=== PATIENT | male | born 1955 | race Caucasian/White ===

== ENCOUNTER 2022-11-12 08:38 | Outpatient (OUT) | payer MEDICARE, SELFPAY ==
[2022-11-12 09:18] LABS: Erythrocyte Sedimentation Rate 31 mm/hr (<=20)
[2022-11-12 11:58] LABS: Alanine Aminotransferase 21 U/L (16-63); Albumin Level 3.5 g/dL (3.4-5.0); Aspartate Amino Transferase 25 U/L (15-37); Bilirubin Total 0.6 mg/dL (0.2-1.0); Total Protein 7.7 g/dL (6.4-8.2)
[2022-11-12 12:23] LABS: Alkaline Phosphatase 81 U/L (46-116)
== END 2022-11-12 08:39 | disposition home or self-care (01) ==
LOC: LAB 08:43
PROVIDERS: PCP Family Medicine
DX: M05.79 Rheumatoid arthritis with rheumatoid factor of multiple sites without organ or systems involvement (principal); Z79.899 Other long term (current) drug therapy
CPT/HCPCS: 36415; 80076; 82042; 82247; 84075; 84155; 84450; 84460; 85652

== ENCOUNTER 2023-02-12 08:01 | Outpatient (OUT) | payer MEDICARE, SELFPAY ==
[2023-02-12 08:41] LABS: Basophils Absolute Auto 0.1 10^3/uL (0.0-0.1); Basophils Percent Auto 0.6 % (0.2-2.0); Eosinophils Absolute Auto 0.1 10^3/uL (0.0-0.7); Eosinophils Percent Auto 1.1 % (0.9-7.0); Hematocrit 43.1 % (42.0-54.0); Hemoglobin 14.3 g/dL (14.0-18.0); Immature Granulocytes Abs Auto 0.06 10^3/uL (0.00-0.03); Immature Granulocytes Pct Auto 0.7 % (0.0-0.5); Lymphocytes Absolute Auto 1.8 10^3/uL (1.2-3.8); Lymphocytes Percent Auto 22.5 % (20.5-60.0); Mean Corpuscular HGB Conc 33.2 g/dL (29.9-35.2); Mean Corpuscular Hemoglobin 33.1 pg (25.9-34.0); Mean Corpuscular Volume 99.8 fL (80.0-94.0); Mean Platelet Volume 9.6 fL (9.5-13.5); Monocytes Absolute Auto 0.6 10^3/uL (0.3-0.8); Neutrophils Absolute Auto 5.5 10^3/uL (1.4-6.5); Neutrophils Percent Auto 68.1 % (43.0-75.0); Platelet Count 266 10^3/uL (150-450); Red Blood Count 4.32 10^6/uL (4.70-6.10); Red Cell Distribution Width 15.8 % (11.0-15.0)
[2023-02-12 08:46] LABS: Erythrocyte Sedimentation Rate 61 mm/hr (<=20)
[2023-02-12 08:53] LABS: Alanine Aminotransferase 20 U/L (16-63); Albumin Globulin Ratio 0.9; Albumin Level 3.4 g/dL (3.4-5.0); Alkaline Phosphatase 81 U/L (46-116); Anion Gap 12.1; Aspartate Amino Transferase 24 U/L (15-37); BUN Creatinine Ratio 20.5; Bilirubin Total 0.4 mg/dL (0.2-1.0); Calcium 9.4 mg/dL (8.5-10.1); Carbon Dioxide 29.9 mmol/L (21.0-32.0); Chloride 101 mmol/L (98-107); Estimated GFR (African America >60 (>=60); Estimated GFR (Non-African Ame >60 (>=60); Glucose 97 mg/dL (74-106); Sodium 138 mmol/L (136-145); Total Protein 7.4 g/dL (6.4-8.2)
== END 2023-02-12 08:02 | disposition home or self-care (01) ==
LOC: LAB 08:03
PROVIDERS: PCP Family Medicine
DX: M05.79 Rheumatoid arthritis with rheumatoid factor of multiple sites without organ or systems involvement (principal); Z79.899 Other long term (current) drug therapy
CPT/HCPCS: 36415; 80053; 85025; 85652

== ENCOUNTER 2023-06-19 15:39 | Outpatient (OUT) | payer MEDICARE, SELFPAY ==
[2023-06-19 16:05] LABS: Basophils Percent Auto 0.4 % (0.2-2.0); Eosinophils Absolute Auto 0.1 10^3/uL (0.0-0.7); Hematocrit 41.7 % (42.0-54.0); Immature Granulocytes Abs Auto 0.04 10^3/uL (0.00-0.03); Immature Granulocytes Pct Auto 0.5 % (0.0-0.5); Lymphocytes Absolute Auto 2.8 10^3/uL (1.2-3.8); Lymphocytes Percent Auto 34.1 % (20.5-60.0); Mean Corpuscular HGB Conc 33.6 g/dL (29.9-35.2); Mean Corpuscular Hemoglobin 33.1 pg (25.9-34.0); Mean Corpuscular Volume 98.6 fL (80.0-94.0); Mean Platelet Volume 9.4 fL (9.5-13.5); Monocytes Absolute Auto 0.4 10^3/uL (0.3-0.8); Monocytes Percent Auto 5.2 % (1.7-12.0); Neutrophils Absolute Auto 4.8 10^3/uL (1.4-6.5); Neutrophils Percent Auto 58.8 % (43.0-75.0); Platelet Count 265 10^3/uL (150-450); Red Blood Count 4.23 10^6/uL (4.70-6.10); Red Cell Distribution Width 15.1 % (11.0-15.0); White Blood Count 8.1 10^3/uL (4.0-11.0)
[2023-06-19 17:30] LABS: Erythrocyte Sedimentation Rate 100 mm/hr (<=20)
[2023-06-19 19:13] LABS: Alanine Aminotransferase 18 U/L (16-63); Albumin Globulin Ratio 0.8; Albumin Level 3.5 g/dL (3.4-5.0); Alkaline Phosphatase 91 U/L (46-116); Anion Gap 12.9; Aspartate Amino Transferase 25 U/L (15-37); BUN Creatinine Ratio 18.3; Bilirubin Total 0.4 mg/dL (0.2-1.0); Calcium 9.1 mg/dL (8.5-10.1); Carbon Dioxide 27.3 mmol/L (21.0-32.0); Chloride 103 mmol/L (98-107); Estimated GFR (African America >60 (>=60); Estimated GFR (Non-African Ame >60 (>=60); Globulin 4.4 g/dL; Glucose 78 mg/dL (74-106); Potassium 4.2 mmol/L (3.5-5.1); Sodium 139 mmol/L (136-145); Total Protein 7.9 g/dL (6.4-8.2)
== END 2023-06-19 15:40 | disposition home or self-care (01) ==
LOC: LAB 15:41
PROVIDERS: PCP Family Medicine; Visit Provider Registered Nurse
DX: M05.79 Rheumatoid arthritis with rheumatoid factor of multiple sites without organ or systems involvement (principal); M15.0 Primary generalized (osteo)arthritis; Z79.899 Other long term (current) drug therapy
CPT/HCPCS: 36415; 80053; 85025; 85652

== ENCOUNTER 2023-09-16 09:13 | Outpatient (OUT) | payer MEDICARE, SELFPAY ==
--- OUTSIDE RECORDS SUMMARY | 2023-09-16 09:31 | XMS_ITS | CCD ---
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 Name Role Phone MISC, DR DOCTOR Admitting Unavailable MISC, DR DOCTOR Attending Unavailable SHITALY, DR RAYGOZA Primary Care Unavailable HOY, DR RAYGOZA Consulting Unavailable MISC, DOCTOR Consulting Unavailable MISC, DOCTOR Admitting Unavailable MISC, DOCTOR Attending Unavailable MARILYN, DR RAYGOZA Primary Care Unavailable MISC, DOCTOR Consulting Unavailable MISC, DOCTOR Admitting Unavailable MISC, DOCTOR Attending Unavailable MARILYN, DR RAYGOZA Primary Care Unavailable MISC, DOCTOR Consulting Unavailable MISC, DOCTOR Admitting Unavailable MISC, DOCTOR Attending Unavailable MARILYN, DR RAYGOZA Primary Care Unavailable MISC, DOCTOR Consulting Unavailable Problems Problem Classification Problem Date Documented Da te Episodic/Chronic Other aftercare (1 source) Other snf (current) drug therapy; 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 Jennifer Peralta Basophils/100 WBC (Bld) 0.4 % Normal 0.2-2.0 [facility] Comment on above: Performed By: #### C BC #### [facility] [address] [address] [address] Jennifer Peralta EO # 0.1 103/ul Normal 0.0-0.7 [facility] Comment on above: Performed By: #### C BC #### [facility] [address] [place] [address] Dr. Jennifer Peralta Eosinophils/100 WBC (Bld) 1.0 % Normal 0.9-7.0 [facility] Comment on above: Performed By: #### C BC #### [facility] [address] [place] [address] Dr. Jennifer Peralta Erythrocyte distribution width (RBC) [Ratio] 15.7 % Critically high 11.0-15.0 [facility] Comment on above: Performed By: #### C BC #### [facility] [address] [place] [address] Dr. Jennifer Peralta Hematocrit (Bld) [Volume fraction] 38.2 % Critically low 42.0-54.0 [facility] Comment on above: Performed By: #### C BC #### [facility] [address] [place] [address] Dr. Jennifer Peralta Hemoglobin (Bld) [Mass/Vol] 12.6 g/dL Critically low 14.0-18.0 [facility] Comment on above: Performed By: #### C BC #### [facility] [address] [place] [address] Dr. Jennifer Peralta IG # 0.03 10e3/ul Normal 0.00-0.03 [facility] Comment on above: Performed By: #### C BC #### [facility] [address] [place] [address] Dr. Jennifer Peralta IG % 0.4 % Normal 0.0-0.5 [facility] Comment on above: Performed By: #### C BC #### [facility] [address] [place] [address] Dr. Jennifer Peralta LYMPH # 2.4 103/ul Normal 1.2-3.8 [facility] Comment on above: Performed By: #### C BC #### [facility] [address] [place] [address] Dr. Jennifer Peralta Lymphocytes/100 WBC (Bld) 33.3 % Normal 20.5-60.0 [facility] Comment on above: Performed By: #### C BC #### [facility] [address] [place] [address] Dr. Jennifer Peralta MANUAL DIFF REQ NO Normal [facility] Comment on above: Performed By: #### C BC #### [facility] [address] [place] [address] Dr. Jennifer Peralta MCH (RBC) [Entitic mass] 32.1 pg Normal 25.9-34.0 [facility] Comment on above: Performed By: #### C BC #### [facility] [address] [place] [address] Dr. Jennifer Peralta MCHC (RBC) [Mass/Vol] 33.0 g/dL Normal 29.9-35.2 [facility] Comment on above: Performed By: #### C BC #### [facility] [address] [place] [address] Dr. Jennifer Peralta MCV (RBC) [Entitic vol] 97.2 fL Critically high 80.0-94.0 [facility] Comment on above: Performed By: #### C BC #### [facility] [address] [place] [address] Dr. Jennifer Peralta MONO # 0.6 103/ul Normal 0.3-0.8 [facility] Comment on above: Performed By: #### C BC #### [facility] [address] [place] [address] Dr. Jennifer Peralta Monocytes/100 WBC (Bld) 7.7 % Normal 1.7-12.0 [facility] Comment on above: Performed By: #### C BC #### [facility] [address] [place] [address] Dr. Jennifer Peralta NEUT # 4.1 103/ul Normal 1.4-6.5 [facility] Comment on above: Performed By: #### C BC #### [facility] [address] [place] [address] Dr. Jennifer Peralta Neutrophils/100 WBC (Bld) 57.2 % Normal 43.0-75.0 [facility] Comment on above: Performed By: #### C BC #### [facility] [address] [address] [address] Jennifer Peralta Platelet mean volume (Bld) [Entitic vol] 9.1 fL Critically low 9.5-13.5 [facility] Comment on above: Performed By: #### C BC #### [facility] [address] [address] [address] Jennifer Peralta PLT 246 103/ul Normal 150-450 [facility] Comment on above: Performed By: #### C BC #### [facility] [address] [address] [address] Jennifer Peralta RBC 3.93 106/ul Critically low 4.70-6.10 [facility] Comment on above: Performed By: #### C BC #### [facility] [address] [place] [address] Dr. Jennifer Peralta WBC 7.2 103/ul Normal 4.0-11.0 [facility] Comment on above: Performed By: #### C BC #### [facility] [address] [address] [address] Jennifer Peralta PROF 14(COMP METB)on 022 Albumin [Mass/Vol] 3.5 g/dL Normal 3.4-5.0 [facility] Comment on above: Performed By: #### S EDR #### [facility] [address] [place] [address] Dr. Jennifer Peralta Albumin/Globulin [Mass ratio] 0.9 {ratio} Normal [facility] Comment on above: Performed By: #### S EDR #### [facility] [address] [place] [address] Dr. Jennifer Peralta ALP [Catalytic activity/Vol] 80 U/L Normal 46-116 [facility] Comment on above: Performed By: #### S EDR #### [facility] [address] [place] [address] Dr. Jennifer Peralta ALT [Catalytic activity/Vol] 15 U/L Critically low 16-63 [facility] Comment on above: Performed By: #### S EDR #### [facility] [address] [place] [address] Dr. Jennifer Peralta Anion gap [Moles/Vol] 9.2 mmol/L Normal [facility] Comment on above: Performed By: #### S EDR #### [facility] [address] [address] [address] Jennifer Peralta AST [Catalytic activity/Vol] 25 U/L Normal 15-37 [facility] Comment on above: Performed By: #### S EDR #### [facility] [address] [address] [address] Jennifer Peralta Bilirubin [Mass/Vol] 0.4 mg/dL Normal 0.2-1.0 [facility] Comment on above: Performed By: #### S EDR #### [facility] [address] [place] [address] Dr. Jennifer Peralta Calcium [Mass/Vol] 9.0 mg/dL Normal 8.5-10.1 [facility] Comment on above: Performed By: #### S EDR #### [facility] [address] [place] [address] Dr. Jennifer Peralta Chloride [Moles/Vol] 101 mmol/L Normal 98-107 [facility] Comment on above: Performed By: #### S EDR #### [facility] [address] [place] [address] Dr. Jennifer Peralta CO2 [Moles/Vol] 28.0 mmol/L Normal 21.0-32.0 [facility] Comment on above: Performed By: #### S EDR #### [facility] [address] [place] [address] Dr. Jennifer Peralta Creatinine [Mass/Vol] 0.87 mg/dL Normal 0.70-1.30 [facility] Comment on above: Performed By: #### S EDR #### [facility] [address] [place] [address] Dr. Jennifer Peralta EGFR-AF JAPANESE >60 Normal >=60 [facility] Comment on above: Performed By: #### S EDR #### [facility] [address] [place] [address] Dr. Jennifer Peralta EGFR-NON AF JAPANESE >60 Normal >=60 [facility] Comment on above: Performed By: #### S EDR #### [facility] [address] [place] [address] Dr. Jennifer Peralta Globulin (S) [Mass/Vol] 3.9 g/dL Normal [facility] Comment on above: Performed By: #### S EDR #### [facility] [address] [address] [address] Jennifer Peralta Glucose [Mass/Vol] 84 mg/dL Normal 74-106 [facility] Comment on above: Performed By: #### S EDR #### [facility] [address] [place] [address] Dr. Jennifer Peralta Potassium [Moles/Vol] 4.2 mmol/L Normal 3.5-5.1 [facility] Comment on above: Performed By: #### S EDR #### [facility] [address] [place] [address] Dr. Jennifer Peralta Protein [Mass/Vol] 7.4 g/dL Normal 6.4-8.2 [facility] Comment on above: Performed By: #### S EDR #### [facility] [address] [place] [address] Dr. Jennifer Peralta Sodium [Moles/Vol] 134 mmol/L Critically low 136-145 [facility] Comment on above: Performed By: #### S EDR #### [facility] [address] [place] [address] Dr. Jennifer Peralta Urea nitrogen [Mass/Vol] 18.0 mg/dL Normal 7.0-18.0 [facility] Comment on above: Performed By: #### S EDR #### [facility] [address] [place] [address] Dr. Jennifer Peralta Urea nitrogen/Creatinine [Mass ratio] 20.7 mg/mg Normal [facility] Comment on above: Performed By: #### S EDR #### [facility] [address] [place] [address] Dr. Jennifer Peralta SED RATE [facility] 2021 SED RATE 49 mm/hr Critically high <=20 [facility] Comment on above: Performed By: #### S EDR #### [facility] [address] [place] [address] Dr. Jennifer Peralta CBC AUTO DIFFon 10-02-2021 BASO # 0.0 103/ul Normal 0.0-0.1 [facility] Comment on above: Performed By: #### C BC #### [facility] [address] [place] [address] Dr. Jennifer Peralta Basophils/100 WBC (Bld) 0.4 % Normal 0.2-2.0 [facility] Comment on above: Performed By: #### C BC #### [facility] [address] [place] [address] Dr. Jennifer Peralta EO # 0.1 103/ul Normal 0.0-0.7 [facility] Comment on above: Performed By: #### C BC #### [facility] [address] [place] [address] Dr. Jennifer Peralta Eosinophils/100 WBC (Bld) 1.0 % Normal 0.9-7.0 [facility] Comment on above: Performed By: #### C BC #### [facility] [address] [place] [address] Dr. Jennifer Peralta Erythrocyte distribution width (RBC) [Ratio] 16.5 % Critically high 11.0-15.0 [facility] Comment on above: Performed By: #### C BC #### [facility] [address] [place] [address] Dr. Jennifer Peralta Hematocrit (Bld) [Volume fraction] 38.7 % Critically low 42.0-54.0 [facility] Comment on above: Performed By: #### C BC #### [facility] [address] [place] [address] Dr. Jennifer Peralta Hemoglobin (Bld) [Mass/Vol] 12.8 g/dL Critically low 14.0-18.0 [facility] Comment on above: Performed By: #### C BC #### [facility] [address] [place] [address] Dr. Jennifer Peralta IG # 0.02 10e3/ul Normal 0.00-0.03 [facility] Comment on above: Performed By: #### C BC #### [facility] [address] [place] [address] Dr. Jennifer Peralta IG % 0.3 % Normal 0.0-0.5 [facility] Comment on above: Performed By: #### C BC #### [facility] [address] [place] [address] Dr. Jennifer Peralta LYMPH # 2.8 103/ul Normal 1.2-3.8 [facility] Comment on above: Performed By: #### C BC #### [facility] [address] [place] [address] Dr. Jennifer Peralta Lymphocytes/100 WBC (Bld) 39.8 % Normal 20.5-60.0 [facility] Comment on above: Performed By: #### C BC #### [facility] [address] [place] [address] Dr. Jennifer Peralta MANUAL DIFF REQ NO Normal [facility] Comment on above: Performed By: #### C BC #### [facility] [address] [place] [address] Dr. Jennifer Peralta MCH (RBC) [Entitic mass] 32.3 pg Normal 25.9-34.0 [facility] Comment on above: Performed By: #### C BC #### [facility] [address] [place] [address] Dr. Jennifer Peralta MCHC (RBC) [Mass/Vol] 33.1 g/dL Normal 29.9-35.2 [facility] Comment on above: Performed By: #### C BC #### [facility] [address] [place] [address] Dr. Jennifer Peralta MCV (RBC) [Entitic vol] 97.7 fL Critically high 80.0-94.0 [facility] Comment on above: Performed By: #### C BC #### [facility] [address] [place] [address] Dr. Jennifer Peralta MONO # 0.7 103/ul Normal 0.3-0.8 [facility] Comment on above: Performed By: #### C BC #### [facility] [address] [place] [address] Dr. Jennifer Peralta Monocytes/100 WBC (Bld) 9.2 % Normal 1.7-12.0 [facility] Comment on above: Performed By: #### C BC #### [facility] [address] [place] [address] Dr. Jennifer Peralta NEUT # 3.5 103/ul Normal 1.4-6.5 [facility] Comment on above: Performed By: #### C BC #### [facility] [address] [place] [address] Dr. Jennifer Peralta Neutrophils/100 WBC (Bld) 49.3 % Normal 43.0-75.0 [facility] Comment on above: Performed By: #### C BC #### [facility] [address] [place] [address] Dr. Jennifer Peralta Platelet mean volume (Bld) [Entitic vol] 9.3 fL Critically low 9.5-13.5 [facility] Comment on above: Performed By: #### C BC #### [facility] [address] [place] [address] Dr. Jennifer Peralta PLT 230 103/ul Normal 150-450 [facility] Comment on above: Performed By: #### C BC #### [facility] [address] [place] [address] Dr. Jennifer Peralta RBC 3.96 106/ul Critically low 4.70-6.10 [facility] Comment on above: Performed By: #### C BC #### [facility] [address] [place] [address] Dr. Jennifer Peralta WBC 7.1 103/ul Normal 4.0-11.0 [facility] Comment on above: Performed By: #### C BC #### [facility] [address] [place] [address] Dr. Jennifer Peralta PROF 14(COMP METB)on 022 Albumin [Mass/Vol] 3.5 g/dL Normal 3.4-5.0 [facility] Comment on above: Performed By: #### C MP #### [facility] [address] [place] [address] Dr. Jennifer Peralta Albumin/Globulin [Mass ratio] 0.9 {ratio} Normal [facility] Comment on above: Performed By: #### C MP #### [facility] [address] [address] [address] Jennifer Peralta ALP [Catalytic activity/Vol] 78 U/L Normal 46-116 [facility] Comment on above: Performed By: #### C MP #### [facility] [address] [address] [address] Jennifer Peralta ALT [Catalytic activity/Vol] 23 U/L Normal 16-63 [facility] Comment on above: Performed By: #### C MP #### [facility] [address] [place] [address] Dr. Jennifer Peralta Anion gap [Moles/Vol] 9.8 mmol/L Normal [facility] Comment on above: Performed By: #### C MP #### [facility] [address] [place] [address] Dr. Jennifer Peralta AST [Catalytic activity/Vol] 27 U/L Normal 15-37 [facility] Comment on above: Performed By: #### C MP #### [facility] [address] [place] [address] Dr. Jennifer Peralta Bilirubin [Mass/Vol] 0.4 mg/dL Normal 0.2-1.0 [facility] Comment on above: Performed By: #### C MP #### [facility] [address] [place] [address] Dr. Jennifer Peralta Calcium [Mass/Vol] 9.0 mg/dL Normal 8.5-10.1 [facility] Comment on above: Performed By: #### C MP #### [facility] [address] [place] [address] Dr. Jennifer Peralta Chloride [Moles/Vol] 105 mmol/L Normal 98-107 [facility] Comment on above: Performed By: #### C MP #### [facility] [address] [address] [address] Jennifer Peralta CO2 [Moles/Vol] 29.7 mmol/L Normal 21.0-32.0 [facility] Comment on above: Performed By: #### C MP #### [facility] [address] [address] [address] Jennifer Peralta Creatinine [Mass/Vol] 0.98 mg/dL Normal 0.70-1.30 [facility] Comment on above: Performed By: #### C MP #### [facility] [address] [address] [address] Jennifer Peralta EGFR-AF JAPANESE >60 Normal >=60 [facility] Comment on above: Performed By: #### C MP #### [facility] [address] [place] [address] Dr. Jennifer Peralta EGFR-NON AF JAPANESE >60 Normal >=60 [facility] Comment on above: Performed By: #### C MP #### [facility] [address] [place] [address] Dr. Jennifer Peralta Globulin (S) [Mass/Vol] 3.8 g/dL Normal [facility] Comment on above: Performed By: #### C MP #### [facility] [address] [place] [address] Dr. Jennifer Peralta Glucose [Mass/Vol] 83 mg/dL Normal 74-106 [facility] Comment on above: Performed By: #### C MP #### [facility] [address] [address] [address] Jennifer Peralta Potassium [Moles/Vol] 4.5 mmol/L Normal 3.5-5.1 [facility] Comment on above: Performed By: #### C MP #### [facility] [address] [place] [address] Dr. Jennifer Peralta Protein [Mass/Vol] 7.3 g/dL Normal 6.4-8.2 [facility] Comment on above: Performed By: #### C MP #### [facility] [address] [place] [address] Dr. Jennifer Peralta Sodium [Moles/Vol] 140 mmol/L Normal 136-145 [facility] Comment on above: Performed By: #### C MP #### [facility] [address] [place] [address] Dr. Jennifer Peralta Urea nitrogen [Mass/Vol] 23.0 mg/dL Critically high 7.0-18.0 [facility] Comment on above: Performed By: #### C MP #### [facility] [address] [place] [address] Dr. Jennifer Peralta Urea nitrogen/Creatinine [Mass ratio] 23.5 mg/mg Normal [facility] Comment on above: Performed By: #### C MP #### [facility] [address] [place] [address] Dr. Jennifer Peralta SED RATE [facility] 2021 SED RATE 22 mm/hr Critically high <=20 [facility] Comment on above: Performed By: #### S EDR #### [facility] [address] [place] [address] Dr. Jennifer Peralta CBC AUTO DIFFon 07-04-2021 BASO # 0.0 103/ul Normal 0.0-0.1 [facility] Comment on above: Performed By: #### S EDR #### [facility] [address] [place] [address] Dr. Jennifer Peralta Basophils/100 WBC (Bld) 0.3 % Normal 0.2-2.0 [facility] Comment on above: Performed By: #### S EDR #### [facility] [address] [place] [address] Dr. Jennifer Peralta EO # 0.1 103/ul Normal 0.0-0.7 [facility] Comment on above: Performed By: #### S EDR #### [facility] [address] [place] [address] Dr. Jennifer Peralta Eosinophils/100 WBC (Bld) 1.1 % Normal 0.9-7.0 [facility] Comment on above: Performed By: #### S EDR #### [facility] [address] [place] [address] Dr. Jennifer Peralta Erythrocyte distribution width (RBC) [Ratio] 17.3 % Critically high 11.0-15.0 [facility] Comment on above: Performed By: #### S EDR #### [facility] [address] [place] [address] Dr. Jennifer Peralta Hematocrit (Bld) [Volume fraction] 39.6 % Critically low 42.0-54.0 [facility] Comment on above: Performed By: #### S EDR #### [facility] [address] [place] [address] Dr. Jennifer Peralta Hemoglobin (Bld) [Mass/Vol] 13.0 g/dL Critically low 14.0-18.0 [facility] Comment on above: Performed By: #### S EDR #### [facility] [address] [place] [address] Dr. Jennifer Peralta IG # 0.02 10e3/ul Normal 0.00-0.03 [facility] Comment on above: Performed By: #### S EDR #### [facility] [address] [place] [address] Dr. Jennifer Peralta IG % 0.3 % Normal 0.0-0.5 [facility] Comment on above: Performed By: #### S EDR #### [facility] [address] [place] [address] Dr. Jennifer Peralta LYMPH # 2.4 103/ul Normal 1.2-3.8 [facility] Comment on above: Performed By: #### S EDR #### [facility] [address] [place] [address] Dr. Jennifer Peralta Lymphocytes/100 WBC (Bld) 38.1 % Normal 20.5-60.0 [facility] Comment on above: Performed By: #### S EDR #### [facility] [address] [place] [address] Dr. Jennifer Peralta MANUAL DIFF REQ NO Normal [facility] Comment on above: Performed By: #### S EDR #### [facility] [address] [place] [address] Dr. Jennifer Peralta MCH (RBC) [Entitic mass] 31.5 pg Normal 25.9-34.0 [facility] Comment on above: Performed By: #### S EDR #### [facility] [address] [address] [address] Jennifer Peralta MCHC (RBC) [Mass/Vol] 32.8 g/dL Normal 29.9-35.2 [facility] Comment on above: Performed By: #### S EDR #### [facility] [address] [address] [address] Jennifer Peralta MCV (RBC) [Entitic vol] 95.9 fL Critically high 80.0-94.0 [facility] Comment on above: Performed By: #### S EDR #### [facility] [address] [address] [address] Jennifer Peralta MONO # 0.6 103/ul Normal 0.3-0.8 [facility] Comment on above: Performed By: #### S EDR #### [facility] [address] [place] [address] Dr. Jennifer Peralta Monocytes/100 WBC (Bld) 9.1 % Normal 1.7-12.0 [facility] Comment on above: Performed By: #### S EDR #### [facility] [address] [place] [address] Dr. Jennifer Peralta NEUT # 3.2 103/ul Normal 1.4-6.5 [facility] Comment on above: Performed By: #### S EDR #### [facility] [address] [place] [address] Dr. Jennifer Peralta Neutrophils/100 WBC (Bld) 51.1 % Normal 43.0-75.0 [facility] Comment on above: Performed By: #### S EDR #### [facility] [address] [place] [address] Dr. Jennifer Peralta Platelet mean volume (Bld) [Entitic vol] 9.0 fL Critically low 9.5-13.5 [facility] Comment on above: Performed By: #### S EDR #### [facility] [address] [address] [address] Jennifer Peralta PLT 218 103/ul Normal 150-450 [facility] Comment on above: Performed By: #### S EDR #### [facility] [address] [address] [address] Jennifer Peralta RBC 4.13 106/ul Critically low 4.70-6.10 [facility] Comment on above: Performed By: #### S EDR #### [facility] [address] [address] [address] Jennifer Peralta WBC 6.3 103/ul Normal 4.0-11.0 [facility] Comment on above: Performed By: #### S EDR #### [facility] [address] [place] [address] Dr. Jennifer Peralta PROF 14(COMP METB)on 022 Albumin [Mass/Vol] 3.6 g/dL Normal 3.5-5.0 [facility] Comment on above: Performed By: #### C MP #### [facility] [address] [place] [address] Dr. Jennifer Peralta Albumin/Globulin [Mass ratio] 0.9 {ratio} Normal [facility] Comment on above: Performed By: #### C MP #### [facility] [address] [place] [address] Dr. Jennifer Peralta ALP [Catalytic activity/Vol] 80 U/L Normal 38-126 [facility] Comment on above: Performed By: #### C MP #### [facility] [address] [place] [address] Dr. Jennifer Peralta ALT [Catalytic activity/Vol] 18 U/L Critically low 21-72 [facility] Comment on above: Performed By: #### C MP #### [facility] [address] [place] [address] Dr. Jennifer Peralta Anion gap [Moles/Vol] 10.5 mmol/L Normal [facility] Comment on above: Performed By: #### C MP #### [facility] [address] [place] [address] Dr. Jennifer Peralta AST [Catalytic activity/Vol] 24 U/L Normal 17-59 [facility] Comment on above: Performed By: #### C MP #### [facility] [address] [address] [address] Jennifer Peralta Bilirubin [Mass/Vol] 0.4 mg/dL Normal 0.2-1.3 [facility] Comment on above: Performed By: #### C MP #### [facility] [address] [address] [address] Jennifer Peralta Calcium [Mass/Vol] 8.7 mg/dL Normal 8.4-10.2 [facility] Comment on above: Performed By: #### C MP #### [facility] [address] [address] [address] Jennifer Peralta Chloride [Moles/Vol] 100 mmol/L Normal 98-107 [facility] Comment on above: Performed By: #### C MP #### [facility] [address] [address] [address] Jennifer Peralta CO2 [Moles/Vol] 26.9 mmol/L Normal 22.0-30.0 [facility] Comment on above: Performed By: #### C MP #### [facility] [address] [address] [address] Jennifer Peralta Creatinine [Mass/Vol] 0.93 mg/dL Normal 0.66-1.25 [facility] Comment on above: Performed By: #### C MP #### [facility] [address] [address] [address] Jennifer Peralta EGFR-AF JAPANESE >60 Normal >=60 [facility] Comment on above: Performed By: #### C MP #### [facility] [address] [address] [address] Jennifer Peralta EGFR-NON AF JAPANESE >60 Normal >=60 [facility] Comment on above: Performed By: #### C MP #### [facility] [address] [address] [address] Jennifer Peralta Globulin (S) [Mass/Vol] 3.9 g/dL Normal [facility] Comment on above: Performed By: #### C MP #### [facility] [address] [address] [address] Jennifer Peralta Glucose [Mass/Vol] 102 mg/dL Normal 74-106 [facility] Comment on above: Performed By: #### C MP #### [facility] [address] [address] [address] Jennifer Peralta Potassium [Moles/Vol] 4.4 mmol/L Normal 3.4-5.0 [facility] Comment on above: Performed By: #### C MP #### [facility] [address] [address] [address] Jennifer Peralta Protein [Mass/Vol] 7.5 g/dL Normal 6.1-8.2 [facility] Comment on above: Performed By: #### C MP #### [facility] [address] [address] [address] Jennifer Peralta Sodium [Moles/Vol] 133 mmol/L Critically low 137-145 [facility] Comment on above: Performed By: #### C MP #### [facility] [address] [address] [address] Jennifer Peralta Urea nitrogen [Mass/Vol] 20.0 mg/dL Normal 9.0-20.0 [facility] Comment on above: Performed By: #### C MP #### [facility] [address] [address] [address] Jennifer Peralta Urea nitrogen/Creatinine [Mass ratio] 21.5 mg/mg Normal [facility] Comment on above: Performed By: #### C MP #### [facility] [address] [address] [address] Jennifer Peralta SED RATE WESTERGRENon 2021 SED RATE 35 mm/hr Critically high <=20 [facility] Comment on above: Performed By: #### S EDR #### [facility] [address] [address] [address] Jennifer Peralta CBC AUTO DIFFon 04-04-2021 BASO # 0.0 103/ul Normal 0.0-0.1 [facility] Comment on above: Performed By: #### C BC #### [facility] [address] [place] [address] Dr. Jennifer Peralta Basophils/100 WBC (Bld) 0.4 % Normal 0.2-2.0 [facility] Comment on above: Performed By: #### C BC #### [facility] [address] [place] [address] Dr. Jennifer Peralta EO # 0.1 103/ul Normal 0.0-0.7 [facility] Comment on above: Performed By: #### C BC #### [facility] [address] [place] [address] Dr. Jennifer Peralta Eosinophils/100 WBC (Bld) 1.6 % Normal 0.9-7.0 [facility] Comment on above: Performed By: #### C BC #### [facility] [address] [place] [address] Dr. Jennifer Peralta Erythrocyte distribution width (RBC) [Ratio] 15.9 % Critically high 11.0-15.0 [facility] Comment on above: Performed By: #### C BC #### [facility] [address] [place] [address] Dr. Jennifer Peralta Hematocrit (Bld) [Volume fraction] 39.2 % Critically low 42.0-54.0 [facility] Comment on above: Performed By: #### C BC #### [facility] [address] [place] [address] Dr. Jennifer Peralta Hemoglobin (Bld) [Mass/Vol] 12.8 g/dL Critically low 14.0-18.0 [facility] Comment on above: Performed By: #### C BC #### [facility] [address] [place] [address] Dr. Jennifer Peralta IG # 0.02 10e3/ul Normal 0.00-0.03 [facility] Comment on above: Performed By: #### C BC #### [facility] [address] [place] [address] Dr. Jennifer Peralta IG % 0.4 % Normal 0.0-0.5 [facility] Comment on above: Performed By: #### C BC #### [facility] [address] [place] [address] Dr. Jennifer Peralta LYMPH # 2.5 103/ul Normal 1.2-3.8 [facility] Comment on above: Performed By: #### C BC #### [facility] [address] [place] [address] Dr. Jennifer Peralta Lymphocytes/100 WBC (Bld) 45.8 % Normal 20.5-60.0 [facility] Comment on above: Performed By: #### C BC #### [facility] [address] [place] [address] Dr. Jennifer Peralta MANUAL DIFF REQ NO Normal [facility] Comment on above: Performed By: #### C BC #### [facility] [address] [place] [address] Dr. Jennifer Peralta MCH (RBC) [Entitic mass] 30.8 pg Normal 25.9-34.0 [facility] Comment on above: Performed By: #### C BC #### [facility] [address] [place] [address] Dr. Jennifer Peralta MCHC (RBC) [Mass/Vol] 32.7 g/dL Normal 29.9-35.2 [facility] Comment on above: Performed By: #### C BC #### [facility] [address] [place] [address] Dr. Jennifer Peralta MCV (RBC) [Entitic vol] 94.5 fL Critically high 80.0-94.0 [facility] Comment on above: Performed By: #### C BC #### [facility] [address] [place] [address] Dr. Jennifer Peralta MONO # 0.6 103/ul Normal 0.3-0.8 [facility] Comment on above: Performed By: #### C BC #### [facility] [address] [place] [address] Dr. Jennifer Peralta Monocytes/100 WBC (Bld) 10.7 % Normal 1.7-12.0 [facility] Comment on above: Performed By: #### C BC #### [facility] [address] [address] [address] Jennifer Peralta NEUT # 2.3 103/ul Normal 1.4-6.5 [facility] Comment on above: Performed By: #### C BC #### [facility] [address] [address] [address] Jennifer Peralta Neutrophils/100 WBC (Bld) 41.1 % Critically low 43.0-75.0 [facility] Comment on above: Performed By: #### C BC #### [facility] [address] [address] [address] Jennifer Peralta Platelet mean volume (Bld) [Entitic vol] 9.9 fL Normal 9.5-13.5 [facility] Comment on above: Performed By: #### C BC #### [facility] [address] [address] [address] Jennifer Peralta PLT 214 103/ul Normal 150-450 [facility] Comment on above: Performed By: #### C BC #### [facility] [address] [address] [address] Jennifer Peralta RBC 4.15 106/ul Critically low 4.70-6.10 [facility] Comment on above: Performed By: #### C BC #### [facility] [address] [address] [address] Jennifer Peralta WBC 5.5 103/ul Normal 4.0-11.0 [facility] Comment on above: Performed By: #### C BC #### [facility] [address] [address] [address] Jennifer Peralta PROF 14(COMP METB)on 021 Albumin [Mass/Vol] 3.3 g/dL Critically low 3.5-5.0 [facility] Comment on above: Performed By: #### C MP #### [facility] [address] [address] [address] Jennifer Peralta Albumin/Globulin [Mass ratio] 0.8 {ratio} Normal [facility] Comment on above: Performed By: #### C MP #### [facility] [address] [address] [address] Jennifer Peralta ALP [Catalytic activity/Vol] 73 U/L Normal 38-126 [facility] Comment on above: Performed By: #### C MP #### [facility] [address] [place] [address] Dr. Jennifer Peralta ALT [Catalytic activity/Vol] 15 U/L Critically low 21-72 [facility] Comment on above: Performed By: #### C MP #### [facility] [address] [place] [address] Dr. Jennifer Peralta Anion gap [Moles/Vol] 9.2 mmol/L Normal [facility] Comment on above: Performed By: #### C MP #### [facility] [address] [place] [address] Dr. Jennifer Peralta AST [Catalytic activity/Vol] 23 U/L Normal 17-59 [facility] Comment on above: Performed By: #### C MP #### [facility] [address] [place] [address] Dr. Jennifer Peralta Bilirubin [Mass/Vol] 0.4 mg/dL Normal 0.2-1.3 [facility] Comment on above: Performed By: #### C MP #### [facility] [address] [place] [address] Dr. Jennifer Peralta Calcium [Mass/Vol] 8.8 mg/dL Normal 8.4-10.2 [facility] Comment on above: Performed By: #### C MP #### [facility] [address] [place] [address] Dr. Jennifer Peralta Chloride [Moles/Vol] 100 mmol/L Normal 98-107 [facility] Comment on above: Performed By: #### C MP #### [facility] [address] [place] [address] Dr. Jennifer Peralta CO2 [Moles/Vol] 30.1 mmol/L Critically high 22.0-30.0 [facility] Comment on above: Performed By: #### C MP #### [facility] [address] [address] [address] Jennifer Peralta Creatinine [Mass/Vol] 0.93 mg/dL Normal 0.66-1.25 [facility] Comment on above: Performed By: #### C MP #### [facility] [address] [address] [address] Jennifer Peralta EGFR-AF JAPANESE >60 Normal >=60 [facility] Comment on above: Performed By: #### C MP #### [facility] [address] [address] [address] Jennifer Peralta EGFR-NON AF JAPANESE >60 Normal >=60 [facility] Comment on above: Performed By: #### C MP #### [facility] [address] [place] [address] Dr. Jennifer Peralta Globulin (S) [Mass/Vol] 3.9 g/dL Normal [facility] Comment on above: Performed By: #### C MP #### [facility] [address] [address] [address] Jennifer Peralta Glucose [Mass/Vol] 95 mg/dL Normal 74-106 [facility] Comment on above: Performed By: #### C MP #### [facility] [address] [place] [address] Dr. Jennifer Peralta Potassium [Moles/Vol] 4.3 mmol/L Normal 3.4-5.0 [facility] Comment on above: Performed By: #### C MP #### [facility] [address] [address] [address] Jennifer Peralta Protein [Mass/Vol] 7.2 g/dL Normal 6.1-8.2 [facility] Comment on above: Performed By: #### C MP #### [facility] [address] [place] [address] Dr. Jennifer Peralta Sodium [Moles/Vol] 135 mmol/L Critically low 137-145 [facility] Comment on above: Performed By: #### C MP #### [facility] [address] [place] [address] Dr. Jennifer Peralta Urea nitrogen [Mass/Vol] 17.0 mg/dL Normal 9.0-20.0 [facility] Comment on above: Performed By: #### C MP #### [facility] [address] [address] [address] Jennifer Peralta Urea nitrogen/Creatinine [Mass ratio] 18.3 mg/mg Normal [facility] Comment on above: Performed By: #### C MP #### [facility] [address] [place], [place] [address] Dr. Jennifer Peralta SED RATE [facility] 2020 SED RATE 76 mm/hr Critically high <=20 [facility] Comment on above: Performed By: #### S EDR #### [facility] [address] [place] [address] Dr. Jennifer Peralta Coding Summary.on 11-27-2018 Coding Summary. CODING DATE: 11/27/2018 FINAL [facility] STATUS: Home (Routine DC) PAYOR: Bobbi APC DESCRIPTION 8980 Level 5 Musculoskeletal Procedures ADMIT DX: REASON FOR VISIT DX: M17.11 Unilateral primary osteoarthritis, right knee FINAL DX: PRINCIPAL: M17.11 Unilateral primary osteoarthritis, right knee SECONDARY: M05.761 Rheumatoid arthritis with rheumatoid factor of right knee without organ or systems involvement M25.361 Other instability, right knee M85.80 Other specified disorders of bone density and structure, unspecified site E87.1 Hypo-osmolality and hyponatremia E87.8 Other disorders of electrolyte and fluid balance, not elsewhere classified F17.210 Nicotine dependence, cigarettes, uncomplicated PYMT PROC APC STAT DESCRIPTION DOCTOR NAME DATE 92862 7813 J1 Arthroplasty, knee, Zain Coughlin DO 11/25/2018 condyle and plateau; medial AND lateral compartments with or without patella resurfacing (total knee arthroplasty) RT Right side (used to identify procedures performed on the right side of the body) 35645 Injection, anesthetic Florencio Ignacio MD 11/25/2018 agent; femoral nerve, single RT Right side (used to identify procedures performed on the right side of the body) XP Separate practitioner, a service that is distinct because it was performed by a different practitioner [id number] Anesthesia for open or Florencio Ignacio MD 11/25/2018 surgical arthroscopic procedures on knee joint; total knee arthroplasty NOTE: The code number assigned matches the documented diagnosis and / or procedure in the patient's chart. However, the narrative phrase printed from the coding software may appear abbreviated, or result in slightly different terminology. Revised Coded By: Rosina Machado Revised Date Saved: 11/27/2018 11:46 am [facility] Operative Reporton 9 Operative Report Date of Surgery: 11/25/2018 SURGEON: Florencio Ignacio M.D. OPERATION: Right ultrasound guided single shot adductor canal block for postoperative pain control ANESTHESIA: 2 mg. of Versed PROCEDURE: The patient was interviewed and examined. Anesthetic options for postoperative pain control were discussed in great detail. After a lengthy discussion encompassing the risks, benefits and alternatives of the procedure, the patient elected to undergo the procedure. In the Block Room the patient was placed on routine monitors, the vital signs were reviewed, landmarks were reviewed, and the site was prepped in a sterile fashion. Visualization of the adductor canal was good. Then a 21 gauge 110 mm. Pajunk needle was advance with excellent ultrasound visualization. There were no paresthesias, and under direct ultrasound visualization 15 cc. of a 0.25% Naropin solution was insulin-dependent diabetes with frequent aspiration. There were no signs of intraneural or intravascular injection, and the patient tolerated the procedure very well. Within several minutes the patient began to show signs and symptoms of a successful blockade. The patient was then transported back to the Operating Room and spinal/monitored anesthesia for the planned procedure. Florencio Ignacio M.D. aek Dictated: 11/25/2018 #[id number] Typed: 11/25/2018 #[id number] cc: Florencio Ignacio M.D. [facility] Comment on above: Result Comment: Elec tronically Signed By: Florencio Ignacio MD\.br\Date and Time Signed: 11/27/18 15:00 EDT Progress Note-Physicianon Progress Note-Physician Patient: ANGUS LUCIO Age: 63 years Sex: Male : 1955 Associated Diagnoses: None Author: Florencio Ignacio MD Preoperative Information Anesthesia history: Patient History: No personal or Family history of problems with anesthesia. Re-eval prior to induction: Inital eval reviewed: No significant interval change. Review of Systems Constitutional: Negative. Cardiovascular: Cardiovascular risk stratafacation reviewed, 1 FOS without difficulty, No chest pain. Respiratory: No SOB. Hematology/Lymphatics: Negative. Gastrointestinal: Negative. Musculoskeletal: OTHER. Neurologic: Negative. Psychiatric: Negative. Health Status Allergies: Allergic Reactions (Selected) No Known Allergies Current medications: (Selected) Inpatient Medications Ordered Arixtra 2.5 mg/0.5 mL Injection: 2.5 mg = 0.5 mL, Injection, SubCutaneous, qAM for 10 day(s), Stop date 12/06/18 6:29:00 EDT, Routine, Start date 11/26/18 6:30:00 EDT, Start AM postop day 1 Cefazolin 2 gram IVPB: 2 gram = 50 mL, Soln-IV, IV Piggyback, PREOP, Routine, Start date 11/25/18 10:30:00 EDT, 50 mL/hr, Infuse over 1 hour(s) Cefazolin 2 gram IVPB: 2 gram = 50 mL, Soln-IV, IV Piggyback, q8hr for 2 dose(s), Stop date 11/26/18 0:59:00 EDT, Routine, Start date 11/25/18 9:00:00 EDT, 50 mL/hr, Infuse over 1 hour(s) CeleBREX 200 mg Cap: 200 mg = 1 cap(s), Cap, Oral, Once, Stop date 11/25/18 11:00:00 EDT, Routine, Start date 11/25/18 11:00:00 EDT Colace 100 mg Cap: 100 mg = 1 cap(s), Cap, Oral, BID, Routine, Start date 11/25/18 21:00:00 EDT Dulcolax 5 mg Tab-EC: 10 mg = 2 tab(s), Tab-EC, Oral, Daily PRN Constipation, Routine, Start date 11/27/18 9:00:00 EDT Lactated Ringers IV Petra 1000 mL 1,000 mL: 1,000 mL, IV, 150 mL/hr, Routine, Start date 11/25/18 10:30:00 EDT, 6.7 hour(s), Total volume (mL): 1,000 Lactated Ringers IV Petra 1000 mL 1,000 mL: 1,000 mL, IV, 80 mL/hr, Routine, Start date 11/25/18 9:00:00 EDT, 12.5 hour(s), Total volume (mL): 1,000 Lyrica 75 mg Cap: 75 mg = 1 cap(s), Cap, Oral, Once, Stop date 11/25/18 11:00:00 EDT, Routine, Start date 11/25/18 11:00:00 EDT Milk of Magnesia 8% Susp-Oral: 30 mL, Susp-Oral, Oral, BID PRN Constipation, Routine, Start date 11/25/18 9:00:00 EDT Pantoprazole [address] Tab: 40 mg = 1 tab(s), Tab-DR, Oral, Daily, Routine, Start date 11/26/18 9:00:00 EDT Percocet 325 mg-5 mg Tab: 1 tab(s), Tab, Oral, q4hr PRN Pain - Moderate for 5 day(s), Stop date 11/30/18 8:59:00 EDT, Routine, Start date 11/25/18 9:00:00 EDT Percocet 325 mg-5 mg Tab: 2 tab(s), Tab, Oral, q4hr PRN Pain - Moderate for 5 day(s), Stop date 11/30/18 8:59:00 EDT, Routine, Start date 11/25/18 9:00:00 EDT Tylenol 325 mg Tab: 650 mg = 2 tab(s), Tab, Oral, q4hr PRN Pain/Fever, Routine, Start date 11/25/18 9:00:00 EDT Vitamin C 500 mg Tab: 500 mg = 1 tab(s), Tab, Oral, BIDWM, Routine, Start date 11/25/18 17:00:00 EDT Zofran 4 mg/2 mL Injection: 4 mg = 2 mL, Injection, IV Push, q6hr PRN Nausea/Vomiting, Routine, Start date 11/25/18 9:00:00 EDT ferrous sulfate 325 mg Tab: 325 mg = 1 tab(s), Tab, Oral, BIDWM, Routine, Start date 11/25/18 17:00:00 EDT folic acid 1 mg Tab: 1 mg = 1 tab(s), Tab, Oral, Daily, Routine, Start date 11/26/18 9:00:00 EDT morphine 2 mg/mL Inj: 2 mg = 1 mL, Injection, IV, q4hr PRN Pain - Severe for 5 day(s), Stop date 11/30/18 8:59:00 EDT, Routine, Start date 11/25/18 9:00:00 EDT morphine 2 mg/mL Inj: 4 mg = 2 mL, Injection, IV Push, q4hr PRN Pain - Severe for 5 day(s), Stop date 11/30/18 8:59:00 EDT, Routine, Start date 11/25/18 9:00:00 EDT Prescriptions Prescribed Colace 100 mg Cap: 100 mg = 1 cap(s), Oral, BID, PRN for constipation, # 40 cap(s), Refills(s) 0, Pharmacy: [facility]/pharmacy #[id number] Ecotrin 325 mg Tab-EC: 325 mg = 1 tab(s), Oral, BIDPC, # 60 tab(s), Refills(s) 0, Pharmacy: [facility]/pharmacy #[id number] Percocet 325 mg-5 mg Tab: See Instructions, as needed for pain, 40 tab(s), Refill(s) 0, 1-2 orally every 4-6hrs as needed for pain Dx: M17.11, Z96.651 Duration: 7 days, [facility]/pharmacy #[id number] Documented Medications Documented CeleBREX 200 mg Cap: 200 mg = 1 cap(s), Oral, Daily, Refills(s) 0, Arthritis Xeljanz XR 11 mg oral tablet, extended release: 11 mg = 1 tab(s), Oral, Daily, Refills(s) 0, Arthritis aspirin 81 mg Oral EC Tab: 81 mg = 1 tab(s), Oral, Daily, Refills(s) 0, Prophylaxis folic acid 1 mg Tab: 1 mg = 1 tab(s), Oral, Daily, Refills(s) 0, Prophylaxis methotrexate 2.5 mg Tab: 25 mg = 10 tab(s), Oral, q7day, # 4 tab(s), Refills(s) 0, Arthritis omeprazole 20 mg Cap-DR: 20 mg = 1 cap(s), Oral, Daily, # 30 cap(s), Refills(s) 0, Control of stomach acid predniSONE 5 mg Tab: 5 mg = 1 tab(s), Oral, Daily, PRN Arthritis, states takes 1 daily for 2 or 3 days only when has a flare up of his arthritis, Refills(s) 0, Arthritis Problem list: All Problems Rheumatoid arthritis / SNOMED CT 398067737 / Confirmed Smoker / SNOMED CT 416608001 / Confirmed Added secondary to documentation in Social History. Decreased vision / SNOMED CT 3230775467 / Confirmed left eye Osteoarthritis of knee / SNOMED CT 545686168 / Confirmed right Histories Past Medical History: No active or resolved past medical history items have been selected or recorded. Procedure history: inguinal hernia repair, right. Comments: 11/03/2018 15:39 - Katlyn Savage RN age 17 inguinal hernia repair with mesh. Comments: 11/03/2018 15:40 - Katlyn Savage RN right in 2014 Social History Social & Psychosocial Habits Alcohol 11/03/2018 Risk Assessment: Denies Alcohol Use Substance Abuse 11/03/2018 Use: Current Type: Marijuana Frequency: 1-2 times per week Previous treatment: None IV drug use: No Has drug use interfered with your work or home life? No Ready to change: No Concerns about substance abuse in household: No Comment: smokes marijuana on weekends- instructed to stop 7 days before surgery - 11/03/2018 15:51 - Katlyn Savage RN Tobacco 11/03/2018 Type: Cigarettes Tobacco use per day: 20 Number of years: 40 Previous treatment: None Ready to change: No Concerns about tobacco use in household: No Comment: wants to try Nicotine patches- instructed to call Dr. Garcia to get some to try before surgery and if he doesn't have any problems to put one on at midnight the night before surgery and wear in the day of surgery. - 11/03/2018 15:50 - Katlyn Savage RN. Physical Examination Pain assessment: Self-reports no pain. Airway: Mallampati classification: II (soft palate, fauces, uvula visible). Distance: Adequate. Mouth: Adequate opening. Neck: Full range of motion. Respiratory: Respirations are non-labored. Cardiovascular: Regular rhythm. Neurologic: Alert, Oriented. Review / Management Results review: No qualifying data available. Plan [place] [employer] Anesthesiologists (ASA) physical status classification: Class II. Anesthetic Preoperative Plan Anesthesia: General. , Regional block for post op pain control., discussed the benefits of obstaining from tobacco products. Anesthetic plan, risks, benefits, and alternatives discussed with the patient and/or family. Patient verbalized understanding. Pt agrees with anesthetic plan and accepts all risks including but not limited to; Bleeding, infection, nerve injury, dental injury, eye injury, headache, low blood pressure, serious problems with the heart and lungs, allergic reactions, failed block and .. Normal [facility] Comment on above: Result Comment: Elec tronically Signed By: Mateus FLEMING, Florencio\.br\Date and Time Signed: 11/27/18 14:59 EDT Auto Diffon 11-26-2018 Basophils/100 WBC (Bld) 0.1 % Normal 0.0-2.0 [facility] Comment on above: Order Comment: Order Added by Amrik Expert. Performed By: #### 2 087488, 4519160, 7380580, 91129251, 7903753, 7797685 #### [facility] [address] [place] [address] Basophils/Leukocytes Auto (Bld) [Pure # fraction] 0.0 E9/L Normal 0.0-0.2 [facility] Comment on above: Order Comment: Order Added by Amrik Expert. Performed By: #### 2 104896, 5729852, 0993894, 51103707, 8522401, 9093126 #### [facility] [address] [place] [address] Eosinophils/100 WBC (Bld) 1.1 % Normal 0.0-8.0 [facility] Comment on above: Order Comment: Order Added by Amrik Expert. Performed By: #### 2 985406, 5645829, 4420397, 60600375, 6341648, 6217883 #### [facility] [address] [place] [address] Eosinophils/Leukocytes Auto (Bld) [Pure # fraction] 0.1 E9/L Normal 0.0-0.5 [facility] Comment on above: Order Comment: Order Added by Discern Expert. Performed By: #### 2 095465, 1889492, 2447607, 15181803, 9523095, 9344984 #### [facility] [address] [place] [address] Lymphocytes/100 WBC (Bld) 25.4 % Normal 14.0-50.0 [facility] Comment on above: Order Comment: Order Added by Discern Expert. Performed By: #### 2 075729, 3309792, 3083786, 24612537, 8947424, 9346322 #### [facility] [address] [place] [address] Lymphocytes/Leukocytes Auto (Bld) [Pure # fraction] 2.1 E9/L Normal 1.0-4.0 [facility] Comment on above: Order Comment: Order Added by Discern Expert. Performed By: #### 2 894159, 2812637, 5234171, 77746131, 6872549, 6654804 #### [facility] [address] [place] [address] Monocytes/100 WBC (Bld) 9.5 % Normal 4.0-14.0 [facility] Comment on above: Order Comment: Order Added by Discern Expert. Performed By: #### 2 530329, 7805082, 9502477, 99374269, 1763259, 8590675 #### [facility] [address] [place] [address] Monocytes/Leukocytes Auto (Bld) [Pure # fraction] 0.8 E9/L Normal 0.2-1.0 [facility] Comment on above: Order Comment: Order Added by Discern Expert. Performed By: #### 2 033043, 8722611, 8469147, 22017023, 3909444, 2295416 #### [facility] [address] [place] [address] Neutrophils/100 WBC (Bld) 63.9 % Normal 36.0-75.0 [facility] Comment on above: Order Comment: Order Added by Discern Expert. Performed By: #### 2 992417, 8045566, 1158912, 04839523, 0216932, 3714379 #### [facility] [address] [place] [address] Neutrophils/Leukocytes Auto (Bld) [Pure # fraction] 5.2 E9/L Normal 2.0-7.5 [facility] Comment on above: Order Comment: Order Added by Discern Expert. Performed By: #### 2 696115, 6771698, 4741482, 30740474, 3929810, 6480354 #### [facility] [address] [place] [address] BUNon 11-26-2018 Urea nitrogen [Mass/Vol] 19 mg/dL Normal 5-21 [facility] Comment on above: Performed By: #### 2 710584, 6575605, 9416442, 41822899, 2561351, 8588290 #### [facility] [address] [place] [address] CBC w/ Auto Diffon 9 Erythrocyte distribution width (RBC) [Ratio] 16.1 % High 10.9-14.2 [facility] Comment on above: Performed By: #### 2 472275, 0330450, 6416851, 19420150, 8865087, 1725004 #### [facility] [address] [place] [address] Hematocrit (Bld) [Volume fraction] 34.8 % Low 37.7-49.0 [facility] Comment on above: Performed By: #### 2 658175, 8601734, 3828026, 60267422, 0042140, 8124814 #### [facility] [address] [place] [address] Hemoglobin (Bld) [Mass/Vol] 11.6 g/dL Low 13.5-17.5 [facility] Comment on above: Performed By: #### 2 128336, 4260668, 9255618, 72776188, 7926291, 2289047 #### [facility] [address] [place] [address] MCH (RBC) [Entitic mass] 33.0 pg Normal 27.0-34.0 [facility] Comment on above: Performed By: #### 2 068165, 2259489, 7137819, 34713011, 9377922, 5641748 #### [facility] [address] [place] [address] MCHC (RBC) [Mass/Vol] 33.5 g/dL Normal 33.3-35.7 [facility] Comment on above: Performed By: #### 2 905684, 4790671, 1241300, 07423566, 4716621, 6829633 #### [facility] [address] [place], [place] [address] MCV (RBC) [Entitic vol] 98.6 fL Normal 80.0-100.0 [facility] Comment on above: Performed By: #### 2 970919, 1613311, 9222997, 05542071, 7210152, 2102859 #### [facility] [address] [place] [address] Platelet mean volume (Bld) [Entitic vol] 7.4 fL Normal 6.4-10.8 [facility] Comment on above: Performed By: #### 2 631120, 8719815, 9293505, 24798461, 3976593, 3367839 #### [facility] [address] [place], [place] [address] Platelets (Bld) [#/Vol] 193.0 E9/L Normal 150.0-500.0 [facility] Comment on above: Performed By: #### 2 436632, 2004526, 6433362, 82852904, 8708996, 3098899 #### [facility] [address] [place], [place] [address] RBC (Bld) [#/Vol] 3.5 E12/L Low 4.3-5.9 [facility] Comment on above: Performed By: #### 2 706350, 2524032, 2949079, 35379654, 6261385, 2477142 #### [facility] [address] [place] [address] WBC corrected for nucl RBC Auto (Bld) [#/Vol] 8.1 E9/L Normal 4.0-11.0 [facility] Comment on above: Performed By: #### 2 852420, 1086819, 8614388, 39500429, 3652548, 6949879 #### [facility] [address] [place] [address] Creatinineon 11-26-2018 Creatinine [Mass/Vol] 0.8 mg/dL Normal 0.5-1.3 [facility] Comment on above: Performed By: #### 2 434436, 3723013, 9087607, 27343743, 0455231, 3089063 #### [facility] [address] [place] [address] Discharge Note-Nursingon Discharge Note-Nursing Patient provided with discharge instructions, education and extra mepilex dressing. Patient states no questions or concerns. Patient taken by wheelchair to patient pick-up by Cynthia POCT. Normal [facility] Inpatient Clinical Summaryon 11-26-2018 Inpatient Clinical Summary [address] [address] Clinical Summary Person Information: Name: ANGUS LUCIO Age: 63 Years : 1955 12:00 AM Sex: Male PCP: Junito Garcia MD Marital Status: Phone: [phone] Race: White Ethnicity: Non- or Language: Mauritanian Visit Id: Visit Reason: RIGHT KNEE OA Speciality: Acuity: Enc Type: Ambulatory/Same Day Surgery Med Service: Surgery Arrival: 11/25/2018 10:09 AM Discharge: Dispo Type: Address: [address] [place] [id number] Provider Notes: Diagnosis: Problems Active Smoker Smoking Status: Functional Status: Sensory Deficits: History of Falls: Mobility Assistance Prior to Admission: ADLs: Minimal assistance Current Level of Assistance for Self-Care/Mobility: Cognitive Status: Allergies No Known Allergies Measurements: Height: Weight: 64.5 kg Blood Pressure: 145 mmHg / 75 mmHg BMI: Procedures Total knee arthroplasty (11/25/2018) Arthroplasty of knee joint using cement (11/25/2018) Immunizations No Immunizations Documented This Visit Final Med List: acetaminophen (Tylenol 325 mg Tab) 2 Tabs By Mouth every 4 hours as needed Pain/Fever. acetaminophen-oxycodon e (Percocet 325 mg-5 mg Tab) 1-2 orally every 4-6hrs as needed for pain Dx: M17.11, Z96.651 Duration: 7 days; as needed as needed for pain. Refills: 0. ascorbic acid (Vitamin C 500 mg Tab) 1 Tabs By Mouth twice a day (with meals). aspirin (Ecotrin 325 mg Tab-EC) 1 Tabs By Mouth twice a day (after meals). Refills: 0. docusate (Colace 100 mg Cap) 1 Capsules By Mouth 2 times a day as needed for constipation. Refills: 0. folic acid (folic acid 1 mg Tab) 1 Tabs By Mouth every day. magnesium hydroxide (Milk of Magnesia 8% Susp-Oral) 30 Milliliter By Mouth 2 times a day as needed Constipation. methotrexate (methotrexate 2.5 mg Tab) 10 Tabs By Mouth every 7 days. nicotine (nicotine 21 mg/24 hr Transderm ER Film) 1 Patches Transdermal every day. omeprazole (omeprazole 20 mg Cap-DR) 1 Capsules By Mouth every day. predniSONE (predniSONE 5 mg Tab) 1 Tabs By Mouth every day as needed Arthritis. states takes 1 daily for 2 or 3 days only when has a flare up of his arthritis. tofacitinib (Xeljanz XR 11 mg oral tablet, extended release) 1 Tabs By Mouth every day. Care Team Members: Attending Physician: Zain Coughlin DO Consulting Physician: Referring Physician: Zain Coughlin DO Follow up: With: Address: When: Zain Coughlin [address] [place] [address] Business (1) 12/24/2018 10:30 AM With: Address: When: Junito Garcia [address] [place] [address] [place] [address] Business (1) Comments: Call if needed. Patient Education Information: [facility] - Total Knee Arthroplasty. Revised 07/11/11. (Custom) [facility] Inpatient Patient Summaryon 11-26-2018 Inpatient Patient Summary [facility] [address] [place], [place] [address] Patient Discharge Instructions PERSON INFORMATION Name: ANGUS LUCIO Date of : 1955 12:00 AM Current Date: 11/26/18 11:29:10 PHYSICIANS Admitting Physician: Zain oCughlin DO Primary Care Physician: Junito Garcia MD PCP Comment: Discharge Diagnosis: Condition at Discharge: Stable ANGUS LUCIO has been given the following list of follow-up instructions, prescriptions, and patient education materials: PATIENT FOLLOW-UP INFORMATION Diet: Discharge Activity: Discharge Restrictions: Wound Care Instructions: Remove Your Dressing In Days Call Your Doctor For: Return to Work: IF UNABLE TO CONTACT YOUR PHYSICIAN AND YOU FEEL IT IS AN EMERGENCY, GO TO THE NEAREST EMERGENCY ROOM OR CALL 911 Home Treatment: Devices/Equipment: Special Services: Additional Instructions: Primary Care Physician to provide the following pending test results: None Follow up: With: Address: When: Zain Couhglin [address] [place] [address] Business (1) 12/24/2018 10:30 AM With: Address: When: Junito Gracia [address] [place] [address], [facility] [place] [address] Business (1) Comments: Call if needed. In the event that this physician does not participate in your insurance network, please consult with your insurance company to find a nearby participating provider. Comment: I, NAVEEDANGUS, have received the attached patient education materials/instructions and have verbalized understanding: Patient Signature Date Clinican/Nurse Signature ___ Date HERE ARE THE MEDICATION CHANGES THAT OCCURRED DURING YOUR HOSPITAL STAY New Medications Other Medications acetaminophen (Tylenol 325 mg Tab) 2 Tabs By Mouth every 4 hours as needed Pain/Fever. Last Dose: ___Next Dose: ___ ascorbic acid (Vitamin C 500 mg Tab) 1 Tabs By Mouth twice a day (with meals). Last Dose: ___Next Dose: ___ magnesium hydroxide (Milk of Magnesia 8% Susp-Oral) 30 Milliliter By Mouth 2 times a day as needed Constipation. Last Dose: ___Next Dose: ___ Medications to Continue Taking That Have Changed [id number], [address], [place] [id number], [phone] START: aspirin (Ecotrin 325 mg Tab-EC) 1 Tabs By Mouth twice a day (after meals). Refills: 0. Last Dose: ___Next Dose: ___ STOP: aspirin (aspirin 81 mg Oral EC Tab) 1 Tabs By Mouth every day. Other Medications START: nicotine (nicotine 21 mg/24 hr Transderm ER Film) 1 Patches Transdermal every day. Last Dose: ___Next Dose: ___ Medications to Continue with No Changes [id number], [address], [place] [id number], [phone] acetaminophen-oxycodon e (Percocet 325 mg-5 mg Tab) 1-2 orally every 4-6hrs as needed for pain Dx: M17.11, Z96.651 Duration: 7 days; as needed as needed for pain. Refills: 0., 1-2 orally every 4-6hrs as needed for pain Last Dose: ___Next Dose: ___ docusate (Colace 100 mg Cap) 1 Capsules By Mouth 2 times a day as needed for constipation. Refills: 0. Last Dose: ___Next Dose: ___ Other Medications folic acid (folic acid 1 mg Tab) 1 Tabs By Mouth every day. Last Dose: ___Next Dose: ___ methotrexate (methotrexate 2.5 mg Tab) 10 Tabs By Mouth every 7 days. Last Dose: ___Next Dose: ___ omeprazole (omeprazole 20 mg Cap-DR) 1 Capsules By Mouth every day. Last Dose: ___Next Dose: ___ predniSONE (predniSONE 5 mg Tab) 1 Tabs By Mouth every day as needed Arthritis. states takes 1 daily for 2 or 3 days only when has a flare up of his arthritis. Last Dose: ___Next Dose: ___ tofacitinib (Xeljanz XR 11 mg oral tablet, extended release) 1 Tabs By Mouth every day. Last Dose: ___Next Dose: ___ No Longer Take the Following Medications celecoxib (CeleBREX 200 mg Cap) 1 Capsules By Mouth every day. Comment: MEDICATION LIST PROVIDED FOR YOU IS A LIST OF YOUR CURRENT MEDICATIONS. PLEASE CARRY THIS WITH YOU AT ALL TIMES. acetaminophen (Tylenol 325 mg Tab) 2 Tabs By Mouth every 4 hours as needed Pain/Fever. acetaminophen-oxycodon e (Percocet 325 mg-5 mg Tab) 1-2 orally every 4-6hrs as needed for pain Dx: M17.11, Z96.651 Duration: 7 days; as needed as needed for pain. Refills: 0. ascorbic acid (Vitamin C 500 mg Tab) 1 Tabs By Mouth twice a day (with meals). aspirin (Ecotrin 325 mg Tab-EC) 1 Tabs By Mouth twice a day (after meals). Refills: 0. docusate (Colace 100 mg Cap) 1 Capsules By Mouth 2 times a day as needed for constipation. Refills: 0. folic acid (folic acid 1 mg Tab) 1 Tabs By Mouth every day. magnesium hydroxide (Milk of Magnesia 8% Susp-Oral) 30 Milliliter By Mouth 2 times a day as needed Constipation. methotrexate (methotrexate 2.5 mg Tab) 10 Tabs By Mouth every 7 days. nicotine (nicotine 21 mg/24 hr Transderm ER Film) 1 Patches Transdermal every day. omeprazole (omeprazole 20 mg Cap-DR) 1 Capsules By Mouth every day. predniSONE (predniSONE 5 mg Tab) 1 Tabs By Mouth every day as needed Arthritis. states takes 1 daily for 2 or 3 days only when has a flare up of his arthritis. tofacitinib (Xeljanz XR 11 mg oral tablet, extended release) 1 Tabs By Mouth every day. [facility] Comment: PATIENT EDUCATION INFORMATION Instructions: [place], [place] [facility] DISCHARGE INSTRUCTIONS TOTAL KNEE ARTHROPLASTY INCISION CARE: Continue the daily dressing care to the knee as instructed in the hospital for 7 days postoperatively. The dressing will then be changed and worn an additional 7 days. You may then discontinue the dressing changes. Please notify the office if any increase in redness, tenderness, drainage, fever, or wound separation is noted. Compression stockings may be helpful if any significant or uncomfortable swelling in the legs is noted postoperatively. Use and removal instructions should be given by physical therapy. If the swelling is below the knee, knee high compression stockings may suffice. If this does cause swelling into the thigh region, waist high compression stockings may be beneficial as well. These can be obtained from most pharmacies, or can be obtained from the hospital or through Home Health. The mild grade compression stockings are best used initially. You may need assistance when applying or removing the compression stockings. MEDICATIONS: You may resume your home medications at the time of discharge. Take 1 Ecotrin Aspirin (325 mg) twice daily with food for an additional month. Pain medication has been prescribed as well. You may continue to use the pain medication every four hours as needed. Any narcotic pain medication can cause side effects including stomach upset, constipation, or light-headedness. You should not drive or operate machinery, or use alcohol while using the narcotic pain medication. You should not use other pain medications with this prescription pain medication unless further directed by your physician. PHYSICAL THERAPY: Continue the range of motion and strengthening exercises initiated in Physical Therapy in the hospital. [facility] Discharge Instructions for TKA Page 2 Physical Therapy Cont. Continue weight bearing, as ordered, to the operated knee for four to six weeks as directed in Physical Therapy, or until your strength is improved and Physical Therapy will then allow you to progress to full weight. This will be with the use of a walker or crutches initially. After four or six weeks you may then progress to the use of one crutch, or a cane. A quad-cane is preferred as this is more stable. Physical therapy as begun in the hospital will continue at home, possible with the patient support assistant of Home Health Physical Therapy or in the hospital as an outpatient. When you have become independent with the physical therapy program, this will then be discontinued as a supervised program and you will be instructed to continue the physical therapy exercises at home. Your exercises are fields to successful rehabilitation. You should gain full extension first, hopefully before hospital discharge, then continue to do the exercises to maintain this, and gain 90 degrees flexion by one month post-op. Do the exercises daily, twice if preferred. DRIVING: Do NOT Drive FOLLOW-UP OFFICE VISIT: 4 weeks postop. Zain Coughlin DO [facility] [address] [place] [address] Reviewed: 4-08 Revised 05/31 Medication Leaflets: Thank you for choosing [facility] Normal [facility] Interdisciplinary Note - Shola e Manageron 11-26-2018 Interdisciplinary Note - Electronic Console Display Operator Pt is awake and alert in chair. PCP verified and insurance information reviewed. DME discussed. Contact inforrmation provided and white board updated. Pt is with [facility] program for therapy at [place]. Aware of anticiapted [place] home today and has transportation at [place]. Observation status discussed. Denies any further concerns or DC needs. Normal [facility] Interdisciplinary Note - Ortiz n 11-26-2018 Interdisciplinary Note - OT OT eval completed this date. Pt ind with dressing without need for equipment, has DME for tub/shower. May need toilet safety frame to avoid pulling on pedestal sink. Recommend [facility] program assess further. Educated pt on walker safety and provided walker bag. Daughter can assist with groceries, some cleaning and laundry prn. No further OT needs at this time. Normal [facility] Lyteson 11-26-2018 Anion gap [Moles/Vol] 12 mmol/L Normal 6-[address] [facility] Comment on above: Performed By: #### 2 544887, 1802391, 4165331, 04621059, 3408993, 8273905 #### [facility] [address] [place] [address] Chloride [Moles/Vol] 99 mmol/L Low 101-[address] [facility] Comment on above: Performed By: #### 2 483341, 8847956, 8112702, 05978509, 8092467, 2236624 #### [facility] [address] [place] [address] CO2 [Moles/Vol] 24 mmol/L Normal 21-31 [facility] Comment on above: Performed By: #### 2 258580, 1026058, 4308887, 85709978, 1460789, 8918989 #### [facility] [address] [place] [address] Potassium [Moles/Vol] 4.3 mmol/L Normal 3.5-5.3 [facility] Comment on above: Performed By: #### 2 122493, 4972489, 6906413, 51918718, 0796671, 0516146 #### [facility] [address] [place] [address] Sodium [Moles/Vol] 131 mmol/L Low 135-145 [facility] Comment on above: Performed By: #### 2 364581, 9350100, 1145137, 95413751, 5759531, 4153424 #### [facility] [address] [place] [address] Main OR Intraoperative Recor don 11-26-2018 Main OR Intraoperative Record IntraOp Document Type FT Summary Primary Physician: Zain Coughlin DO Finalized Date/Time: 11/26/18 10:56:45 Pt. Name: ANGUS LUCIO/Sex: 1955 Male Med Rec #: [id number] Physician: Zain Coughlin DO Financial #: [id number] Pt. Type: A Room/Bed: N318/01 Admit/Disch: 11/25/18 10:09:49 - Institution: Case Times FT Entry 1 Patient Times In Room 11/25/18 11:37:00 Out Room 11/25/18 13:49:00 Procedure Times Start 11/25/18 12:10:00 Stop 11/25/18 13:45:00 Anesthesia Times Start 11/25/18 11:37:00 Stop 11/25/18 13:49:00 Block Timeout w/ 11/25/18 11:10:00 Anesthesia Last Modified By: Franci Ignacio CST 11/25/18 13:51:36 General Comments: Block performed under ultrasound guidance by . Gilbert, RN to assist with the block. Patient tolerated block well. 11/26/18 Chart opened to review and send gonsalo Ignacio FLIGHT SERVICE SPECIALIST Case Attendance FT Entry 1 Entry 2 Entry 3 Case Attendee Flex CAA, Eleanor Coughlin DO, Zain Longoria DO, Koko T Role Performed Anesthesiologist Surgeon - Primary Surgeon - Assist 1 Wildlife Biology Technician Time In 11/25/18 11:37:00 11/25/18 11:59:00 11/25/18 12:18:00 Time Out 11/25/18 13:49:00 11/25/18 13:41:00 11/25/18 13:49:00 Procedure KNEE TOTAL KNEE TOTAL KNEE TOTAL ARTHROPLASTY(Right) ARTHROPLASTY(Right) ARTHROPLASTY(Right) Comments , ANESTHESIA INFORMATION TECHNOLOGY SPECIALIST. Last Modified By: Ileana RN, Todd Tejeda RN, Todd Tejeda RN, Todd Durand 11/25/18 13:51:47 11/25/18 13:51:47 11/25/18 13:51:47 Entry 4 Entry 5 Entry 6 Case Attendee Ileana JACQUES, Todd Mccloud RN, Mike Garcia CST, May Donald Role Performed Planetarium Sky Show Technician - Primary Planetarium Sky Show Technician - Primary Scrub - Primary Time In 11/25/18 11:37:00 11/25/18 11:57:00 11/25/18 11:37:00 Time Out 11/25/18 13:49:00 11/25/18 13:49:00 11/25/18 13:49:00 Procedure KNEE TOTAL KNEE TOTAL KNEE TOTAL ARTHROPLASTY(Right) ARTHROPLASTY(Right) ARTHROPLASTY(Right) Comments Last Modified By: Ileana RN, Todd Tejeda RN, Todd Tejeda RN, Todd Durand 11/25/18 13:51:47 11/25/18 13:51:47 11/25/18 13:51:47 Entry 7 Entry 8 Entry 9 Case Attendee Amanda PRETTY, Nancy Mon RN, Noemy Cervantes RN, Michael Role Performed Scrub - Other Staff - Other Staff - Other Time In 11/25/18 11:37:00 11/25/18 11:37:00 11/25/18 11:37:00 Time Out 11/25/18 13:49:00 11/25/18 11:51:00 11/25/18 12:07:00 Procedure KNEE TOTAL KNEE TOTAL KNEE TOTAL ARTHROPLASTY(Right) ARTHROPLASTY(Right) ARTHROPLASTY(Right) Comments IN ORIENTATION Last Modified By: Todd Tejeda RN, RN, Todd Altamirano RN 11/25/18 13:51:47 11/25/18 13:51:47 11/25/18 13:51:47 General Comments: King Shipley, [employer] [facility] rep, present in the OR for surgical procedure. Perioperative Protocols FT Pre-Care Text: Implements protective measures prior to operative or invasive procedure, confirms identity before the operative or invasive procedure, verifies operative procedure, surgical site, and laterality Entry 1 Procedure(s) KNEE TOTAL Patient Identity Birthday, ID Band ARTHROPLASTY(Right) Verified (select at Check, Patient least 2): Participation Consents / H and P Anesthesia Consent, Operative Site Present Verified HandP, Surgery/Procedure Marking Verified Consent, Transfusion Consent Surgical Site Yes Laterality Verified Yes Verified Procedure Verified Yes Correct Patient Yes Position Verified Availability Equipment, Implant, Prep Dry Yes Verified (If Medication, X-ray Applicable) PreOp Antibiotic Yes Time Out Flex MERLOS, Eleanor Law, Given Participants Zain Coughlin DO, Krupp RN, Rogers England RN, Jose Vizcaino FLIGHT SERVICE SPECIALIST, Amanda Dolan CST, Billy Andrews RN, Miguel Time Out Complete 11/25/18 12:02:00 Outcomes Met? Yes Last Modified By: Todd Tejeda RN 11/25/18 12:06:05 Post-Care Text: The patient is free from signs and symptoms of injury caused by extraneous objects Allergy Information FT Pre-Care Text: Verifies allergies Entry 1 Allergies Reviewed? Yes Allergies Reviewed Self/Patient With Outcomes Met? Yes Last Modified By: Todd Tejeda RN 11/25/18 11:34:10 Post-Care Text: The patient received appropriate medication(s) safely administered during the perioperative period Surgical Procedures FT Entry 1 Procedure Description Procedure KNEE TOTAL ARTHROPLASTY Modifiers Right Surgeon Description RIGHT KNEE TOTAL ARTHROPLASTY Primary Procedure Yes Primary Surgeon Pocos Zain GORDON Start 11/25/18 12:10:00 Stop 11/25/18 13:45:00 Anesthesia Type MAC Surgical Service Orthopedics Wound Class 1 - Clean Last Modified By: Franci Ignacio CST 11/26/18 10:54:18 General Case Data FT Pre-Care Text: Classifies surgical wound, implements aseptic technique, initiates traffic control Entry 1 Case Information OR OR 7 FT Case Level Level 6 Wound Class 1 - Clean Specialty Orthopedics ASA Class 2 Preop Diagnosis RIGHT KNEE OA Postop Same As Preop Yes Postop Diagnosis RIGHT KNEE OA Outcomes Met? Yes Last Modified By: Todd Tejeda RN 11/25/18 12:03:47 Post-Care Text: The patient is free from signs and symptoms of infection Skin Assessment (Pre Procedure) FT Pre-Care Text: Implements protective measures to prevent skin/ tissue injury due to thermal or mechanical sources Evaluates for signs and symptoms of physical injury to skin and tissue Entry 1 Skin Integrity Intact, [place], Warm, and Skin Abnormality No Dry Outcomes Met? Yes Last Modified By: Todd Tejeda RN 11/25/18 12:03:34 Post-Care Text: The patient is free from signs and symptoms of injury caused by extraneous objects Patient Positioning FT Pre-Care Text: Identifies physical alterations that require additional precautions for procedure-specific positioning, verifies presence of prosthetics or corrective devices, positions the patient, evaluates the patient for signs and symptoms of injury as a result of positioning Entry 1 Procedure KNEE TOTAL Body Position Supine ARTHROPLASTY(Right) Feet Uncrossed? Yes Left Arm Position Extended on Padded Arm Board Right Arm Position Extended on Padded Arm Left Leg Position Extended Board Right Leg Position Held on Field Positioning Device Blankets Folded, Padded Armboard, Pillow Under Head Large, Safety Strap, Sandbag at Foot of Bed Taped Press Points Checked Yes By Eleanor Villela Krupp RN, Andrea L, Rivera RN, Miguel Outcomes Met? Yes Last Modified By: Todd Tejeda RN 11/25/18 12:19:35 Post-Care Text: The patient is free from signs and symptoms of injury related to positioning Patient Care Devices FT Pre-Care Text: Implements protective measures to prevent skin/ tissue injury due to thermal or mechanical sources Entry 1 Entry 2 Entry 3 Equipment Type CAUTERY UNIT[F] KINNEY SYSTEM[F] INTERPULSE[F] Equipment Number C2 Equipment Setting Outcomes Met? Yes Yes Yes Last Modified By: Ileana JACQUES, Todd Tejeda RN, Todd Altamirano RN 11/25/18 10:33:40 11/25/18 10:33:40 11/25/18 10:33:40 Entry 4 Entry 5 Entry 6 Equipment Type MISTRAL FORCED AIR MONITOR CHARGE SURGERY MARÍA SUCTION UNIT [F] WARMING SYSTEM UNIT[F] [F] Equipment Number M1 Equipment Setting Outcomes Met? Yes Yes Yes Last Modified By: Ileana JACQUES, Todd Tejeda RN, Todd Altamirano RN 11/25/18 10:33:40 11/25/18 10:33:40 11/25/18 10:33:40 Entry 7 Entry 8 Equipment Type SONOSITE ULTRASOUND TOURNIQUET BELINDA [F] UNIT[F] Equipment Number D Equipment Setting Outcomes Met? Yes Yes Last Modified By: Todd Tejeda RN, RN, Andrea L 11/25/18 10:33:40 11/25/18 10:33:40 Post-Care Text: The patient is free from signs and symptoms of injury caused by extraneous objects Transport To OR FT Pre-Care Text: Transports according to individual needs. Evaluates for signs and symptoms of skin and tissue injury as a result of transfer or transport Entry 1 Via Cart By Noemy Mon RN Safety Precautions Side Rails Up Outcomes Met? Yes Last Modified By: Todd Tejeda RN 11/25/18 11:40:18 Post-Care Text: The patient is free from signs and symptoms of injury related to transfer/transport Cautery FT Pre-Care Text: Implements protective measures to prevent injury due to electrical sources, and evaluates for signs and symptoms of electrical injury Entry 1 ESU Identification ESU Type CAUTERY UNIT[F] Equipment Number C2 ESU Settings Cut 50 Coag 50 ESU Grounding Pad Site Left Thigh Hair Removal Pad No Site Pre Pad Site Clear and Intact Post Pad Site Clear and Intact Condition Condition Grounding Pad Noemy Mon RN Placed By Outcomes Met? Yes Last Modified By: Todd Tejeda RN 11/25/18 13:43:09 Post-Care Text: The patient if free from signs and symptoms of electrical injury Counts Verification FT Pre-Care Text: Performs required counts Entry 1 Entry 2 Entry 3 Procedure(s) KNEE TOTAL KNEE TOTAL KNEE TOTAL ARTHROPLASTY(Right) ARTHROPLASTY(Right) ARTHROPLASTY(Right) Type Initial Closing Final Items Sponges, Sharps, Sponges, Sharps, Sponges, Sharps, Other/See Comments Other/See Comments Other/See Comments Status Correct Correct Correct Time 11/25/18 11:44:00 11/25/18 13:35:00 11/25/18 13:40:00 By May Garcia CST, Churchill CST, Jose Dolan CST, Amanda Dolan CST, Nnacy Mccloud RN, Mike Mccloud RN, Ileana Zurita RN, Andrea L Outcomes Met? Yes Yes Yes Last Modified By: Todd Tejeda RN, RN, Todd Altamirano RN 11/25/18 12:04:51 11/25/18 13:35:48 11/25/18 13:39:12 Post-Care Text: The patient is free from signs and symptoms of injury caused by extraneous objects Skin Prep FT Pre-Care Text: Performs skin preparations Entry 1 Procedure KNEE TOTAL Prep Area entire right leg from ARTHROPLASTY(Right) upper thigh to ankle Prep Agents Chloraprep/Dry Prior to Draping Hair Removal Methods Not Indicated By Mike Mccloud RN Outcomes Met? Yes Last Modified By: Todd Tejeda RN 11/25/18 12:03:19 Post-Care Text: The patient is free from signs and symptoms of infection General Comments: chloraprep x 2 used for surgical prep. Departure From OR FT Pre-Care Text: Transports according to individual needs. Evaluates for signs and symptoms of skin and tissue injury as a result of transfer or transport. Entry 1 Via Patient Bed Safety Precautions Side Rails Up PostOp Destination PACU Transported By Todd Tejeda RN, Woodworth RN, Tonda L Patient Status Stable Report Given Olga Lidia Ornelas RN To/Hand Off Communication Skin. Condition Intact, Dry Airway Maintenance Oxygen in Use? Yes Airway Device Simple Mask Flow Rate 8 L Outcomes Met? Yes Last Modified By: Todd Tejeda RN 11/25/18 13:52:10 Post-Care Text: The patient is free from signs and symptoms of injury related to transfer/transport General Comments: Verbal and written report given to PACU nurse. Dressing/Packing FT Pre-Care Text: Administers care to wound sites Entry 1 Type Dressing Items BANDAGE ELASTIC DOUBLE 6 X 11YD [[id number]][F] Site and Details right knee- 10 inch Outcomes Met? Yes mepilex dressing, ABD's, 6 inch cast padding, 6 inch young wrap. Last Modified By: Todd Tejeda RN 11/25/18 13:44:25 Post-Care Text: The patient is free from signs and symptoms of infection Medication Administration FT Pre-Care Text: Verifies allergies, administers prescribed medications and solutions, administers prescribed antibiotic therapy and immunizing agents as ordered, evaluates response to medications Administers prescribed medications and solutions Entry 1 Route of Admin Field Expiration Date Yes Verified Ordered By Todd Tejeda RN Transcribed/To Zain Coughlin DO Field By Administered By Todd Tejeda RN Outcomes Met? Yes Last Modified By: Todd Tejeda RN 11/25/18 11:34:30 Post-Care Text: The patient received appropriate medication(s) safely administered during the perioperative period For [place] please see scanned medication reconcilliation form for medications used at the field during the procedure. Tourniquet FT Pre-Care Text: Implements protective measures to prevent skin/tissue injury due to mechanical sources Entry 1 Tourniquet Type TOURNIQUET CUFF ROYAL Setting 250 mmHg BLUE 30 X 4 [[id number]][F] Equipment Number D Placement Right Upper Thigh Cuff Size 30 Padding Under Cuff Yes Applied Applied By Todd Tejeda RN Skin Assessment Unremarkable Before Inflation Skin Assessment Unremarkable After Inflation Tourniquet Times Inflated 11/25/18 12:10:00 Deflated 11/25/18 13:42:00 Total Time 92 minute(s) Outcomes Met? Yes Last Modified By: Todd Tejeda RN 11/25/18 13:42:54 Post-Care Text: The patient is free from signs and symptoms of injury caused by extraneous objects Implant Log FT Pre-Care Text: Records devices implanted during the operative or invasive procedure Entry 1 Entry 2 Entry 3 Procedure KNEE TOTAL KNEE TOTAL KNEE TOTAL ARTHROPLASTY(Right) ARTHROPLASTY(Right) ARTHROPLASTY(Right) Implant/Explant Implant Implant Implant Implant Identification FT Description simplex HV cement Triathlon total knee Triathlon Fluted Stem universal tibial baseplate Serial Number Lot Number [id number] Load Number Brush Worker [employer] [employer] Catalog ?# [id number] Size 7 diameter-16mm, length-100mm Expiration Date 04/18/20 07/24/22 01/03/22 Manufactured Date Materials Unique Device Identifier (SANTI) Human Readable Barcode Machine Readable Barcode Usage Data FT Implant Site Knee R Knee R Knee R Implant Site Comment Quantity 2 1 1 Implant/Explant Date Implanted By Pocos DO, Jameel Pocos DO, Jameel Pocos DO, Jameel Explant Reason Biological Implants Biological Source Donor Number MR Classification Temperature Reconstitution Method Outcomes Met? Yes Yes Yes Brush Worker Model Number Last Modified By: Ileana JACQUES, Todd Tejeda RN, Todd Tejeda RN, Todd Durand 11/25/18 12:22:15 11/25/18 13:06:25 11/25/18 13:08:45 Entry 4 Entry 5 Entry 6 Procedure KNEE TOTAL KNEE TOTAL KNEE TOTAL ARTHROPLASTY(Right) ARTHROPLASTY(Right) ARTHROPLASTY(Right) Implant/Explant Implant Implant Implant Implant Identification FT Description Triathlon posterior Triathlon X3 Asymmetric Triathlon Offset Adaptor stabilized femoral Patella Serial Number Lot Number [id number] Load Number Brush Worker [employer] [facility] [employer] Catalog ?# [id number] Size # 7 A 35 6 mm Expiration Date 02/23/23 06/17/23 08/19/21 Manufactured Date Materials Unique Device Identifier (SANTI) Human Readable Barcode Machine Readable Barcode Usage Data FT Implant Site Knee R Knee R Knee R Implant Site Comment Quantity 1 1 1 Implant/Explant Date Implanted By Pocos DO, Jameel Pocos DO, Jameel Pocos DO, Jameel Explant Reason Biological Implants Biological Source Donor Number MR Classification Temperature Reconstitution Method Outcomes Met? Yes Yes Yes Brush Worker Model Number Last Modified By: Ileana JACQUES, Todd Tejeda RN, Todd Altamirano RN 11/25/18 13:10:38 11/25/18 13:17:54 11/25/18 13:19:37 Entry 7 Procedure KNEE TOTAL ARTHROPLASTY(Right) Implant/Explant Implant Implant Identification FT Description Wilner Serna3 Tibial Bearing Insert- PS Serial Number Lot Number [id number] Load Number Brush Worker [employer] Catalog ?# [id number] Size 7 Expiration Date 10/08/20 Manufactured Date Materials Unique Device Identifier (SANTI) Human Readable Barcode Machine Readable Barcode Usage Data FT Implant Site Knee R Implant Site Comment Quantity 1 Implant/Explant Date Implanted By Zain Coughlin DO Explant Reason Biological Implants Biological Source Donor Number MR Classification Temperature Reconstitution Method Outcomes Met? Yes Brush Worker Model Number Last Modified By: Tdod Tejeda RN 11/25/18 13:38:06 Post-Care Text: The patient is free from signs and symptoms of injury caused by extraneous objects Urinary Catheter Pre-Care Text: Patient is prepped using sterile technique. Entry 1 Urinary Catheter TRAY URINE TEQUILA CATH Present Upon Arrival No Inserted LF 16FR [[id number]][F] Insertion Date/Time 11/25/18 11:52:00 Urine Residual 40 Insertion Site Uretheral Urine CLEAR, YELLOW URINE Characteristics OUTPUT Inserted By Michael Cervantes RN Discontinued? No Outcomes Met? Yes Last Modified By: Todd Tejeda RN 11/25/18 12:02:42 Post-Care Text: The patient is free from signs of trauma. Cultures and Specimens FT Pre-Care Text: Manages specimen handling and disposition Manages culture specimen collection Entry 1 Cultures Ordered Yes Culture Disposition Lab Culture Source URINE FROM TORRES Specimens Ordered Yes CATHETER Specimen Disposition Designated OR Area Frozen Section Times Outcomes Met? Yes Last Modified By: Todd Tejeda RN 11/25/18 10:34:30 Post-Care Text: The patient is free from signs and symptoms of injury caused by extraneous objects The patient is free from signs and symptoms of infection General Comments: SPECIMEN; RIGHT KNEE BONE AND SOFT TISSUE Temperature Control Entry 1 Temperature Control BLANKET MISTRAL AIR Quantity 1 Aid TORSO [[id number]][F] Fluid/[place] Unit Mistral warming system Setting 43 C/ HIGH Body Site Upper anterior torso Last Modified By: Todd Tejeda RN 11/25/18 11:35:56 Case Comments Finalized By: Franci Ignacio CST Document Signatures Signed By: Ileana JACQUES, Todd Durand 11/25/18 13:52 Franci Ignacio CST 11/26/18 10:56 Normal [facility] Patient Education - Texton 0 11-26-2018 Patient Education - Text [place], [place] [facility] DISCHARGE INSTRUCTIONS TOTAL KNEE ARTHROPLASTY INCISION CARE: Continue the daily dressing care to the knee as instructed in the hospital for 7 days postoperatively. The dressing will then be changed and worn an additional 7 days. You may then discontinue the dressing changes. Please notify the office if any increase in redness, tenderness, drainage, fever, or wound separation is noted. Compression stockings may be helpful if any significant or uncomfortable swelling in the legs is noted postoperatively. Use and removal instructions should be given by physical therapy. If the swelling is below the knee, knee high compression stockings may suffice. If this does cause swelling into the thigh region, waist high compression stockings may be beneficial as well. These can be obtained from most pharmacies, or can be obtained from the hospital or through Home Health. The mild grade compression stockings are best used initially. You may need assistance when applying or removing the compression stockings. MEDICATIONS: You may resume your home medications at the time of discharge. Take 1 Ecotrin Aspirin (325 mg) twice daily with food for an additional month. Pain medication has been prescribed as well. You may continue to use the pain medication every four hours as needed. Any narcotic pain medication can cause side effects including stomach upset, constipation, or light-headedness. You should not drive or operate machinery, or use alcohol while using the narcotic pain medication. You should not use other pain medications with this prescription pain medication unless further directed by your physician. PHYSICAL THERAPY: Continue the range of motion and strengthening exercises initiated in Physical Therapy in the hospital. [facility] Discharge Instructions for TKA Page 2 Physical Therapy Cont. Continue weight bearing, as ordered, to the operated knee for four to six weeks as directed in Physical Therapy, or until your strength is improved and Physical Therapy will then allow you to progress to full weight. This will be with the use of a walker or crutches initially. After four or six weeks you may then progress to the use of one crutch, or a cane. A quad-cane is preferred as this is more stable. Physical therapy as begun in the hospital will continue at home, possible with the patient support assistant of Home Health Physical Therapy or in the hospital as an outpatient. When you have become independent with the physical therapy program, this will then be discontinued as a supervised program and you will be instructed to continue the physical therapy exercises at home. Your exercises are fields to successful rehabilitation. You should gain full extension first, hopefully before hospital discharge, then continue to do the exercises to maintain this, and gain 90 degrees flexion by one month post-op. Do the exercises daily, twice if preferred. DRIVING: Do NOT Drive FOLLOW-UP OFFICE VISIT: 4 weeks postop. Zain Coughlin, DO [facility] [address] [place] [address] Reviewed: 08-25 Revised 05/31 [facility] Progress Note-Physicianon Progress Note-Physician DAILY PROGRESS NOTE: 11/26/2018 HISTORY: Angus is seen here today postoperative day #1 on his right total knee arthroplasty. He is doing well. He did have a lot of pain, felt that the Young wrap was part of this. Since having the Young wrap off, he has felt a lot better. He denies any numbness, tingling. No fever or chills. PHYSICAL EXAMINATION: His orthopedic examination reveals temperature max 36.7, vital signs otherwise unremarkable. Examination of the right knee reveals dressing to be clean, dry and intact. His calf and thigh are otherwise supple, very little swelling. Neurocirculatory status is intact bilaterally. LABORATORY DATA: Hemoglobin and hematocrit of 11.6, 34.8, platelet count of 193, sodium is 131, chloride 99. Urinalysis / intraop essentially unremarkable. IMPRESSION: 1. Status post right total knee arthroplasty, postoperative day #1, stable. 2. Anemia secondary to acute perioperative blood loss, clinically expected and clinically stable. 3. Hyponatremia. 4. Hypochloremia. TREATMENT PLAN: 1. The findings were discussed. We will monitor for clinical signs of anemia this coupled with iron therapy twice daily. 2. Physical therapy ongoing. 3. Continue analgesia. 4. Aspirin 325 mg b.i.d. in addition to mechanical deep venous thrombosis prophylaxis. 5. All questions are answered this day. 6. Discharge planning is underway for home discharge with [facility] program. Zain Coughlin D.O. gls Dictated: 11/26/2018 #[id number] Typed: 11/26/2018 #[id number] cc: Zain Coughlin D.O. [facility] Comment on above: Result Comment: Elec tronically Signed By: Zain Coughlin DO\.br\Date and Time Signed: 11/26/18 12:26 EDT eGFRon 11-26-2018 GFR/1.73 sq M predicted among blacks MDRD (S/P/Bld) [Vol rate/Area] mL/min/{1.73_m2} Normal >=59 [facility] Comment on above: Order Comment: Order added by Discern Expert. Result Comment: eGFR is race adjusted. AA=. Performed By: #### 2 [id number], [id number], [id number] #### [facility] [address] [place] [address] GFR/1.73 sq M predicted among non-blacks MDRD (S/P/Bld) [Vol rate/Area] mL/min/{1.73_m2} Normal >=59 [facility] Comment on above: Order Comment: Order added by Discern Expert. Result Comment: Pig Farm Manager erasmo kidney disease could be indicated at eGFR's of less than 60 mL/min/1.73m2. Kidney failure is indicated at less than 15 mL/min/1.73m2. Performed By: #### 2 [id number], [id number] #### [facility] [address] [place] [address] ABO/Rhon 11-25-2018 ABO/Rh Positive [facility] Comment on above: Performed By: #### 2 [id number], [id number] #### [facility] [address] [place] [address] ABO/Rh History Checkon 11-25 ABO/Rh History Check Verified Hx Blood Type Normal [facility] Comment on above: Performed By: #### 2 [id number], [id number], [id number], [id number] #### [facility] [address] [place] [address] ABSCon 11-25-2018 ABSC Gel Interp Negative Normal [facility] Comment on above: Performed By: #### 2 [id number], [id number], [id number], [id number] #### [facility] [address] [place] [address] Blood Bank ID#on 11-25-2018 BBID# [id number] [facility] Comment on above: Performed By: #### 2 [id number], [id number], [id number], [id number] #### [facility] [address] [place] [address] Interdisciplinary Note - Shola e Manageron 11-25-2018 Interdisciplinary Note - Electronic Console Display Operator dc planning done at this time. I called patient on phone. insurance, DME, PCP verified. pt from home with family and will transport at co. pending therapy eval. obs admit. pt has FWW in room. pt is ortho 360, call [phone] ext [phone] at co. anticipated dc 11/26. CRM following. Normal [facility] Interdisciplinary Note - PTo n 11-25-2018 Interdisciplinary Note - PT PT Evaluation completed with an AM PAC score of 18/24. Pt performed bed mobility with CGA and transfers with CGA/min A. pt was able to ambulate 70 feet with FWW with CGA. Will follow daily with recommendations Normal [facility] Main OR PACU I [facility] Main OR PACU I Record PACU Phase I Docum ent Type FT Summary Primary Physician: Zain Coughlin DO Finalized Date/Time: 11/25/18 14:46:08 Pt. Name: ANGUS LUCIO/Sex: 1955 Male Med Rec #: [id number] Physician: Zain Coughlin DO Financial #: [id number] Pt. Type: O Room/Bed: N318/ Admit/Disch: 11/25/18 10:09:49 - Institution: Case Times PACU I FT Pre-Care Text: Identifies barriers to communication and implements measures to provide psychological support Develops individualized plan of care, and ensures continuity of care Maintains patient's dignity and privacy, and maintains patient confidentiality Identifies and reports philosophical, cultural, and spiritual beliefs and values Identifies individual values and wishes concerning care Implements aseptic technique, and administers prescribed antibiotic therapy and immunizing agents as ordered Evaluates postoperative tissue perfusion Implements thermoregulation measures, and monitors body temperature Evaluates postoperative respiratory status Evaluates postoperative cardiac status Evaluates postoperative neurological status Assesses pain control, collaborated in initiating patient-controlled analgesia and implements alternative methods of pain control Verifies allergies, administers prescribed medications and solutions, evaluates response to medications Entry 1 In PACU I 11/25/18 13:49:00 Discharge from PACU 11/25/18 14:19:00 I Outcomes Met? Yes Last Modified By: Olga Lidia Ornelas RN 11/25/18 14:45:55 Post-Care Text: The patient demonstrates knowledge of the expected response to the operative or invasive procedure The patient's care is consistent with the individualized perioperative plan of care The patient's right to privacy is maintained The patient's value system, lifestyle, ethnicity, and culture are considered, respected, and incorporated into the perioperative plan of care The patient participates in decisions affecting his or her perioperative plan of care The patient is free from signs and symptoms of infection The patient has wound/tissue perfusion consistent with or improved from baseline levels established preoperatively The patient is at or returning to normothermia at the conclusion of the immediate postoperative period The patient's respiratory function is consistent with or improved from baseline levels established preoperatively The patient's cardiovascular status is consistent with or improved from baseline levels established preoperatively The patient's cardiovascular status is consistent with or improved from baseline levels established preoperatively The patient demonstrates and/or reports adequate pain control throughout the perioperative period The patient received appropriate medication(s), safely administered during the perioperative period Acuity Level PACU I FT Entry 1 Start Time 11/25/18 13:49:00 Stop Time 11/25/18 14:19:00 Acuity Level Acuity Level I Last Modified By: Olga Lidia Ornelas RN 11/25/18 14:46:06 Finalized By: Olga Lidia Ornelas RN Document Signatures Signed By: Olga Lidia Ornelas RN 11/25/18 14:46 Normal [facility] Main OR Preoperative Recordo n 11-25-2018 Main OR Preoperative Record PreOp Document Type FT Summary Primary Physician: Zain Coughlin DO Finalized Date/Time: 11/25/18 12:12:50 Pt. Name: ANGUS LUCIO Johnnie Harkins/Sex: 1955 Male Med Rec #: [id number] Physician: Zain Coughlin DO Financial #: [id number] Pt. Type: A Room/Bed: [place] [address] Admit/Disch: 11/25/18 10:09:49 - Institution: Case Times PreOp FT Pre-Care Text: Verifies consent for planned procedure, identifies individual values and wishes concerning care, includes family members in perioperative teaching Entry 1 Patient Times. In Pre Surgery 11/25/18 10:15:00 Out Pre Surgery 11/25/18 11:08:00 Outcomes Met? Yes Last Modified By: Todd Tejeda RN 11/25/18 12:12:49 Post-Care Text: The patient participates in decisions affecting his or her perioperative plan of care Finalized By: Todd Tejeda RN Document Signatures Signed By: Todd Tejeda RN 11/25/18 12:12 Normal [facility] Operative Reporton [id number] Operative Report Date of Surgery: 11/25/2018 SURGEON: Zain Coughlin D.O. FRENCH BINDER: Koko Longoria D.O. PREOPERATIVE DIAGNOSIS: Right knee osteoarthritis with instability POSTOPERATIVE DIAGNOSIS: Right knee osteoarthritis with instability OPERATION: Complicated right total knee arthroplasty secondary to instability as well as severe deformity ANESTHESIA: Adductor canal block/spinal ANESTHESIOLOGIST: GAURANG Lr ESTIMATED BLOOD LOSS: None TOURNIQUET TIME: To the right thigh at 250 mm. of Hg. Please see the operative record for definitive tourniquet time. COMPLICATIONS: None COMPLICATIONS: None IMPLANT: Boyd total knee system with a size 7 right posterior stabilized femur, a size 7 Kiron TS base plate with a 6 mm. offset and a 100 x 16 mm. press-fit flouted stem. The polyethylene exchange is a 16 posterior stabilized X3 size 7, the patella is a 35 asymmetric. HISTORY/OPERATIVE INDICATIONS: Angus is a 63 year old white male with a complicated knee arthrosis coupled with instability. 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 With this we did recommend surgical intervention. The procedure is undertaken this day. INTRAOPERATIVE PATHOLOGY: Upon dissection of the right knee through a standard medial parapatellar approach there is noted to be severe arthrosis, the greatest effect being in the lateral compartment, with severe erosion. The knee is grossly unstable upon examination under anesthetic. Total knee arthroplasty is done with posterior stabilized component with a stem tibial component. This is a complicated primary knee arthroscopy secondary to the degree of deformity and instability. The case is aided in time, efficiency and exposure secondary to Dr. Longoria' assistance. He did perform fields roles in the operative protocol. PROCEDURE: After informed consent is obtained, the risks, complications, and reasonable expectations of the above procedure are discussed at length. The patient is taken to the Operative Suite, placed on the Operating Room table in the supine position. At this point he is given a spinal anesthetic; this was preceded by an adductor canal block. He is then given a well padded tourniquet to the right thigh, Torres catheter, sandbag positioner to the table. The knee is sterilely prepped and draped in the usual surgical fashion at which time the site verification process is undertaken with a time-out procedure. The limb is exsanguinated with an Esmarch, tourniquet inflated to 250 mm. of Hg. Median parapatellar approach is utilized. Anterior fat pad and medial and lateral menisci were removed. The patella is cut free. The knee is flexed. Femoral initiation drill is applied. The distal cutting jig is appropriately set and the distal cut is made. Four-in-one cutting block is then utilized to verify size. This is done so accordingly, and the external rotation appropriately identified. The four-in-one cutting block is then utilized for the anterior posterior cuts, anterior and posterior chamfer cuts. At this point the box cutting jig for the posterior stabilized component is employed. The focus is then to the tibia. Intramedullary guiding is utilized, tibial bone block appropriately set. The cut is made. At this point the remainder of the posterior horn's medial and lateral menisci and posterior osteophytes are removed. The reaming is done sequentially up to a size 16. The reamer is left in place and the appropriate position of the tibial implant is identified. The keel is punched, offset is identified. The boss reaming is performed to allow for the proximal hub and component. At this point trialing is done and found to be most adequate with the 16 mm. trial polyethylene exchange. The patella is sized to a size 35 asymmetric, peg holes are drilled, this did trace quite nicely throughout the arc of motion. At this point the area is prepared for cementation with pulsed lavage irrigation. The components are assembled. The tibia is cemented followed by the femur and then the patella. Excess cement is removed. The cement is allowed to harden. The knee is then trialed and found to be most adequate with the 16 posterior stabilized polyethylene. This is then impacted in position. Of note the Betadine soak is performed; this is done with Betadine. Final implant is impacted. Bacitracin lavage is again performed. The Exparel solution is utilized to the capsular layer, periosteal layer, fascial layer, subcutaneous layer and skin prior to the final implantation and cementation. After verification of tracking stability, the procedure is deemed adequate and complete. The joint is injected with two grams of Tranexamic acid, fascial layer closed with #2 Quill, lavage is again performed, subcutaneous tissues closed with 2-0 Quill, and the skin is closed with sterile skin cecily. The patient is placed in a Mepilex Ag dressing, further dressed with ABD, web roll and an Young wrap. [facility] and taken to the Post-Anesthesia Care Unit in stable condition. He will remain hospitalized this day. Jaskaran Noriega Dictated: 11/25/2018 #[id number] Typed: 11/25/2018 #[id number] cc: Urbano Alvarenga D.O. [facility] Comment on above: Result Comment: Elec tronically Signed By: Zain Couglhin DO\.br\Date and Time Signed: 11/25/18 16:30 EDT Progress Note-Physicianon Progress Note-Physician Patient: ANGUS LUCIO Age: 63 years Sex: Male : 1955 Associated Diagnoses: None Author: Zain Coughlin DO Postoperative Information Procedure: R TKA, complicated. Preoperative Diagnosis: R knee OA, instability. Postoperative Diagnosis: same. Performed by: alta. Wildlife Biology Technician: osiris. Specimens Removed: bone, soft tissue. Estimated Blood Loss: 0 ml. Complications: None. Normal [facility] Comment on above: Result Comment: Elec tronically Signed By: Zain Coughlin DO\.br\Date and Time Signed: 11/25/18 13:57 EDT UA With Cult Reflexon 2018 Bilirubin Ql (U) Negative Normal Negative [facility] Comment on above: Performed By: #### 2 575030, 1575290, 8973294, 11881334, 4485794, 9893736 #### [facility] [address] [place] [address] Clarity (U) CLEAR Normal Clear [facility] Comment on above: Performed By: #### 2 209718, 1244492, 1249554, 64074891, 0113664, 4155635 #### [facility] [address] [place] [address] Color (U) YELLOW Normal Yellow [facility] Comment on above: Performed By: #### 2 719753, 0557967, 8655856, 91083501, 1007565, 3872414 #### [facility] [address] [place] [address] Epithelial cells.squamous LM.HPF (Urine sed) [#/Area] 0-2 Normal 0-2 [facility] Comment on above: Performed By: #### 2 019150, 6171082, 7262264, 93065892, 5513855, 6662648 #### [facility] [address] [place] [address] Glucose Test strip (U) [Mass/Vol] Negative Normal Negative [facility] Comment on above: Performed By: #### 2 429697, 5806728, 5819862, 10945221, 3901226, 7137041 #### [facility] [address] [place] [address] Hemoglobin Ql (U) TRACE Abnormal Negative [facility] Comment on above: Performed By: #### 2 063985, 6472501, 5098655, 20713113, 4352890, 6931043 #### [facility] [address] [place] [address] Ketones (U) [Mass/Vol] Negative Normal Negative [facility] Comment on above: Performed By: #### 2 061360, 2910613, 5225288, 04854440, 9575382, 3969205 #### [facility] [address] [place] [address] [place].plasma/[place] .RBC (Bld) [Mass ratio] 0-3 Normal 0-3 [facility] Comment on above: Performed By: #### 2 027628, 4523880, 9315977, 43091031, 7052860, 9156581 #### [facility] [address] [place] [address] Mucus Ql (Urine sed) TRACE Normal Fish [facility] Comment on above: Performed By: #### 2 322781, 6851274, 4985308, 14854816, 5438324, 5368590 #### [facility] [address] [place] [address] Nitrite Ql (U) Negative Normal Negative [facility] Comment on above: Performed By: #### 2 415163, 7225051, 7680527, 24064459, 0119065, 2413614 #### [facility] [address] [place] [address] pH (U) 6.5 [pH] 5.0-9.0 [facility] Comment on above: Performed By: #### 2 065972, 9200923, 4820553, 54792601, 0938601, 1776996 #### [facility] [address] [place] [address] Protein (U) [Mass/Vol] Negative Normal Negative Fi [facility] Comment on above: Performed By: #### 2 650545, 7566020, 5738265, 76074586, 4434984, 9044502 #### [facility] [address] [place] [address] Specific gravity (U) [Rel density] 1.015 1.005-1.030 [facility] Comment on above: Performed By: #### 2 258016, 4932719, 8831362, 80163491, 2578846, 4998092 #### [facility] [address] [place] [address] UA Spec Desc Torres Normal [facility] Comment on above: Performed By: #### 2 276437, 3426713, 8604685, 79235927, 9381403, 8086124 #### [facility] [address] [place] [address] Urobilinogen Qn (U) 0.2 {Katlin'U}/dL Normal 0.0-1.0 [facility] Comment on above: Performed By: #### 2 561423, 3916921, 2489401, 35870610, 5091653, 4633499 #### [facility] [address] [place] [address] WBC Auto Ql (U) Negative Normal Negative [facility] Comment on above: Performed By: #### 2 092290, 7008802, 5232589, 99693009, 0570454, 5565914 #### [facility] [address] [place] [address] WBC LM.HPF (Urine sed) [#/Area] 0-5 Normal 0-5 [facility] Comment on above: Performed By: #### 2 937495, 9052432, 6604061, 58818191, 8682961, 0049172 #### [facility] [address] [place] [address] XR Knee 1 or 2 Views Righton 11-25-2018 XR Knee 1 or 2 Views Right Exam Date/Time: 11/25/2018 14:18 EDT Reason for Exam: Post-op evaluation;Other (please specify) Report IMPRESSION: RIGHT TOTAL KNEE REPLACEMENT. CLINICAL INFORMATION: Postop COMMENT: 2 views. There is a right total knee prosthesis, in good position and alignment. There is gas in the soft tissues from the surgery. There are metallic surgical eccily along the anterior incision line. FINAL REPORT Dictated: 11/25/2018 2:30 pm Samuel Carr M.D. Signed (Electronic Signature): 11/25/2018 2:30 pm Signed by: Samuel Carr M.D. Transcribed by: LIZANDRO Technologist: JOVITA [facility] Coding Summary.on 11-10-2018 Coding Summary. CODING DATE: 11/10/2018 FINAL [facility] STATUS: Home (Routine DC) PAYOR: Bobbi APC DESCRIPTION 5522 Level 2 Imaging without Contrast 5521 Level 1 Imaging without Contrast ADMIT DX: REASON FOR VISIT DX: Z01.818 Encounter for other preprocedural examination FINAL DX: PRINCIPAL: Z01.818 Encounter for other preprocedural examination SECONDARY: M17.11 Unilateral primary osteoarthritis, right knee M06.9 Rheumatoid arthritis, unspecified M81.0 Age-related osteoporosis without current pathological fracture PYMT PROC APC STAT DESCRIPTION DOCTOR NAME DATE NOTE: The code number assigned matches the documented diagnosis and / or procedure in the patient's chart. However, the narrative phrase printed from the coding software may appear abbreviated, or result in slightly different terminology. Coded By: Natalee Hinton CphT Date Saved: 11/10/2018 12:42 pm [facility] BD Bone Density DEXAon 11-04 BD Bone Density DEXA Exam Date/Time: 11/03/2018 15:14 EDT Reason for Exam: Rheumatoid arthritis with rheumatoid factor of right knee without organ M05.761 Report IMPRESSION: PER THE INTERNATIONAL SOCIETY FOR CLINICAL DENSITOMETRY(ISCD), BONE MINERAL DENSITY IN THIS PATIENT IS WITHIN THE OSTEOPOROSIS RANGE. CLINICAL HISTORY: Rheumatoid arthritis with rheumatoid factor of right knee without organ M05.761. COMMENT: The lumbar spine and both hips and distal left forearm were scanned. The mean bone mineral density from L1 to L4 is 1.290 g/cm2, and the T score is 0.6 standard of deviation above the young adult standard reference and the Z score is 1.6 standard of deviation above the standard reference. Bone mineral density of the left femoral neck is 0.796 g/cm2, and the T score is -2.1 standard of deviation below the young adult standard reference and the Z score is -0.7 standard of deviation below the standard reference. Bone mineral density of the right femoral neck is 0.687 g/cm2 and the T score is -2.9 standard of deviation below the young adult standard reference and the Z score is -1.5 standard of deviation below the standard reference. Bone mineral density left radius 33% is 0.861 g/cm2 and this value is -1.4 standard of deviation below the standard reference and the Z score is -0.9 standard of deviation below the standard reference. Per the International Society for Clinical Densitometry(ISCD), bone mineral density in this patient is within the osteoporosis range. FINAL REPORT Dictated: 11/04/2018 2:43 pm Samuel Carr M.D. Signed (Electronic Signature): 11/04/2018 2:43 pm Signed by: Samuel Carr M.D. Transcribed by: LIZANDRO Technologist: YUSEF Normal [facility] ABO/Rh Retypeon 11-03-2018 ABO/Rh Retype Interp Positive Fish [facility] Comment on above: Performed By: #### 1 0666950 #### [facility] [address] [place] [address] BUNon 11-03-2018 Urea nitrogen [Mass/Vol] 15 mg/dL Normal 5-21 [facility] Comment on above: Performed By: #### 2 424971, 5279550, 3540119, 47477888, 7280344, 3586164 #### [facility] [address] [place] [address] CBC w/Indiceson 11-03-2018 Erythrocyte distribution width (RBC) [Ratio] 16.3 % High 10.9-14.2 [facility] Comment on above: Performed By: #### 2 779832, 8176999, 9203230, 20958814, 9125143, 1606242 #### [facility] [address] [place] [address] Hematocrit (Bld) [Volume fraction] 37.1 % Low 37.7-49.0 [facility] Comment on above: Performed By: #### 2 320458, 8345740, 7468372, 42329194, 9864907, 0142078 #### [facility] [address] [place] [address] Hemoglobin (Bld) [Mass/Vol] 12.7 g/dL Low 13.5-17.5 [facility] Comment on above: Performed By: #### 2 969365, 4749052, 6038363, 43095659, 8284097, 1486770 #### [facility] [address] [place] [address] MCH (RBC) [Entitic mass] 33.4 pg Normal 27.0-34.0 [facility] Comment on above: Performed By: #### 2 682984, 1314186, 0613039, 76169621, 8817477, 5222564 #### [facility] [address] [place] [address] MCHC (RBC) [Mass/Vol] 34.3 g/dL Normal 33.3-35.7 [facility] Comment on above: Performed By: #### 2 397671, 2495707, 0347447, 80060450, 1916940, 1157342 #### [facility] [address] [place] [address] MCV (RBC) [Entitic vol] 97.5 fL Normal 80.0-100.0 [facility] Comment on above: Performed By: #### 2 013825, 8567620, 8359722, 28044075, 8720909, 4201912 #### [facility] [address] [place] [address] Platelet mean volume (Bld) [Entitic vol] 7.5 fL Normal 6.4-10.8 [facility] Comment on above: Performed By: #### 2 580703, 2183391, 6995872, 51815312, 4185169, 9669393 #### [facility] [address] [place] [address] Platelets (Bld) [#/Vol] 249.0 E9/L Normal 150.0-500.0 [facility] Comment on above: Performed By: #### 2 858181, 7827637, 5045965, 22618584, 1274251, 9352879 #### [facility] [address] [place] [address] RBC (Bld) [#/Vol] 3.8 E12/L Low 4.3-5.9 [facility] Comment on above: Performed By: #### 2 328429, 7809507, 3230347, 67731620, 3973063, 0164638 #### [facility] [address] [place] [address] WBC corrected for nucl RBC Auto (Bld) [#/Vol] 5.1 E9/L Normal 4.0-11.0 [facility] Comment on above: Performed By: #### 2 016752, 7104340, 8043188, 86607935, 2631529, 8036178 #### [facility] [address] [place] [address] Creatinineon 11-03-2018 Creatinine [Mass/Vol] 0.8 mg/dL Normal 0.5-1.3 [facility] Comment on above: Performed By: #### 2 861380, 8151771, 3143504, 66998810, 4489839, 7718662 #### [facility] [address] [place] [address] Glucoseon 11-03-2018 Glucose [Mass/Vol] 82 mg/dL Normal 55-199 [facility] Comment on above: Performed By: #### 2 431810, 5479461, 7013565, 08461737, 0222676, 7088603 #### [facility] [address] [place] [address] Lyteson 11-03-2018 Anion gap [Moles/Vol] 12 mmol/L Normal 6-16 [facility] Comment on above: Performed By: #### 2 306483, 9023305, 8042143, 18453207, 5196502, 1778413 #### [facility] [address] [place] [address] Chloride [Moles/Vol] 103 mmol/L Normal 101-111 [facility] Comment on above: Performed By: #### 2 150948, 1102786, 7252729, 15605216, 4477986, 4222111 #### [facility] [address] [place] [address] CO2 [Moles/Vol] 24 mmol/L Normal 21-31 [facility] Comment on above: Performed By: #### 2 930258, 0885207, 5940101, 80477177, 8497018, 0168789 #### [facility] [address] [place] [address] Potassium [Moles/Vol] 3.9 mmol/L Normal 3.5-5.3 [facility] Comment on above: Performed By: #### 2 003776, 8067728, 9289554, 25863937, 9472835, 7958118 #### [facility] [address] [place] [address] Sodium [Moles/Vol] 135 mmol/L Normal 135-145 [facility] Comment on above: Performed By: #### 2 056443, 8093178, 1472919, 10456382, 4596435, 0819623 #### [facility] [address] [place] [address] Urinalysison 11-03-2018 Bilirubin Ql (U) Negative Normal Negative [facility] Comment on above: Performed By: #### 1 2467938 #### [facility] [address] [place] [address] Clarity (U) CLEAR Normal Clear [facility] Comment on above: Performed By: #### 1 1772111 #### [facility] [address] [place] [address] Color (U) YELLOW Normal Yellow [facility] Comment on above: Performed By: #### 1 6701651 #### [facility] [address] [place] [address] Epithelial cells.squamous LM.HPF (Urine sed) [#/Area] 0-2 Normal 0-2 [facility] Comment on above: Performed By: #### 1 0113349 #### [facility] [address] [place] [address] Glucose Test strip (U) [Mass/Vol] Negative Normal Negative [facility] Comment on above: Performed By: #### 1 1068011 #### [facility] [address] [place] [address] Hemoglobin Ql (U) Negative Normal Negative [facility] Comment on above: Performed By: #### 1 0540680 #### [facility] [address] [place] [address] Ketones (U) [Mass/Vol] Negative Normal Negative [facility] Comment on above: Performed By: #### 1 3722183 #### [facility] [address] [place] [address] [place].plasma/[place] .RBC (Bld) [Mass ratio] 0-3 Normal 0-3 [facility] Comment on above: Performed By: #### 1 7406321 #### [facility] [address] [place] [address] Nitrite Ql (U) Negative Normal Negative [facility] Comment on above: Performed By: #### 1 9806066 #### [facility] [address] [place] [address] pH (U) 6.5 [pH] 5.0-9.0 [facility] Comment on above: Performed By: #### 1 6621859 #### [facility] [address] [place] [address] Protein (U) [Mass/Vol] Negative Normal Negative [facility] Comment on above: Performed By: #### 1 0318185 #### [facility] [address] [place] [address] Specific gravity (U) [Rel density] <=1.005 1.005-1.030 [facility] Comment on above: Performed By: #### 1 9930973 #### [facility] [address] [place] [address] UA Spec Desc Clean Catch Normal [facility] Comment on above: Performed By: #### 1 7665264 #### [facility] [address] [place] [address] Urobilinogen Qn (U) 0.2 {[place]'U}/dL Normal 0.0-1.0 [facility] Comment on above: Performed By: #### 1 7709047 #### [facility] [address] [place] [address] WBC Auto Ql (U) Negative Normal Negative [facility] Comment on above: Performed By: #### 1 1518404 #### [facility] [address] [place] [address] WBC LM.HPF (Urine sed) [#/Area] 0-5 Normal 0-5 [facility] Comment on above: Performed By: #### 1 6598663 #### [facility] [address] [place] [address] Vitamin D 25 Hydroxyon 11-03 Calcidiol [Mass/Vol] 37.4 ng/mL Normal 30.0-100.0 [facility] Comment on above: Result Comment: Vit howard D deficiency has been defined as a level of serum 25-OH vitamin D less than 20 ng/mL (1,2) by the [place] of Medicine and an Endocrine Society practice guideline. The Endocrine Society further defined vitamin D insufficiency as a level between 21 and 29 ng/mL (2). 1. IOM ([place] of Medicine). 2010. Dietary reference intakes for calcium and D. [place]: The National Academies Press. 2. Talia MF, Katharina NC, Denny PEREZ, et al. Evaluation, treatment, and prevention of vitamin D deficiency: an Endocrine Society clinical practice guideline. JCEM. 2010; 96 (7):1911-30. Performed By: #### 5 [id number] #### [facility] [address] [place] [address] XR Chest 2 Viewson 9 XR Chest 2 Views Exam Date/Time: 11/03/2018 15:19 EDT Reason for Exam: PRE OP Report IMPRESSION: 1. HYPERINFLATION OF THE LUNGS COMPATIBLE WITH COPD. 2. NO RADIOGRAPHIC EVIDENCE OF ACTIVE DISEASE IN THE CHEST.. CLINICAL HISTORY: SMOKING HISTORY, PRE OP CHEST X-RAY COMPARISONS: None available. FINDINGS: PA and lateral views the chest demonstrate normal appearance of the heart and mediastinum. There are calcified hilar lymph nodes and a calcified granuloma in the RLL compatible with remote granulomatous disease. There is hyperinflation of lungs compatible with COPD. No acute pulmonary infiltrates or pleural effusions. No pneumothorax. There is a mild scoliosis and degenerative bone spurring in the spine. Overall, no radiographic evidence of active disease in the chest. FINAL REPORT Dictated: 11/03/2018 5:19 pm Elie Cartagena MD Signed (Electronic Signature): 11/03/2018 5:19 pm Signed by: Elie Cartagena MD Transcribed by: LIZANDRO Technologist: KATHERINE Normal [facility] eGFRon 11-03-2018 GFR/1.73 sq M predicted among blacks MDRD (S/P/Bld) [Vol rate/Area] mL/min/{1.73_m2} Normal >=59 [facility] Comment on above: Order Comment: Order added by Discern Expert. Result Comment: eGFR is race adjusted. AA=. Performed By: #### 2 812176, 6908694, 4824047, 85693773, 1721559, 7522628 #### [facility] [address] [place] [address] GFR/1.73 sq M predicted among non-blacks MDRD (S/P/Bld) [Vol rate/Area] mL/min/{1.73_m2} Normal >=59 [facility] Comment on above: Order Comment: Order added by Discern Expert. Result Comment: Pig Farm Manager erasmo kidney disease could be indicated at eGFR's of less than 60 mL/min/1.73m2. Kidney failure is indicated at less than 15 mL/min/1.73m2. Performed By: #### 2 025215, 9920095, 9828911, 41055663, 8256309, 1166028 #### [facility] [address] [place] [address] Encounters Encounter Date Encounter Type Care Provider Facility Start: 03-27-2022 End: 03-28-[address] LANDRY MISAni Facility:[facility] Start: 10-02-2021 End: 10-03-[address] LANDRY MISAni Facility:[facility] Start: 07-04-2021 End: 07-05-[address] LANDRY MISAni Facility:[facility] Start: 04-04-2021 End: 04-05-[address] LANDRY MISAni Facility:[facility] Payers Date Payer Category Payer Private Health Insurance [id number] Unknown [id number] 1955 Unknown [id number] 2.16.84 [id number] 1955 Unknown [id number] 2.16.84 [id number] 1955 Unknown [id number] 2.16.84 [id number] 1955 Unknown [id number] 2.16.84 [id number] Summary Purpose Family History No Family History Records FoundNo Family History Records Found Advance Directives No Advanced Directives Records FoundNo Advanced Directives Records Found Procedure Findings Note Patient: ANGUS LUCIO Age: 63 years Sex: Male : 1955 Associated Diagnoses: None Author: Florencio Ignacio MD Postoperative Information Post Operative Note: Post Anesthesia Care Unit. Anesthetic utilized: Combined technique, Monitored anesthesia care. Regional: Spinal. Health Status Allergies: Allergic Reactions (All) No Known Allergies Problem list: All Problems Rheumatoid arthritis / SNOMED CT 633588380 / Confirmed Smoker / SNOMED CT 344183357 / Confirmed Added secondary to documentation in Social History. Decreased vision / SNOMED CT 1305767927 / Confirmed left eye Osteoarthritis of knee / SNOMED CT 943475204 / Confirmed right Physical Examination Intake and Output adequate hydration Pain assessment: Self-reports no pain. General: Alert and oriented, No acute distress. HENT: Oral mucosa is moist, dentition unchanged. Respiratory: Respirations: Are within normal limits. Pattern: Regular. Cardiovascular: Normal rate. Neurologic: Alert, Oriented. Revi (more content not included)... Note ADMISSION DATE: 11/25/2018 D ISCHARGE DATE: 11/26/2018 ADMITTING DIAGNOSES: 1. Advanced osteoarthritis with instability, also rheumatoid arthritis about the right knee. 2. Status post right total knee arthroplasty. DISCHARGE DIAGNOSES: 1. Advanced osteoarthritis with instability, also rheumatoid arthritis about the right knee. 2. Status post right total knee arthroplasty. 3. Anemia secondary to acute perioperative blood loss. 4. Hypochloremia. 5. Hyponatremia. PROCEDURE: Right total knee arthroplasty 11/25/18. CONSULTATIONS: 1. Physical therapy/occupational therapy for total knee rehabilitation. 2. Discharge planning for after hospital needs. HOSPITAL COURSE: Angus is a 63-year-old white male admitting after undergoing successful right total knee arthroplasty on 11/25/18. He did well over his operative day. He did have some pain he felt related to the tightness of the Young wrap. This was changed. He has felt a whole lot better. The plan will be for further physical therapy, home discharg (more content not included)... Hospital Course Note ADMISSION DATE: 11/25/2018 D ISCHARGE DATE: 11/26/2018 ADMITTING DIAGNOSES: 1. Advanced osteoarthritis with instability, also rheumatoid arthritis about the right knee. 2. Status post right total knee arthroplasty. DISCHARGE DIAGNOSES: 1. Advanced osteoarthritis with instability, also rheumatoid arthritis about the right knee. 2. Status post right total knee arthroplasty. 3. Anemia secondary to acute perioperative blood loss. 4. Hypochloremia. 5. Hyponatremia. PROCEDURE: Right total knee arthroplasty 11/25/18. CONSULTATIONS: 1. Physical therapy/occupational therapy for total knee rehabilitation. 2. Discharge planning for after hospital needs. HOSPITAL COURSE: Angus is a 63-year-old white male admitting after undergoing successful right total knee arthroplasty on 11/25/18. He did well over his operative day. He did have some pain he felt related to the tightness of the Young wrap. This was changed. He has felt a whole lot better. The plan will be for further physical therapy, home discharg (more content not included)... Additional Source Comments (unrecognized sect ion and content) No Status Records FoundNo Status Records Found INFORMATION SOURCE (unrecogn ized section and content) DATE CREATED AUTHOR 11/29/2018 [facility] DATE CREATED AUTHOR [facility] PERTAINING TO PATIENTS WHO ARE OR HAVE BEEN ENROLLED IN A CHEMICAL DEPENDENCY/SUBSTANCEABUSE PROGRAM, SOME INFORMATION MAY BE OMITTED. This clinical summary was aggregated from multiple sources. Caution should be exercised in using it in the provision of clinical care. This summary normalizes information from multiple sources, and as a consequence, information in this document may materially change the coding, format and clinical context of patient data. In addition, data may be omitted in some cases. CLINICAL DECISIONS SHOULD BE BASED ON THE PRIMARY CLINICAL RECORDS. [employer] provides no warranty or guarantee of the accuracy or completeness of information in this document.
[2023-09-16 09:54] LABS: Basophils Percent Auto 0.4 % (0.2-2.0); Eosinophils Absolute Auto 0.1 10^3/uL (0.0-0.7); Eosinophils Percent Auto 0.9 % (0.9-7.0); Hematocrit 41.6 % (42.0-54.0); Hemoglobin 13.8 g/dL (14.0-18.0); Immature Granulocytes Abs Auto 0.06 10^3/uL (0.00-0.03); Immature Granulocytes Pct Auto 0.7 % (0.0-0.5); Lymphocytes Absolute Auto 2.1 10^3/uL (1.2-3.8); Lymphocytes Percent Auto 22.9 % (20.5-60.0); Mean Corpuscular HGB Conc 33.2 g/dL (29.9-35.2); Mean Corpuscular Hemoglobin 32.8 pg (25.9-34.0); Mean Corpuscular Volume 98.8 fL (80.0-94.0); Mean Platelet Volume 9.3 fL (9.5-13.5); Monocytes Absolute Auto 0.5 10^3/uL (0.3-0.8); Monocytes Percent Auto 5.8 % (1.7-12.0); Neutrophils Absolute Auto 6.2 10^3/uL (1.4-6.5); Neutrophils Percent Auto 69.3 % (43.0-75.0); Platelet Count 231 10^3/uL (150-450); Red Blood Count 4.21 10^6/uL (4.70-6.10); Red Cell Distribution Width 15.9 % (11.0-15.0)
[2023-09-16 10:11] LABS: Erythrocyte Sedimentation Rate 53 mm/hr (<=20)
[2023-09-16 10:40] LABS: Alanine Aminotransferase 19 U/L (16-63); Albumin Globulin Ratio 0.8; Albumin Level 3.4 g/dL (3.4-5.0); Alkaline Phosphatase 91 U/L (46-116); Anion Gap 11.7; Aspartate Amino Transferase 23 U/L (15-37); Bilirubin Total 0.5 mg/dL (0.2-1.0); Calcium 9.2 mg/dL (8.5-10.1); Chloride 99 mmol/L (98-107); Estimated GFR (African America >60 (>=60); Estimated GFR (Non-African Ame >60 (>=60); Globulin 4.2 g/dL; Glucose 108 mg/dL (74-106); Potassium 4.7 mmol/L (3.5-5.1); Sodium 133 mmol/L (136-145); Total Protein 7.6 g/dL (6.4-8.2)
== END 2023-09-16 09:14 | disposition home or self-care (01) ==
LOC: LAB 09:14
PROVIDERS: PCP Family Medicine; Visit Provider Registered Nurse
DX: M15.0 Primary generalized (osteo)arthritis (principal); Z79.899 Other long term (current) drug therapy
CPT/HCPCS: 36415; 80053; 85025; 85652

== ENCOUNTER 2023-12-23 09:47 | Outpatient (OUT) | payer MEDICARE, SELFPAY ==
--- OUTSIDE RECORDS SUMMARY | 2023-12-23 09:55 | XMS_ITS | CCD ---
Author Organization 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 Jennifer Peralta Basophils/100 WBC (Bld) 0.4 % Normal 0.2-2.0 [facility] Comment on above: Performed By: #### C BC #### [facility] [address] [address] [address] Jennifer Peralta EO # 0.1 103/ul Normal 0.0-0.7 [facility] Comment on above: Performed By: #### C BC #### [facility] [address] [place] [address] Dr. Jennifer Peralta Eosinophils/100 WBC (Bld) 1.0 % Normal 0.9-7.0 [facility] Comment on above: Performed By: #### C BC #### [facility] [address] [place] [address] Dr. Jennifer Peralta Erythrocyte distribution width (RBC) [Ratio] 15.7 % Critically high 11.0-15.0 [facility] Comment on above: Performed By: #### C BC #### [facility] [address] [place] [address] Dr. Jennifer Peralta Hematocrit (Bld) [Volume fraction] 38.2 % Critically low 42.0-54.0 [facility] Comment on above: Performed By: #### C BC #### [facility] [address] [place] [address] Dr. Jennifer Peralta Hemoglobin (Bld) [Mass/Vol] 12.6 g/dL Critically low 14.0-18.0 [facility] Comment on above: Performed By: #### C BC #### [facility] [address] [place] [address] Dr. Jennifer Peralta IG # 0.03 10e3/ul Normal 0.00-0.03 [facility] Comment on above: Performed By: #### C BC #### [facility] [address] [place] [address] Dr. Jennifer Peralta IG % 0.4 % Normal 0.0-0.5 [facility] Comment on above: Performed By: #### C BC #### [facility] [address] [place] [address] Dr. Jennifer Peralta LYMPH # 2.4 103/ul Normal 1.2-3.8 [facility] Comment on above: Performed By: #### C BC #### [facility] [address] [place] [address] Dr. Jennifer Peralta Lymphocytes/100 WBC (Bld) 33.3 % Normal 20.5-60.0 [facility] Comment on above: Performed By: #### C BC #### [facility] [address] [place] [address] Dr. Jennifer Peralta MANUAL DIFF REQ NO Normal [facility] Comment on above: Performed By: #### C BC #### [facility] [address] [place] [address] Dr. Jennifer Peralta MCH (RBC) [Entitic mass] 32.1 pg Normal 25.9-34.0 [facility] Comment on above: Performed By: #### C BC #### [facility] [address] [place] [address] Dr. Jennifer Peralta MCHC (RBC) [Mass/Vol] 33.0 g/dL Normal 29.9-35.2 [facility] Comment on above: Performed By: #### C BC #### [facility] [address] [place] [address] Dr. Jennifer Peralta MCV (RBC) [Entitic vol] 97.2 fL Critically high 80.0-94.0 [facility] Comment on above: Performed By: #### C BC #### [facility] [address] [place] [address] Dr. Jennifer Peralta MONO # 0.6 103/ul Normal 0.3-0.8 [facility] Comment on above: Performed By: #### C BC #### [facility] [address] [place] [address] Dr. Jennifer Peralta Monocytes/100 WBC (Bld) 7.7 % Normal 1.7-12.0 [facility] Comment on above: Performed By: #### C BC #### [facility] [address] [place] [address] Dr. Jennifer Peralta NEUT # 4.1 103/ul Normal 1.4-6.5 [facility] Comment on above: Performed By: #### C BC #### [facility] [address] [place] [address] Dr. Jennifer Peralta Neutrophils/100 WBC (Bld) 57.2 % Normal 43.0-75.0 [facility] Comment on above: Performed By: #### C BC #### [facility] [address] [address] [address] Jennifer Peralta Platelet mean volume (Bld) [Entitic vol] 9.1 fL Critically low 9.5-13.5 [facility] Comment on above: Performed By: #### C BC #### [facility] [address] [address] [address] Jennifer Peralta PLT 246 103/ul Normal 150-450 [facility] Comment on above: Performed By: #### C BC #### [facility] [address] [address] [address] Jennifer Peralta RBC 3.93 106/ul Critically low 4.70-6.[address] [facility] Comment on above: Performed By: #### C BC #### [facility] [address] [place] [address] Dr. Jennifer Peralta WBC 7.2 103/ul Normal 4.0-11.0 [facility] Comment on above: Performed By: #### C BC #### [facility] [address] [place] [address] Dr. Jennifer Peralta PROF 14(COMP METB)on 022 Albumin [Mass/Vol] 3.5 g/dL Normal 3.4-5.0 [facility] Comment on above: Performed By: #### S EDR #### [facility] [address] [place] [address] Dr. Jennifer Peralta Albumin/Globulin [Mass ratio] 0.9 {ratio} Normal [facility] Comment on above: Performed By: #### S EDR #### [facility] [address] [place] [address] Dr. Jennifer Peralta ALP [Catalytic activity/Vol] 80 U/L Normal 46-116 [facility] Comment on above: Performed By: #### S EDR #### [facility] [address] [place] [address] Dr. Jennifer Peralta ALT [Catalytic activity/Vol] 15 U/L Critically low 16-63 [facility] Comment on above: Performed By: #### S EDR #### [facility] [address] [address] [address] Jennifer Peralta Anion gap [Moles/Vol] 9.2 mmol/L Normal [facility] Comment on above: Performed By: #### S EDR #### [facility] [address] [address] [address] Jennifer Peralta AST [Catalytic activity/Vol] 25 U/L Normal 15-37 [facility] Comment on above: Performed By: #### S EDR #### [facility] [address] [address] [address] Jennifer Peralta Bilirubin [Mass/Vol] 0.4 mg/dL Normal 0.2-1.0 [facility] Comment on above: Performed By: #### S EDR #### [facility] [address] [place] [address] Dr. Jennifer Peralta Calcium [Mass/Vol] 9.0 mg/dL Normal 8.5-10.1 [facility] Comment on above: Performed By: #### S EDR #### [facility] [address] [place] [address] Dr. Jennifer Peralta Chloride [Moles/Vol] 101 mmol/L Normal 98-107 [facility] Comment on above: Performed By: #### S EDR #### [facility] [address] [place] [address] Dr. Jennifer Peralta CO2 [Moles/Vol] 28.0 mmol/L Normal 21.0-32.0 [facility] Comment on above: Performed By: #### S EDR #### [facility] [address] [place] [address] Dr. Jennifer Peralta Creatinine [Mass/Vol] 0.87 mg/dL Normal 0.70-1.30 [facility] Comment on above: Performed By: #### S EDR #### [facility] [address] [place] [address] Dr. Jennifer Peralta EGFR-AF PANAMANIAN >60 Normal >=60 [facility] Comment on above: Performed By: #### S EDR #### [facility] [address] [address] [address] Jennifer Peralta EGFR-NON AF PANAMANIAN >60 Normal >=60 [facility] Comment on above: Performed By: #### S EDR #### [facility] [address] [place] [address] Dr. Jennifer Peralta Globulin (S) [Mass/Vol] 3.9 g/dL Normal [facility] Comment on above: Performed By: #### S EDR #### [facility] [address] [address] [address] Jennifer Peralta Glucose [Mass/Vol] 84 mg/dL Normal 74-106 [facility] Comment on above: Performed By: #### S EDR #### [facility] [address] [place] [address] Dr. Jennifer Peralta Potassium [Moles/Vol] 4.2 mmol/L Normal 3.5-5.1 [facility] Comment on above: Performed By: #### S EDR #### [facility] [address] [place] [address] Dr. Jennifer Peralta Protein [Mass/Vol] 7.4 g/dL Normal 6.4-8.2 [facility] Comment on above: Performed By: #### S EDR #### [facility] [address] [place] [address] Dr. Jennifer Peralta Sodium [Moles/Vol] 134 mmol/L Critically low 136-145 [facility] Comment on above: Performed By: #### S EDR #### [facility] [address] [place] [address] Dr. Jennifer Peralta Urea nitrogen [Mass/Vol] 18.0 mg/dL Normal 7.0-18.0 [facility] Comment on above: Performed By: #### S EDR #### [facility] [address] [place] [address] Dr. Jennifer Peralta Urea nitrogen/Creatinine [Mass ratio] 20.7 mg/mg Normal [facility] Comment on above: Performed By: #### S EDR #### [facility] [address] [place] [address] Dr. Jennifer Peralta SED RATE [facility] 2021 SED RATE 49 mm/hr Critically high <=[address] [facility] Comment on above: Performed By: #### S EDR #### [facility] [address] [place] [address] Dr. Jennifer Peralta CBC AUTO DIFFon 10-02-2021 BASO # 0.0 103/ul Normal 0.0-0.1 [facility] Comment on above: Performed By: #### C BC #### [facility] [address] [place] [address] Dr. Jennifer Peralta Basophils/100 WBC (Bld) 0.4 % Normal 0.2-2.0 [facility] Comment on above: Performed By: #### C BC #### [facility] [address] [place] [address] Dr. Jennifer Peralta EO # 0.1 103/ul Normal 0.0-0.7 [facility] Comment on above: Performed By: #### C BC #### [facility] [address] [place] [address] Dr. Jennifer Peralta Eosinophils/100 WBC (Bld) 1.0 % Normal 0.9-7.0 [facility] Comment on above: Performed By: #### C BC #### [facility] [address] [place] [address] Dr. Jennifer Peralta Erythrocyte distribution width (RBC) [Ratio] 16.5 % Critically high 11.0-15.0 [facility] Comment on above: Performed By: #### C BC #### [facility] [address] [place] [address] Dr. Jennifer Peralta Hematocrit (Bld) [Volume fraction] 38.7 % Critically low 42.0-54.0 [facility] Comment on above: Performed By: #### C BC #### [facility] [address] [place] [address] Dr. Jennifer Peralta Hemoglobin (Bld) [Mass/Vol] 12.8 g/dL Critically low 14.0-18.0 [facility] Comment on above: Performed By: #### C BC #### [facility] [address] [place] [address] Dr. Jennifer Peralta IG # 0.02 10e3/ul Normal 0.00-0.03 [facility] Comment on above: Performed By: #### C BC #### [facility] [address] [place] [address] Dr. Jennifer Peralta IG % 0.3 % Normal 0.0-0.5 [facility] Comment on above: Performed By: #### C BC #### [facility] [address] [place] [address] Dr. Jennifer Peralta LYMPH # 2.8 103/ul Normal 1.2-3.8 [facility] Comment on above: Performed By: #### C BC #### [facility] [address] [place] [address] Dr. Jennifer Peralta Lymphocytes/100 WBC (Bld) 39.8 % Normal 20.5-60.0 [facility] Comment on above: Performed By: #### C BC #### [facility] [address] [place] [address] Dr. Jennifer Peralta MANUAL DIFF REQ NO Normal [facility] Comment on above: Performed By: #### C BC #### [facility] [address] [place] [address] Dr. Jennifer Peralta MCH (RBC) [Entitic mass] 32.3 pg Normal 25.9-34.0 [facility] Comment on above: Performed By: #### C BC #### [facility] [address] [place] [address] Dr. Jennifer Peralta MCHC (RBC) [Mass/Vol] 33.1 g/dL Normal 29.9-35.2 [facility] Comment on above: Performed By: #### C BC #### [facility] [address] [place] [address] Dr. Jennifer Peralta MCV (RBC) [Entitic vol] 97.7 fL Critically high 80.0-94.0 [facility] Comment on above: Performed By: #### C BC #### [facility] [address] [place] [address] Dr. Jennifer Peralta MONO # 0.7 103/ul Normal 0.3-0.8 [facility] Comment on above: Performed By: #### C BC #### [facility] [address] [place] [address] Dr. Jennifer Peralta Monocytes/100 WBC (Bld) 9.2 % Normal 1.7-12.0 [facility] Comment on above: Performed By: #### C BC #### [facility] [address] [place] [address] Dr. Jennifer Peralta NEUT # 3.5 103/ul Normal 1.4-6.5 [facility] Comment on above: Performed By: #### C BC #### [facility] [address] [place] [address] Dr. Jennifer Peralta Neutrophils/100 WBC (Bld) 49.3 % Normal 43.0-75.0 [facility] Comment on above: Performed By: #### C BC #### [facility] [address] [place] [address] Dr. Jennifer Peralta Platelet mean volume (Bld) [Entitic vol] 9.3 fL Critically low 9.5-13.5 [facility] Comment on above: Performed By: #### C BC #### [facility] [address] [place] [address] Dr. Jennifer Peralta PLT 230 103/ul Normal 150-450 [facility] Comment on above: Performed By: #### C BC #### [facility] [address] [place] [address] Dr. Jennifer Peralta RBC 3.96 106/ul Critically low 4.70-6.10 [facility] Comment on above: Performed By: #### C BC #### [facility] [address] [place] [address] Dr. Jennifer Peralta WBC 7.1 103/ul Normal 4.0-11.0 [facility] Comment on above: Performed By: #### C BC #### [facility] [address] [place] [address] Dr. Jennifer Peralta PROF 14(COMP METB)on 022 Albumin [Mass/Vol] 3.5 g/dL Normal 3.4-5.0 [facility] Comment on above: Performed By: #### C MP #### [facility] [address] [place] [address] Dr. Jennifer Peralta Albumin/Globulin [Mass ratio] 0.9 {ratio} Normal [facility] Comment on above: Performed By: #### C MP #### [facility] [address] [place] [address] Dr. Jennifer Peralta ALP [Catalytic activity/Vol] 78 U/L Normal 46-116 [facility] Comment on above: Performed By: #### C MP #### [facility] [address] [place] [address] Dr. Jennifer Peralta ALT [Catalytic activity/Vol] 23 U/L Normal 16-63 [facility] Comment on above: Performed By: #### C MP #### [facility] [address] [place] [address] Dr. Jennifer Peralta Anion gap [Moles/Vol] 9.8 mmol/L Normal [facility] Comment on above: Performed By: #### C MP #### [facility] [address] [place] [address] Dr. Jennifer Peralta AST [Catalytic activity/Vol] 27 U/L Normal 15-37 [facility] Comment on above: Performed By: #### C MP #### [facility] [address] [place] [address] Dr. Jennifer Peralta Bilirubin [Mass/Vol] 0.4 mg/dL Normal 0.2-1.0 [facility] Comment on above: Performed By: #### C MP #### [facility] [address] [place] [address] Dr. Jennifer Peralta Calcium [Mass/Vol] 9.0 mg/dL Normal 8.5-10.1 [facility] Comment on above: Performed By: #### C MP #### [facility] [address] [place] [address] Dr. Jennifer Peralta Chloride [Moles/Vol] 105 mmol/L Normal 98-107 [facility] Comment on above: Performed By: #### C MP #### [facility] [address] [address] [address] Jennifer Peralta CO2 [Moles/Vol] 29.7 mmol/L Normal 21.0-32.0 [facility] Comment on above: Performed By: #### C MP #### [facility] [address] [address] [address] Jennifer Peralta Creatinine [Mass/Vol] 0.98 mg/dL Normal 0.70-1.30 [facility] Comment on above: Performed By: #### C MP #### [facility] [address] [address] [address] Jennifer Peralta EGFR-AF PANAMANIAN >60 Normal >=60 [facility] Comment on above: Performed By: #### C MP #### [facility] [address] [place] [address] Dr. Jennifer Peralta EGFR-NON AF PANAMANIAN >60 Normal >=60 [facility] Comment on above: Performed By: #### C MP #### [facility] [address] [address] [address] Jennifer Peralta Globulin (S) [Mass/Vol] 3.8 g/dL Normal [facility] Comment on above: Performed By: #### C MP #### [facility] [address] [place] [address] Dr. Jennifer Peralta Glucose [Mass/Vol] 83 mg/dL Normal 74-106 [facility] Comment on above: Performed By: #### C MP #### [facility] [address] [place] [address] Dr. Jennifer Peralta Potassium [Moles/Vol] 4.5 mmol/L Normal 3.5-5.1 [facility] Comment on above: Performed By: #### C MP #### [facility] [address] [address] [address] Jennifer Peralta Protein [Mass/Vol] 7.3 g/dL Normal 6.4-8.2 [facility] Comment on above: Performed By: #### C MP #### [facility] [address] [address] [address] Jennifer Peralta Sodium [Moles/Vol] 140 mmol/L Normal 136-145 [facility] Comment on above: Performed By: #### C MP #### [facility] [address] [place] [address] Dr. Jennifer Peralta Urea nitrogen [Mass/Vol] 23.0 mg/dL Critically high 7.0-18.0 [facility] Comment on above: Performed By: #### C MP #### [facility] [address] [place] [address] Dr. Jennifer Peralta Urea nitrogen/Creatinine [Mass ratio] 23.5 mg/mg Normal [facility] Comment on above: Performed By: #### C MP #### [facility] [facility] [address] [place] [address] Dr. Jennifer Peralta SED [facility]ATE [facility] 2021 SED RATE 22 mm/hr Critically high <=20 [facility] Comment on above: Performed By: #### S EDR #### [facility] [address] [place] [address] Dr. Jennifer Peralta CBC AUTO DIFFon 07-04-2021 BASO # 0.0 103/ul Normal 0.0-0.1 [facility] [place] [facility] Comment on above: Performed By: #### S EDR #### [facility] [address] [place] [address] Dr. Jennifer Peralta Basophils/100 WBC (Bld) 0.3 % Normal 0.2-2.0 [facility] [place] [facility] Comment on above: Performed By: #### S EDR #### [facility] [address] [place] [address] Dr. Jennifer Peralta EO # 0.1 103/ul Normal 0.0-0.7 [facility] [place] [facility] Comment on above: Performed By: #### S EDR #### [facility] [address] [place] [address] Dr. Jennifer Peralta Eosinophils/100 WBC (Bld) 1.1 % Normal 0.9-7.0 [facility] [place] [facility] Comment on above: Performed By: #### S EDR #### [facility] [address] [place] [address] Dr. Jennifer Peralta Erythrocyte distribution width (RBC) [Ratio] 17.3 % Critically high 11.0-15.0 [facility] [place] [facility] Comment on above: Performed By: #### S EDR #### [facility] [address] [place] [address] Dr. Jennifer Peralta Hematocrit (Bld) [Volume fraction] 39.6 % Critically low 42.0-54.0 [facility] [place] [facility] Comment on above: Performed By: #### S EDR #### [facility] [address] [place] [address] Dr. Jennifer Peralta Hemoglobin (Bld) [Mass/Vol] 13.0 g/dL Critically low 14.0-18.0 [facility] [place] [facility] Comment on above: Performed By: #### S EDR #### [facility] [address] [place] [address] Dr. Jennifer Peralta IG # 0.02 10e3/ul Normal 0.00-0.03 [facility] [place] [facility] Comment on above: Performed By: #### S EDR #### [facility] [address] [place] [address] Dr. Jennifer Peralta IG % 0.3 % Normal 0.0-0.5 [facility] [place] [facility] Comment on above: Performed By: #### S EDR #### [facility] [address] [place] [address] Dr. Jennifer Peralta LYMPH # 2.4 103/ul Normal 1.2-3.8 [facility] [place] [facility] Comment on above: Performed By: #### S EDR #### [facility] [address] [place] [address] Dr. Jennifer Peralta Lymphocytes/100 WBC (Bld) 38.1 % Normal 20.5-60.0 [facility] [place] [facility] Comment on above: Performed By: #### S EDR #### [facility] [address] [place] [address] Dr. Jennifer Peralta MANUAL DIFF REQ NO Normal [facility] Comment on above: Performed By: #### S EDR #### [facility] [address] [address] [address] Jennifer Peralta MCH (RBC) [Entitic mass] 31.5 pg Normal 25.9-34.0 [facility] [place] [facility] Comment on above: Performed By: #### S EDR #### [facility] [address] [place] [address] Dr. Jennifer Peralta MCHC (RBC) [Mass/Vol] 32.8 g/dL Normal 29.9-35.2 [facility] Comment on above: Performed By: #### S EDR #### [facility] [address] [place] [address] Dr. Jennifer Peralta MCV (RBC) [Entitic vol] 95.9 fL Critically high 80.0-94.0 [facility] [place] [facility] Comment on above: Performed By: #### S EDR #### [facility] [address] [place] [address] Dr. Jennifer Peralta MONO # 0.6 103/ul Normal 0.3-0.8 [facility] [place] [facility] Comment on above: Performed By: #### S EDR #### [facility] [address] [place] [address] Dr. Jennifer Peralta Monocytes/100 WBC (Bld) 9.1 % Normal 1.7-12.0 [facility] [place] [facility] Comment on above: Performed By: #### S EDR #### [facility] [address] [place] [address] Dr. Jennifer Peralta NEUT # 3.2 103/ul Normal 1.4-6.5 [facility] Comment on above: Performed By: #### S EDR #### [facility] [address] [place] [address] Dr. Jennifer Peralta Neutrophils/100 WBC (Bld) 51.1 % Normal 43.0-75.0 [facility] Comment on above: Performed By: #### S EDR #### [facility] [address] [place] [address] Dr. Jennifer Peralta Platelet mean volume (Bld) [Entitic vol] 9.0 fL Critically low 9.5-13.5 [facility] Comment on above: Performed By: #### S EDR #### [facility] [address] [address] [address] Jennifer Peralta PLT 218 103/ul Normal 150-450 [facility] [place] [facility] Comment on above: Performed By: #### S EDR #### [facility] [address] [address] [address] Jennifer ePralta RBC 4.13 106/ul Critically low 4.70-6.10 [facility] Comment on above: Performed By: #### S EDR #### [facility] [address] [address] [address] Jennifer Peralta WBC 6.3 103/ul Normal 4.0-11.0 [facility] [place] [facility] Comment on above: Performed By: #### S EDR #### [facility] [address] [place] [address] Dr. Jennifer Peralta PROF 14(COMP METB)on 022 Albumin [Mass/Vol] 3.6 g/dL Normal 3.5-5.0 [facility] Comment on above: Performed By: #### C MP #### [facility] [address] [place] [address] Dr. Jennifer Peralta Albumin/Globulin [Mass ratio] 0.9 {ratio} Normal [facility] [place] [facility] Comment on above: Performed By: #### C MP #### [facility] [address] [place] [address] Dr. Jennifer Peralta ALP [Catalytic activity/Vol] 80 U/L Normal 38-126 [facility] [place] [facility] Comment on above: Performed By: #### C MP #### [facility] [address] [place] [address] Dr. Jennifer Peralta ALT [Catalytic activity/Vol] 18 U/L Critically low 21-72 [facility] [place] [facility] Comment on above: Performed By: #### C MP #### [facility] [address] [place] [address] Dr. Jennifer Peralta Anion gap [Moles/Vol] 10.5 mmol/L Normal [facility] Comment on above: Performed By: #### C MP #### [facility] [address] [address] [address] Jennifer Peralta AST [Catalytic activity/Vol] 24 U/L Normal 17-59 [facility] Comment on above: Performed By: #### C MP #### [facility] [address] [address] [address] Jennifer Peralta Bilirubin [Mass/Vol] 0.4 mg/dL Normal 0.2-1.3 [facility] Comment on above: Performed By: #### C MP #### [facility] [address] [address] [address] Jennifer Peralta Calcium [Mass/Vol] 8.7 mg/dL Normal 8.4-10.2 [facility] Comment on above: Performed By: #### C MP #### [facility] [address] [place] [address] Dr. Jennifer Peralta Chloride [Moles/Vol] 100 mmol/L Normal 98-107 [facility] Comment on above: Performed By: #### C MP #### [facility] [address] [place] [address] Dr. Jennifer Peralta CO2 [Moles/Vol] 26.9 mmol/L Normal 22.0-30.0 [facility] Comment on above: Performed By: #### C MP #### [facility] [address] [place] [address] Dr. Jennifer Peralta Creatinine [Mass/Vol] 0.93 mg/dL Normal 0.66-1.25 [facility] Comment on above: Performed By: #### C MP #### [facility] [address] [place] [address] Dr. Jennifer Peralta EGFR-AF PANAMANIAN >60 Normal >=60 [facility] Comment on above: Performed By: #### C MP #### [facility] [address] [place] [address] Dr. Jennifer Peralta EGFR-NON AF PANAMANIAN >60 Normal >=60 [facility] Comment on above: Performed By: #### C MP #### [facility] [address] [place] [address] Dr. Jennifer Peralta Globulin (S) [Mass/Vol] 3.9 g/dL Normal [facility] [place] [facility] Comment on above: Performed By: #### C MP #### [facility] [address] [address] [address] Jennifer Peralta Glucose [Mass/Vol] 102 mg/dL Normal 74-106 [facility] Comment on above: Performed By: #### C MP #### [facility] [address] [address] [address] Jennifer Peralta Potassium [Moles/Vol] 4.4 mmol/L Normal 3.4-5.0 [facility] [place] [facility] Comment on above: Performed By: #### C MP #### [facility] [address] [address] [address] Jennifer Peralta Protein [Mass/Vol] 7.5 g/dL Normal 6.1-8.2 [facility] Comment on above: Performed By: #### C MP #### [facility] [address] [address] [address] Jennifer Peralta Sodium [Moles/Vol] 133 mmol/L Critically low 137-145 [facility] Comment on above: Performed By: #### C MP #### [facility] [address] [place] [address] Dr. Jennifer Peralta Urea nitrogen [Mass/Vol] 20.0 mg/dL Normal 9.0-20.0 [facility] [place] [facility] Comment on above: Performed By: #### C MP #### [facility] [address] [address] [address] Jennifer Peralta Urea nitrogen/Creatinine [Mass ratio] 21.5 mg/mg Normal [facility] [place] [facility] Comment on above: Performed By: #### C MP #### [facility] [address] [address] [address] Jennifer Peralta SED RATE WESTERGRENon 2021 SED RATE 35 mm/hr Critically high <=20 [facility] Comment on above: Performed By: #### S EDR #### [facility] [address] [address] [address] Jennifer Peralta CBC AUTO DIFFon 04-04-2021 BASO # 0.0 103/ul Normal 0.0-0.1 [facility] [place] [facility] Comment on above: Performed By: #### C BC #### [facility] [address] [place] [address] Dr. Jennifer Peralta Basophils/100 WBC (Bld) 0.4 % Normal 0.2-2.0 [facility] [place] [facility] Comment on above: Performed By: #### C BC #### [facility] [address] [place] [address] Dr. Jennifer Peralta EO # 0.1 103/ul Normal 0.0-0.7 [facility] Comment on above: Performed By: #### C BC #### [facility] [address] [place] [address] Dr. Jennifer Peralta Eosinophils/100 WBC (Bld) 1.6 % Normal 0.9-7.0 [facility] [place] [facility] Comment on above: Performed By: #### C BC #### [facility] [address] [place] [address] Dr. Jennifer Peralta Erythrocyte distribution width (RBC) [Ratio] 15.9 % Critically high 11.0-15.0 [facility] [place] [facility] Comment on above: Performed By: #### C BC #### [facility] [address] [place] [address] Dr. Jennifer Peralta Hematocrit (Bld) [Volume fraction] 39.2 % Critically low 42.0-54.0 [facility] [place] [facility] Comment on above: Performed By: #### C BC #### [facility] [address] [place] [address] Dr. Jennifer Peralta Hemoglobin (Bld) [Mass/Vol] 12.8 g/dL Critically low 14.0-18.0 [facility] [place] [facility] Comment on above: Performed By: #### C BC #### [facility] [address] [place] [address] Dr. Jennifer Peralta IG # 0.02 10e3/ul Normal 0.00-0.03 [facility] [place] [facility] Comment on above: Performed By: #### C BC #### [facility] [address] [place] [address] Dr. Jennifer Peralta IG % 0.4 % Normal 0.0-0.5 [facility] [place] [facility] Comment on above: Performed By: #### C BC #### [facility] [address] [place] [address] Dr. Jennifer Peralta LYMPH # 2.5 103/ul Normal 1.2-3.8 [facility] [place] [facility] Comment on above: Performed By: #### C BC #### [facility] [address] [place] [address] Dr. Jennifer Peralta Lymphocytes/100 WBC (Bld) 45.8 % Normal 20.5-60.0 [facility] [place] [facility] Comment on above: Performed By: #### C BC #### [facility] [address] [place] [address] Dr. Jennifer Peralta MANUAL DIFF REQ NO Normal [facility] Comment on above: Performed By: #### C BC #### [facility] [address] [place] [address] Dr. Jennifer Peralta MCH (RBC) [Entitic mass] 30.8 pg Normal 25.9-34.0 [facility] [place] [facility] Comment on above: Performed By: #### C BC #### [facility] [address] [place] [address] Dr. Jennifer Peralta MCHC (RBC) [Mass/Vol] 32.7 g/dL Normal 29.9-35.2 [facility] [place] [facility] Comment on above: Performed By: #### C BC #### [facility] [address] [place] [address] Dr. Jennifer Peralta MCV (RBC) [Entitic vol] 94.5 fL Critically high 80.0-94.0 [facility] [place] [facility] Comment on above: Performed By: #### C BC #### [facility] [address] [place] [address] Dr. Jennifer Peralta MONO # 0.6 103/ul Normal 0.3-0.8 [facility] [place] [facility] Comment on above: Performed By: #### C BC #### [facility] [address] [place] [address] Dr. Jennifer Peralta Monocytes/100 WBC (Bld) 10.7 % Normal 1.7-12.0 [facility] [place] [facility] Comment on above: Performed By: #### C BC #### [facility] [address] [address] [address] Jennifer Peralta NEUT # 2.3 103/ul Normal 1.4-6.5 [facility] [place] [facility] Comment on above: Performed By: #### C BC #### [facility] [address] [address] [address] Jennifer Peralta Neutrophils/100 WBC (Bld) 41.1 % Critically low 43.0-75.0 [facility] [place] [facility] Comment on above: Performed By: #### C BC #### [facility] [address] [address] [address] Jennifer Peralta Platelet mean volume (Bld) [Entitic vol] 9.9 fL Normal 9.5-13.5 [facility] [place] [facility] Comment on above: Performed By: #### C BC #### [facility] [address] [place] [address] Dr. Jennifer Peralta PLT 214 103/ul Normal 150-450 [facility] [place] [facility] Comment on above: Performed By: #### C BC #### [facility] [address] [address] [address] Jennifer Peralta RBC 4.15 106/ul Critically low 4.70-6.10 [facility] Comment on above: Performed By: #### C BC #### [facility] [address] [place] [address] Dr. Jennifer Peralta WBC 5.5 103/ul Normal 4.0-11.0 [facility] [place] [facility] Comment on above: Performed By: #### C BC #### [facility] [address] [place] [address] Dr. Jennifer Peralta PROF 14(COMP METB)on 021 Albumin [Mass/Vol] 3.3 g/dL Critically low 3.5-5.0 [facility] Comment on above: Performed By: #### C MP #### [facility] [address] [place] [address] Dr. Jennifer Peralta Albumin/Globulin [Mass ratio] 0.8 {ratio} Normal [facility] Comment on above: Performed By: #### C MP #### [facility] [address] [address] [address] Jennifer Peralta ALP [Catalytic activity/Vol] 73 U/L Normal 38-126 [facility] [place] [facility] Comment on above: Performed By: #### C MP #### [facility] [address] [address] [address] Jennifer Peralta ALT [Catalytic activity/Vol] 15 U/L Critically low 21-72 [facility] [place] [facility] Comment on above: Performed By: #### C MP #### [facility] [address] [place] [address] Dr. Jennifer Peralta Anion gap [Moles/Vol] 9.2 mmol/L Normal [facility] [place] [facility] Comment on above: Performed By: #### C MP #### [facility] [address] [place] [address] Dr. Jennifer Peralta AST [Catalytic activity/Vol] 23 U/L Normal 17-59 [facility] [place] [facility] Comment on above: Performed By: #### C MP #### [facility] [address] [place] [address] Dr. Jennifer Peralta Bilirubin [Mass/Vol] 0.4 mg/dL Normal 0.2-1.3 [facility] Comment on above: Performed By: #### C MP #### [facility] [address] [place] [address] Dr. Jennifer Peralta Calcium [Mass/Vol] 8.8 mg/dL Normal 8.4-10.2 [facility] Comment on above: Performed By: #### C MP #### [facility] [address] [place] [address] Dr. Jennifer Peralta Chloride [Moles/Vol] 100 mmol/L Normal 98-107 [facility] [place] [facility] Comment on above: Performed By: #### C MP #### [facility] [address] [place] [address] Dr. Jennifer Peralta CO2 [Moles/Vol] 30.1 mmol/L Critically high 22.0-30.0 [facility] [place] [facility] Comment on above: Performed By: #### C MP #### [facility] [address] [address] [address] Jennifer Peralta Creatinine [Mass/Vol] 0.93 mg/dL Normal 0.66-1.25 [facility] [place] [facility] Comment on above: Performed By: #### C MP #### [facility] [address] [address] [address] Jennifer Peralta EGFR-AF PANAMANIAN >60 Normal >=60 [facility] Comment on above: Performed By: #### C MP #### [facility] [address] [address] [address] Jennifer Peralta EGFR-NON AF PANAMANIAN >60 Normal >=60 [facility] [place] [facility] Comment on above: Performed By: #### C MP #### [facility] [address] [place] [address] Dr. Jennifer Peralta Globulin (S) [Mass/Vol] 3.9 g/dL Normal [facility] [place] [facility] Comment on above: Performed By: #### C MP #### [facility] [address] [place] [address] Dr. Jennifer Peralta Glucose [Mass/Vol] 95 mg/dL Normal 74-106 [facility] Comment on above: Performed By: #### C MP #### [facility] [address] [address] [address] Jennifer Peralta Potassium [Moles/Vol] 4.3 mmol/L Normal 3.4-5.0 [facility] [place] [facility] Comment on above: Performed By: #### C MP #### [facility] [address] [address] [address] Jennifer Peralta Protein [Mass/Vol] 7.2 g/dL Normal 6.1-8.2 [facility] Comment on above: Performed By: #### C MP #### [facility] [address] [place] [address] Dr. Jennifer Peralta Sodium [Moles/Vol] 135 mmol/L Critically low 137-145 [facility] Comment on above: Performed By: #### C MP #### [facility] [address] [place] [address] Dr. Jennifer Peralta Urea nitrogen [Mass/Vol] 17.0 mg/dL Normal 9.0-20.0 [facility] [place] [facility] Comment on above: Performed By: #### C MP #### [facility] [address] [place], [place] [address] Dr. Jennifer Peralta Urea nitrogen/Creatinine [Mass ratio] 18.3 mg/mg Normal [facility] [place] [facility] Comment on above: Performed By: #### C MP #### [facility] [address] [place], [place] [address] Dr. Jennifer Peralta SED RATE [facility] 2020 SED RATE 76 mm/hr Critically high <=20 [facility] Comment on above: Performed By: #### S EDR #### [facility] [address] [place], [place] [address] Dr. Jennifer Peralta Coding Summary.on 11-27-2018 Coding Summary. CODING DATE: 11/27/2018 FINAL [facility] STATUS: Home (Routine DC) PAYOR: Bobbi APC DESCRIPTION 9039 Level 5 Musculoskeletal Procedures ADMIT DX: REASON [...] PROC APC STAT DESCRIPTION DOCTOR NAME DATE [id number] J1 Arthroplasty, knee, Zani Coughlin DO 11/25/2018 condyle and plateau; medial AND lateral compartments with or without patella resurfacing (total knee arthroplasty) RT Right side (used to identify procedures performed on the right side of the body) 24700 Injection, anesthetic Florencio Ignacio MD 11/25/2018 agent; femoral nerve, single RT Right side (used to identify procedures performed on the right side of the body) XP Separate practitioner, a service that is distinct because it was performed by a different practitioner 09363 Anesthesia for open or Florencio Ignacio MD 11/25/2018 surgical arthroscopic procedures on knee joint; total knee arthroplasty NOTE: The code number assigned matches the documented diagnosis and / or procedure in the patient's chart. However, the narrative phrase printed from the coding software may appear abbreviated, or result in slightly different terminology. Revised Coded By: Rosina Machado Revised Date Saved: 11/27/2018 11:46 am [facility] Operative Reporton 9 Operative Report Date of [...] procedure. Florencio Ignacio M.D. aek Dictated: 11/25/2018 #[id number] Typed: 11/25/2018 #[id number] cc: Florencio Ignacio M.D. [facility] Comment on above: Result Comment: Elec tronically [...] constipation, # 40 cap(s), Refills(s) 0, Pharmacy: [facility]6177 Ecotrin 325 mg Tab-EC: 325 mg = 1 tab(s), Oral, BIDPC, # 60 tab(s), Refills(s) 0, Pharmacy: [facility]/pharmacy #6177 Percocet 325 mg-5 mg Tab: See Instructions, as needed for pain, 40 tab(s), Refill(s) 0, 1-2 orally every 4-6hrs as needed for pain Dx: M17.11, Z96.651 Duration: 7 days, [facility]/pharmacy #6177 Documented Medications Documented CeleBREX 200 mg [...] All Problems Rheumatoid arthritis / SNOMED CT 813235469 / Confirmed Smoker / SNOMED CT 639042940 / Confirmed Added secondary to documentation in Social History. Decreased vision / SNOMED CT 4126470441 / Confirmed left eye Osteoarthritis of knee / SNOMED CT 614748219 / Confirmed right Histories Past Medical History: [...] Results review: No qualifying data available. Plan [place] Citizen Society of Anesthesiologists (ASA) physical status classification: [...] allergic reactions, failed block and .. Normal [facility] Comment on above: Result Comment: Elec tronically Signed By: Mateus FLEMING, Florencio\.br\Date and Time Signed: 11/27/18 14:59 EDT Auto Diffon 11-26-2018 Basophils/100 WBC (Bld) 0.1 % Normal 0.0-2.0 [facility] Comment on above: Order Comment: Order Added by Discern Expert. Performed By: #### 2 769429, 0805575, 4375173, 56579181, 8267534, 9725516 #### [facility] [address] [place] [address] Basophils/Leukocytes Auto (Bld) [Pure # fraction] 0.0 E9/L Normal 0.0-0.2 [facility] Comment on above: Order Comment: Order Added by Amrik Expert. Performed By: #### 2 279336, 9888685, 6490715, 55846485, 8870918, 1234330 #### [facility] [address] [place] [address] Eosinophils/100 WBC (Bld) 1.1 % Normal 0.0-8.0 [facility] Comment on above: Order Comment: Order Added by Amrik Expert. Performed By: #### 2 948746, 8420958, 9751441, 04170601, 0132348, 1403520 #### [facility] [address] [place] [address] Eosinophils/Leukocytes Auto (Bld) [Pure # fraction] 0.1 E9/L Normal 0.0-0.5 [facility] Comment on above: Order Comment: Order Added by Discern Expert. Performed By: #### 2 196599, 7410830, 6137155, 08595440, 5872735, 3755581 #### [facility] [address] [place] [address] Lymphocytes/100 WBC (Bld) 25.4 % Normal 14.0-50.0 [facility] Comment on above: Order Comment: Order Added by Discern Expert. Performed By: #### 2 877966, 6292807, 4032803, 49212809, 8716755, 0496351 #### [facility] [address] [place] [address] Lymphocytes/Leukocytes Auto (Bld) [Pure # fraction] 2.1 E9/L Normal 1.0-4.0 [facility] Comment on above: Order Comment: Order Added by Amrik Expert. Performed By: #### 2 225091, 6739139, 9955912, 83729095, 1282729, 3452288 #### [facility] [address] [place] [address] Monocytes/100 WBC (Bld) 9.5 % Normal 4.0-14.0 [facility] Comment on above: Order Comment: Order Added by Amrik Expert. Performed By: #### 2 049377, 4628921, 2645630, 75374146, 0830905, 1046143 #### [facility] [address] [place] [address]409 Monocytes/Leukocytes Auto (Bld) [Pure # fraction] 0.8 E9/L Normal 0.2-1.0 [facility] Comment on above: Order Comment: Order Added by Discern Expert. Performed By: #### 2 484793, 7209309, 7187409, 46457274, 2178438, 4005691 #### [facility] [address] [place] [address] Neutrophils/100 WBC (Bld) 63.9 % Normal 36.0-75.0 [facility] Comment on above: Order Comment: Order Added by Discern Expert. Performed By: #### 2 099698, 1434976, 6322062, 84311110, 3381257, 8425611 #### [facility] [address] [place] [address] Neutrophils/Leukocytes Auto (Bld) [Pure # fraction] 5.2 E9/L Normal 2.0-7.5 [facility] Comment on above: Order Comment: Order Added by Discern Expert. Performed By: #### 2 599712, 6716977, 0221078, 35421344, 4126480, 2125291 #### [facility] [address] [place] [address] BUNon 11-26-2018 Urea nitrogen [Mass/Vol] 19 mg/dL Normal 5-21 [facility] Comment on above: Performed By: #### 2 996504, 5042274, 0139331, 41905931, 7024117, 2939951 #### [facility] [address] [place] [address] 97393 CBC w/ Auto Diffon 9 Erythrocyte distribution width (RBC) [Ratio] 16.1 % High 10.9-14.2 [facility] Comment on above: Performed By: #### 2 737400, 5107950, 8779749, 68576087, 8743675, 2679182 #### [facility] [address] [place] [address] Hematocrit (Bld) [Volume fraction] 34.8 % Low 37.7-49.0 [facility] Comment on above: Performed By: #### 2 914093, 8424797, 9185328, 58644047, 8981359, 6108019 #### [facility] [address] [place] [address] Hemoglobin (Bld) [Mass/Vol] 11.6 g/dL Low 13.5-17.5 [facility] Comment on above: Performed By: #### 2 536083, 3500535, 7534163, 33061195, 7609408, 4935222 #### [facility] [address] [place] [address] MCH (RBC) [Entitic mass] 33.0 pg Normal 27.0-34.0 [facility] Comment on above: Performed By: #### 2 162531, 0542744, 4791403, 84910487, 2963455, 1386663 #### [facility] [address] [place] [address] MCHC (RBC) [Mass/Vol] 33.5 g/dL Normal 33.3-35.[address] [facility] Comment on above: Performed By: #### 2 674949, 4903356, 9953747, 19052463, 7844644, 8847671 #### [facility] [address] [place] [address] MCV (RBC) [Entitic vol] 98.6 fL Normal 80.0-100.0 [facility] Comment on above: Performed By: #### 2 535557, 5264291, 9032099, 32640822, 4744897, 4306352 #### [facility] [address] [place] [address] Platelet mean volume (Bld) [Entitic vol] 7.4 fL Normal 6.4-10.8 [facility] Comment on above: Performed By: #### 2 282917, 8872913, 2258790, 55752074, 6856043, 7038128 #### [facility] [address] [place] [address]504 Platelets (Bld) [#/Vol] 193.0 E9/L Normal 150.0-500.0 [facility] Comment on above: Performed By: #### 2 111392, 3230701, 3970305, 47031876, 3200959, 6509285 #### [facility] [address] [place] [address] 59319 RBC (Bld) [#/Vol] 3.5 E12/L Low 4.3-5.9 [facility] Comment on above: Performed By: #### 2 967602, 6413930, 9763595, 60062087, 5097957, 9949725 #### [facility] [address] [place] [address] WBC corrected for nucl RBC Auto (Bld) [#/Vol] 8.1 E9/L Normal 4.0-11.0 [facility] Comment on above: Performed By: #### 2 252435, 5164192, 4594478, 77925329, 9525440, 2784429 #### [facility] [address] [place] [address] Creatinineon 11-26-2018 Creatinine [Mass/Vol] 0.8 mg/dL Normal 0.5-1.[address] [facility] Comment on above: Performed By: #### 2 965858, 2275487, 4723898, 19815619, 7994350, 8024682 #### [facility] [address] [place] [address] Discharge Note-Nursingon Discharge Note-Nursing Patient provided with discharge instructions, education and extra mepilex dressing. Patient states no questions or concerns. Patient taken by wheelchair to patient pick-up by Cynthia POCT. Normal [facility] Inpatient Clinical Summaryon 11-26-2018 Inpatient Clinical Summary [address] [address] Clinical Summary Person Information: Name: ANGUS LUCIO Age: 63 Years : 1955 12:00 AM Sex: Male PCP: Junito Garcia MD Marital Status: Phone: [phone] Race: White Ethnicity: Non- or Language: [place] Visit Id: Visit Reason: RIGHT KNEE OA Speciality: Acuity: Enc Type: Ambulatory/Same Day Surgery Med Service: Surgery Arrival: 11/25/2018 10:09 AM Discharge: Dispo Type: Address: [address] [place] [id number] Provider Notes: Diagnosis: Problems Active Smoker Smoking [...] Follow up: With: Address: When: Zain Coughlin [address] [place], [place] [id number] Business (1) 12/24/2018 10:30 AM With: Address: When: Junito Garcia [address] [place] [address], [facility] [place] [address] Business (1) Comments: Call if needed. Patient Education Information: [place] - Total Knee Arthroplasty. Revised 02/22/12. (Custom) Normal [facility] Inpatient Patient Summaryon 11-26-2018 Inpatient Patient Summary [facility] [address] [place], [place] [address] Patient Discharge Instructions PERSON INFORMATION Name: ANGUS LUCIO Date of : 1955 12:00 AM Current Date: 11/26/18 11:29:10 PHYSICIANS Admitting Physician: Zain Coughlin DO Primary Care Physician: Junito Garcia MD [...] None Follow up: With: Address: When: Zain Coughlin [address] [place] [id number] Business (1) 12/24/2018 10:30 AM With: Address: When: Junito Garcia [address] [place] [address], [facility] [place] [address] Business (1) Comments: Call if needed. In the event that this physician does not participate in your insurance network, please consult with your insurance company to find a nearby participating provider. Comment: I, ANGUS LUCIO Johnnie, have received the attached patient education materials/instructions [...] That Have Changed [facility], [address], [place] [id number], [phone] START: aspirin (Ecotrin 325 mg Tab-EC) 1 Tabs By Mouth twice a day (after meals). Refills: 0. Last Dose: ___Next Dose: ___ STOP: aspirin (aspirin 81 mg Oral EC Tab) 1 Tabs By Mouth every day. Other Medications START: nicotine (nicotine 21 mg/24 hr Transderm ER Film) 1 Patches Transdermal every day. Last Dose: ___Next Dose: ___ Medications to Continue with No Changes [facility], [address], [place] [id number], [phone] acetaminophen-oxycodon e (Percocet 325 mg-5 mg Tab) [...] Tabs By Mouth every day. [facility] Other[facility] Comment: PATIENT EDUCATION INFORMATION Instructions: [place], [place] [facility] DISCHARGE INSTRUCTIONS TOTAL KNEE [...] will continue at home, possible with the promotions assistant sales marketing of Home Health Physical Therapy or in [...] OFFICE VISIT: 4 weeks postop. Zain Coughlin, [facility] [address] [place] [address] [phone] Reviewed: 08-25 Revised 05/31 Medication Leaflets: Thank you for choosing [facility] Normal [facility] Interdisciplinary Note - Shola e Manageron 11-26-2018 Interdisciplinary Note - Technician Terminal And Repeater Pt is awake and alert in chair. PCP verified and insurance information reviewed. DME discussed. Contact inforrmation provided and white board updated. Pt is with [facility] program for therapy at [place]. Aware of anticiapted [place] home today and has transportation at [place]. Observation status discussed. Denies any further concerns or DC needs. Normal [facility] Interdisciplinary Note - Ortiz n 11-26-2018 Interdisciplinary [...] further OT needs at this time. Normal [facility] Lyteson 11-26-2018 Anion gap [Moles/Vol] 12 mmol/L Normal 6-16 [facility] Comment on above: Performed By: #### 2 523959, 7980465, 9338752, 48531609, 1637062, 6756323 #### [facility] [address] [place] [address] Chloride [Moles/Vol] 99 mmol/L Low 101-[address] [facility] Comment on above: Performed By: #### 2 886617, 5902318, 5178856, 33790234, 2526014, 0497094 #### [facility] [address] [place] [address] CO2 [Moles/Vol] 24 mmol/L Normal 21-31 [facility] Comment on above: Performed By: #### 2 930082, 8916034, 5617507, 84338533, 9763438, 9415686 #### [facility] [address] [place] [address] Potassium [Moles/Vol] 4.3 mmol/L Normal 3.5-5.[address] [facility] Comment on above: Performed By: #### 2 405852, 0327636, 9185241, 71226030, 9046045, 9167276 #### [facility] [address] [place] [address] Sodium [Moles/Vol] 131 mmol/L Low 135-145 [facility] Comment on above: Performed By: #### 2 458826, 4419943, 5362432, 18317370, 2119079, 6862108 #### [facility] [address] [place] [address] Main OR Intraoperative Recor don 11-26-2018 Main OR Intraoperative Record IntraOp Document Type FT Summary Primary Physician: Zain Coughlin DO Finalized Date/Time: 11/26/18 10:56:45 Pt. Name: ANGUS LUCIO/Sex: 1955 Male Med Rec #: [id number] Physician: Zain Coughlin DO Financial #: [id number] Pt. Type: A Room/Bed: N318/01 Admit/Disch: 11/25/18 10:09:49 - Institution: Case Times FT Entry 1 Patient Times In Room 11/25/18 11:37:00 Out Room 11/25/18 13:49:00 Procedure Times Start 11/25/18 12:10:00 Stop 11/25/18 13:45:00 Anesthesia Times Start 11/25/18 11:37:00 Stop 11/25/18 13:49:00 Block Timeout w11/25/18 11:10:00 Anesthesia Last Modified By: Franci Ignacio CST 11/25/18 13:51:36 General Comments: Block performed under ultrasound guidance by . Gilbert, RN to assist with the block. Patient tolerated block well. 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 Last Modified By: Ileana RN, Todd Tejeda RN, Todd Tejeda RN, Todd Durand 11/25/18 13:51:47 11/25/18 13:51:47 11/25/18 13:51:47 Entry 4 Entry 5 Entry 6 Case Attendee Ileana JACQUES, Todd Mclcoud RN, Mike Garcia CST, May Donald Role Performed Ccu Nurse - Primary Ccu Nurse - Primary Scrub - Primary Time In 11/25/18 11:37:00 11/25/18 11:57:00 11/25/18 11:37:00 Time Out 11/25/18 13:49:00 11/25/18 13:49:00 11/25/18 13:49:00 Procedure KNEE TOTAL KNEE TOTAL KNEE TOTAL ARTHROPLASTY(Right) ARTHROPLASTY(Right) ARTHROPLASTY(Right) Comments Last Modified By: Ileana RN, Todd Tejeda RN, Todd Altamirano RN 11/25/18 13:51:47 11/25/18 13:51:47 11/25/18 13:51:47 Entry [...] ARTHROPLASTY(Right) Comments IN ORIENTATION Last Modified By: Ileana JACQUES, Todd Tejeda RN, Todd Altamirano RN 11/25/18 13:51:47 11/25/18 13:51:47 11/25/18 13:51:47 General Comments: King Shipley, [employer] [facility] rep, present in the OR [...] X-ray Applicable) PreOp Antibiotic Yes Time Out [place], Given Participants Zain Coughlin DO, Krupp RN, Rogers England RN, Jose Vizcaino CST, Amanda Dolan CST, Billy Andrews RN, Miguel [...] Procedure Yes Primary Surgeon Pocos Zain GORDON 11/25/18 12:10:00 Stop 11/25/18 13:45:00 Anesthesia Type [...] and tissue Entry 1 Skin Integrity Intact, [place], Warm, and Skin Abnormality No Dry Outcomes [...] CST, Jose Dolan CST, Amanda Dolan CST, Nancy Mccloud RN, Mike Mccloud RN, Ileana Zurita RN, Todd Durand Outcomes Met? Yes Yes Yes Last Modified [...] Tonda L Patient Status Stable Report Given Johnson JACQUES, Olga Lidia Downey To/Hand Off Communication Skin. Condition Intact, Dry [...] Items BANDAGE ELASTIC DOUBLE 6 X 11YD [S373-64T][F] Site and Details right knee- 10 inch [...] safely administered during the perioperative period For Helm-Mxa please see scanned medication reconcilliation form for medications used at the field during the procedure. Tourniquet FT Pre-Care Text: Implements protective measures to prevent skin/tissue injury due to mechanical sources Entry 1 Tourniquet Type TOURNIQUET CUFF ROYAL Setting 250 mmHg BLUE 30 X 4 [2545-152-027][F] Equipment Number D Placement Right Upper Thigh [...] universal tibial baseplate Serial Number Lot Number [id number] Load Number Survey Worker [facility] Catalog ?# [id number] [...] Reconstitution Method Outcomes Met? Yes Yes Yes Survey Worker Model Number Last Modified By: Ileana JACQUES, Todd Tejeda RN, Todd Tejeda RN, Todd Durand 11/25/18 12:22:15 11/25/18 13:06:25 11/25/18 13:08:45 Entry 4 Entry 5 Entry 6 Procedure KNEE TOTAL KNEE TOTAL KNEE TOTAL ARTHROPLASTY(Right) ARTHROPLASTY(Right) ARTHROPLASTY(Right) Implant/Explant Implant Implant Implant Implant Identification FT Description Triathlon posterior Triathlon X3 Asymmetric Triathlon Offset Adaptor stabilized femoral Patella Serial Number Lot Number [id number] Load Number Survey Worker [facility] [facility] Catalog ?# [id number] Size [...] Reconstitution Method Outcomes Met? Yes Yes Yes Survey Worker Model Number Last Modified By: Ileana JACQUES, Todd Tejeda RN, Todd L Todd Tejeda RN 11/25/18 13:10:38 11/25/18 13:17:54 11/25/18 13:19:37 Entry 7 Procedure KNEE TOTAL ARTHROPLASTY(Right) Implant/Explant Implant Implant Identification FT Description Wilner X3 Tibial Bearing Insert- PS Serial Number Lot Number [id number] Load Number Survey Worker [employer] [facility] Catalog ?# 5532-[id number] Size 7 Expiration Date 10/08/20 Manufactured Date Materials Unique Device Identifier (SANTI) Human Readable Barcode Machine Readable Barcode Usage Data FT Implant Site Knee R Implant Site Comment Quantity 1 Implant/Explant Date Implanted By Zain Coughlin DO Explant Reason Biological Implants Biological Source Donor Number MR Classification Temperature Reconstitution Method Outcomes Met? Yes Survey Worker Model Number Last Modified By: Todd Tejeda RN 11/25/18 13:38:06 Post-Care Text: The patient is free from signs and symptoms of injury caused by extraneous objects Urinary Catheter Pre-Care Text: Patient is prepped using sterile technique. Entry 1 Urinary Catheter TRAY URINE TEQUILA CATH Present Upon Arrival No Inserted LF 16FR [[id number]][F] Insertion Date/Time 11/25/18 11:52:00 Urine Residual 40 Insertion Site Uretheral Urine CLEAR, YELLOW URINE Characteristics OUTPUT Inserted By Billy JACQUES, Michael Discontinued? No Outcomes Met? Yes Last Modified [...] BLANKET MISTRAL AIR Quantity 1 Aid TORSO [CH2732-SG][F] Fluid/Compton Unit Mistral warming system Setting 43 C/ HIGH Body Site Upper anterior torso Last Modified By: Todd Tejeda RN 11/25/18 11:35:56 Case Comments Finalized By: Franci Ignacio CST Document Signatures Signed By: Ilenaa JACQUES, Todd Durand 11/25/18 13:52 Franci Ignacio CST 11/26/18 10:56 Normal [facility] Patient Education - Texton 0 11-26-2018 Patient Education - Text [place], [place] [facility] DISCHARGE INSTRUCTIONS TOTAL KNEE [...] will continue at home, possible with the promotions assistant sales marketing of Home Health Physical Therapy or in [...] weeks postop. Zain Coughlin, DO [facility] [address] [place] [address] Reviewed: 08-25 Revised 05/31 [facility] Progress Note-Physicianon Progress Note-Physician DAILY PROGRESS NOTE: [...] 193, sodium is 131, chloride 99. Urinalysis 11/25 intraop essentially unremarkable. IMPRESSION: 1. Status post [...] planning is underway for home discharge with [place] [address] program. Zain Coughlin D.O. gls Dictated: 11/26/2018 #[id number] Typed: 11/26/2018 #[id number] cc: Zain Coughlin D.O. Normal [facility] Comment on above: Result Comment: Elec tronically Signed By: Zain Coughlin DO\.br\Date and Time Signed: 11/26/18 12:26 EDT eGFRon 11-26-2018 GFR/1.73 sq M predicted among blacks MDRD (S/P/Bld) [Vol rate/Area] mL/min/{1.73_m2} Normal >=59 [facility] Comment on above: Order Comment: Order added by Discern Expert. Result Comment: eGFR is race adjusted. AA=. Performed By: #### 2 787616, 9259874, 2009859, 37858235, 3764290, 9708028 #### [facility] [address] [place] [address] GFR/1.73 sq M predicted among non-blacks MDRD (S/P/Bld) [Vol rate/Area] mL/min/{1.73_m2} Normal >=59 [facility] Comment on above: Order Comment: Order added by Discern Expert. Result Comment: Hris Developer erasmo kidney disease could be indicated at eGFR's of less than 60 mL/min/1.73m2. Kidney failure is indicated at less than 15 mL/min/1.73m2. Performed By: #### 2 698362, 4932668, 7791634, 36551922, 8582414, 8314002 #### [facility] [address] [place] [address] ABO/Rhon 11-25-2018 ABO/Rh Positive [facility] Comment on above: Performed By: #### 2 540255, 1764375, 4021964, 61783555, 6258689, 3281303 #### [facility] [address] [place] [address] ABO/Rh History Checkon 11-25 ABO/Rh History Check Verified Hx Blood Type Normal [facility] Comment on above: Performed By: #### 2 481375, 5912012, 6815163, 02412895, 2517521, 3543716 #### [facility] [address] [place] [address] ABSCon 11-25-2018 ABSC Gel Interp Negative Normal [facility] Comment on above: Performed By: #### 2 922898, 1015083, 3901227, 44107428, 2785968, 0089693 #### [facility] [address] [place] [address] Blood Bank ID#on 11-25-2018 BBID# [id number] [facility] Comment on above: Performed By: #### 2 819117, 1415853, 3829900, 78758850, 2524134, 0558232 #### [facility] [address] [place] [address] Interdisciplinary Note - Shola e Manageron 11-25-2018 Interdisciplinary Note - Technician Terminal And Repeater dc planning done at this time. I called patient on phone. insurance, DME, PCP verified. pt from [place] with family and [place] transport [place] pending therapy eval. obs admit. pt has FWW in room. pt is [facility], call [phone] ext [phone] [place] anticipated dc 11/26. CRM following. Normal [facility] Interdisciplinary Note - PTo n 11-25-2018 Interdisciplinary Note - PT PT Evaluation completed with an AM PAC score of 18/24. Pt performed bed mobility with CGA and transfers with CGA/min A. pt was able to ambulate 70 feet with FWW with CGA. Will follow daily with recommendations Normal [facility] Main OR PACU I Recordon Main OR PACU I Record PACU Phase I Docum ent Type FT Summary Primary Physician: Zain Coughlin DO Finalized Date/Time: 11/25/18 14:46:08 Pt. Name: ANGUS LUCIO/Sex: 1955 Male Med Rec #: [id number] Physician: Zain Coughlin DO Financial #: [id number] Pt. Type: O Room/Bed: N318/01 Admit/Disch: 11/25/18 10:09:49 - Institution: [...] Olga Lidia Ornelas RN 11/25/18 14:46 Normal [facility] Main OR Preoperative Recordo n 11-25-2018 Main OR Preoperative Record PreOp Document Type FT Summary Primary Physician: Zain Coughlin DO Finalized Date/Time: 11/25/18 12:12:50 Pt. Name: SANTOS LUCIODorothy Harkins/Sex: 1955 Male Med Rec #: [id number] Physician: Zain Coughlin DO Financial #: [id number] Pt. Type: A Room/Bed: [place] [address] Admit/Disch: 11/25/18 10:09:49 - Institution: Case Times [...] By: Todd Tejeda RN 11/25/18 12:12 Normal [facility] Operative Reporton 11-25-201 9 Operative Report Date of Surgery: 11/25/2018 SURGEON: Zain Coughlin D.O. TELE TECH: Koko Longoria D.O. PREOPERATIVE DIAGNOSIS: Right knee [...] tourniquet time. COMPLICATIONS: None COMPLICATIONS: None IMPLANT: Belinda total knee system with a size 7 right posterior stabilized femur, a size 7 [place] TS base plate with a 6 mm. [...] wrap. The patient is transferred to the [facility] and taken to the Post-Anesthesia Care Unit in stable condition. He will remain hospitalized this day. Jaskaran Noriega Dictated: 11/25/2018 #[id number] Typed: 11/25/2018 #[id number] cc: Urbano Alvarenga D.O. [facility] Comment on above: Result Comment: Elec tronically Signed By: Zain Coughlin DO\.br\Date and Time Signed: 11/25/18 16:30 EDT Progress Note-Physicianon Progress Note-Physician Patient: ANGUS LUCIO Age: 63 years Sex: Male : 1955 Associated Diagnoses: None Author: Zain Coughlin DO Postoperative Information Procedure: R TKA, complicated. Preoperative Diagnosis: R knee OA, instability. Postoperative Diagnosis: same. Performed by: alta. Counter Top Maker: osiris. Specimens Removed: bone, soft tissue. Estimated Blood Loss: 0 ml. Complications: None. Normal [facility] Comment on above: Result Comment: Elec tronically Signed By: Zain Coughlin DO\.br\Date and Time Signed: 11/25/18 13:57 EDT UA With Cult Reflexon 2018 Bilirubin Ql (U) Negative Normal Negative [facility] Comment on above: Performed By: #### 2 852580, 8091304, 2671165, 90526681, 2512809, 0258557 #### [facility] [address] [place] [address] Clarity (U) CLEAR Normal Clear [facility] Comment on above: Performed By: #### 2 257237, 0763856, 5329292, 69511450, 4208287, 2801939 #### [facility] [address] [place] [address] Color (U) YELLOW Normal Yellow [facility] Comment on above: Performed By: #### 2 161189, 4173546, 2732383, 28464493, 8679653, 5456791 #### [facility] [address] [place] [address] Epithelial cells.squamous LM.HPF (Urine sed) [#/Area] 0-2 Normal 0-2 [facility] Comment on above: Performed By: #### 2 473255, 6844728, 8786417, 06792438, 0284584, 4688266 #### [facility] [address] [place] [address] Glucose Test strip (U) [Mass/Vol] Negative Normal Negative [facility] Comment on above: Performed By: #### 2 530833, 3790358, 3395354, 97871172, 8549496, 9218036 #### [facility] [address] [place] [address] Hemoglobin Ql (U) TRACE Abnormal Negative [facility] Comment on above: Performed By: #### 2 525242, 0377606, 5360161, 28387549, 8656981, 5146512 #### [facility] [address] [place] [address] Ketones (U) [Mass/Vol] Negative Normal Negative [facility] Comment on above: Performed By: #### 2 483798, 5592493, 0692290, 34845960, 3970348, 1945247 #### [facility] [address] [place] [address] [place].plasma/[place] .RBC (Bld) [Mass ratio] 0-3 Normal 0-3 [facility] Comment on above: Performed By: #### 2 528842, 7361139, 6073599, 34832793, 2606073, 7566627 #### [facility] [address] [place] [address] Mucus Ql (Urine sed) TRACE Normal [facility] Comment on above: Performed By: #### 2 504191, 1505205, 3188211, 12055566, 0848134, 0129663 #### [facility] [address] [place] [address] Nitrite Ql (U) Negative Normal Negative [facility] Comment on above: Performed By: #### 2 304051, 7840315, 6782658, 82841578, 8696239, 9152737 #### [facility] [address] [place] [address] pH (U) 6.5 [pH] 5.0-9.0 [facility] Comment on above: Performed By: #### 2 829408, 8437222, 6261562, 53491182, 7130118, 4771473 #### [facility] [address] [place] [address] Protein (U) [Mass/Vol] Negative Normal Negative [facility] Comment on above: Performed By: #### 2 730339, 8873893, 3896866, 13106535, 9142790, 2608885 #### [facility] [address] [place] [address] Specific gravity (U) [Rel density] 1.015 1.005-1.030 [facility] Comment on above: Performed By: #### 2 999582, 0129560, 4294311, 74794902, 4106767, 2630405 #### [facility] [address] [place] [address] UA Spec Desc Torres Normal [facility] Comment on above: Performed By: #### 2 306294, 7677600, 1476903, 10061460, 5174119, 0408571 #### [facility] [address] [place] [address] Urobilinogen Qn (U) 0.2 {Katlin'U}/dL Normal 0.0-1.0 [facility] Comment on above: Performed By: #### 2 015058, 9443002, 6348917, 90046942, 3945292, 9630475 #### [facility] [address] [place] [address] WBC Auto Ql (U) Negative Normal Negative [facility] Comment on above: Performed By: #### 2 687330, 7020321, 7980112, 55943083, 5027748, 0400787 #### [facility] [address] [place] [address] WBC LM.HPF (Urine sed) [#/Area] 0-5 Normal 0-5 [facility] Comment on above: Performed By: #### 2 595685, 6825780, 9079384, 65040185, 5875951, 7141303 #### [facility] [address] [place] [address] XR Knee 1 or 2 Views Righton [...] from the surgery. There are metallic surgical cecily along the anterior incision line. FINAL REPORT Dictated: 11/25/2018 2:30 pm Samuel Carr M.D. Signed (Electronic Signature): 11/25/2018 2:30 pm Signed by: Samuel Carr M.D. Transcribed by: LIZANDRO Technologist: JOVITA [facility] Coding Summary.on 11-10-2018 Coding Summary. CODING DATE: 11/10/2018 FINAL [facility] STATUS: Home (Routine DC) PAYOR: Bobbi [...] Hinton CphT Date Saved: 11/10/2018 12:42 pm [facility] BD Bone Density DEXAon 11-04 BD Bone [...] M.D. Transcribed by: LIZANDRO Technologist: YUSEF Normal [facility] ABO/Rh Retypeon 11-03-2018 ABO/Rh Retype Interp Positive [facility] Comment on above: Performed By: #### 1 [id number] #### [facility] [address] [place] [address] BUNon 11-03-2018 Urea nitrogen [Mass/Vol] 15 mg/dL Normal 5-21 [facility] Comment on above: Performed By: #### 2 240240, 7611049, 2276893, 63511466, 0398987, 7807668 #### [facility] [address] [place] [address] CBC w/Indiceson 11-03-2018 Erythrocyte distribution width (RBC) [Ratio] 16.3 % High 10.9-14.2 [facility] Comment on above: Performed By: #### 2 739333, 8727801, 3742517, 85423398, 2230753, 1320948 #### [facility] [address] [place] [address] Hematocrit (Bld) [Volume fraction] 37.1 % Low 37.7-49.0 [facility] Comment on above: Performed By: #### 2 417172, 3193617, 5738303, 83359134, 2110445, 2751811 #### [facility] [address] [place] [address] Hemoglobin (Bld) [Mass/Vol] 12.7 g/dL Low 13.5-17.5 [facility] Comment on above: Performed By: #### 2 517676, 2687970, 3094482, 60841757, 8344364, 0061373 #### [facility] [address] [place] [address] MCH (RBC) [Entitic mass] 33.4 pg Normal 27.0-34.0 [facility] Comment on above: Performed By: #### 2 922800, 0465441, 4486345, 58638775, 2984889, 7685678 #### [facility] [address] [place] [address] MCHC (RBC) [Mass/Vol] 34.3 g/dL Normal 33.3-35.[address] [facility] Comment on above: Performed By: #### 2 417587, 1762482, 6008989, 32186612, 6483724, 5343525 #### [facility] [address] [place] [address] MCV (RBC) [Entitic vol] 97.5 fL Normal 80.0-100.0 [facility] Comment on above: Performed By: #### 2 439528, 1014834, 8807441, 38040598, 8922759, 4051461 #### [facility] [address] [place] [address] Platelet mean volume (Bld) [Entitic vol] 7.5 fL Normal 6.4-10.8 [facility] Comment on above: Performed By: #### 2 633095, 8650101, 9107741, 20451464, 1557436, 0689466 #### [facility] [address] [place] [address] Platelets (Bld) [#/Vol] 249.0 E9/L Normal 150.0-500.0 [facility] Comment on above: Performed By: #### 2 748665, 7663652, 7134934, 81908001, 7186603, 9961769 #### [facility] [address] [place] [address] RBC (Bld) [#/Vol] 3.8 E12/L Low 4.3-5.9 [facility] Comment on above: Performed By: #### 2 480870, 8258824, 8392095, 00688641, 0333423, 3970752 #### [facility] [address] [place] [address] WBC corrected for nucl RBC Auto (Bld) [#/Vol] 5.1 E9/L Normal 4.0-11.0 [facility] Comment on above: Performed By: #### 2 049768, 3764317, 8455790, 20442162, 1159818, 8503490 #### [facility] [address] [place] [address] Creatinineon 11-03-2018 Creatinine [Mass/Vol] 0.8 mg/dL Normal 0.5-1.[address] [facility] Comment on above: Performed By: #### 2 041277, 8254470, 0064689, 39908444, 7602595, 7470454 #### [facility] [address] [place] [address] Glucoseon 11-03-2018 Glucose [Mass/Vol] 82 mg/dL Normal 55-199 [facility] Comment on above: Performed By: #### 2 566805, 5173838, 7111430, 84643853, 2559065, 2739680 #### [facility] [address] [place] [address] Lyteson 11-03-2018 Anion gap [Moles/Vol] 12 mmol/L Normal 6-[address] [facility] Comment on above: Performed By: #### 2 361937, 5020517, 2748740, 62457386, 2859633, 7139704 #### [facility] [address] [place] [address] Chloride [Moles/Vol] 103 mmol/L Normal 101-111 [facility] Comment on above: Performed By: #### 2 795696, 4933359, 0206170, 98849604, 4819584, 0696492 #### [facility] [address] [place] [address] CO2 [Moles/Vol] 24 mmol/L Normal 21-31 [facility] Comment on above: Performed By: #### 2 433668, 9355304, 6216614, 20844487, 8938315, 4164572 #### [facility] [address] [place] [address] Potassium [Moles/Vol] 3.9 mmol/L Normal 3.5-5.[address] [facility] Comment on above: Performed By: #### 2 188031, 8187506, 2513571, 16130060, 2721740, 9045166 #### [facility] [address] [place] [address] Sodium [Moles/Vol] 135 mmol/L Normal 135-145 [facility] Comment on above: Performed By: #### 2 344433, 8166279, 3173286, 24158195, 9758891, 1567904 #### [facility] [address] [place] [address] Urinalysison 11-03-2018 Bilirubin Ql (U) Negative Normal Negative [facility] Comment on above: Performed By: #### 1 2416412 #### [facility] [address] [place] [address] Clarity (U) CLEAR Normal Clear [facility] Comment on above: Performed By: #### 1 1267267 #### [facility] [address] [place] [address] Color (U) YELLOW Normal Yellow [facility] Comment on above: Performed By: #### 1 5392969 #### [facility] [address] [place] [address] Epithelial cells.squamous LM.HPF (Urine sed) [#/Area] 0-2 Normal 0-2 [facility] Comment on above: Performed By: #### 1 2417267 #### [facility] [address] [place] [address] Glucose Test strip (U) [Mass/Vol] Negative Normal Negative [facility] Comment on above: Performed By: #### 1 2757420 #### [facility] [address] [place] [address] Hemoglobin Ql (U) Negative Normal Negative [facility] Comment on above: Performed By: #### 1 3349764 #### [facility] [address] [place] [address] Ketones (U) [Mass/Vol] Negative Normal Negative [facility] Comment on above: Performed By: #### 1 5721071 #### [facility] [address] [place] [address] [place].plasma/[place] .RBC (Bld) [Mass ratio] 0-3 Normal 0-3 [facility] Comment on above: Performed By: #### 1 3765751 #### [facility] [address] [place] [address] Nitrite Ql (U) Negative Normal Negative [facility] Comment on above: Performed By: #### 1 8831515 #### [facility] [address] [place] [address] pH (U) 6.5 [pH] 5.0-9.0 [facility] Comment on above: Performed By: #### 1 7660233 #### [facility] [address] [place] [address] Protein (U) [Mass/Vol] Negative Normal Negative [facility] Comment on above: Performed By: #### 1 4343942 #### [facility] [address] [place] [address] Specific gravity (U) [Rel density] <=1.005 1.005-1.030 [facility] Comment on above: Performed By: #### 1 9726245 #### [facility] [address] [place] [address] UA Spec Desc Clean Catch Normal [facility] Comment on above: Performed By: #### 1 8571457 #### [facility] [address] [place] [address] Urobilinogen Qn (U) 0.2 {Katlin'U}/dL Normal 0.0-1.0 [facility] Comment on above: Performed By: #### 1 3312155 #### [facility] [address] [place] [address] WBC Auto Ql (U) Negative Normal Negative [facility] Comment on above: Performed By: #### 1 1556446 #### [facility] [address] [place] [address] WBC LM.HPF (Urine sed) [#/Area] 0-5 Normal 0-5 [facility] Comment on above: Performed By: #### 1 9134716 #### [facility] [address] [place] [address] Vitamin D 25 Hydroxyon 11-03 Calcidiol [Mass/Vol] 37.4 ng/mL Normal 30.0-100.0 [facility] Comment on above: Result Comment: Vit howard D deficiency has been defined as a level of serum 25-OH vitamin D less than 20 ng/mL (1,2) by the [place] of [employer] and an Endocrine Society practice guideline. The Endocrine Society further defined vitamin D insufficiency as a level between 21 and 29 ng/mL (2). 1. IOM ([place] of [employer]). 2010. Dietary reference intakes for calcium and D. [place]: The National Academies Press. 2. Talia MF, Katharina [place], Denny PEREZ, et al. Evaluation, treatment, and prevention of vitamin D deficiency: an Endocrine Society clinical practice guideline. JCEM. 2011 [place]; 96 (7):1911-30. Performed By: #### 5 [id number] #### [facility] [address] [place] [address] XR Chest 2 Viewson 9 XR Chest [...] Cartagena MD Transcribed by: LIZANDRO Technologist: KATHERINE Eng [facility] eGFRon 11-03-2018 GFR/1.73 sq M predicted among blacks MDRD (S/P/Bld) [Vol rate/Area] mL/min/{1.73_m2} Normal >=59 [facility] Comment on above: Order Comment: Order added by Discern Expert. Result Comment: eGFR is race adjusted. AA=. Performed By: #### 2 482303, 8543043, 9784418, 87558959, 6544793, 2308722 #### [facility] [address] [place] [address] GFR/1.73 sq M predicted among non-blacks MDRD (S/P/Bld) [Vol rate/Area] mL/min/{1.73_m2} Normal >=59 [facility] Comment on above: Order Comment: Order added by Discern Expert. Result Comment: Hris Developer erasmo kidney disease could be indicated at eGFR's of less than 60 mL/min/1.73m2. Kidney failure is indicated at less than 15 mL/min/1.73m2. Performed By: #### 2 710763, 1482125, 0399141, 24427513, 1866625, 1717457 #### [facility] [address] [place] [address] Encounters Encounter Date Encounter Type Care Provider Facility Start: 03-27-2022 End: 03-28-[address] DOCTOR PETERSON Facility:[facility] Start: 10-02-2021 End: 10-03-[address] DOCTOR PETERSON Facility:[facility] Start: 07-04-2021 End: 07-05-[address] DOCTOR PETERSON Facility:[facility] Start: 04-04-2021 End: 04-05-[address] DOCTOR PETERSON Facility:[facility] Payers Date Payer Category Payer Private Health Insurance [id number] 1958 Unknown [id number] 1955 Unknown [id number] 2.16.84 [id number] 1955 Unknown [id number] 2.16.84 [id number] 1955 Unknown [id number] 2.16.84 [id number] 1955 Unknown [id number] 2.16.84 [id number] Summary Purpose Family History No Family History [...] All Problems Rheumatoid arthritis / SNOMED CT 119423335 / Confirmed Smoker / SNOMED CT 021669577 / Confirmed Added secondary to documentation in Social History. Decreased vision / SNOMED CT 4266314811 / Confirmed left eye Osteoarthritis of knee / SNOMED CT 121670387 / Confirmed right Physical Examination Intake and [...] section and content) DATE CREATED AUTHOR 11/29/2018 [facility] DATE CREATED AUTHOR AUTHOR'S ORGANIZ ATCOUNT INCLUDES THE [facility] 04/01/2022 [facility]ORDS PERTAINING TO PATIENTS WHO ARE [...] BE BASED ON THE PRIMARY CLINICAL RECORDS. [employer] provides no warranty or guarantee of the accuracy or completeness of information in this document.
[2023-12-23 10:08] LABS: Basophils Percent Auto 0.4 % (0.2-2.0); Eosinophils Absolute Auto 0.1 10^3/uL (0.0-0.7); Eosinophils Percent Auto 0.7 % (0.9-7.0); Hematocrit 42.7 % (42.0-54.0); Hemoglobin 14.2 g/dL (14.0-18.0); Immature Granulocytes Abs Auto 0.05 10^3/uL (0.00-0.03); Immature Granulocytes Pct Auto 0.5 % (0.0-0.5); Lymphocytes Absolute Auto 1.5 10^3/uL (1.2-3.8); Lymphocytes Percent Auto 15.8 % (20.5-60.0); Mean Corpuscular HGB Conc 33.3 g/dL (29.9-35.2); Mean Corpuscular Volume 99.3 fL (80.0-94.0); Mean Platelet Volume 9.2 fL (9.5-13.5); Monocytes Absolute Auto 0.5 10^3/uL (0.3-0.8); Monocytes Percent Auto 5.2 % (1.7-12.0); Neutrophils Absolute Auto 7.1 10^3/uL (1.4-6.5); Neutrophils Percent Auto 77.4 % (43.0-75.0); Platelet Count 250 10^3/uL (150-450); Red Cell Distribution Width 16.2 % (11.0-15.0); White Blood Count 9.2 10^3/uL (4.0-11.0)
[2023-12-23 10:17] LABS: Erythrocyte Sedimentation Rate 96 mm/hr (<=20)
[2023-12-23 10:51] LABS: Alanine Aminotransferase 19 U/L (16-63); Albumin Globulin Ratio 0.9; Albumin Level 3.6 g/dL (3.4-5.0); Alkaline Phosphatase 88 U/L (46-116); Anion Gap 11.9; Aspartate Amino Transferase 21 U/L (15-37); BUN Creatinine Ratio 14.9; Bilirubin Total 0.6 mg/dL (0.2-1.0); Calcium 9.1 mg/dL (8.5-10.1); Carbon Dioxide 28.1 mmol/L (21.0-32.0); Chloride 102 mmol/L (98-107); Estimated GFR (African America >60 (>=60); Estimated GFR (Non-African Ame >60 (>=60); Globulin 3.8 g/dL; Glucose 108 mg/dL (74-106); Sodium 137 mmol/L (136-145); Total Protein 7.4 g/dL (6.4-8.2)
== END 2023-12-23 09:48 | disposition home or self-care (01) ==
LOC: LAB 09:48
PROVIDERS: PCP Family Medicine; Visit Provider Registered Nurse
DX: M05.79 Rheumatoid arthritis with rheumatoid factor of multiple sites without organ or systems involvement (principal); M15.0 Primary generalized (osteo)arthritis; Z79.899 Other long term (current) drug therapy
CPT/HCPCS: 36415; 80053; 85025; 85652

== ENCOUNTER 2024-03-25 11:33 | Outpatient (OUT) | payer MEDICARE, SELFPAY ==
--- OUTSIDE RECORDS SUMMARY | 2024-03-25 11:44 | XMS_ITS | CCD ---
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 Jennifer Peralta Basophils/100 WBC (Bld) 0.4 % Normal 0.2-2.0 [facility] Comment on above: Performed By: #### C BC #### [facility] [address] [address] [address] Jennifer Peralta EO # 0.1 103/ul Normal 0.0-0.7 [facility] Comment on above: Performed By: #### C BC #### [facility] [address] [place] [address] Dr. Jennifer Peralta Eosinophils/100 WBC (Bld) 1.0 % Normal 0.9-7.0 [facility] Comment on above: Performed By: #### C BC #### [facility] [address] [place] [address] Dr. Jennifer Peralat Erythrocyte distribution width (RBC) [Ratio] 15.7 % Critically high 11.0-15.0 [facility] Comment on above: Performed By: #### C BC #### [facility] [address] [place] [address] Dr. Jennifer Peralta Hematocrit (Bld) [Volume fraction] 38.2 % Critically low 42.0-54.0 [facility] Comment on above: Performed By: #### C BC #### [facility] [address] [place] [address] Dr. Jennifer Peralta Hemoglobin (Bld) [Mass/Vol] 12.6 g/dL Critically low 14.0-18.0 [facility] Comment on above: Performed By: #### C BC #### [facility] [address] [place] [address] Dr. Jennifer Peralta IG # 0.03 10e3/ul Normal 0.00-0.03 [facility] Comment on above: Performed By: #### C BC #### [facility] [address] [place] [address] Dr. Jennifer Peralta IG % 0.4 % Normal 0.0-0.5 [facility] Comment on above: Performed By: #### C BC #### [facility] [address] [place] [address] Dr. Jennifer Peralta LYMPH # 2.4 103/ul Normal 1.2-3.8 [facility] Comment on above: Performed By: #### C BC #### [facility] [address] [place] [address] Dr. Jennifer Peralta Lymphocytes/100 WBC (Bld) 33.3 % Normal 20.5-60.0 [facility] Comment on above: Performed By: #### C BC #### [facility] [address] [place] [address] Dr. Jennifer Peralta MANUAL DIFF REQ NO Normal [facility] Comment on above: Performed By: #### C BC #### [facility] [address] [place] [address] Dr. Jennifer Peralta MCH (RBC) [Entitic mass] 32.1 pg Normal 25.9-34.0 [facility] Comment on above: Performed By: #### C BC #### [facility] [address] [place] [address] Dr. Jennifer Peralta MCHC (RBC) [Mass/Vol] 33.0 g/dL Normal 29.9-35.2 [facility] Comment on above: Performed By: #### C BC #### [facility] [address] [place] [address] Dr. Jennifer Peralta MCV (RBC) [Entitic vol] 97.2 fL Critically high 80.0-94.0 [facility] Comment on above: Performed By: #### C BC #### [facility] [address] [place] [address] Dr. Jennifer Peralta MONO # 0.6 103/ul Normal 0.3-0.8 [facility] Comment on above: Performed By: #### C BC #### [facility] [address] [place] [address] Dr. Jennifer Peralta Monocytes/100 WBC (Bld) 7.7 % Normal 1.7-12.0 [facility] Comment on above: Performed By: #### C BC #### [facility] [address] [place] [address] Dr. Jennifer Peralta NEUT # 4.1 103/ul Normal 1.4-6.5 [facility] Comment on above: Performed By: #### C BC #### [facility] [address] [place] [address] Dr. Jennifer Peralta Neutrophils/100 WBC (Bld) 57.2 % Normal 43.0-75.0 [facility] Comment on above: Performed By: #### C BC #### [facility] [address] [address] [address] Jennifer Peralta Platelet mean volume (Bld) [Entitic vol] 9.1 fL Critically low 9.5-13.5 [facility] Comment on above: Performed By: #### C BC #### [facility] [address] [address] [address] Jennifer Peralta PLT 246 103/ul Normal 150-450 [facility] Comment on above: Performed By: #### C BC #### [facility] [address] [address] [address] Jennifer Peralta RBC 3.93 106/ul Critically low 4.70-6.10 [facility] Comment on above: Performed By: #### C BC #### [facility] [address] [place] [address] Dr. Jennifer Peralta WBC 7.2 103/ul Normal 4.0-11.0 [facility] Comment on above: Performed By: #### C BC #### [facility] [address] [place] [address] Dr. Jennifer Peralta PROF 14(COMP METB)on 022 Albumin [Mass/Vol] 3.5 g/dL Normal 3.4-5.0 [facility] Comment on above: Performed By: #### S EDR #### [facility] [address] [place] [address] Dr. Jennifer Peralta Albumin/Globulin [Mass ratio] 0.9 {ratio} Normal [facility] Comment on above: Performed By: #### S EDR #### [facility] [address] [place] [address] Dr. Jennifer Peralta ALP [Catalytic activity/Vol] 80 U/L Normal 46-116 [facility] Comment on above: Performed By: #### S EDR #### [facility] [address] [place] [address] Dr. eJnnifer Peralta ALT [Catalytic activity/Vol] 15 U/L Critically low 16-63 [facility] Comment on above: Performed By: #### S EDR #### [facility] [address] [address] [address] Jennifer Peralta Anion gap [Moles/Vol] 9.2 mmol/L Normal [facility] Comment on above: Performed By: #### S EDR #### [facility] [address] [address] [address] Jennifer Peralta AST [Catalytic activity/Vol] 25 U/L Normal 15-37 [facility] Comment on above: Performed By: #### S EDR #### [facility] [address] [address] [address] Jennifer Peralta Bilirubin [Mass/Vol] 0.4 mg/dL Normal 0.2-1.0 [facility] Comment on above: Performed By: #### S EDR #### [facility] [address] [place] [address] Dr. Jennifer Peralta Calcium [Mass/Vol] 9.0 mg/dL Normal 8.5-10.1 [facility] Comment on above: Performed By: #### S EDR #### [facility] [address] [place] [address] Dr. Jennifer Peralta Chloride [Moles/Vol] 101 mmol/L Normal 98-107 [facility] Comment on above: Performed By: #### S EDR #### [facility] [address] [place] [address] Dr. Jennifer Peralta CO2 [Moles/Vol] 28.0 mmol/L Normal 21.0-32.0 [facility] Comment on above: Performed By: #### S EDR #### [facility] [address] [place] [address] Dr. Jennifer Peralta Creatinine [Mass/Vol] 0.87 mg/dL Normal 0.70-1.30 [facility] Comment on above: Performed By: #### S EDR #### [facility] [address] [place] [address] Dr. Jennifer Peralta EGFR-AF SWAZI >60 Normal >=60 [facility] Comment on above: Performed By: #### S EDR #### [facility] [address] [address] [address] Jennifer Peralta EGFR-NON AF SWAZI >60 Normal >=60 [facility] Comment on above: Performed By: #### S EDR #### [facility] [address] [place] [address] Dr. Jennifer Peralta Globulin (S) [Mass/Vol] 3.9 g/dL Normal [facility] Comment on above: Performed By: #### S EDR #### [facility] [address] [address] [address] Jennifer Peralta Glucose [Mass/Vol] 84 mg/dL Normal 74-106 [facility] Comment on above: Performed By: #### S EDR #### [facility] [address] [place] [address] Dr. Jennifer Peralta Potassium [Moles/Vol] 4.2 mmol/L Normal 3.5-5.1 [facility] Comment on above: Performed By: #### S EDR #### [facility] [address] [place] [address] Dr. Jennifer Peralta Protein [Mass/Vol] 7.4 g/dL Normal 6.4-8.2 [facility] Comment on above: Performed By: #### S EDR #### [facility] [address] [place] [address] Dr. Jennifer Peralta Sodium [Moles/Vol] 134 mmol/L Critically low 136-145 [facility] Comment on above: Performed By: #### S EDR #### [facility] [address] [place] [address] Dr. Jennifer Peralta Urea nitrogen [Mass/Vol] 18.0 mg/dL Normal 7.0-18.0 [facility] Comment on above: Performed By: #### S EDR #### [facility] [address] [place] [address] Dr. Jennifer Peralta Urea nitrogen/Creatinine [Mass ratio] 20.7 mg/mg Normal [facility] Comment on above: Performed By: #### S EDR #### [facility] [address] [place] [address] Dr. Jennifer Peralta SED RATE [facility] 2021 SED RATE 49 mm/hr Critically high <=20 [facility] Comment on above: Performed By: #### S EDR #### [facility] [address] [place] [address] Dr. Jennifer Peralta CBC AUTO DIFFon 10-02-2021 BASO # 0.0 103/ul Normal 0.0-0.1 [facility] Comment on above: Performed By: #### C BC #### [facility] [address] [place] [address] Dr. Jennifer Peralta Basophils/100 WBC (Bld) 0.4 % Normal 0.2-2.0 [facility] Comment on above: Performed By: #### C BC #### [facility] [address] [place] [address] Dr. Jennifer Peralta EO # 0.1 103/ul Normal 0.0-0.7 [facility] Comment on above: Performed By: #### C BC #### [facility] [address] [place] [address] Dr. Jennifer Peralta Eosinophils/100 WBC (Bld) 1.0 % Normal 0.9-7.0 [facility] Comment on above: Performed By: #### C BC #### [facility] [address] [place] [address] Dr. Jennifer Peralta Erythrocyte distribution width (RBC) [Ratio] 16.5 % Critically high 11.0-15.0 [facility] Comment on above: Performed By: #### C BC #### [facility] [address] [place] [address] Dr. Jennifer Peralta Hematocrit (Bld) [Volume fraction] 38.7 % Critically low 42.0-54.0 [facility] Comment on above: Performed By: #### C BC #### [facility] [address] [place] [address] Dr. Jennifer Peralta Hemoglobin (Bld) [Mass/Vol] 12.8 g/dL Critically low 14.0-18.0 [facility] Comment on above: Performed By: #### C BC #### [facility] [address] [place] [address] Dr. Jennifer Peralta IG # 0.02 10e3/ul Normal 0.00-0.03 [facility] Comment on above: Performed By: #### C BC #### [facility] [address] [place] [address] Dr. Jennifer Peralta IG % 0.3 % Normal 0.0-0.5 [facility] Comment on above: Performed By: #### C BC #### [facility] [address] [place] [address] Dr. Jennifer Peralta LYMPH # 2.8 103/ul Normal 1.2-3.8 [facility] Comment on above: Performed By: #### C BC #### [facility] [address] [place] [address] Dr. Jennifer Peralta Lymphocytes/100 WBC (Bld) 39.8 % Normal 20.5-60.0 [facility] Comment on above: Performed By: #### C BC #### [facility] [address] [place] [address] Dr. Jennifer Peralta MANUAL DIFF REQ NO Normal [facility] Comment on above: Performed By: #### C BC #### [facility] [address] [place] [address] Dr. Jennifer Peralta MCH (RBC) [Entitic mass] 32.3 pg Normal 25.9-34.0 [facility] Comment on above: Performed By: #### C BC #### [facility] [address] [place] [address] Dr. Jennifer Peralta MCHC (RBC) [Mass/Vol] 33.1 g/dL Normal 29.9-35.2 [facility] Comment on above: Performed By: #### C BC #### [facility] [address] [place] [address] Dr. Jennifer Peralta MCV (RBC) [Entitic vol] 97.7 fL Critically high 80.0-94.0 [facility] Comment on above: Performed By: #### C BC #### [facility] [address] [place] [address] Dr. Jennifer Peralta MONO # 0.7 103/ul Normal 0.3-0.8 [facility] Comment on above: Performed By: #### C BC #### [facility] [address] [place] [address] Dr. Jennifer Peralta Monocytes/100 WBC (Bld) 9.2 % Normal 1.7-12.0 [facility] Comment on above: Performed By: #### C BC #### [facility] [address] [place] [address] Dr. Jennifer Peralta NEUT # 3.5 103/ul Normal 1.4-6.5 [facility] Comment on above: Performed By: #### C BC #### [facility] [address] [place] [address] Dr. Jennifer Peralta Neutrophils/100 WBC (Bld) 49.3 % Normal 43.0-75.0 [facility] Comment on above: Performed By: #### C BC #### [facility] [address] [place] [address] Dr. Jennifer Peralta Platelet mean volume (Bld) [Entitic vol] 9.3 fL Critically low 9.5-13.5 [facility] Comment on above: Performed By: #### C BC #### [facility] [address] [place] [address] Dr. Jennifer Peralta PLT 230 103/ul Normal 150-450 [facility] Comment on above: Performed By: #### C BC #### [facility] [address] [place] [address] Dr. Jennifer Peralta RBC 3.96 106/ul Critically low 4.70-6.10 [facility] Comment on above: Performed By: #### C BC #### [facility] [address] [place] [address] Dr. Jennifer Peralta WBC 7.1 103/ul Normal 4.0-11.0 [facility] Comment on above: Performed By: #### C BC #### [facility] [address] [place] [address] Dr. Jennifer Peralta PROF 14(COMP METB)on 022 Albumin [Mass/Vol] 3.5 g/dL Normal 3.4-5.0 [facility] Comment on above: Performed By: #### C MP #### [facility] [address] [place] [address] Dr. Jennifer Peralta Albumin/Globulin [Mass ratio] 0.9 {ratio} Normal [facility] Comment on above: Performed By: #### C MP #### [facility] [address] [place] [address] Dr. Jennifer Peralta ALP [Catalytic activity/Vol] 78 U/L Normal 46-116 [facility] Comment on above: Performed By: #### C MP #### [facility] [address] [place] [address] Dr. Jennifer Peralta ALT [Catalytic activity/Vol] 23 U/L Normal 16-63 [facility] Comment on above: Performed By: #### C MP #### [facility] [address] [place] [address] Dr. Jennifer Peralta Anion gap [Moles/Vol] 9.8 mmol/L Normal [facility] Comment on above: Performed By: #### C MP #### [facility] [address] [place] [address] Dr. Jennifer Peralta AST [Catalytic activity/Vol] 27 U/L Normal 15-37 [facility] Comment on above: Performed By: #### C MP #### [facility] [address] [place] [address] Dr. Jennifer Peralta Bilirubin [Mass/Vol] 0.4 mg/dL Normal 0.2-1.0 [facility] Comment on above: Performed By: #### C MP #### [facility] [address] [place] [address] Dr. Jennifer Peralta Calcium [Mass/Vol] 9.0 mg/dL Normal 8.5-10.1 [facility] Comment on above: Performed By: #### C MP #### [facility] [address] [place] [address] Dr. eJnnifer Peralta Chloride [Moles/Vol] 105 mmol/L Normal 98-107 [facility] Comment on above: Performed By: #### C MP #### [facility] [address] [address] [address] Jennifer Peralta CO2 [Moles/Vol] 29.7 mmol/L Normal 21.0-32.0 [facility] Comment on above: Performed By: #### C MP #### [facility] [address] [address] [address] Jennifer Peralta Creatinine [Mass/Vol] 0.98 mg/dL Normal 0.70-1.30 [facility] Comment on above: Performed By: #### C MP #### [facility] [address] [address] [address] Jennifer Peralta EGFR-AF SWAZI >60 Normal >=60 [facility] Comment on above: Performed By: #### C MP #### [facility] [address] [place] [address] Dr. Jennifer Peralta EGFR-NON AF SWAZI >60 Normal >=60 [facility] Comment on above: Performed By: #### C MP #### [facility] [address] [address] [address] Jennifer Peralta Globulin (S) [Mass/Vol] 3.8 g/dL Normal [facility] Comment on above: Performed By: #### C MP #### [facility] [address] [place] [address] Dr. Jennifer Peralta Glucose [Mass/Vol] 83 mg/dL Normal 74-106 [facility] Comment on above: Performed By: #### C MP #### [facility] [address] [place] [address] Dr. Jennifer Peralta Potassium [Moles/Vol] 4.5 mmol/L Normal 3.5-5.1 [facility] Comment on above: Performed By: #### C MP #### [facility] [address] [address] [address] Jennifer Peralta Protein [Mass/Vol] 7.3 g/dL Normal 6.4-8.2 [facility] Comment on above: Performed By: #### C MP #### [facility] [address] [address] [address] Jennifer Peralta Sodium [Moles/Vol] 140 mmol/L Normal 136-145 [facility] Comment on above: Performed By: #### C MP #### [facility] [address] [place] [address] Dr. Jennifer Peralta Urea nitrogen [Mass/Vol] 23.0 mg/dL Critically high 7.0-18.0 [facility] Comment on above: Performed By: #### C MP #### [facility] [address] [place] [address] Dr. Jennifer Peralta Urea nitrogen/Creatinine [Mass ratio] 23.5 mg/mg Normal [facility] Comment on above: Performed By: #### C MP #### [facility] [address] [place] [address] Dr. Jennifer Peral[facility] 22 mm/hr Critically high <=20 [facility] Comment on above: Performed By: #### S EDR #### [facility] [address] [place] [address] Dr. Jennifer Peralta CBC AUTO DIFFon 07-04-2021 BASO # 0.0 103/ul Normal 0.0-0.1 [facility] Comment on above: Performed By: #### S EDR #### [facility] [address] [place] [address] Dr. Jennifer Peralta Basophils/100 WBC (Bld) 0.3 % Normal 0.2-2.0 [facility] Comment on above: Performed By: #### S EDR #### [facility] [address] [place] [address] Dr. Jennifer Peralta EO # 0.1 103/ul Normal 0.0-0.7 [facility] Comment on above: Performed By: #### S EDR #### [facility] [address] [place] [address] Dr. Jennifer Peralta Eosinophils/100 WBC (Bld) 1.1 % Normal 0.9-7.0 [facility] Comment on above: Performed By: #### S EDR #### [facility] [address] [place] [address] Dr. Jennifer Peralta Erythrocyte distribution width (RBC) [Ratio] 17.3 % Critically high 11.0-15.0 [facility] Comment on above: Performed By: #### S EDR #### [facility] [address] [place] [address] Dr. Jennifer Peralta Hematocrit (Bld) [Volume fraction] 39.6 % Critically low 42.0-54.0 [facility] Comment on above: Performed By: #### S EDR #### [facility] [address] [place] [address] Dr. Jennifer Peralta Hemoglobin (Bld) [Mass/Vol] 13.0 g/dL Critically low 14.0-18.0 [facility] Comment on above: Performed By: #### S EDR #### [facility] [address] [place] [address] Dr. Jennifer Peralta IG # 0.02 10e3/ul Normal 0.00-0.03 [facility] Comment on above: Performed By: #### S EDR #### [facility] [address] [place] [address] Dr. Jennifer Peralta IG % 0.3 % Normal 0.0-0.5 [facility] Comment on above: Performed By: #### S EDR #### [facility] [address] [place] [address] Dr. Jennifer Peralta LYMPH # 2.4 103/ul Normal 1.2-3.8 [facility] Comment on above: Performed By: #### S EDR #### [facility] [address] [place] [address] Dr. Jennifer Peralta Lymphocytes/100 WBC (Bld) 38.1 % Normal 20.5-60.0 [facility] Comment on above: Performed By: #### S EDR #### [facility] [address] [place] [address] Dr. Jennifer Peralta MANUAL DIFF REQ NO Normal [facility] Comment on above: Performed By: #### S EDR #### [facility] [address] [address] [address] Jennifer Peralta MCH (RBC) [Entitic mass] 31.5 pg Normal 25.9-34.0 [facility] Comment on above: Performed By: #### S EDR #### [facility] [address] [place] [address] Dr. Jennifer Peralta MCHC (RBC) [Mass/Vol] 32.8 g/dL Normal 29.9-35.2 [facility] Comment on above: Performed By: #### S EDR #### [facility] [address] [place] [address] Dr. Jennifer Peralta MCV (RBC) [Entitic vol] 95.9 fL Critically high 80.0-94.0 [facility] Comment on above: Performed By: #### S EDR #### [facility] [address] [place] [address] Dr. Jennifer Peralta MONO # 0.6 103/ul Normal 0.3-0.8 [facility] Comment on above: Performed By: #### S EDR #### [facility] [address] [place] [address] Dr. Jennifer Peralta Monocytes/100 WBC (Bld) 9.1 % Normal 1.7-12.0 [facility] Comment on above: Performed By: #### S EDR #### [facility] [facility] [address] [place] [address] Dr. Jennifer Peralta NEUT # 3.2 103/ul Normal 1.4-6.5 [facility] Comment on above: Performed By: #### S EDR #### [facility] [address] [place] [address] Dr. Jennifer Peralta Neutrophils/100 WBC (Bld) 51.1 % Normal 43.0-75.0 [facility] Comment on above: Performed By: #### S EDR #### [facility] [address] [place] [address] Dr. Jennifer Peralta Platelet mean volume (Bld) [Entitic vol] 9.0 fL Critically low 9.5-13.5 [facility] Comment on above: Performed By: #### S EDR #### [facility] [address] [address] [address] Jennifer Peralta PLT 218 103/ul Normal 150-450 [facility] Comment on above: Performed By: #### S EDR #### [facility] [address] [address] [address] Jennifer Peralta RBC 4.13 106/ul Critically low 4.70-6.10 [facility] Comment on above: Performed By: #### S EDR #### [facility] [address] [address] [address] Jennifer Peralta WBC 6.3 103/ul Normal 4.0-11.0 [facility] Comment on above: Performed By: #### S EDR #### [facility] [address] [place] [address] Dr. Jennifer Peralta PROF 14(COMP METB)on 022 Albumin [Mass/Vol] 3.6 g/dL Normal 3.5-5.0 [facility] Comment on above: Performed By: #### C MP #### [facility] [address] [place] [address] Dr. Jennifer Peralta Albumin/Globulin [Mass ratio] 0.9 {ratio} Normal [facility] Comment on above: Performed By: #### C MP #### [facility] [address] [place] [address] Dr. Jennifer Peralta ALP [Catalytic activity/Vol] 80 U/L Normal 38-126 [facility] Comment on above: Performed By: #### C MP #### [facility] [address] [place] [address] Dr. Jennifer Peralta ALT [Catalytic activity/Vol] 18 U/L Critically low 21-72 [facility] Comment on above: Performed By: #### C MP #### [facility] [address] [place] [address] Dr. Jennifer Peralta Anion gap [Moles/Vol] 10.5 mmol/L Normal [facility] Comment on above: Performed By: #### C MP #### [facility] [address] [address] [address] Jennifer Peralta AST [Catalytic activity/Vol] 24 U/L Normal 17-59 [facility] Comment on above: Performed By: #### C MP #### [facility] [address] [address] [address] Jennifer Peralta Bilirubin [Mass/Vol] 0.4 mg/dL Normal 0.2-1.3 [facility] Comment on above: Performed By: #### C MP #### [facility] [address] [address] [address] Jennifer Peralta Calcium [Mass/Vol] 8.7 mg/dL Normal 8.4-10.2 [facility] Comment on above: Performed By: #### C MP #### [facility] [address] [place] [address] Dr. Jennifer Peralta Chloride [Moles/Vol] 100 mmol/L Normal 98-107 [facility] Comment on above: Performed By: #### C MP #### [facility] [address] [place] [address] Dr. Jennifer Peralta CO2 [Moles/Vol] 26.9 mmol/L Normal 22.0-30.0 [facility] Comment on above: Performed By: #### C MP #### [facility] [address] [place] [address] Dr. Jennifer Peralta Creatinine [Mass/Vol] 0.93 mg/dL Normal 0.66-1.25 [facility] Comment on above: Performed By: #### C MP #### [facility] [address] [place] [address] Dr. Jennifer Peralta EGFR-AF SWAZI >60 Normal >=60 [facility] Comment on above: Performed By: #### C MP #### [facility] [address] [place] [address] Dr. Jennifer Peralta EGFR-NON AF SWAZI >60 Normal >=60 [facility] Comment on above: Performed By: #### C MP #### [facility] [address] [place] [address] Dr. Jennifer Peralta Globulin (S) [Mass/Vol] 3.9 g/dL Normal [facility] Comment on above: Performed By: #### C MP #### [facility] [address] [address] [address] Jennifer Peralta Glucose [Mass/Vol] 102 mg/dL Normal 74-106 [facility] Comment on above: Performed By: #### C MP #### [facility] [address] [address] [address] Jennifer Peralta Potassium [Moles/Vol] 4.4 mmol/L Normal 3.4-5.0 [facility] Comment on above: Performed By: #### C MP #### [facility] [address] [address] [address] Jennifer Peralta Protein [Mass/Vol] 7.5 g/dL Normal 6.1-8.2 [facility] Comment on above: Performed By: #### C MP #### [facility] [address] [address] [address] Jennifer Peralta Sodium [Moles/Vol] 133 mmol/L Critically low 137-145 [facility] Comment on above: Performed By: #### C MP #### [facility] [address] [place] [address] Dr. Jennifer Peralta Urea nitrogen [Mass/Vol] 20.0 mg/dL Normal 9.0-20.0 [facility] Comment on above: Performed By: #### C MP #### [facility] [address] [address] [address] Jennifer Peralta Urea nitrogen/Creatinine [Mass ratio] 21.5 mg/mg Normal [facility] Comment on above: Performed By: #### C MP #### [facility] [address] [address] [address] Jennifer Peralta SED RATE WESTERGRENon 2021 SED RATE 35 mm/hr Critically high <=20 [facility] Comment on above: Performed By: #### S EDR #### [facility] [address] [address] [address] Jennifer Peralta CBC AUTO DIFFon 04-04-2021 BASO # 0.0 103/ul Normal 0.0-0.1 [facility] Comment on above: Performed By: #### C BC #### [facility] [address] [place] [address] Dr. Jennifer Peralta Basophils/100 WBC (Bld) 0.4 % Normal 0.2-2.0 [facility] Comment on above: Performed By: #### C BC #### [facility] [address] [place] [address] Dr. Jennifer Peralta EO # 0.1 103/ul Normal 0.0-0.7 [facility] Comment on above: Performed By: #### C BC #### [facility] [address] [place] [address] Dr. Jennifer Peralta Eosinophils/100 WBC (Bld) 1.6 % Normal 0.9-7.0 [facility] Comment on above: Performed By: #### C BC #### [facility] [address] [place] [address] Dr. Jennifer Peralta Erythrocyte distribution width (RBC) [Ratio] 15.9 % Critically high 11.0-15.0 [facility] Comment on above: Performed By: #### C BC #### [facility] [address] [place] [address] Dr. Jennifer Peralta Hematocrit (Bld) [Volume fraction] 39.2 % Critically low 42.0-54.0 [facility] Comment on above: Performed By: #### C BC #### [facility] [address] [place] [address] Dr. Jennifer Peralta Hemoglobin (Bld) [Mass/Vol] 12.8 g/dL Critically low 14.0-18.0 [facility] Comment on above: Performed By: #### C BC #### [facility] [address] [place] [address] Dr. Jennifer Peralta IG # 0.02 10e3/ul Normal 0.00-0.03 [facility] Comment on above: Performed By: #### C BC #### [facility] [address] [place] [address] Dr. Jennifer Peralta IG % 0.4 % Normal 0.0-0.5 [facility] Comment on above: Performed By: #### C BC #### [facility] [address] [place] [address] Dr. Jennifer Peralta LYMPH # 2.5 103/ul Normal 1.2-3.8 [facility] Comment on above: Performed By: #### C BC #### [facility] [address] [place] [address] Dr. Jennifer Peralta Lymphocytes/100 WBC (Bld) 45.8 % Normal 20.5-60.0 [facility] Comment on above: Performed By: #### C BC #### [facility] [address] [place] [address] Dr. Jennifer Peralta MANUAL DIFF REQ NO Normal [facility] Comment on above: Performed By: #### C BC #### [facility] [address] [place] [address] Dr. Jennifer Peralta MCH (RBC) [Entitic mass] 30.8 pg Normal 25.9-34.0 [facility] Comment on above: Performed By: #### C BC #### [facility] [address] [place] [address] Dr. Jennifer Peralta MCHC (RBC) [Mass/Vol] 32.7 g/dL Normal 29.9-35.2 [facility] Comment on above: Performed By: #### C BC #### [facility] [address] [place] [address] Dr. Jennifer Peralta MCV (RBC) [Entitic vol] 94.5 fL Critically high 80.0-94.0 [facility] Comment on above: Performed By: #### C BC #### [facility] [address] [place] [address] Dr. Jennifer Peralta MONO # 0.6 103/ul Normal 0.3-0.8 [facility] Comment on above: Performed By: #### C BC #### [facility] [address] [place] [address] Dr. Jennifer Peralta Monocytes/100 WBC (Bld) 10.7 % Normal 1.7-12.0 [facility] Comment on above: Performed By: #### C BC #### [facility] [address] [address] [address] Jennifer Peralta NEUT # 2.3 103/ul Normal 1.4-6.5 [facility] Comment on above: Performed By: #### C BC #### [facility] [address] [address] [address] Jennifer Peralta Neutrophils/100 WBC (Bld) 41.1 % Critically low 43.0-75.0 [facility] Comment on above: Performed By: #### C BC #### [facility] [address] [address] [address] Jennifer Peralta Platelet mean volume (Bld) [Entitic vol] 9.9 fL Normal 9.5-13.5 [facility] Comment on above: Performed By: #### C BC #### [facility] [address] [place] [address] Dr. Jennifer Peralta PLT 214 103/ul Normal 150-450 [facility] Comment on above: Performed By: #### C BC #### [facility] [address] [address] [address] Jennifer Peralta RBC 4.15 106/ul Critically low 4.70-6.10 [facility] Comment on above: Performed By: #### C BC #### [facility] [address] [place] [address] Dr. Jennifer Peralta WBC 5.5 103/ul Normal 4.0-11.0 [facility] Comment on above: Performed By: #### C BC #### [facility] [address] [place] [address] Dr. Jennifer Peralta PROF 14(COMP METB)on 021 Albumin [Mass/Vol] 3.3 g/dL Critically low 3.5-5.0 [facility] Comment on above: Performed By: #### C MP #### [facility] [address] [place] [address] Dr. Jennifer Peralta Albumin/Globulin [Mass ratio] 0.8 {ratio} Normal [facility] Comment on above: Performed By: #### C MP #### [facility] [address] [address] [address] Jennifer Peralta ALP [Catalytic activity/Vol] 73 U/L Normal 38-126 [facility] Comment on above: Performed By: #### C MP #### [facility] [address] [address] [address] Jennifer Peralta ALT [Catalytic activity/Vol] 15 U/L Critically low 21-72 [facility] Comment on above: Performed By: #### C MP #### [facility] [address] [place] [address] Dr. Jennifer Peralta Anion gap [Moles/Vol] 9.2 mmol/L Normal [facility] Comment on above: Performed By: #### C MP #### [facility] [address] [place] [address] Dr. Jennifer Peralta AST [Catalytic activity/Vol] 23 U/L Normal 17-59 [facility] Comment on above: Performed By: #### C MP #### [facility] [address] [place] [address] Dr. Jennifer Peralta Bilirubin [Mass/Vol] 0.4 mg/dL Normal 0.2-1.3 [facility] Comment on above: Performed By: #### C MP #### [facility] [address] [place] [address] Dr. Jennifer Peralta Calcium [Mass/Vol] 8.8 mg/dL Normal 8.4-10.2 [facility] Comment on above: Performed By: #### C MP #### [facility] [address] [place] [address] Dr. Jennifer Peralta Chloride [Moles/Vol] 100 mmol/L Normal 98-107 [facility] Comment on above: Performed By: #### C MP #### [facility] [address] [place] [address] Dr. Jennifer Peralta CO2 [Moles/Vol] 30.1 mmol/L Critically high 22.0-30.0 [facility] Comment on above: Performed By: #### C MP #### [facility] [address] [address] [address] Jennifer Peralta Creatinine [Mass/Vol] 0.93 mg/dL Normal 0.66-1.25 [facility] Comment on above: Performed By: #### C MP #### [facility] [address] [address] [address] Jennifer Peralta EGFR-AF SWAZI >60 Normal >=60 [facility] Comment on above: Performed By: #### C MP #### [facility] [address] [address] [address] Jennifer Peralta EGFR-NON AF SWAZI >60 Normal >=60 [facility] Comment on above: Performed By: #### C MP #### [facility] [address] [place] [address] Dr. Jennifer Peralta Globulin (S) [Mass/Vol] 3.9 g/dL Normal [facility] Comment on above: Performed By: #### C MP #### [facility] [address] [place] [address] Dr. Jennifer Peralta Glucose [Mass/Vol] 95 mg/dL Normal 74-106 [facility] Comment on above: Performed By: #### C MP #### [facility] [address] [address] [address] Jennifer Peralta Potassium [Moles/Vol] 4.3 mmol/L Normal 3.4-5.0 [facility] Comment on above: Performed By: #### C MP #### [facility] [address] [address] [address] Jennifer Peralta Protein [Mass/Vol] 7.2 g/dL Normal 6.1-8.2 [facility] Comment on above: Performed By: #### C MP #### [facility] [address] [place] [address] Dr. Jennifer Peralta Sodium [Moles/Vol] 135 mmol/L Critically low 137-145 [facility] Comment on above: Performed By: #### C MP #### [facility] [address] [place] [address] Dr. Jennifer Peralta Urea nitrogen [Mass/Vol] 17.0 mg/dL Normal 9.0-20.0 [facility] Comment on above: Performed By: #### C MP #### [facility] [address] [place], [place] [address] Dr. Jennifer Peralta Urea nitrogen/Creatinine [Mass ratio] 18.3 mg/mg Normal [facility] Comment on above: Performed By: #### C MP #### [facility] [address] [place], [place] [address] Dr. Jennifer Peralta SED RATE [facility] 2020 SED RATE 76 mm/hr Critically high <=20 [facility] Comment on above: Performed By: #### S EDR #### [facility] [address] [place], [place] [address] Dr. Jennifer Peralta Coding Summary.on 11-27-2018 Coding Summary. CODING DATE: 11/27/2018 FINAL [facility] STATUS: Home (Routine DC) PAYOR: Bobbi APC DESCRIPTION 0738 Level 5 Musculoskeletal Procedures ADMIT DX: REASON [...] PROC APC STAT DESCRIPTION DOCTOR NAME DATE 67111 5514 J1 Arthroplasty, knee, Zain Coughlin DO 11/25/2018 condyle and plateau; medial AND lateral compartments with or without patella resurfacing (total knee arthroplasty) RT Right side (used to identify procedures performed on the right side of the body) 32281 Injection, anesthetic Florencio Ignacio MD 11/25/2018 agent; femoral nerve, single RT Right side (used to identify procedures performed on the right side of the body) XP Separate practitioner, a service that is distinct because it was performed by a different practitioner 79221 Anesthesia for open or Florencio Ignacio MD 11/25/2018 surgical arthroscopic procedures on knee joint; total knee arthroplasty NOTE: The code number assigned matches the documented diagnosis and / or procedure in the patient's chart. However, the narrative phrase printed from the coding software may appear abbreviated, or result in slightly different terminology. Revised Coded By: Rosina Machado Revised Date Saved: 11/27/2018 11:46 am [facility] Operative Reporton 9 Operative Report [...] procedure. Florencio Ignacio M.D. aek Dictated: 11/25/2018 #[id number] Typed: 11/25/2018 #[id number] cc: Florencio Ignacio M.D. [facility] Comment on above: Result Comment: [...] constipation, # 40 cap(s), Refills(s) 0, Pharmacy: [facility]/pharmacy #[id number] Ecotrin 325 mg Tab-EC: 325 mg = 1 tab(s), Oral, BIDPC, # 60 tab(s), Refills(s) 0, Pharmacy: [facility]/pharmacy #[id number] Percocet 325 mg-5 mg Tab: See Instructions, as needed for pain, 40 tab(s), Refill(s) 0, 1-2 orally every 4-6hrs as needed for pain Dx: M17.11, Z96.651 Duration: 7 days, [facility]/pharmacy #[id number] Documented Medications Documented CeleBREX 200 [...] All Problems Rheumatoid arthritis / SNOMED CT 072458357 / Confirmed Smoker / SNOMED CT 334053627 / Confirmed Added secondary to documentation in Social History. Decreased vision / SNOMED CT 7418133226 / Confirmed left eye Osteoarthritis of knee / SNOMED CT 811110599 / Confirmed right Histories Past Medical History: [...] Results review: No qualifying data available. Plan [place] [employer] (ASA) physical status classification: [...] allergic reactions, failed block and .. Normal [facility] Comment on above: Result Comment: Elec tronically Signed By: Mateus FELMING, Florencio\.br\Date and Time Signed: 11/27/18 14:59 EDT Auto Diffon 11-26-2018 Basophils/100 WBC (Bld) 0.1 % Normal 0.0-2.0 [facility] Comment on above: Order Comment: Order Added by Discern Expert. Performed By: #### 2 101598, 3408164, 5061480, 48411909, 2729121, 1574841 #### [facility] [address] [place] [address] Basophils/Leukocytes Auto (Bld) [Pure # fraction] 0.0 E9/L Normal 0.0-0.2 [facility] Comment on above: Order Comment: Order Added by Amrik Expert. Performed By: #### 2 613791, 2908941, 7525833, 01136868, 9395053, 0533004 #### [facility] [address] [place] [address] Eosinophils/100 WBC (Bld) 1.1 % Normal 0.0-8.0 [facility] Comment on above: Order Comment: Order Added by Amrik Expert. Performed By: #### 2 976690, 3677460, 1907584, 61363963, 5264670, 2428615 #### [facility] [address] [place] [address] Eosinophils/Leukocytes Auto (Bld) [Pure # fraction] 0.1 E9/L Normal 0.0-0.5 [facility] Comment on above: Order Comment: Order Added by Discern Expert. Performed By: #### 2 685267, 0633576, 5860131, 29694567, 1173770, 1705763 #### [facility] [address] [place] [address] Lymphocytes/100 WBC (Bld) 25.4 % Normal 14.0-50.0 [facility] Comment on above: Order Comment: Order Added by Discern Expert. Performed By: #### 2 769220, 4758731, 7729749, 28674398, 3429038, 4113300 #### [facility] [address] [place] [address] Lymphocytes/Leukocytes Auto (Bld) [Pure # fraction] 2.1 E9/L Normal 1.0-4.0 [facility] Comment on above: Order Comment: Order Added by Amrik Expert. Performed By: #### 2 776863, 1485179, 3112751, 09036885, 5789286, 6020235 #### [facility] [address] [place] [address] Monocytes/100 WBC (Bld) 9.5 % Normal 4.0-14.0 [facility] Comment on above: Order Comment: Order Added by Amrik Expert. Performed By: #### 2 700323, 5283911, 9955959, 22236495, 0860850, 4225861 #### [facility] [address] [place] [address] Monocytes/Leukocytes Auto (Bld) [Pure # fraction] 0.8 E9/L Normal 0.2-1.0 [facility] Comment on above: Order Comment: Order Added by Discern Expert. Performed By: #### 2 136843, 0428557, 7349004, 47127825, 5299460, 7693112 #### [facility] [address] [place] [address] Neutrophils/100 WBC (Bld) 63.9 % Normal 36.0-75.0 [facility] Comment on above: Order Comment: Order Added by Discern Expert. Performed By: #### 2 251800, 5780091, 4319804, 98379822, 1876736, 0863052 #### [facility] [address] [place] [address] Neutrophils/Leukocytes Auto (Bld) [Pure # fraction] 5.2 E9/L Normal 2.0-7.5 [facility] Comment on above: Order Comment: Order Added by Discern Expert. Performed By: #### 2 044540, 5244864, 3562907, 89433906, 1092379, 7187669 #### [facility] [address] [place] [address] BUNon 11-26-2018 Urea nitrogen [Mass/Vol] 19 mg/dL Normal 5-21 [facility] Comment on above: Performed By: #### 2 774479, 4955465, 4151594, 94806481, 1579032, 6170854 #### [facility] [address] [place] [address] CBC w/ Auto Diffon 9 Erythrocyte distribution width (RBC) [Ratio] 16.1 % High 10.9-14.2 [facility] Comment on above: Performed By: #### 2 825934, 7095566, 3483288, 86757963, 8369794, 5515603 #### [facility] [address] [place] [address] Hematocrit (Bld) [Volume fraction] 34.8 % Low 37.7-49.0 [facility] Comment on above: Performed By: #### 2 319183, 3512192, 9267767, 71909195, 8646645, 4453174 #### [facility] [address] [place] [address] Hemoglobin (Bld) [Mass/Vol] 11.6 g/dL Low 13.5-17.5 [facility] Comment on above: Performed By: #### 2 842699, 7948181, 2498247, 18846527, 2341239, 0221824 #### [facility] [address] [place] [address] MCH (RBC) [Entitic mass] 33.0 pg Normal 27.0-34.0 [facility] Comment on above: Performed By: #### 2 594617, 4790919, 5114846, 76115929, 1493208, 6774097 #### [facility] [address] [place] [address] MCHC (RBC) [Mass/Vol] 33.5 g/dL Normal 33.3-35.7 [facility] Comment on above: Performed By: #### 2 566543, 5982145, 2495980, 58105311, 5027564, 3641746 #### [facility] [address] [place] [address] MCV (RBC) [Entitic vol] 98.6 fL Normal 80.0-100.0 [facility] Comment on above: Performed By: #### 2 967894, 5613635, 1446453, 54817056, 3266272, 6572025 #### [facility] [address] [place] [address] Platelet mean volume (Bld) [Entitic vol] 7.4 fL Normal 6.4-10.8 [facility] Comment on above: Performed By: #### 2 724359, 8573790, 6157632, 37259217, 3747524, 8118077 #### [facility] [address] [place] [address] Platelets (Bld) [#/Vol] 193.0 E9/L Normal 150.0-500.0 [facility] Comment on above: Performed By: #### 2 086367, 3150934, 1545075, 88624126, 6877347, 6334453 #### [facility] [address] [place] [address] RBC (Bld) [#/Vol] 3.5 E12/L Low 4.3-5.9 [facility] Comment on above: Performed By: #### 2 855480, 6205383, 2473524, 67625675, 7593077, 4775532 #### [facility] Laboratory [address] [place] [address] WBC corrected for nucl RBC Auto (Bld) [#/Vol] 8.1 E9/L Normal 4.0-11.0 [facility] Comment on above: Performed By: #### 2 456000, 2131182, 4326907, 09305998, 9073638, 0087435 #### [facility] Laboratory [address] [place] [address] Creatinineon 11-26-2018 Creatinine [Mass/Vol] 0.8 mg/dL Normal 0.5-1.3 [facility] Comment on above: Performed By: #### 2 471691, 7946052, 7106182, 34483492, 2064011, 7115910 #### [facility] Laboratory [address] [place] [address] Discharge Note-Nursingon Discharge Note-Nursing Patient provided with discharge instructions, education and extra mepilex dressing. Patient states no questions or concerns. Patient taken by wheelchair to patient pick-up by Cynthia POCT. Normal [facility] Inpatient Clinical Summaryon 11-26-2018 Inpatient Clinical Summary [address] [address] Clinical Summary Person Information: Name: ANGUS LUCIO Age: 63 Years : 1955 12:00 AM Sex: Male PCP: Junito Garcia MD Marital Status: Phone: [phone] Race: White Ethnicity: Non- or Language: Burmese Visit Id: Visit Reason: RIGHT KNEE OA Speciality: Acuity: Enc Type: Ambulatory/Same Day Surgery Med Service: Surgery Arrival: 11/25/2018 10:09 AM Discharge: Dispo Type: Address: [address] [place] [id number] Provider Notes: Diagnosis: Problems Active Smoker Smoking [...] Follow up: With: Address: When: Zain Coughlin [address] [place], [place] [id number] Business (1) 12/24/2018 10:30 AM With: Address: When: Junito Garcia [address] [place] [address], [place] [address] Business (1) Comments: Call if needed. Patient Education Information: Alta - Total Knee Arthroplasty. Revised 02/22/12. (Custom) Normal [facility] Inpatient Patient Summaryon 11-26-2018 Inpatient Patient Summary [facility] [address] [place], [place] [address] Patient Discharge Instructions PERSON INFORMATION [...] up: With: Address: When: Zain Coughlin [address] [id number] Business (1) 12/24/2018 10:30 AM With: Address: When: Junito Garcia [address] [place] [address], [place] [address] Business (1) Comments: Call if [...] That Have Changed [id number], [address], [place] [id number], [phone] START: aspirin (Ecotrin 325 mg Tab-EC) 1 [...] with No Changes [id number], [address], [place] [id number], [phone] acetaminophen-oxycodon e (Percocet 325 mg-5 mg Tab) [...] Tabs By Mouth every day. [facility] Comment: PATIENT EDUCATION INFORMATION Instructions: [place], [place] [facility] DISCHARGE INSTRUCTIONS TOTAL KNEE [...] will continue at home, possible with the customer care assistant of Home Health Physical Therapy or [...] 4 weeks postop. 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 PCP verified and insurance information reviewed. DME discussed. Contact inforrmation provided and white board updated. Pt is with [facility] program for therapy at [place]. Aware of anticiapted [place] home today and has transportation at [place]. Observation status discussed. Denies any further concerns or DC needs. Normal [facility] Interdisciplinary Note - Ortiz n 11-26-2018 [...] further OT needs at this time. Normal [facility] Lyteson 11-26-2018 Anion gap [Moles/Vol] 12 mmol/L Normal 6-16 [facility] Comment on above: Performed By: #### 2 719427, 9092672, 1786280, 16950691, 8502767, 5784532 #### [facility] Laboratory [address] [place] [address] Chloride [Moles/Vol] 99 mmol/L Low 101-111 Fish [facility] Comment on above: Performed By: #### 2 707438, 3490097, 4842979, 31464298, 1697361, 3339653 #### [facility] [address] [place] [address] CO2 [Moles/Vol] 24 mmol/L Normal 21-31 [facility] Comment on above: Performed By: #### 2 968497, 5802919, 7926835, 56151792, 5643269, 1893021 #### [facility] [address] [place] [address] Potassium [Moles/Vol] 4.3 mmol/L Normal 3.5-5.3 [facility] Comment on above: Performed By: #### 2 517257, 6945446, 8865967, 39212772, 0220659, 9959816 #### [facility] [address] [place] [address] Sodium [Moles/Vol] 131 mmol/L Low 135-145 [facility] Comment on above: Performed By: #### 2 654040, 9884376, 3189667, 30738183, 0323657, 7208728 #### [facility] [address] [place] [address] Main OR Intraoperative Recor don 11-26-2018 Main OR Intraoperative Record IntraOp Document Type FT Summary Primary Physician: Zain Coughlin DO Finalized Date/Time: 11/26/18 10:56:45 Pt. Name: ANGUS LUCIO/Sex: 1955 Male Med Rec #: [id number] Physician: Zain Coughlin DO Financial #: [id number] Pt. 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 Last Modified By: Ileana RN, Todd Tejeda RN, Todd Tejeda RN, Todd Durand 11/25/18 13:51:47 11/25/18 13:51:47 11/25/18 13:51:47 Entry 4 Entry 5 Entry 6 Case Attendee Ileana JACQUES, Todd Mccloud RN, Mike Garcia CST, May Donald Role Performed Director Medicaid - Primary Director Medicaid - Primary Scrub - Primary Time In 11/25/18 11:37:00 11/25/18 11:57:00 11/25/18 11:37:00 Time Out 11/25/18 13:49:00 11/25/18 13:49:00 11/25/18 13:49:00 Procedure KNEE TOTAL KNEE TOTAL KNEE TOTAL ARTHROPLASTY(Right) ARTHROPLASTY(Right) ARTHROPLASTY(Right) Comments Last Modified By: Ileana RN, Todd Tejeda RN, Todd Altamirano RN 11/25/18 13:51:47 11/25/18 13:51:47 11/25/18 13:51:47 Entry 7 Entry 8 Entry 9 Case Attendee Amanda PRETTY, Nancy Mon RN, Noemy Cervantse RN, Michael Role Performed Scrub - Other Staff - Other Staff - Other Time In 11/25/18 11:37:00 11/25/18 11:37:00 11/25/18 11:37:00 Time Out 11/25/18 13:49:00 11/25/18 11:51:00 11/25/18 12:07:00 Procedure KNEE TOTAL KNEE TOTAL KNEE TOTAL ARTHROPLASTY(Right) ARTHROPLASTY(Right) ARTHROPLASTY(Right) Comments IN ORIENTATION Last Modified By: Ileana JACQUES, Todd Tejeda RN, Todd Altamirano RN 11/25/18 13:51:47 11/25/18 13:51:47 11/25/18 13:51:47 General Comments: King Shipley, [employer] [facility] rep, present in the OR for [...] ARTHROPLASTY Primary Procedure Yes Primary Surgeon Pocos Zani GORDON 11/25/18 12:10:00 Stop 11/25/18 13:45:00 Anesthesia [...] and tissue Entry 1 Skin Integrity Intact, Pierz, Warm, and Skin Abnormality No Dry Outcomes [...] Items BANDAGE ELASTIC DOUBLE 6 X 11YD [[id number]][F] Site and Details right knee- 10 inch [...] safely administered during the perioperative period For Helm-Max please see scanned medication reconcilliation form for medications used at the field during the procedure. Tourniquet FT Pre-Care Text: Implements protective measures to prevent skin/tissue injury due to mechanical sources Entry 1 Tourniquet Type TOURNIQUET CUFF ROYAL Setting 250 mmHg BLUE 30 X 4 [9698-470-451][F] Equipment Number D Placement Right Upper Thigh [...] universal tibial baseplate Serial Number Lot Number [id number] Load Number Dry House Attendant [facility] Catalog ?# [id number] Size [...] Reconstitution Method Outcomes Met? Yes Yes Yes Dry House Attendant Model Number Last Modified By: Ileana JACQUES, Todd Tejeda RN, Todd Tejeda RN, Todd Durand 11/25/18 12:22:15 11/25/18 13:06:25 11/25/18 13:08:45 Entry 4 Entry 5 Entry 6 Procedure KNEE TOTAL KNEE TOTAL KNEE TOTAL ARTHROPLASTY(Right) ARTHROPLASTY(Right) ARTHROPLASTY(Right) Implant/Explant Implant Implant Implant Implant Identification FT Description Triathlon posterior Triathlon X3 Asymmetric Triathlon Offset Adaptor stabilized femoral Patella Serial Number Lot Number [id number] Load Number Dry House Attendant [facility] Catalog ?# [id number] Size [...] Reconstitution Method Outcomes Met? Yes Yes Yes Dry House Attendant Model Number Last Modified By: Ileana JACQUES, Todd Tejeda RN, Todd L Todd Tejeda RN 11/25/18 13:10:38 11/25/18 13:17:54 11/25/18 13:19:37 Entry 7 Procedure KNEE TOTAL ARTHROPLASTY(Right) Implant/Explant Implant Implant Identification FT Description Wilner X3 Tibial Bearing Insert- PS Serial Number Lot Number [id number] Load Number Dry House Attendant [employer] Catalog ?# 5532-G-716 Size 7 Expiration Date 10/08/20 Manufactured Date Materials Unique Device Identifier (SANTI) Human Readable Barcode Machine Readable Barcode Usage Data FT Implant Site Knee R Implant Site Comment Quantity 1 Implant/Explant Date Implanted By Zain Coughlin DO Explant Reason Biological Implants Biological Source Donor Number MR Classification Temperature Reconstitution Method Outcomes Met? Yes Dry House Attendant Model Number Last Modified By: Todd Tejeda RN 11/25/18 13:38:06 Post-Care Text: The patient is free from signs and symptoms of injury caused by extraneous objects Urinary Catheter Pre-Care Text: Patient is prepped using sterile technique. Entry 1 Urinary Catheter TRAY URINE TEQUILA CATH Present Upon Arrival No Inserted LF 16FR [[id number]][F] Insertion Date/Time 11/25/18 11:52:00 Urine Residual 40 [...] BLANKET MISTRAL AIR Quantity 1 Aid TORSO [[id number]][F] Fluid/Marianna Unit Mistral warming system Setting 43 C/ HIGH Body Site Upper anterior torso Last Modified By: Todd Tejeda RN 11/25/18 11:35:56 Case Comments Finalized By: Franci Ignacio CST Document Signatures Signed By: Ileana JACQUES, Todd Durand 11/25/18 13:52 Franci Ignacio CST 11/26/18 10:56 Normal [facility] Patient Education - Texton 0 11-26-2018 Patient Education - Text [place], [place] [facility] DISCHARGE INSTRUCTIONS TOTAL KNEE [...] will continue at home, possible with the customer care assistant of Home Health Physical Therapy or [...] weeks postop. Zain Coughlin, DO [facility] [address] [place] [address] Reviewed: 08-25 Revised 05/31 [facility] Progress Note-Physicianon Progress Note-Physician DAILY [...] planning is underway for home discharge with [place] [address] program. Zain Coughlin D.O. gls Dictated: 11/26/2018 #[id number] Typed: 11/26/2018 #[id number] cc: Zain Coughlin D.O. Normal [facility] Comment on above: Result Comment: Elec tronically Signed By: Zain Coughlin DO\.br\Date and Time Signed: 11/26/18 12:26 EDT eGFRon 11-26-2018 GFR/1.73 sq M predicted among blacks MDRD (S/P/Bld) [Vol rate/Area] mL/min/{1.73_m2} Normal >=59 [facility] Comment on above: Order Comment: Order added by Discern Expert. Result Comment: eGFR is race adjusted. AA=. Performed By: #### 2 878938, 6236192, 9135038, 60059475, 4460051, 0492937 #### [facility] Laboratory [address] [place] [address] GFR/1.73 sq M predicted among non-blacks MDRD (S/P/Bld) [Vol rate/Area] mL/min/{1.73_m2} Normal >=59 [facility] Comment on above: Order Comment: Order added by Discern Expert. Result Comment: Head Golf Coach erasmo kidney disease could be indicated at eGFR's of less than 60 mL/min/1.73m2. Kidney failure is indicated at less than 15 mL/min/1.73m2. Performed By: #### 2 636581, 8512556, 3097447, 06135322, 8187402, 9105438 #### [facility] [address] [place] [address] ABO/Rhon 11-25-2018 ABO/Rh Positive [facility] Comment on above: Performed By: #### 2 204786, 2486926, 4491602, 55407391, 6530004, 6588514 #### [facility] [address] [place] [address] ABO/Rh History Checkon 11-25 ABO/Rh History Check Verified Hx Blood Type Normal [facility] Comment on above: Performed By: #### 2 325220, 3501359, 7502981, 32622587, 6457226, 7519250 #### [facility] [address] [place] [address] ABSCon 11-25-2018 ABSC Gel Interp Negative Normal [facility] Comment on above: Performed By: #### 2 084127, 6466612, 7939299, 18953125, 3569491, 9155693 #### [facility] [address] [place] [address] Blood Bank ID#on 11-25-2018 BBID# [id number] [facility] Comment on above: Performed By: #### 2 390785, 1303655, 0224859, 95806988, 5369475, 2323063 #### [facility] [address] [place] [address] Interdisciplinary Note - Shola e Manageron 11-25-2018 Interdisciplinary Note - 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 I called patient on phone. insurance, DME, PCP verified. pt from home with family and will transport at [place]. pending therapy eval. obs admit. pt has FWW in room. pt is [facility], call [phone] ext [phone] at [place]. anticipated dc 11/26. CRM following. Normal [facility] Interdisciplinary Note - PTo n 11-25-2018 Interdisciplinary Note - PT PT Evaluation completed with an AM PAC score of 18/24. Pt performed bed mobility with CGA and transfers with CGA/min A. pt was able to ambulate 70 feet with FWW with CGA. Will follow daily with recommendations Normal [facility] Main OR PACU I Recordon Main OR PACU I Record PACU Phase I Docum ent Type FT Summary Primary Physician: Zain Coughlin DO Finalized Date/Time: 11/25/18 14:46:08 Pt. Name: ANGUS LUCIO/Sex: 1955 Male Med Rec #: [id number] Physician: Zain Coughlin DO Financial #: [id number] Pt. Type: O Room/Bed: N318/01 Admit/Disch: 11/25/18 [...] Olga Lidia Ornelas RN 11/25/18 14:46 Normal [facility] Main OR Preoperative Recordo n 11-25-2018 Main OR Preoperative Record PreOp Document Type FT Summary Primary Physician: Zain Coughlin DO Finalized Date/Time: 11/25/18 12:12:50 Pt. Name: SANTOS LUCIODorothy Harkins/Sex: 1955 Male Med Rec #: [id number] Physician: Zain Coughlin DO Financial #: [id number] Pt. Type: A Room/Bed: [place] [address] Admit/Disch: 11/25/18 10:09:49 - Institution: Case Times [...] By: Todd Tejeda RN 11/25/18 12:12 Normal [facility] Operative Reporton 11-25-201 9 Operative Report Date of Surgery: 11/25/2018 SURGEON: Zain Coughlin D.O. POLICE INSPECTOR: Koko Longoria D.O. PREOPERATIVE DIAGNOSIS: Right knee [...] right posterior stabilized femur, a size 7 [place] TS base plate with a 6 mm. [...] wrap. The patient is transferred to the [facility] and taken to the Post-Anesthesia Care Unit in stable condition. He will remain hospitalized this day. Jaskaran Noriega Dictated: 11/25/2018 #[id number] Typed: 11/25/2018 #[id number] cc: Urbano Alvarenga D.O. [facility] Comment on above: Result Comment: Elec tronically Signed By: Zain Coughlin DO\.br\Date and Time Signed: 11/25/18 16:30 EDT Progress Note-Physicianon Progress Note-Physician Patient: ANGUS LUCIO Age: 63 years Sex: Male : 1955 Associated Diagnoses: None Author: Zain Coughlin DO Postoperative Information Procedure: R TKA, complicated. Preoperative Diagnosis: R knee OA, instability. Postoperative Diagnosis: same. Performed by: alta. Media Relations Associate: osiris. Specimens Removed: bone, soft tissue. Estimated Blood Loss: 0 ml. Complications: None. Normal [facility] Comment on above: Result Comment: Elec tronically Signed By: Zain Coughlin DO\.br\Date and Time Signed: 11/25/18 13:57 EDT UA With Cult Reflexon 2018 Bilirubin Ql (U) Negative Normal Negative [place] Comment on above: Performed By: #### 2 767871, 5311280, 7048810, 92190285, 7215613, 1890774 #### [facility] [address] [place] [address] Clarity (U) CLEAR Normal Clear [facility] Comment on above: Performed By: #### 2 376438, 0652035, 5251099, 54286168, 5415366, 9571120 #### [facility] [address] [place] [address] Color (U) YELLOW Normal Yellow [facility] Comment on above: Performed By: #### 2 891170, 8412778, 2407421, 81979638, 3704703, 0847083 #### [facility] [address] [place] [address] Epithelial cells.squamous LM.HPF (Urine sed) [#/Area] 0-2 Normal 0-2 [facility] Comment on above: Performed By: #### 2 276433, 2912764, 9153617, 39642862, 7825568, 1055469 #### [facility] [address] [place] [address] Glucose Test strip (U) [Mass/Vol] Negative Normal Negative [facility] Comment on above: Performed By: #### 2 276631, 3931895, 7063854, 14088442, 1449760, 4010654 #### [facility] [address] [place] [address] Hemoglobin Ql (U) TRACE Abnormal Negative [facility] Comment on above: Performed By: #### 2 358266, 0555429, 7372197, 33349085, 2039567, 3634943 #### [facility] [address] [place] [address] Ketones (U) [Mass/Vol] Negative Normal Negative [facility] Comment on above: Performed By: #### 2 105172, 2216775, 2115863, 63562047, 8893296, 6960807 #### [facility] [address] [place] [address] [place].plasma/[place] .RBC (Bld) [Mass ratio] 0-3 Normal 0-3 [facility] Comment on above: Performed By: #### 2 254744, 9182345, 1086756, 68863895, 8274581, 3695594 #### [facility] [address] [place] [address] Mucus Ql (Urine sed) TRACE Normal [facility] Comment on above: Performed By: #### 2 800274, 7194026, 5823362, 43014619, 6421086, 8567411 #### [facility] [address] [place] [address] Nitrite Ql (U) Negative Normal Negative [facility] Comment on above: Performed By: #### 2 562958, 1892344, 7355186, 95274043, 0244589, 7442143 #### [facility] [address] [place] [address] pH (U) 6.5 [pH] 5.0-9.0 [facility] Comment on above: Performed By: #### 2 421046, 9312253, 7049251, 03433240, 0664688, 2761703 #### [facility] [address] [place] [address] Protein (U) [Mass/Vol] Negative Normal Negative [facility] Comment on above: Performed By: #### 2 816841, 1467377, 1533183, 65386666, 8391611, 5250807 #### [facility] [address] [place] [address] Specific gravity (U) [Rel density] 1.015 1.005-1.030 [facility] Comment on above: Performed By: #### 2 242510, 2552189, 6483777, 35441381, 5854346, 1638704 #### [facility] [address] [place] [address] UA Spec Desc Torres Normal [facility] Comment on above: Performed By: #### 2 894111, 7440546, 2364202, 37647097, 0122467, 1804255 #### [facility] [address] [place] [address] Urobilinogen Qn (U) 0.2 {Katlin'U}/dL Normal 0.0-1.0 [facility] Comment on above: Performed By: #### 2 533881, 3660600, 6787554, 80059977, 7130496, 2640441 #### [facility] [address] [place] [address] WBC Auto Ql (U) Negative Normal Negative [facility] Comment on above: Performed By: #### 2 343596, 3876043, 4800211, 66783123, 0783327, 0844312 #### [facility] [address] [place] [address] WBC LM.HPF (Urine sed) [#/Area] 0-5 Normal 0-5 [facility] Comment on above: Performed By: #### 2 069515, 5697154, 1961260, 62702837, 4209058, 7271642 #### [facility] [address] [place] [address] XR Knee 1 or 2 Views Righton [...] Carr M.D. Transcribed by: LIZANDRO Technologist: JOVITA [facility] Coding Summary.on 11-10-2018 Coding Summary. CODING DATE: 11/10/2018 FINAL [facility] STATUS: Home (Routine DC) PAYOR: Bobbi APC [...] Hinton CphT Date Saved: 11/10/2018 12:42 pm [facility] BD Bone Density DEXAon 11-04 [...] M.D. Transcribed by: LIZANDRO Technologist: YUSEF Normal [facility] ABO/Rh Retypeon 11-03-2018 ABO/Rh Retype Interp Positive Fish [facility] Comment on above: Performed By: #### 1 0448878 #### [facility] [address] [place] [address] BUNon 11-03-2018 Urea nitrogen [Mass/Vol] 15 mg/dL Normal 5-21 [facility] Comment on above: Performed By: #### 2 981823, 0781666, 0772146, 27788731, 5953139, 6924928 #### [facility] [address] [place] [address] CBC w/Indiceson 11-03-2018 Erythrocyte distribution width (RBC) [Ratio] 16.3 % High 10.9-14.2 [facility] Comment on above: Performed By: #### 2 989605, 5232296, 9812732, 28049752, 8957887, 6919346 #### [facility] [address] [place] [address] Hematocrit (Bld) [Volume fraction] 37.1 % Low 37.7-49.0 [facility] Comment on above: Performed By: #### 2 594071, 3654195, 5566483, 63653906, 8551746, 0776137 #### [facility] [address] [place] [address] Hemoglobin (Bld) [Mass/Vol] 12.7 g/dL Low 13.5-17.5 [facility] Comment on above: Performed By: #### 2 494046, 8003361, 2867930, 98896333, 7787165, 8805455 #### [facility] [address] [place] [address] MCH (RBC) [Entitic mass] 33.4 pg Normal 27.0-34.0 [facility] Comment on above: Performed By: #### 2 109157, 6764700, 3816257, 03149966, 0548489, 7706766 #### [facility] [address] [place] [address] MCHC (RBC) [Mass/Vol] 34.3 g/dL Normal 33.3-35.7 [facility] Comment on above: Performed By: #### 2 673517, 7960170, 4238879, 35579950, 3975763, 4040504 #### [facility] [address] [place] [address] MCV (RBC) [Entitic vol] 97.5 fL Normal 80.0-100.0 [facility] Comment on above: Performed By: #### 2 177371, 4342511, 9739901, 50790792, 1494684, 6700631 #### [facility] [address] [place] [address] Platelet mean volume (Bld) [Entitic vol] 7.5 fL Normal 6.4-10.8 [facility] Comment on above: Performed By: #### 2 436609, 1320689, 7335255, 79968518, 0109908, 1283749 #### [facility] [address] [place] [address] Platelets (Bld) [#/Vol] 249.0 E9/L Normal 150.0-500.0 [facility] Comment on above: Performed By: #### 2 754512, 2066667, 6399855, 50561829, 4008818, 4533917 #### [facility] [address] [place] [address] RBC (Bld) [#/Vol] 3.8 E12/L Low 4.3-5.9 [facility] Comment on above: Performed By: #### 2 448957, 9971266, 0844345, 00659021, 7100350, 6000775 #### [facility] [address] [place] [address] WBC corrected for nucl RBC Auto (Bld) [#/Vol] 5.1 E9/L Normal 4.0-11.0 [facility] Comment on above: Performed By: #### 2 480089, 1355907, 4465291, 30808260, 9813653, 5835659 #### [facility] [address] [place] [address] Creatinineon 11-03-2018 Creatinine [Mass/Vol] 0.8 mg/dL Normal 0.5-1.3 [facility] Comment on above: Performed By: #### 2 148307, 3075686, 6345284, 02932813, 9187639, 0648418 #### [facility] [address] [place] [address] Glucoseon 11-03-2018 Glucose [Mass/Vol] 82 mg/dL Normal 55-199 [facility] Comment on above: Performed By: #### 2 [id number], [id number], [id number], [id number], 7154442, [id number] #### [facility] [address] [place] [address] [place] 11-03-2018 Anion gap [Moles/Vol] 12 mmol/L Normal 6-16 [facility] Comment on above: Performed By: #### 2 [id number], [id number], 1083278, [id number], 5231901, [id number] #### [facility] [address] [place] [address] Chloride [Moles/Vol] 103 mmol/L Normal 101-111 [facility] Comment on above: Performed By: #### 2 718834, 7560371, 3159302, 12863947, 5496978, 9957410 #### [facility] [address] [place] [address] CO2 [Moles/Vol] 24 mmol/L Normal 21-31 [facility] Comment on above: Performed By: #### 2 041878, 0140591, 0500218, [id number], 8451357, 7954724 #### [facility] [address] [place] [address] Potassium [Moles/Vol] 3.9 mmol/L Normal 3.5-5.3 [facility] Comment on above: Performed By: #### 2 481951, 9515810, 7601754, 77787302, 6704668, 4515017 #### [facility] [address] [place] [address] Sodium [Moles/Vol] 135 mmol/L Normal 135-145 [facility] Comment on above: Performed By: #### 2 850218, 0514596, 2822002, 13351127, 6633181, 6178713 #### [facility] [address] [place] [address] Urinalysison 11-03-2018 Bilirubin Ql (U) Negative Normal Negative [place] Comment on above: Performed By: #### 1 [id number] #### [facility] [address] [place] [address] Clarity (U) CLEAR Normal Clear [facility] Comment on above: Performed By: #### 1 [id number] #### [facility] [address] [place] [address] Color (U) YELLOW Normal Yellow [facility] Comment on above: Performed By: #### 1 [id number] #### [facility] [address] [place] [address] Epithelial cells.squamous LM.HPF (Urine sed) [#/Area] 0-2 Normal 0-2 [facility] Comment on above: Performed By: #### 1 [id number] #### [facility] [address] [place] [address] Glucose Test strip (U) [Mass/Vol] Negative Normal Negative [facility] Comment on above: Performed By: #### 1 [id number] #### [facility] [address] [place] [address] Hemoglobin Ql (U) Negative Normal Negative [facility] Comment on above: Performed By: #### 1 [id number] #### [facility] [address] [place] [address] Ketones (U) [Mass/Vol] Negative Normal Negative [facility] Comment on above: Performed By: #### 1 [id number] #### [facility] [address] [place] [address] [place].plasma/[place] .RBC (Bld) [Mass ratio] 0-3 Normal 0-3 [facility] Comment on above: Performed By: #### 1 [id number] #### [facility] [address] [place] [address] Nitrite Ql (U) Negative Normal Negative [facility] Comment on above: Performed By: #### 1 [id number] #### [facility] [address] [place] [address] pH (U) 6.5 [pH] 5.0-9.0 [facility] Comment on above: Performed By: #### 1 [id number] #### [facility] [address] [place] [address] Protein (U) [Mass/Vol] Negative Normal Negative [facility] Comment on above: Performed By: #### 1 [id number] #### [facility] [address] [place] [address] Specific gravity (U) [Rel density] <=1.005 1.005-1.030 [facility] Comment on above: Performed By: #### 1 [id number] #### [facility] [address] [place] [address] UA Spec Desc Clean Catch Normal [facility] Comment on above: Performed By: #### 1 [id number] #### [facility] [address] [place] [address] Urobilinogen Qn (U) 0.2 {[place]'U}/dL Normal 0.0-1.0 [facility] Comment on above: Performed By: #### 1 [id number] #### [facility] [address] [place] [address] WBC Auto Ql (U) Negative Normal Negative [facility] Comment on above: Performed By: #### 1 5326910 #### [facility] [address] [place] [address] WBC LM.HPF (Urine sed) [#/Area] 0-5 Normal 0-5 [facility] Comment on above: Performed By: #### 1 [id number] #### [facility] [address] [place] [address] Vitamin D 25 Hydroxyon 11-03 Calcidiol [Mass/Vol] 37.4 ng/mL Normal 30.0-100.0 [facility] Comment on above: Result Comment: Vit howard D deficiency has been defined as a level of serum 25-OH vitamin D less than 20 ng/mL (1,2) by the [place] of [employer] and an Endocrine Society practice guideline. The Endocrine Society further defined vitamin D insufficiency as a level between 21 and 29 ng/mL (2). 1. IOM ([place] of Medicine). 2010. Dietary reference intakes for calcium and D. [place]: The National Academies Press. 2. Talia MF, Katharina [place], Denny PEREZ, et al. Evaluation, treatment, and prevention of vitamin D deficiency: an Endocrine Society clinical practice guideline. JCEM. 2011 [place]; 96 (7):1911-30. Performed By: #### 5 [id number] #### [facility] [address] [place] [address] XR Chest 2 Viewson 9 XR Chest [...] MD Transcribed by: LIZANDRO Technologist: KATHERINE Eng [facility] eGFRon 11-03-2018 GFR/1.73 sq M predicted among blacks MDRD (S/P/Bld) [Vol rate/Area] mL/min/{1.73_m2} Normal >=59 [facility] Comment on above: Order Comment: Order added by Discern Expert. Result Comment: eGFR is race adjusted. AA=. Performed By: #### 2 318957, 8970904, 8967954, 08933513, 2843000, 3652671 #### [facility] [address] [place] [address] GFR/1.73 sq M predicted among non-blacks MDRD (S/P/Bld) [Vol rate/Area] mL/min/{1.73_m2} Normal >=59 [facility] Comment on above: Order Comment: Order added by Discern Expert. Result Comment: Head Golf Coach erasmo kidney disease could be indicated at eGFR's of less than 60 mL/min/1.73m2. Kidney failure is indicated at less than 15 mL/min/1.73m2. Performed By: #### 2 117659, 3182295, 5380848, 60357873, 4712146, 9271649 #### [facility] [address] [place] [address] Encounters Encounter Date Encounter Type Care Provider Facility Start: 03-27-2022 End: 03-28-[address] DOCTOR PETERSON Facility:[facility] Start: 10-02-2021 End: 10-03-[address] DOCTOR PETERSON Facility:[facility] Start: 07-04-2021 End: 07-05-[address] DOCTOR PETERSON Facility:[facility] Start: 04-04-2021 End: 04-05-[address] DOCTOR PETERSON Facility:[facility] Payers Date Payer Category Payer Private Health Insurance [id number] 1958 Unknown [id number] 1955 Unknown [id number] 2.16.84 [id number] 1955 Unknown [id number] 2.16.84 [id number] 1955 Unknown [id number] 2.16.84 [id number] 1955 Unknown [id number] 2.16.84 [id number] Summary Purpose Family History No Family History [...] All Problems Rheumatoid arthritis / SNOMED CT 329823600 / Confirmed Smoker / SNOMED CT 510705119 / Confirmed Added secondary to documentation in Social History. Decreased vision / SNOMED CT 7641524070 / Confirmed left eye Osteoarthritis of knee / SNOMED CT 195260405 / Confirmed right Physical Examination Intake and [...] section and content) DATE CREATED AUTHOR 11/29/2018 [facility] DATE CREATED AUTHOR [facility] PERTAINING TO PATIENTS WHO ARE [...] BE BASED ON THE PRIMARY CLINICAL RECORDS. [employer] provides no warranty or guarantee of the accuracy or completeness of information in this document.
[2024-03-25 11:55] LABS: Basophils Percent Auto 0.4 % (0.2-2.0); Eosinophils Percent Auto 0.2 % (0.9-7.0); Hematocrit 42.1 % (42.0-54.0); Hemoglobin 14.2 g/dL (14.0-18.0); Immature Granulocytes Abs Auto 0.06 10^3/uL (0.00-0.03); Immature Granulocytes Pct Auto 0.7 % (0.0-0.5); Lymphocytes Absolute Auto 1.8 10^3/uL (1.2-3.8); Mean Corpuscular HGB Conc 33.7 g/dL (29.9-35.2); Mean Corpuscular Hemoglobin 33.5 pg (25.9-34.0); Mean Corpuscular Volume 99.3 fL (80.0-94.0); Mean Platelet Volume 9.4 fL (9.5-13.5); Monocytes Absolute Auto 0.6 10^3/uL (0.3-0.8); Monocytes Percent Auto 6.1 % (1.7-12.0); Neutrophils Absolute Auto 6.5 10^3/uL (1.4-6.5); Neutrophils Percent Auto 72.6 % (43.0-75.0); Platelet Count 265 10^3/uL (150-450); Red Blood Count 4.24 10^6/uL (4.70-6.10); Red Cell Distribution Width 15.8 % (11.0-15.0)
[2024-03-25 12:18] LABS: Erythrocyte Sedimentation Rate 67 mm/hr (<=20)
[2024-03-25 13:20] LABS: Alanine Aminotransferase 17 U/L (16-63); Albumin Globulin Ratio 0.9; Albumin Level 3.6 g/dL (3.4-5.0); Alkaline Phosphatase 85 U/L (46-116); Anion Gap 14.9; Aspartate Amino Transferase 21 U/L (15-37); BUN Creatinine Ratio 17.6; Bilirubin Total 0.5 mg/dL (0.2-1.0); Calcium 9.5 mg/dL (8.5-10.1); Carbon Dioxide 25.6 mmol/L (21.0-32.0); Chloride 104 mmol/L (98-107); Estimated GFR (African America >60 (>=60 mL/min/1.73m^2); Estimated GFR (Non-African Ame >60 (>=60 mL/min/1.73m^2); Glucose 111 mg/dL (74-106); Potassium 5.5 mmol/L (3.5-5.1); Sodium 139 mmol/L (136-145); Total Protein 7.6 g/dL (6.4-8.2)
== END 2024-03-25 11:34 | disposition home or self-care (01) ==
LOC: LAB 11:35
PROVIDERS: PCP Family Medicine; Visit Provider Registered Nurse
DX: M05.79 Rheumatoid arthritis with rheumatoid factor of multiple sites without organ or systems involvement (principal); M15.0 Primary generalized (osteo)arthritis; Z79.899 Other long term (current) drug therapy
CPT/HCPCS: 36415; 80053; 85025; 85652

== ENCOUNTER 2024-07-28 08:00 | Outpatient (OUT) | payer MEDICARE, SELFPAY ==
--- OUTSIDE RECORDS SUMMARY | 2024-07-28 08:05 | XMS_ITS | CCD ---
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 Jennifer Peralta Basophils/100 WBC (Bld) 0.4 % Normal 0.2-2.0 [facility] Comment on above: Performed By: #### C BC #### [facility] [address] [address] [address] Jennifer Peralta EO # 0.1 103/ul Normal 0.0-0.7 [facility] Comment on above: Performed By: #### C BC #### [facility] [address] [place] [address] Dr. Jennifer Peralta Eosinophils/100 WBC (Bld) 1.0 % Normal 0.9-7.0 [facility] Comment on above: Performed By: #### C BC #### [facility] [address] [place] [address] Dr. Jennifer Peralta Erythrocyte distribution width (RBC) [Ratio] 15.7 % Critically high 11.0-15.0 [facility] Comment on above: Performed By: #### C BC #### [facility] [address] [place] [address] Dr. Jennifer Peralta Hematocrit (Bld) [Volume fraction] 38.2 % Critically low 42.0-54.0 [facility] Comment on above: Performed By: #### C BC #### [facility] [address] [place] [address] Dr. Jennifer Peralta Hemoglobin (Bld) [Mass/Vol] 12.6 g/dL Critically low 14.0-18.0 [facility] Comment on above: Performed By: #### C BC #### [facility] [address] [place] [address] Dr. Jennifer Peralta IG # 0.03 10e3/ul Normal 0.00-0.03 [facility] Comment on above: Performed By: #### C BC #### [facility] [address] [place] [address] Dr. Jennifer Peralta IG % 0.4 % Normal 0.0-0.5 [facility] Comment on above: Performed By: #### C BC #### [facility] [address] [place] [address] Dr. Jennifer Peralta LYMPH # 2.4 103/ul Normal 1.2-3.8 [facility] Comment on above: Performed By: #### C BC #### [facility] [address] [place] [address] Dr. Jennifer Peralta Lymphocytes/100 WBC (Bld) 33.3 % Normal 20.5-60.0 [facility] Comment on above: Performed By: #### C BC #### [facility] [address] [place] [address] Dr. Jennifer Peralta MANUAL DIFF REQ NO Normal [facility] Comment on above: Performed By: #### C BC #### [facility] [address] [place] [address] Dr. Jennifer Peralta MCH (RBC) [Entitic mass] 32.1 pg Normal 25.9-34.0 [facility] Comment on above: Performed By: #### C BC #### [facility] [address] [place] [address] Dr. Jennifer Peralta MCHC (RBC) [Mass/Vol] 33.0 g/dL Normal 29.9-35.2 [facility] Comment on above: Performed By: #### C BC #### [facility] [address] [place] [address] Dr. Jennifer Peralta MCV (RBC) [Entitic vol] 97.2 fL Critically high 80.0-94.0 [facility] Comment on above: Performed By: #### C BC #### [facility] [address] [place] [address] Dr. Jennifer Peralta MONO # 0.6 103/ul Normal 0.3-0.8 [facility] Comment on above: Performed By: #### C BC #### [facility] [address] [place] [address] Dr. Jeninfer Peralta Monocytes/100 WBC (Bld) 7.7 % Normal 1.7-12.0 [facility] Comment on above: Performed By: #### C BC #### [facility] [address] [place] [address] Dr. Jennifer Peralta NEUT # 4.1 103/ul Normal 1.4-6.5 [facility] Comment on above: Performed By: #### C BC #### [facility] [address] [place] [address] Dr. Jennifer Peralta Neutrophils/100 WBC (Bld) 57.2 % Normal 43.0-75.0 [facility] Comment on above: Performed By: #### C BC #### [facility] [address] [address] [address] Jennifer Peralta Platelet mean volume (Bld) [Entitic vol] 9.1 fL Critically low 9.5-13.5 [facility] Comment on above: Performed By: #### C BC #### [facility] [address] [address] [address] Jennifer Peralta PLT 246 103/ul Normal 150-450 [facility] Comment on above: Performed By: #### C BC #### [facility] [address] [address] [address] Jennifer Peralta RBC 3.93 106/ul Critically low 4.70-6.10 [facility] Comment on above: Performed By: #### C BC #### [facility] [address] [place] [address] Dr. Jennifer Peralta WBC 7.2 103/ul Normal 4.0-11.0 [facility] Comment on above: Performed By: #### C BC #### [facility] [address] [place] [address] Dr. Jennifer Peralta PROF 14(COMP METB)on 022 Albumin [Mass/Vol] 3.5 g/dL Normal 3.4-5.0 [facility] Comment on above: Performed By: #### S EDR #### [facility] [address] [place] [address] Dr. Jennifer Peralta Albumin/Globulin [Mass ratio] 0.9 {ratio} Normal [facility] Comment on above: Performed By: #### S EDR #### [facility] [address] [place] [address] Dr. Jennifer Peralta ALP [Catalytic activity/Vol] 80 U/L Normal 46-116 [facility] Comment on above: Performed By: #### S EDR #### [facility] [address] [place] [address] Dr. Jennifer Peralta ALT [Catalytic activity/Vol] 15 U/L Critically low 16-63 [facility] Comment on above: Performed By: #### S EDR #### [facility] [address] [address] [address] Jennifer Peralta Anion gap [Moles/Vol] 9.2 mmol/L Normal [facility] Comment on above: Performed By: #### S EDR #### [facility] [address] [address] [address] Jennifer Peralta AST [Catalytic activity/Vol] 25 U/L Normal 15-37 [facility] Comment on above: Performed By: #### S EDR #### [facility] [address] [address] [address] Jennifer Peralta Bilirubin [Mass/Vol] 0.4 mg/dL Normal 0.2-1.0 [facility] Comment on above: Performed By: #### S EDR #### [facility] [address] [place] [address] Dr. Jennifer Peralta Calcium [Mass/Vol] 9.0 mg/dL Normal 8.5-10.1 [facility] Comment on above: Performed By: #### S EDR #### [facility] [address] [place] [address] Dr. Jennifer Peralta Chloride [Moles/Vol] 101 mmol/L Normal 98-107 [facility] Comment on above: Performed By: #### S EDR #### [facility] [address] [place] [address] Dr. Jennifer Peralta CO2 [Moles/Vol] 28.0 mmol/L Normal 21.0-32.0 [facility] Comment on above: Performed By: #### S EDR #### [facility] [address] [place] [address] Dr. Jennifer Peralta Creatinine [Mass/Vol] 0.87 mg/dL Normal 0.70-1.30 [facility] Comment on above: Performed By: #### S EDR #### [facility] [address] [place] [address] Dr. Jennifer Peralta EGFR-AF INDIAN >60 Normal >=60 [facility] Comment on above: Performed By: #### S EDR #### [facility] [address] [address] [address] Jennifer Peralta EGFR-NON AF INDIAN >60 Normal >=60 [facility] Comment on above: Performed By: #### S EDR #### [facility] [address] [place] [address] Dr. Jennifer Peralta Globulin (S) [Mass/Vol] 3.9 g/dL Normal [facility] Comment on above: Performed By: #### S EDR #### [facility] [address] [address] [address] Jennifer Peralta Glucose [Mass/Vol] 84 mg/dL Normal 74-106 [facility] Comment on above: Performed By: #### S EDR #### [facility] [address] [place] [address] Dr. Jennifer Peralta Potassium [Moles/Vol] 4.2 mmol/L Normal 3.5-5.1 [facility] Comment on above: Performed By: #### S EDR #### [facility] [address] [place] [address] Dr. Jennifer Peralta Protein [Mass/Vol] 7.4 g/dL Normal 6.4-8.2 [facility] Comment on above: Performed By: #### S EDR #### [facility] [address] [place] [address] Dr. Jennifer Peralta Sodium [Moles/Vol] 134 mmol/L Critically low 136-145 [facility] Comment on above: Performed By: #### S EDR #### [facility] [address] [place] [address] Dr. Jennifer Peralta Urea nitrogen [Mass/Vol] 18.0 mg/dL Normal 7.0-18.0 [facility] Comment on above: Performed By: #### S EDR #### [facility] [address] [place] [address] Dr. Jennifer Peralta Urea nitrogen/Creatinine [Mass ratio] 20.7 mg/mg Normal [facility] Comment on above: Performed By: #### S EDR #### [facility] [address] [place] [address] Dr. Jennifer Peralta SED RATE [facility] 2021 SED RATE 49 mm/hr Critically high <=20 [facility] Comment on above: Performed By: #### S EDR #### [facility] [address] [place] [address] Dr. Jennifer Peralta CBC AUTO DIFFon 10-02-2021 BASO # 0.0 103/ul Normal 0.0-0.1 [facility] Comment on above: Performed By: #### C BC #### [facility] [address] [place] [address] Dr. Jennifer Peralta Basophils/100 WBC (Bld) 0.4 % Normal 0.2-2.0 [facility] Comment on above: Performed By: #### C BC #### [facility] [address] [place] [address] Dr. Jennifer Peralta EO # 0.1 103/ul Normal 0.0-0.7 [facility] Comment on above: Performed By: #### C BC #### [facility] [address] [place] [address] Dr. Jennifer Peralta Eosinophils/100 WBC (Bld) 1.0 % Normal 0.9-7.0 [facility] Comment on above: Performed By: #### C BC #### [facility] [address] [place] [address] Dr. Jennifer Peralta Erythrocyte distribution width (RBC) [Ratio] 16.5 % Critically high 11.0-15.0 [facility] Comment on above: Performed By: #### C BC #### [facility] [address] [place] [address] Dr. Jennifer Peralta Hematocrit (Bld) [Volume fraction] 38.7 % Critically low 42.0-54.0 [facility] Comment on above: Performed By: #### C BC #### [facility] [address] [place] [address] Dr. Jennifer Peralta Hemoglobin (Bld) [Mass/Vol] 12.8 g/dL Critically low 14.0-18.0 [facility] Comment on above: Performed By: #### C BC #### [facility] [address] [place] [address] Dr. Jennifer Peralta IG # 0.02 10e3/ul Normal 0.00-0.03 [facility] Comment on above: Performed By: #### C BC #### [facility] [address] [place] [address] Dr. Jennifer Peralta IG % 0.3 % Normal 0.0-0.5 [facility] Comment on above: Performed By: #### C BC #### [facility] [address] [place] [address] Dr. Jennifer Peralta LYMPH # 2.8 103/ul Normal 1.2-3.8 [facility] Comment on above: Performed By: #### C BC #### [facility] [address] [place] [address] Dr. Jennifer Peralta Lymphocytes/100 WBC (Bld) 39.8 % Normal 20.5-60.0 [facility] Comment on above: Performed By: #### C BC #### [facility] [address] [place] [address] Dr. Jennifer Peralta MANUAL DIFF REQ NO Normal [facility] Comment on above: Performed By: #### C BC #### [facility] [address] [place] [address] Dr. Jennifer Peralta MCH (RBC) [Entitic mass] 32.3 pg Normal 25.9-34.0 [facility] Comment on above: Performed By: #### C BC #### [facility] [address] [place] [address] Dr. Jennifer Peralta MCHC (RBC) [Mass/Vol] 33.1 g/dL Normal 29.9-35.2 [facility] Comment on above: Performed By: #### C BC #### [facility] [address] [place] [address] Dr. Jennifer Peralta MCV (RBC) [Entitic vol] 97.7 fL Critically high 80.0-94.0 [facility] Comment on above: Performed By: #### C BC #### [facility] [address] [place] [address] Dr. Jennifer Peralta MONO # 0.7 103/ul Normal 0.3-0.8 [facility] Comment on above: Performed By: #### C BC #### [facility] [address] [place] [address] Dr. Jennifer Peralta Monocytes/100 WBC (Bld) 9.2 % Normal 1.7-12.0 [facility] Comment on above: Performed By: #### C BC #### [facility] [address] [place] [address] Dr. Jennifer Peralta NEUT # 3.5 103/ul Normal 1.4-6.5 [facility] Comment on above: Performed By: #### C BC #### [facility] [address] [place] [address] Dr. Jennifer Peralta Neutrophils/100 WBC (Bld) 49.3 % Normal 43.0-75.0 [facility] Comment on above: Performed By: #### C BC #### [facility] [address] [place] [address] Dr. Jennifer Peralta Platelet mean volume (Bld) [Entitic vol] 9.3 fL Critically low 9.5-13.5 [facility] Comment on above: Performed By: #### C BC #### [facility] [address] [place] [address] Dr. Jennifer Peralta PLT 230 103/ul Normal 150-450 [facility] Comment on above: Performed By: #### C BC #### [facility] [address] [place] [address] Dr. Jennifer Peralta RBC 3.96 106/ul Critically low 4.70-6.10 [facility] Comment on above: Performed By: #### C BC #### [facility] [address] [place] [address] Dr. Jennifer Peralta WBC 7.1 103/ul Normal 4.0-11.0 [facility] Comment on above: Performed By: #### C BC #### [facility] [address] [place] [address] Dr. Jennifer Peralta PROF 14(COMP METB)on 022 Albumin [Mass/Vol] 3.5 g/dL Normal 3.4-5.0 [facility] Comment on above: Performed By: #### C MP #### [facility] [address] [place] [address] Dr. Jennifer Peralta Albumin/Globulin [Mass ratio] 0.9 {ratio} Normal [facility] Comment on above: Performed By: #### C MP #### [facility] [address] [place] [address] Dr. Jennifer Peralta ALP [Catalytic activity/Vol] 78 U/L Normal 46-116 [facility] Comment on above: Performed By: #### C MP #### [facility] [address] [place] [address] Dr. Jennifer Peralta ALT [Catalytic activity/Vol] 23 U/L Normal 16-63 [facility] Comment on above: Performed By: #### C MP #### [facility] [address] [place] [address] Dr. Jennifer Peralta Anion gap [Moles/Vol] 9.8 mmol/L Normal [facility] Comment on above: Performed By: #### C MP #### [facility] [address] [place] [address] Dr. Jennifer Peralta AST [Catalytic activity/Vol] 27 U/L Normal 15-37 [facility] Comment on above: Performed By: #### C MP #### [facility] [address] [place] [address] Dr. Jennifer Peralta Bilirubin [Mass/Vol] 0.4 mg/dL Normal 0.2-1.0 [facility] Comment on above: Performed By: #### C MP #### [facility] [address] [place] [address] Dr. Jennifer Peralta Calcium [Mass/Vol] 9.0 mg/dL Normal 8.5-10.1 [facility] Comment on above: Performed By: #### C MP #### [facility] [address] [place] [address] Dr. Jennifer Peralta Chloride [Moles/Vol] 105 mmol/L Normal 98-107 [facility] Comment on above: Performed By: #### C MP #### [facility] [address] [address] [address] Jennifer Peralta CO2 [Moles/Vol] 29.7 mmol/L Normal 21.0-32.0 [facility] Comment on above: Performed By: #### C MP #### [facility] [address] [address] [address] Jennifer Peralta Creatinine [Mass/Vol] 0.98 mg/dL Normal 0.70-1.30 [facility] Comment on above: Performed By: #### C MP #### [facility] [address] [address] [address] Jennifer Peralta EGFR-AF INDIAN >60 Normal >=60 [facility] Comment on above: Performed By: #### C MP #### [facility] [address] [place] [address] Dr. Jennifer Peralta EGFR-NON AF INDIAN >60 Normal >=60 [facility] Comment on above: Performed By: #### C MP #### [facility] [address] [address] [address] Jennifer Peralta Globulin (S) [Mass/Vol] 3.8 g/dL Normal [facility] Comment on above: Performed By: #### C MP #### [facility] [address] [place] [address] Dr. Jennifer Peralta Glucose [Mass/Vol] 83 mg/dL Normal 74-106 [facility] Comment on above: Performed By: #### C MP #### [facility] [address] [place] [address] Dr. Jennifer Peralta Potassium [Moles/Vol] 4.5 mmol/L Normal 3.5-5.1 [facility] Comment on above: Performed By: #### C MP #### [facility] [address] [address] [address] Jennifer Peralta Protein [Mass/Vol] 7.3 g/dL Normal 6.4-8.2 [facility] Comment on above: Performed By: #### C MP #### [facility] [address] [address] [address] Jennifer Peralta Sodium [Moles/Vol] 140 mmol/L Normal 136-145 [facility] Comment on above: Performed By: #### C MP #### [facility] [address] [place] [address] Dr. Jennifer Peralta Urea nitrogen [Mass/Vol] 23.0 mg/dL Critically high 7.0-18.0 [facility] Comment on above: Performed By: #### C MP #### [facility] [address] [place] [address] Dr. Jennifer Peralta Urea nitrogen/Creatinine [Mass ratio] 23.5 mg/mg Normal [facility] Comment on above: Performed By: #### C MP #### [facility] [address] [place] [address] Dr. Jennifer Peral[facility] 22 mm/hr Critically high <=20 [facility] Comment on above: Performed By: #### S EDR #### [facility] [address] [place] [address] Dr. Jennifer Peralta CBC AUTO DIFFon 07-04-2021 BASO # 0.0 103/ul Normal 0.0-0.1 [facility] Comment on above: Performed By: #### S EDR #### [facility] [address] [place] [address] Dr. Jennifer Peralta Basophils/100 WBC (Bld) 0.3 % Normal 0.2-2.0 [facility] Comment on above: Performed By: #### S EDR #### [facility] [address] [place] [address] Dr. Jennifer Peralta EO # 0.1 103/ul Normal 0.0-0.7 [facility] Comment on above: Performed By: #### S EDR #### [facility] [address] [place] [address] Dr. Jennifer Peralta Eosinophils/100 WBC (Bld) 1.1 % Normal 0.9-7.0 [facility] Comment on above: Performed By: #### S EDR #### [facility] [address] [place] [address] Dr. Jennifer Peralta Erythrocyte distribution width (RBC) [Ratio] 17.3 % Critically high 11.0-15.0 [facility] Comment on above: Performed By: #### S EDR #### [facility] [address] [place] [address] Dr. Jennifer Peralta Hematocrit (Bld) [Volume fraction] 39.6 % Critically low 42.0-54.0 [facility] Comment on above: Performed By: #### S EDR #### [facility] [address] [place] [address] Dr. Jennifer Peralta Hemoglobin (Bld) [Mass/Vol] 13.0 g/dL Critically low 14.0-18.0 [facility] Comment on above: Performed By: #### S EDR #### [facility] [address] [place] [address] Dr. Jennifer Peralta IG # 0.02 10e3/ul Normal 0.00-0.03 [facility] Comment on above: Performed By: #### S EDR #### [facility] [address] [place] [address] Dr. Jennifer Peralta IG % 0.3 % Normal 0.0-0.5 [facility] Comment on above: Performed By: #### S EDR #### [facility] [address] [place] [address] Dr. Jennifer Peralta LYMPH # 2.4 103/ul Normal 1.2-3.8 [facility] Comment on above: Performed By: #### S EDR #### [facility] [address] [place] [address] Dr. Jennifer Peralta Lymphocytes/100 WBC (Bld) 38.1 % Normal 20.5-60.0 [facility] Comment on above: Performed By: #### S EDR #### [facility] [address] [place] [address] Dr. Jennifer Peralta MANUAL DIFF REQ NO Normal [facility] Comment on above: Performed By: #### S EDR #### [facility] [address] [address] [address] Jennifer Peralta MCH (RBC) [Entitic mass] 31.5 pg Normal 25.9-34.0 [facility] Comment on above: Performed By: #### S EDR #### [facility] [address] [place] [address] Dr. Jennifer Peralta MCHC (RBC) [Mass/Vol] 32.8 g/dL Normal 29.9-35.2 [facility] Comment on above: Performed By: #### S EDR #### [facility] [address] [place] [address] Dr. Jennifer Peralta MCV (RBC) [Entitic vol] 95.9 fL Critically high 80.0-94.0 [facility] Comment on above: Performed By: #### S EDR #### [facility] [address] [place] [address] Dr. Jennifer Peralta MONO # 0.6 103/ul Normal 0.3-0.8 [facility] Comment on above: Performed By: #### S EDR #### [facility] [address] [place] [address] Dr. Jennifer Peralta Monocytes/100 WBC (Bld) 9.1 % Normal 1.7-12.0 [facility] Comment on above: Performed By: #### S EDR #### [facility] [address] [place] [address] Dr. Jennifer Peralta NEUT # 3.2 103/ul Normal 1.4-6.5 [facility] Comment on above: Performed By: #### S EDR #### [facility] [address] [place] [address] Dr. Jennifer Peralta Neutrophils/100 WBC (Bld) 51.1 % Normal 43.0-75.0 [facility] Comment on above: Performed By: #### S EDR #### [facility] [address] [place] [address] Dr. Jennifer Peralta Platelet mean volume (Bld) [Entitic vol] 9.0 fL Critically low 9.5-13.5 [facility] Comment on above: Performed By: #### S EDR #### [facility] [address] [address] [address] Jennifer Peralta PLT 218 103/ul Normal 150-450 [facility] Comment on above: Performed By: #### S EDR #### [facility] [address] [address] [address] Jennifer Peralta RBC 4.13 106/ul Critically low 4.70-6.10 [facility] Comment on above: Performed By: #### S EDR #### [facility] [address] [address] [address] Jennifer Peralta WBC 6.3 103/ul Normal 4.0-11.0 [facility] Comment on above: Performed By: #### S EDR #### [facility] [address] [place] [address] Dr. Jennifer Peralta PROF 14(COMP METB)on 022 Albumin [Mass/Vol] 3.6 g/dL Normal 3.5-5.0 [facility] [place] [facility] Comment on above: Performed By: #### C MP #### [facility] [address] [place] [address] Dr. Jennifer Peralta Albumin/Globulin [Mass ratio] 0.9 {ratio} Normal [facility] Comment on above: Performed By: #### C MP #### [facility] [address] [place] [address] Dr. Jennifer Peralta ALP [Catalytic activity/Vol] 80 U/L Normal 38-126 [facility] Comment on above: Performed By: #### C MP #### [facility] [address] [place] [address] Dr. Jennifer Peralta ALT [Catalytic activity/Vol] 18 U/L Critically low 21-72 [facility] Comment on above: Performed By: #### C MP #### [facility] [address] [place] [address] Dr. Jennifer Peralta Anion gap [Moles/Vol] 10.5 mmol/L Normal [facility] Comment on above: Performed By: #### C MP #### [facility] [address] [address] [address] Jennifer Peralta AST [Catalytic activity/Vol] 24 U/L Normal 17-59 [facility] Comment on above: Performed By: #### C MP #### [facility] [address] [address] [address] Jennifer Peralta Bilirubin [Mass/Vol] 0.4 mg/dL Normal 0.2-1.3 [facility] Comment on above: Performed By: #### C MP #### [facility] [address] [address] [address] Jennifer Peralta Calcium [Mass/Vol] 8.7 mg/dL Normal 8.4-10.2 [facility] Comment on above: Performed By: #### C MP #### [facility] [address] [place] [address] Dr. Jennifer Peralta Chloride [Moles/Vol] 100 mmol/L Normal 98-107 [facility] Comment on above: Performed By: #### C MP #### [facility] [address] [place] [address] Dr. Jennifer Peralta CO2 [Moles/Vol] 26.9 mmol/L Normal 22.0-30.0 [facility] Comment on above: Performed By: #### C MP #### [facility] [address] [place] [address] Dr. Jennifer Peralta Creatinine [Mass/Vol] 0.93 mg/dL Normal 0.66-1.25 [facility] Comment on above: Performed By: #### C MP #### [facility] [address] [place] [address] Dr. Jennifer Peralta EGFR-AF INDIAN >60 Normal >=60 [facility] Comment on above: Performed By: #### C MP #### [facility] [address] [place] [address] Dr. Jennifer Peralta EGFR-NON AF INDIAN >60 Normal >=60 [facility] Comment on above: Performed By: #### C MP #### [facility] [address] [place] [address] Dr. Jennifer Peralta Globulin (S) [Mass/Vol] 3.9 g/dL Normal [facility] Comment on above: Performed By: #### C MP #### [facility] [address] [address] [address] Jennifer Peralta Glucose [Mass/Vol] 102 mg/dL Normal 74-106 [facility] [place] [facility] Comment on above: Performed By: #### C MP #### [facility] [address] [address] [address] Jennifer Peralta Potassium [Moles/Vol] 4.4 mmol/L Normal 3.4-5.0 [facility] Comment on above: Performed By: #### C MP #### [facility] [address] [address] [address] Jennifer Peralta Protein [Mass/Vol] 7.5 g/dL Normal 6.1-8.2 [facility] [place] [facility] Comment on above: Performed By: #### C MP #### [facility] [address] [address] [address] Jennifer Peralta Sodium [Moles/Vol] 133 mmol/L Critically low 137-145 [facility] Comment on above: Performed By: #### C MP #### [facility] [address] [place] [address] Dr. Jennifer Peralta Urea nitrogen [Mass/Vol] 20.0 mg/dL Normal 9.0-20.0 [facility] Comment on above: Performed By: #### C MP #### [facility] [address] [address] [address] Jennifer Peralta Urea nitrogen/Creatinine [Mass ratio] 21.5 mg/mg Normal [facility] Comment on above: Performed By: #### C MP #### [facility] [address] [address] [address] Jennifer Peralta SED RATE WESTERGRENon 2021 SED RATE 35 mm/hr Critically high <=20 [facility] Comment on above: Performed By: #### S EDR #### [facility] [address] [address] [address] Jennifer Peralta CBC AUTO DIFFon 04-04-2021 BASO # 0.0 103/ul Normal 0.0-0.1 [facility] Comment on above: Performed By: #### C BC #### [facility] [address] [place] [address] Dr. Jennifer Peralta Basophils/100 WBC (Bld) 0.4 % Normal 0.2-2.0 [facility] Comment on above: Performed By: #### C BC #### [facility] [address] [place] [address] Dr. Jennifer Peralta EO # 0.1 103/ul Normal 0.0-0.7 [facility] Comment on above: Performed By: #### C BC #### [facility] [address] [place] [address] Dr. Jennifer Peralta Eosinophils/100 WBC (Bld) 1.6 % Normal 0.9-7.0 [facility] Comment on above: Performed By: #### C BC #### [facility] [address] [place] [address] Dr. Jeninfer Peralta Erythrocyte distribution width (RBC) [Ratio] 15.9 % Critically high 11.0-15.0 [facility] Comment on above: Performed By: #### C BC #### [facility] [address] [place] [address] Dr. Jennifer Peralta Hematocrit (Bld) [Volume fraction] 39.2 % Critically low 42.0-54.0 [facility] Comment on above: Performed By: #### C BC #### [facility] [address] [place] [address] Dr. Jennifer Peralta Hemoglobin (Bld) [Mass/Vol] 12.8 g/dL Critically low 14.0-18.0 [facility] Comment on above: Performed By: #### C BC #### [facility] [address] [place] [address] Dr. Jennifer Peralta IG # 0.02 10e3/ul Normal 0.00-0.03 [facility] Comment on above: Performed By: #### C BC #### [facility] [address] [place] [address] Dr. Jennifer Peralta IG % 0.4 % Normal 0.0-0.5 [facility] Comment on above: Performed By: #### C BC #### [facility] [address] [place] [address] Dr. Jennifer Peralta LYMPH # 2.5 103/ul Normal 1.2-3.8 [facility] Comment on above: Performed By: #### C BC #### [facility] [address] [place] [address] Dr. Jennifer Peralta Lymphocytes/100 WBC (Bld) 45.8 % Normal 20.5-60.0 [facility] Comment on above: Performed By: #### C BC #### [facility] [address] [place] [address] Dr. Jennifer Peralta MANUAL DIFF REQ NO Normal [facility] Comment on above: Performed By: #### C BC #### [facility] [address] [place] [address] Dr. Jennifer Peralta MCH (RBC) [Entitic mass] 30.8 pg Normal 25.9-34.0 [facility] Comment on above: Performed By: #### C BC #### [facility] [address] [place] [address] Dr. Jennifer Peralta MCHC (RBC) [Mass/Vol] 32.7 g/dL Normal 29.9-35.2 [facility] Comment on above: Performed By: #### C BC #### [facility] [address] [place] [address] Dr. Jennifer Peralta MCV (RBC) [Entitic vol] 94.5 fL Critically high 80.0-94.0 [facility] Comment on above: Performed By: #### C BC #### [facility] [address] [place] [address] Dr. Jennifer Peralta MONO # 0.6 103/ul Normal 0.3-0.8 [facility] Comment on above: Performed By: #### C BC #### [facility] [address] [place] [address] Dr. Jennifer Peralta Monocytes/100 WBC (Bld) 10.7 % Normal 1.7-12.0 [facility] Comment on above: Performed By: #### C BC #### [facility] [address] [address] [address] Jennifer Peralta NEUT # 2.3 103/ul Normal 1.4-6.5 [facility] Comment on above: Performed By: #### C BC #### [facility] [address] [address] [address] Jennifer Peralta Neutrophils/100 WBC (Bld) 41.1 % Critically low 43.0-75.0 [facility] Comment on above: Performed By: #### C BC #### [facility] [address] [address] [address] Jennifer Peralta Platelet mean volume (Bld) [Entitic vol] 9.9 fL Normal 9.5-13.5 [facility] Comment on above: Performed By: #### C BC #### [facility] [address] [place] [address] Dr. Jennifer Peralta PLT 214 103/ul Normal 150-450 [facility] Comment on above: Performed By: #### C BC #### [facility] [address] [address] [address] Jennifer Peralta RBC 4.15 106/ul Critically low 4.70-6.10 [facility] Comment on above: Performed By: #### C BC #### [facility] [address] [place] [address] Dr. Jennifer Peralta WBC 5.5 103/ul Normal 4.0-11.0 [facility] Comment on above: Performed By: #### C BC #### [facility] [address] [place] [address] Dr. Jennifer Peralta PROF 14(COMP METB)on 021 Albumin [Mass/Vol] 3.3 g/dL Critically low 3.5-5.0 [facility] Comment on above: Performed By: #### C MP #### [facility] [address] [place] [address] Dr. Jennifer Peralta Albumin/Globulin [Mass ratio] 0.8 {ratio} Normal [facility] Comment on above: Performed By: #### C MP #### [facility] [address] [address] [address] Jennifer Peralta ALP [Catalytic activity/Vol] 73 U/L Normal 38-126 [facility] Comment on above: Performed By: #### C MP #### [facility] [address] [address] [address] Jennifer Peralta ALT [Catalytic activity/Vol] 15 U/L Critically low 21-72 [facility] Comment on above: Performed By: #### C MP #### [facility] [address] [place] [address] Dr. Jennifer Peralta Anion gap [Moles/Vol] 9.2 mmol/L Normal [facility] Comment on above: Performed By: #### C MP #### [facility] [address] [place] [address] Dr. Jennifer Peralta AST [Catalytic activity/Vol] 23 U/L Normal 17-59 [facility] Comment on above: Performed By: #### C MP #### [facility] [address] [place] [address] Dr. Jennifer Peralta Bilirubin [Mass/Vol] 0.4 mg/dL Normal 0.2-1.3 [facility] Comment on above: Performed By: #### C MP #### [facility] [address] [place] [address] Dr. Jennifer Peralta Calcium [Mass/Vol] 8.8 mg/dL Normal 8.4-10.2 [facility] [place] [facility] Comment on above: Performed By: #### C MP #### [facility] [address] [place] [address] Dr. Jennifer Peralta Chloride [Moles/Vol] 100 mmol/L Normal 98-107 [facility] Comment on above: Performed By: #### C MP #### [facility] [address] [place] [address] Dr. Jennifer Peralta CO2 [Moles/Vol] 30.1 mmol/L Critically high 22.0-30.0 [facility] Comment on above: Performed By: #### C MP #### [facility] [address] [address] [address] Jennifer Peralta Creatinine [Mass/Vol] 0.93 mg/dL Normal 0.66-1.25 [facility] Comment on above: Performed By: #### C MP #### [facility] [address] [address] [address] Jennifer Peralta EGFR-AF INDIAN >60 Normal >=60 [facility] Comment on above: Performed By: #### C MP #### [facility] [address] [address] [address] Jennifer Peralta EGFR-NON AF INDIAN >60 Normal >=60 [facility] Comment on above: Performed By: #### C MP #### [facility] [address] [place] [address] Dr. Jennifer Peralta Globulin (S) [Mass/Vol] 3.9 g/dL Normal [facility] Comment on above: Performed By: #### C MP #### [facility] [address] [place] [address] Dr. Jennifer Peralta Glucose [Mass/Vol] 95 mg/dL Normal 74-106 [facility] [place] [facility] Comment on above: Performed By: #### C MP #### [facility] [address] [address] [address] Jennifer Peralta Potassium [Moles/Vol] 4.3 mmol/L Normal 3.4-5.0 [facility] Comment on above: Performed By: #### C MP #### [facility] [address] [address] [address] Jennifer Peralta Protein [Mass/Vol] 7.2 g/dL Normal 6.1-8.2 [facility] [place] [facility] Comment on above: Performed By: #### C MP #### [facility] [address] [place] [address] Dr. Jennifer Peralta Sodium [Moles/Vol] 135 mmol/L Critically low 137-145 [facility] Comment on above: Performed By: #### C MP #### [facility] [address] [place] [address] Dr. Jennifer Peralta Urea nitrogen [Mass/Vol] 17.0 mg/dL Normal 9.0-20.0 [facility] Comment on above: Performed By: #### C MP #### [facility] [address] [place], [place] [address] Dr. Jennifer Peralta Urea nitrogen/Creatinine [Mass ratio] 18.3 mg/mg Normal [facility] Comment on above: Performed By: #### C MP #### [facility] [address] [place], [place] [address] Dr. Jennifer Peralta SED RATE [facility] 2020 SED RATE 76 mm/hr Critically high <=20 [facility] Comment on above: Performed By: #### S EDR #### [facility] [address] [place], [place] [address] Dr. Jennifer Peralta Coding Summary.on 11-27-2018 Coding Summary. CODING DATE: 11/27/2018 FINAL [facility] STATUS: Home (Routine DC) PAYOR: Bobbi APC DESCRIPTION Level 5 Musculoskeletal Procedures ADMIT DX: REASON [...] PROC APC STAT DESCRIPTION DOCTOR NAME DATE 53079 [id number] J1 Arthroplasty, knee, Zain Coughlin DO 11/25/2018 condyle and plateau; medial AND lateral compartments with or without patella resurfacing (total knee arthroplasty) RT Right side (used to identify procedures performed on the right side of the body) 06909 Injection, anesthetic Florencio Ignacio MD 11/25/2018 agent; femoral nerve, single RT Right side (used to identify procedures performed on the right side of the body) XP Separate practitioner, a service that is distinct because it was performed by a different practitioner [id number] Anesthesia for open or Florencio Ignacio MD 11/25/2018 surgical arthroscopic procedures on knee joint; total knee arthroplasty NOTE: The code number assigned matches the documented diagnosis and / or procedure in the patient's chart. However, the narrative phrase printed from the coding software may appear abbreviated, or result in slightly different terminology. Revised Coded By: Rosina Machado Revised Date Saved: 11/27/2018 11:46 am [facility] Operative Reporton 9 Operative Report [...] procedure. Florencio Ignacio M.D. aek Dictated: 11/25/2018 #[id number] Typed: 11/25/2018 #[id number] cc: Florencio Ignacio M.D. [facility] Comment on above: Result Comment: [...] constipation, # 40 cap(s), Refills(s) 0, Pharmacy: [facility]/pharmacy #[id number] Ecotrin 325 mg Tab-EC: 325 mg = 1 tab(s), Oral, BIDPC, # 60 tab(s), Refills(s) 0, Pharmacy: [facility]/pharmacy #[id number] Percocet 325 mg-5 mg Tab: See Instructions, as needed for pain, 40 tab(s), Refill(s) 0, 1-2 orally every 4-6hrs as needed for pain Dx: M17.11, Z96.651 Duration: 7 days, [facility]/pharmacy #[id number] Documented Medications Documented CeleBREX 200 [...] All Problems Rheumatoid arthritis / SNOMED CT 517214328 / Confirmed Smoker / SNOMED CT 215491024 / Confirmed Added secondary to documentation in Social History. Decreased vision / SNOMED CT 5490267665 / Confirmed left eye Osteoarthritis of knee / SNOMED CT 397521741 / Confirmed right Histories Past Medical History: [...] Results review: No qualifying data available. Plan [place] [employer] (ASA) physical status classification: [...] allergic reactions, failed block and .. Normal [facility] Comment on above: Result Comment: Elec tronically Signed By: Mateus FLEMING, Florencio\.br\Date and Time Signed: 11/27/18 14:59 EDT Auto Diffon 11-26-2018 Basophils/100 WBC (Bld) 0.1 % Normal 0.0-2.0 [facility] Comment on above: Order Comment: Order Added by Discern Expert. Performed By: #### 2 232902, 3863810, 7469275, 38801016, 4119963, 4152818 #### [facility] [address] [place] [address] Basophils/Leukocytes Auto (Bld) [Pure # fraction] 0.0 E9/L Normal 0.0-0.2 [facility] Comment on above: Order Comment: Order Added by Amrik Expert. Performed By: #### 2 398158, 3189101, 4064524, 54111321, 1612007, 7188731 #### [facility] [address] [place] [address] Eosinophils/100 WBC (Bld) 1.1 % Normal 0.0-8.0 [facility] Comment on above: Order Comment: Order Added by Amrik Expert. Performed By: #### 2 555063, 2882417, 5679345, 30094860, 9374663, 4549564 #### [facility] [address] [place] [address] Eosinophils/Leukocytes Auto (Bld) [Pure # fraction] 0.1 E9/L Normal 0.0-0.5 [facility] Comment on above: Order Comment: Order Added by Discern Expert. Performed By: #### 2 979134, 4458441, 6034514, 32508109, 7576522, 1189844 #### [facility] [address] [place] [address] Lymphocytes/100 WBC (Bld) 25.4 % Normal 14.0-50.0 [facility] Comment on above: Order Comment: Order Added by Discern Expert. Performed By: #### 2 372224, 6904773, 3022729, 55676260, 6951497, 1854272 #### [facility] [address] [place] [address] Lymphocytes/Leukocytes Auto (Bld) [Pure # fraction] 2.1 E9/L Normal 1.0-4.0 [facility] Comment on above: Order Comment: Order Added by Amrik Expert. Performed By: #### 2 449732, 7280348, 0569630, 76951200, 5094465, 4199015 #### [facility] [address] [place] [address] Monocytes/100 WBC (Bld) 9.5 % Normal 4.0-14.0 [facility] Comment on above: Order Comment: Order Added by Amrik Expert. Performed By: #### 2 117520, 5522716, 0326635, 65025735, 7941686, 3312650 #### [facility] [address] [place] [address] Monocytes/Leukocytes Auto (Bld) [Pure # fraction] 0.8 E9/L Normal 0.2-1.0 [facility] Comment on above: Order Comment: Order Added by Discern Expert. Performed By: #### 2 648732, 8260309, 6398933, 49949076, 8871630, 2435207 #### [facility] [address] [place] [address] Neutrophils/100 WBC (Bld) 63.9 % Normal 36.0-75.0 [facility] Comment on above: Order Comment: Order Added by Discern Expert. Performed By: #### 2 032795, 6401797, 5299114, 90471374, 8212286, 4051177 #### [facility] [address] [place] [address] Neutrophils/Leukocytes Auto (Bld) [Pure # fraction] 5.2 E9/L Normal 2.0-7.5 [facility] Comment on above: Order Comment: Order Added by Discern Expert. Performed By: #### 2 552425, 5867365, 0405277, 14036578, 8219997, 9826059 #### [facility] [address] [place] [address] BUNon 11-26-2018 Urea nitrogen [Mass/Vol] 19 mg/dL Normal 5-21 [facility] Comment on above: Performed By: #### 2 630304, 1181843, 7654428, 85430511, 1135587, 2649617 #### [facility] [address] [place] [address] CBC w/ Auto Diffon 9 Erythrocyte distribution width (RBC) [Ratio] 16.1 % High 10.9-14.2 [facility] Comment on above: Performed By: #### 2 497221, 4125512, 9367742, 43257922, 8780899, 2515150 #### [facility] [address] [place] [address] Hematocrit (Bld) [Volume fraction] 34.8 % Low 37.7-49.0 [facility] Comment on above: Performed By: #### 2 470640, 8739520, 4699487, 71729605, 9768846, 2859330 #### [facility] [address] [place] [address] Hemoglobin (Bld) [Mass/Vol] 11.6 g/dL Low 13.5-17.5 [facility] Comment on above: Performed By: #### 2 631460, 9470619, 1678630, 99843121, 4738754, 8792581 #### [facility] [address] [place] [address] MCH (RBC) [Entitic mass] 33.0 pg Normal 27.0-34.0 [facility] Comment on above: Performed By: #### 2 276590, 0624160, 5425071, 71595869, 6669517, 2611822 #### [facility] [address] [place] [address] MCHC (RBC) [Mass/Vol] 33.5 g/dL Normal 33.3-35.7 [facility] Comment on above: Performed By: #### 2 774825, 1971213, 1041163, 41172583, 7697270, 8684193 #### [facility] [address] [place] [address] MCV (RBC) [Entitic vol] 98.6 fL Normal 80.0-100.0 [facility] Comment on above: Performed By: #### 2 508643, 2640262, 4217746, 22410829, 0764846, 2628119 #### [facility] [address] [place] [address] Platelet mean volume (Bld) [Entitic vol] 7.4 fL Normal 6.4-10.8 [facility] Comment on above: Performed By: #### 2 271467, 7215125, 2176692, 73699707, 3136260, 3403010 #### [facility] [facility] [address] [place] [address] Platelets (Bld) [#/Vol] 193.0 E9/L Normal 150.0-500.0 [facility] Comment on above: Performed By: #### 2 474953, 0290223, 1346961, 32925885, 1337553, 3859865 #### [facility] [address] [place] [address] RBC (Bld) [#/Vol] 3.5 E12/L Low 4.3-5.9 [facility] Comment on above: Performed By: #### 2 949576, 5198844, 5171905, 28257637, 3569347, 0734974 #### [facility] [address] [place] [address] WBC corrected for nucl RBC Auto (Bld) [#/Vol] 8.1 E9/L Normal 4.0-11.0 [facility] Comment on above: Performed By: #### 2 097816, 3671223, 5307039, 85340699, 8638986, 6815389 #### [facility] [address] [place] [address] Creatinineon 11-26-2018 Creatinine [Mass/Vol] 0.8 mg/dL Normal 0.5-1.3 [facility] Comment on above: Performed By: #### 2 978381, 7664747, 9991041, 31385012, 5035676, 4542223 #### [facility] [address] [place] [address] Discharge Note-Nursingon Discharge Note-Nursing Patient provided with discharge instructions, education and extra mepilex dressing. Patient states no questions or concerns. Patient taken by wheelchair to patient pick-up by Cynthia POCT. Normal [facility] Inpatient Clinical Summaryon 11-26-2018 Inpatient Clinical Summary [address] [address] Clinical Summary Person Information: Name: ANGUS LUCIO Age: 63 Years : 1955 12:00 AM Sex: Male PCP: Junito Garcia MD Marital Status: Phone: [phone] Race: White Ethnicity: Non- or Language: Guinean Visit Id: Visit Reason: RIGHT KNEE OA Speciality: Acuity: Enc Type: Ambulatory/Same Day Surgery Med Service: Surgery Arrival: 11/25/2018 10:09 AM Discharge: Dispo Type: Address: [address] [place] [address] [id number] Provider Notes: Diagnosis: Problems Active Smoker Smoking [...] Follow up: With: Address: When: Zain Coughlin [address] [place], [place] [id number] Business (1) 12/24/2018 10:30 AM With: Address: When: Junito Garcia [address] [place] [address], [facility] [address] Business (1) Comments: Call if needed. Patient Education Information: Alta - Total Knee Arthroplasty. Revised 02/22/12. (Custom) Normal [facility] Inpatient Patient Summaryon 11-26-2018 Inpatient Patient Summary [facility] [address] [place], [place] [address] Patient Discharge Instructions PERSON INFORMATION [...] up: With: Address: When: Zain Coughlin [address] [id number] Business (1) 12/24/2018 10:30 AM With: Address: When: Junito Garcia [address] [place] [address], [facility] [place] [address] Business (1) Comments: Call if [...] That Have Changed [id number], [address], [place] [id number], [phone] START: aspirin (Ecotrin 325 mg Tab-EC) 1 [...] with No Changes [id number], [address], [place] [id number], [phone] acetaminophen-oxycodon e (Percocet 325 mg-5 mg Tab) [...] Tabs By Mouth every day. [facility] Other[facility] Comment: PATIENT EDUCATION INFORMATION Instructions: [place], [place] [facility] DISCHARGE INSTRUCTIONS TOTAL KNEE [...] will continue at home, possible with the staff physical therapy assistant of [facility] or [...] 4 weeks postop. Zain Coughlin, [facility] [address] [place] [address] [phone] Reviewed: 08-25 Revised 05/31 Medication Leaflets: Thank you for choosing [facility] Normal [facility] Interdisciplinary Note - Shola e Manageron 11-26-2018 Interdisciplinary Note - Survey Questionnaire Designer Pt is awake and alert in chair. PCP verified and insurance information reviewed. DME discussed. Contact inforrmation provided and white board updated. Pt is with [facility] program for therapy at DC. Aware of anticiapted DC home today and has transportation at ID. Observation status discussed. Denies any further concerns or DC needs. Normal [facility] Interdisciplinary Note - Ortiz n 11-26-2018 Interdisciplinary [...] further OT needs at this time. Normal [facility] Lyteson 11-26-2018 Anion gap [Moles/Vol] 12 mmol/L Normal 6-16 [facility] Comment on above: Performed By: #### 2 773375, 9328715, 4760587, 17208131, 8405845, 8804952 #### [facility] [address] [place] [address] Chloride [Moles/Vol] 99 mmol/L Low 101-111 Fish [facility] Comment on above: Performed By: #### 2 895708, 1557228, 7030522, 40455725, 1905874, 9125666 #### [facility] [address] [place] [address] CO2 [Moles/Vol] 24 mmol/L Normal 21-31 [facility] Comment on above: Performed By: #### 2 486341, 8035384, 7161903, 94078795, 0592826, 5211769 #### [facility] [address] [place] [address] Potassium [Moles/Vol] 4.3 mmol/L Normal 3.5-5.3 [facility] Comment on above: Performed By: #### 2 271223, 3787990, 4977669, 64704722, 7289185, 4184801 #### [facility] [address] [place] [address] Sodium [Moles/Vol] 131 mmol/L Low 135-145 [facility] Comment on above: Performed By: #### 2 238331, 2616834, 6287854, 54100063, 5174655, 9789300 #### [facility] [address] [place] [address] Main OR Intraoperative Recor don 11-26-2018 Main OR Intraoperative Record IntraOp Document Type FT Summary Primary Physician: Zain Coughlin DO Finalized Date/Time: 11/26/18 10:56:45 Pt. Name: ANGUS LUCIO/Sex: 1955 Male Med Rec #: [id number] Physician: Zain Coughlin DO Financial #: [id number] Pt. Type: A Room/Bed: N318/01 Admit/Disch: 11/25/18 [...] to review and send charges Sana Ignacio PARENT PARTNER Case Attendance FT Entry 1 Entry 2 Entry 3 Case Attendee Flex CAA, Eleanor Coughlin DO, Zain Longoria DO, oKko Blair Role Performed Anesthesiologist Surgeon - Primary Surgeon - Assist 1 Laminator Hand Time In 11/25/18 11:37:00 11/25/18 11:59:00 11/25/18 12:18:00 Time Out 11/25/18 13:49:00 11/25/18 13:41:00 11/25/18 13:49:00 Procedure KNEE TOTAL KNEE TOTAL KNEE TOTAL ARTHROPLASTY(Right) ARTHROPLASTY(Right) ARTHROPLASTY(Right) Comments , ANESTHESIA JOB TRAINING SPECIALIST. Last Modified By: Ileana RN, Todd Tejeda RN, Todd Tejeda RN, Todd Durand 11/25/18 13:51:47 11/25/18 13:51:47 11/25/18 13:51:47 Entry 4 Entry 5 Entry 6 Case Attendee Ileana JACQUES, Todd Mccloud RN, Mike Garcia CST, May Donald Role Performed Medical Review Specialist - Primary Medical Review Specialist - Primary Scrub - Primary Time In [...] 13:51:47 11/25/18 13:51:47 General Comments: King Shipley, [facility] rep, present in the OR for [...] and tissue Entry 1 Skin Integrity Intact, [place], Warm, and Skin Abnormality No Dry Outcomes [...] Items BANDAGE ELASTIC DOUBLE 6 X 11YD [[id number]][F] Site and Details right knee- 10 inch [...] Setting 250 mmHg BLUE 30 X 4 [[id number]][F] Equipment Number D Placement Right Upper Thigh [...] universal tibial baseplate Serial Number Lot Number [id number] Load Number Lead Machinist [facility] Catalog ?# [...] Reconstitution Method Outcomes Met? Yes Yes Yes Lead Machinist Model Number Last Modified By: Ileana JACQUES, Todd Tejeda RN, Todd Tejeda RN, Todd Durand 11/25/18 12:22:15 11/25/18 13:06:25 11/25/18 13:08:45 Entry 4 Entry 5 Entry 6 Procedure KNEE TOTAL KNEE TOTAL KNEE TOTAL ARTHROPLASTY(Right) ARTHROPLASTY(Right) ARTHROPLASTY(Right) Implant/Explant Implant Implant Implant Implant Identification FT Description Triathlon posterior Triathlon X3 Asymmetric Triathlon Offset Adaptor stabilized femoral Patella Serial Number Lot Number [id number] Load Number Lead Machinist [facility] Catalog ?# [id number] Size [...] Reconstitution Method Outcomes Met? Yes Yes Yes Lead Machinist Model Number Last Modified By: Ileana JACQUES, Todd Tejeda RN, Todd L Todd Tejeda RN 11/25/18 13:10:38 11/25/18 13:17:54 11/25/18 13:19:37 Entry 7 Procedure KNEE TOTAL ARTHROPLASTY(Right) Implant/Explant Implant Implant Identification FT Description Wilner X3 Tibial Bearing Insert- PS Serial Number Lot Number [id number] Load Number Lead Machinist [facility] Catalog ?# [id number] Size 7 Expiration Date 10/08/20 Manufactured Date Materials Unique Device Identifier (SANTI) Human Readable Barcode Machine Readable Barcode Usage Data FT Implant Site Knee R Implant Site Comment Quantity 1 Implant/Explant Date Implanted By Zain Coughlin DO Explant Reason Biological Implants Biological Source Donor Number MR Classification Temperature Reconstitution Method Outcomes Met? Yes Lead Machinist Model Number Last Modified By: Todd Tejeda RN 11/25/18 13:38:06 Post-Care Text: The patient is free from signs and symptoms of injury caused by extraneous objects Urinary Catheter Pre-Care Text: Patient is prepped using sterile technique. Entry 1 Urinary Catheter TRAY URINE TEQUILA CATH Present Upon Arrival No Inserted LF 16FR [[id number]][F] Insertion Date/Time 11/25/18 11:52:00 Urine Residual 40 [...] BLANKET MISTRAL AIR Quantity 1 Aid TORSO [[id number]][F] Fluid/[place] Unit Mistral warming system Setting 43 C/ HIGH Body Site Upper anterior torso Last Modified By: Todd Tejeda RN 11/25/18 11:35:56 Case Comments Finalized By: Franci Ignacio CST Document Signatures Signed By: Ileana JACQUES, Todd Durand 11/25/18 13:52 Franci Ignacio CST 11/26/18 10:56 Normal [facility] Patient Education - Texton 0 11-26-2018 Patient Education - Text [place], [place] [facility] DISCHARGE INSTRUCTIONS TOTAL KNEE [...] will continue at home, possible with the staff physical therapy assistant of [facility] or [...] weeks postop. Zain Coughlin, DO [facility] [address] [place] [address] Reviewed: 08-25 Revised 05/31 [facility] Progress Note-Physicianon Progress Note-Physician DAILY [...] planning is underway for home discharge with [place] [address] program. Zain Coughlin D.O. gls Dictated: 11/26/2018 #[id number] Typed: 11/26/2018 #[id number] cc: Zain Coguhlin D.O. Normal [facility] Comment on above: Result Comment: Elec tronically Signed By: Zain Coughlin DO\.br\Date and Time Signed: 11/26/18 12:26 EDT eGFRon 11-26-2018 GFR/1.73 sq M predicted among blacks MDRD (S/P/Bld) [Vol rate/Area] mL/min/{1.73_m2} Normal >=59 [facility] Comment on above: Order Comment: Order added by Discern Expert. Result Comment: eGFR is race adjusted. AA=. Performed By: #### 2 522129, 1865249, 0406570, 60391884, 3720392, 5281049 #### [facility] [address] [place] [address] GFR/1.73 sq M predicted among non-blacks MDRD (S/P/Bld) [Vol rate/Area] mL/min/{1.73_m2} Normal >=59 [facility] Comment on above: Order Comment: Order added by Discern Expert. Result Comment: Infection Prevention Specialist erasmo kidney disease could be indicated at eGFR's of less than 60 mL/min/1.73m2. Kidney failure is indicated at less than 15 mL/min/1.73m2. Performed By: #### 2 384790, 4503704, 8731240, 31680311, 1184424, 4346515 #### [facility] [address] [place] [address] ABO/Rhon 11-25-2018 ABO/Rh Positive [facility] Comment on above: Performed By: #### 2 489411, 2851884, 6485832, 90039884, 6778910, 0298217 #### [facility] [address] [place] [address] ABO/Rh History Checkon 11-25 ABO/Rh History Check Verified Hx Blood Type Normal [facility] Comment on above: Performed By: #### 2 384176, 3926674, 1923637, 24278961, 0391135, 6622381 #### [facility] [address] [place] [address] ABSCon 11-25-2018 ABSC Gel Interp Negative Normal [facility] Comment on above: Performed By: #### 2 833414, 5614661, 7642419, 64148054, 8178943, 3578691 #### [facility] [address] [place] [address] Blood Bank ID#on 11-25-2018 BBID# [id number] [facility] Comment on above: Performed By: #### 2 575008, 7291811, 9733173, 17634159, 3858749, 1565660 #### [facility] [address] [place] [address] Interdisciplinary Note - Shola e Manageron 11-25-2018 Interdisciplinary Note - Survey Questionnaire Designer dc planning done at this time. I called patient on phone. insurance, DME, PCP verified. pt from home with family and will transport at me. pending therapy eval. obs admit. pt has FWW in room. pt is [facility], call [phone] ext [phone] at me. anticipated dc 11/26. CRM following. Normal [facility] Interdisciplinary Note - PTo n 11-25-2018 Interdisciplinary Note - PT PT Evaluation completed with an AM PAC score of 18/24. Pt performed bed mobility with CGA and transfers with CGA/min A. pt was able to ambulate 70 feet with FWW with CGA. Will follow daily with recommendations Normal [facility] Main OR PACU I Recordon Main OR PACU I Record PACU Phase I Docum ent Type FT Summary Primary Physician: Zain Coughlin DO Finalized Date/Time: 11/25/18 14:46:08 Pt. Name: ANGUS LUCIO/Sex: 1955 Male Med Rec #: [id number] Physician: Zain Coughlin DO Financial #: [id number] Pt. Type: O Room/Bed: N318/01 Admit/Disch: 11/25/18 [...] Olga Lidia Ornelas RN 11/25/18 14:46 Normal [facility] Main OR Preoperative Recordo n 11-25-2018 Main OR Preoperative Record PreOp Document Type FT Summary Primary Physician: Zain Coughlin DO Finalized Date/Time: 11/25/18 12:12:50 Pt. Name: SANTOS LUCIODorothy Harkins/Sex: 1955 Male Med Rec #: [id number] Physician: Zain Coughlin DO Financial #: [id number] Pt. Type: A Room/Bed: [place] [address] Admit/Disch: 11/25/18 10:09:49 - Institution: Case Times [...] By: Todd Tejeda RN 11/25/18 12:12 Normal [facility] Operative Reporton 11-25-201 9 Operative Report Date of Surgery: 11/25/2018 SURGEON: Zain Coughlin D.O. REVENUE ANALYST: Koko Longoria D.O. PREOPERATIVE DIAGNOSIS: Right knee [...] right posterior stabilized femur, a size 7 [place] TS base plate with a 6 mm. [...] wrap. The patient is transferred to the [facility] and taken to the Post-Anesthesia Care Unit in stable condition. He will remain hospitalized this day. Jaskaran Noriega Dictated: 11/25/2018 #[id number] Typed: 11/25/2018 #[id number] cc: Urbano Alvarenga D.O. [facility] Comment on above: Result Comment: Elec tronically Signed By: Zain Coughlin DO\.br\Date and Time Signed: 11/25/18 16:30 EDT Progress Note-Physicianon Progress Note-Physician Patient: ANGUS LUCIO Age: 63 years Sex: Male : 1955 Associated Diagnoses: None Author: Zain Coughlin DO Postoperative Information Procedure: R TKA, complicated. Preoperative Diagnosis: R knee OA, instability. Postoperative Diagnosis: same. Performed by: alta. Laminator Hand: osiris. Specimens Removed: bone, soft tissue. Estimated Blood Loss: 0 ml. Complications: None. Normal [facility] Comment on above: Result Comment: Elec tronically Signed By: Zain Coughlin DO\.br\Date and Time Signed: 11/25/18 13:57 EDT UA With Cult Reflexon 2018 Bilirubin Ql (U) Negative Normal Negative [facility] Comment on above: Performed By: #### 2 407427, 1172683, 1757556, 59762574, 7968806, 1107268 #### [facility] [address] [place] [address] Clarity (U) CLEAR Normal Clear [facility] Comment on above: Performed By: #### 2 051733, 1111068, 9304198, 01545347, 1032991, 4948234 #### [facility] [address] [place] [address] Color (U) YELLOW Normal Yellow [facility] Comment on above: Performed By: #### 2 167396, 1050203, 4427354, 12709917, 5226331, 3975684 #### [facility] [address] [place] [address] Epithelial cells.squamous LM.HPF (Urine sed) [#/Area] 0-2 Normal 0-2 [facility] Comment on above: Performed By: #### 2 701789, 2197569, 4572403, 04842651, 0707143, 9774866 #### [facility] [address] [place] [address] Glucose Test strip (U) [Mass/Vol] Negative Normal Negative [facility] Comment on above: Performed By: #### 2 323664, 9921017, 7709636, 11099410, 5195364, 5591603 #### [facility] [address] [place] [address] Hemoglobin Ql (U) TRACE Abnormal Negative [facility] Comment on above: Performed By: #### 2 647158, 9012146, 5098279, 49010443, 4029018, 1651560 #### [facility] [address] [place] [address] Ketones (U) [Mass/Vol] Negative Normal Negative [facility] Comment on above: Performed By: #### 2 826377, 5663546, 3226289, 69235698, 0964424, 6186361 #### [facility] [address] [place] [address] [place].plasma/[place] .RBC (Bld) [Mass ratio] 0-3 Normal 0-3 [facility] Comment on above: Performed By: #### 2 108142, 3259520, 5592466, 22830034, 2649082, 6265751 #### [facility] [address] [place] [address] Mucus Ql (Urine sed) TRACE Normal [facility] Comment on above: Performed By: #### 2 530694, 6030484, 5544584, 56148455, 1412727, 4056073 #### [facility] [address] [place] [address] Nitrite Ql (U) Negative Normal Negative [facility] Comment on above: Performed By: #### 2 061780, 0424862, 5265217, 33656213, 8423039, 3214380 #### [facility] [address] [place] [address] pH (U) 6.5 [pH] 5.0-9.0 [facility] Comment on above: Performed By: #### 2 905566, 0483277, 1980269, 30721959, 1857473, 1497622 #### [facility] [address] [place] [address] Protein (U) [Mass/Vol] Negative Normal Negative [facility] Comment on above: Performed By: #### 2 268535, 8322273, 5344927, 09848818, 0755880, 6320106 #### [facility] [address] [place] [address] Specific gravity (U) [Rel density] 1.015 1.005-1.030 [facility] Comment on above: Performed By: #### 2 538007, 6404198, 0630556, 04998274, 2823390, 4875415 #### [facility] [address] [place] [address] UA Spec Desc Torres Normal [facility] Comment on above: Performed By: #### 2 992985, 9939068, 8526915, 83814650, 4039640, 2806234 #### [facility] [address] [place] [address] Urobilinogen Qn (U) 0.2 {Katlin'U}/dL Normal 0.0-1.0 [facility] Comment on above: Performed By: #### 2 941407, 5279486, 5279309, 18354465, 9654940, 6299535 #### [facility] [address] [place] [address] WBC Auto Ql (U) Negative Normal Negative [facility] Comment on above: Performed By: #### 2 901018, 0249164, 8928102, 46083141, 1361479, 1676509 #### [facility] [address] [place] [address] WBC LM.HPF (Urine sed) [#/Area] 0-5 Normal 0-5 [facility] Comment on above: Performed By: #### 2 861194, 3783656, 1462228, 27919853, 4856937, 8721670 #### [facility] [address] [place] [address] XR Knee 1 or 2 Views Righton [...] Carr M.D. Transcribed by: LIZANDRO Technologist: JOVITA [facility] Coding Summary.on 11-10-2018 Coding Summary. CODING DATE: 11/10/2018 FINAL [facility] STATUS: Home (Routine DC) PAYOR: Bobbi [...] Hinton CphT Date Saved: 11/10/2018 12:42 pm [facility] BD Bone Density DEXAon 11-04 [...] M.D. Transcribed by: LIZANDRO Technologist: YUSEF Normal [facility] ABO/Rh Retypeon 11-03-2018 ABO/Rh Retype Interp Positive [facility] Comment on above: Performed By: #### 1 7002652 #### [facility] [address] [place] [address] BUNon 11-03-2018 Urea nitrogen [Mass/Vol] 15 mg/dL Normal 5-21 [facility] Comment on above: Performed By: #### 2 554529, 6202239, 0703629, 58608300, 3664383, 7851696 #### [facility] [address] [place] [address] CBC w/Indiceson 11-03-2018 Erythrocyte distribution width (RBC) [Ratio] 16.3 % High 10.9-14.2 [facility] Comment on above: Performed By: #### 2 854818, 4904746, 6857320, 87599137, 2712003, 5782916 #### [facility] [address] [place] [address] Hematocrit (Bld) [Volume fraction] 37.1 % Low 37.7-49.0 [facility] Comment on above: Performed By: #### 2 840375, 6840013, 0524531, 84060212, 9043032, 3322635 #### [facility] [address] [place] [address] Hemoglobin (Bld) [Mass/Vol] 12.7 g/dL Low 13.5-17.5 [facility] Comment on above: Performed By: #### 2 375588, 6314888, 8981158, 96734737, 2745767, 1146078 #### [facility] [address] [place] [address] MCH (RBC) [Entitic mass] 33.4 pg Normal 27.0-34.0 [facility] Comment on above: Performed By: #### 2 529204, 5489834, 2274859, 59797879, 4536850, 5121364 #### [facility] [address] [place] [address] MCHC (RBC) [Mass/Vol] 34.3 g/dL Normal 33.3-35.7 [facility] Comment on above: Performed By: #### 2 125174, 8481266, 6044804, 30401811, 1495780, 2303856 #### [facility] [address] [place] [address] MCV (RBC) [Entitic vol] 97.5 fL Normal 80.0-100.0 [facility] Comment on above: Performed By: #### 2 728543, 6658370, 5130537, 24206446, 5348644, 5495297 #### [facility] [address] [place] [address] Platelet mean volume (Bld) [Entitic vol] 7.5 fL Normal 6.4-10.8 [facility] Comment on above: Performed By: #### 2 426116, 3282481, 3097982, 82161244, 7960177, 6367466 #### [facility] [address] [place] [address] Platelets (Bld) [#/Vol] 249.0 E9/L Normal 150.0-500.0 [facility] Comment on above: Performed By: #### 2 608908, 9901323, 4246021, 62237834, 0483741, 0870534 #### [facility] [address] [place] [address] RBC (Bld) [#/Vol] 3.8 E12/L Low 4.3-5.9 [facility] Comment on above: Performed By: #### 2 522394, 0736805, 2926095, 63428774, 5160037, 3767640 #### [facility] [address] [place] [address] WBC corrected for nucl RBC Auto (Bld) [#/Vol] 5.1 E9/L Normal 4.0-11.0 [facility] Comment on above: Performed By: #### 2 587660, 5592898, 3038884, 32230734, 5423938, 9382082 #### [facility] [address] [place] [address] Creatinineon 11-03-2018 Creatinine [Mass/Vol] 0.8 mg/dL Normal 0.5-1.3 [facility] Comment on above: Performed By: #### 2 150830, 7640102, 1665319, 55797227, 7023321, 2414469 #### [facility] [address] [place] [address] Glucoseon 11-03-2018 Glucose [Mass/Vol] 82 mg/dL Normal 55-199 [facility] Comment on above: Performed By: #### 2 961463, 0898440, 0249545, 04862989, 5604675, 9026688 #### [facility] [address] [place] [address] Lyteson 11-03-2018 Anion gap [Moles/Vol] 12 mmol/L Normal 6-16 [facility] Comment on above: Performed By: #### 2 822589, 0867954, 1100783, 52707653, 3570759, 5775659 #### [facility] [address] [place] [address] Chloride [Moles/Vol] 103 mmol/L Normal 101-[address] [facility] Comment on above: Performed By: #### 2 [id number], [id number], [id number], [id number], [id number], [id number] #### [facility] [address] [place] [address] CO2 [Moles/Vol] 24 mmol/L Normal 21-31 [facility] Comment on above: Performed By: #### 2 [id number], [id number], [id number], [id number], [id number], [id number] #### [facility] [address] [place] [address] Potassium [Moles/Vol] 3.9 mmol/L Normal 3.5-5.3 [facility] Comment on above: Performed By: #### 2 [id number], [id number], 5617176, [id number], 2483704, [id number] #### [facility] [address] [place] [address] Sodium [Moles/Vol] 135 mmol/L Normal 135-145 [facility] Comment on above: Performed By: #### 2 [id number], [id number], [id number], [id number], 6794989, 8192904 #### [facility] [address] [place] [address] Urinalysison 11-03-2018 Bilirubin Ql (U) Negative Normal Negative [facility] Comment on above: Performed By: #### 1 [id number] #### [facility] [address] [place] [address] Clarity (U) CLEAR Normal Clear [facility] Comment on above: Performed By: #### 1 [id number] #### [facility] [address] [place] [address] Color (U) YELLOW Normal Yellow [facility] Comment on above: Performed By: #### 1 [id number] #### [facility] [address] [place] [address] Epithelial cells.squamous LM.HPF (Urine sed) [#/Area] 0-2 Normal 0-2 [facility] Comment on above: Performed By: #### 1 [id number] #### [facility] [address] [place] [address] Glucose Test strip (U) [Mass/Vol] Negative Normal Negative [facility] Comment on above: Performed By: #### 1 [id number] #### [facility] [address] [place] [address] Hemoglobin Ql (U) Negative Normal Negative [facility] Comment on above: Performed By: #### 1 [id number] #### [facility] [address] [place] [address] Ketones (U) [Mass/Vol] Negative Normal Negative [facility] Comment on above: Performed By: #### 1 [id number] #### [facility] [address] [place] [address] [place].plasma/[place] .RBC (Bld) [Mass ratio] 0-3 Normal 0-3 [facility] Comment on above: Performed By: #### 1 [id number] #### [facility] [address] [place] [address] Nitrite Ql (U) Negative Normal Negative [facility] Comment on above: Performed By: #### 1 [id number] #### [facility] [address] [place] [address] pH (U) 6.5 [pH] 5.0-9.0 [facility] Comment on above: Performed By: #### 1 [id number] #### [facility] [address] [place] [address] Protein (U) [Mass/Vol] Negative Normal Negative [facility] Comment on above: Performed By: #### 1 [id number] #### [facility] [address] [place] [address] Specific gravity (U) [Rel density] <=1.005 1.005-1.030 [facility] Comment on above: Performed By: #### 1 [id number] #### [facility] [address] [place] [address] UA Spec Desc Clean Catch Normal [facility] Comment on above: Performed By: #### 1 [id number] #### [facility] [address] [place] [address] Urobilinogen Qn (U) 0.2 {[place]'U}/dL Normal 0.0-1.0 [facility] Comment on above: Performed By: #### 1 [id number] #### [facility] [address] [place] [address] WBC Auto Ql (U) Negative Normal Negative [facility] Comment on above: Performed By: #### 1 [id number] #### [facility] [address] [place] [address] WBC LM.HPF (Urine sed) [#/Area] 0-5 Normal 0-5 [facility] Comment on above: Performed By: #### 1 [id number] #### [facility] [address] [place] [address] Vitamin D 25 Hydroxyon 11-03 Calcidiol [Mass/Vol] 37.4 ng/mL Normal 30.0-100.0 [facility] Comment on above: Result Comment: Vit howard D deficiency has been defined as a level of serum 25-OH vitamin D less than 20 ng/mL (1,2) by the [employer] of [employer] and an Endocrine Society practice guideline. The Endocrine Society further defined vitamin D insufficiency as a level between 21 and 29 ng/mL (2). 1. IOM (Unity of Medicine). 2010. Dietary reference intakes for calcium and D. [place]: The National Academies Press. 2. Talia MF, Katharina NC, Denny PEREZ, et al. Evaluation, treatment, and prevention of vitamin D deficiency: an Endocrine Society clinical practice guideline. JCEM. 2011 [place]; 96 (7):1911-30. Performed By: #### 5 [id number] #### [facility] [address] [place] [address] XR Chest 2 Viewson 9 XR Chest [...] MD Transcribed by: LIZANDRO Technologist: KATHERINE Eng [facility] eGFRon 11-03-2018 GFR/1.73 sq M predicted among blacks MDRD (S/P/Bld) [Vol rate/Area] mL/min/{1.73_m2} Normal >=59 [facility] Comment on above: Order Comment: Order added by Discern Expert. Result Comment: eGFR is race adjusted. AA=. Performed By: #### 2 [id number], 5306476, 6476251, [id number], [id number], [id number] #### [facility] [address] [place] [address] GFR/1.73 sq M predicted among non-blacks MDRD (S/P/Bld) [Vol rate/Area] mL/min/{1.73_m2} Normal >=59 [facility] Comment on above: Order Comment: Order added by Discern Expert. Result Comment: Infection Prevention Specialist erasmo kidney disease could be indicated at eGFR's of less than 60 mL/min/1.73m2. Kidney failure is indicated at less than 15 mL/min/1.73m2. Performed By: #### 2 [id number], [id number], 9987146, [id number], 0255831, [id number] #### [facility] [address] [place] [address] Encounters Encounter Date Encounter Type Care Provider Facility Start: 03-27-2022 End: 03-28-[address] DOCTOR PETERSON Facility:[facility] Start: 10-02-2021 End: 10-03-[address] DOCTOR PETERSON Facility:[facility] Start: 07-04-2021 End: 07-05-[address] DOCTOR PETERSON Facility:[facility] Start: 04-04-2021 End: 04-05-[address] DOCTOR PETERSON Facility:[facility] Payers Date Payer Category Payer Private Health Insurance [id number] Unknown [id number] 1955 Unknown [id number] 2.16.84 [id number] 1955 Unknown [id number] 2.16.84 [id number] 1955 Unknown [id number] 2.16.84 [id number] 1955 Unknown [id number] 2.16.84 [id number] Summary Purpose Family History No Family History [...] All Problems Rheumatoid arthritis / SNOMED CT 518080446 / Confirmed Smoker / SNOMED CT 908790517 / Confirmed Added secondary to documentation in Social History. Decreased vision / SNOMED CT 0086530165 / Confirmed left eye Osteoarthritis of knee / SNOMED CT 743980492 / Confirmed right Physical Examination Intake and [...] section and content) DATE CREATED AUTHOR 11/29/[address] [facility] DATE CREATED AUTHOR AUTHOR'S [facility] 04/01/2022 [facility] PERTAINING TO PATIENTS WHO ARE [...] BE BASED ON THE PRIMARY CLINICAL RECORDS. [employer] provides no warranty or guarantee of the accuracy or completeness of information in this document.
[2024-07-28 08:23] LABS: Basophils Percent Auto 0.4 % (0.2-2.0); Eosinophils Absolute Auto 0.1 10^3/uL (0.0-0.7); Eosinophils Percent Auto 0.6 % (0.9-7.0); Hematocrit 42.5 % (42.0-54.0); Hemoglobin 14.2 g/dL (14.0-18.0); Immature Granulocytes Abs Auto 0.07 10^3/uL (0.00-0.03); Immature Granulocytes Pct Auto 0.7 % (0.0-0.5); Lymphocytes Absolute Auto 1.4 10^3/uL (1.2-3.8); Lymphocytes Percent Auto 14.9 % (20.5-60.0); Mean Corpuscular HGB Conc 33.4 g/dL (29.9-35.2); Mean Corpuscular Hemoglobin 33.4 pg (25.9-34.0); Mean Platelet Volume 9.2 fL (9.5-13.5); Monocytes Absolute Auto 0.6 10^3/uL (0.3-0.8); Monocytes Percent Auto 6.7 % (1.7-12.0); Neutrophils Absolute Auto 7.2 10^3/uL (1.4-6.5); Neutrophils Percent Auto 76.7 % (43.0-75.0); Platelet Count 223 10^3/uL (150-450); Red Blood Count 4.25 10^6/uL (4.70-6.10); Red Cell Distribution Width 16.8 % (11.0-15.0); White Blood Count 9.4 10^3/uL (4.0-11.0)
[2024-07-28 08:50] LABS: Alanine Aminotransferase 20 U/L (16-63); Albumin Globulin Ratio 0.9; Albumin Level 3.6 g/dL (3.4-5.0); Alkaline Phosphatase 89 U/L (46-116); Anion Gap 13.4; Aspartate Amino Transferase 25 U/L (15-37); BUN Creatinine Ratio 22.9; Bilirubin Total 0.4 mg/dL (0.2-1.0); Chloride 101 mmol/L (98-107); Estimated GFR (African America >60 (>=60 mL/min/1.73m^2); Estimated GFR (Non-African Ame >60 (>=60 mL/min/1.73m^2); Globulin 3.8 g/dL; Glucose 104 mg/dL (74-106); Potassium 5.4 mmol/L (3.5-5.1); Sodium 137 mmol/L (136-145); Total Protein 7.4 g/dL (6.4-8.2)
[2024-07-28 09:46] LABS: Erythrocyte Sedimentation Rate 49 mm/hr (<=20)
== END 2024-07-28 08:01 | disposition home or self-care (01) ==
LOC: LAB 08:01
PROVIDERS: PCP Family Medicine; Visit Provider Internal Medicine Rheumatology
DX: M05.79 Rheumatoid arthritis with rheumatoid factor of multiple sites without organ or systems involvement (principal); M15.0 Primary generalized (osteo)arthritis; Z79.899 Other long term (current) drug therapy
CPT/HCPCS: 36415; 80053; 85025; 85652

== ENCOUNTER 2024-11-26 08:04 | Outpatient (OUT) | payer MEDICARE, SELFPAY ==
--- OUTSIDE RECORDS SUMMARY | 2024-11-26 08:08 | XMS_ITS | CCD ---
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 Jennifer Peralta Basophils/100 WBC (Bld) 0.4 % Normal 0.2-2.0 [facility] Comment on above: Performed By: #### C BC #### [facility] [address] [address] [address] Jennifer Peralta EO # 0.1 103/ul Normal 0.0-0.7 [facility] Comment on above: Performed By: #### C BC #### [facility] [address] [place] [address] Dr. Jennifer Peralta Eosinophils/100 WBC (Bld) 1.0 % Normal 0.9-7.0 [facility] Comment on above: Performed By: #### C BC #### [facility] [address] [place] [address] Dr. Jennifer Peralta Erythrocyte distribution width (RBC) [Ratio] 15.7 % Critically high 11.0-15.0 [facility] Comment on above: Performed By: #### C BC #### [facility] [address] [place] [address] Dr. Jennifer Peralta Hematocrit (Bld) [Volume fraction] 38.2 % Critically low 42.0-54.0 [facility] Comment on above: Performed By: #### C BC #### [facility] [address] [place] [address] Dr. Jennifer Peralta Hemoglobin (Bld) [Mass/Vol] 12.6 g/dL Critically low 14.0-18.0 [facility] Comment on above: Performed By: #### C BC #### [facility] [address] [place] [address] Dr. Jennifer Peralta IG # 0.03 10e3/ul Normal 0.00-0.03 [facility] Comment on above: Performed By: #### C BC #### [facility] [address] [place] [address] Dr. Jennifer Peralta IG % 0.4 % Normal 0.0-0.5 [facility] Comment on above: Performed By: #### C BC #### [facility] [address] [place] [address] Dr. Jennifer ePralta LYMPH # 2.4 103/ul Normal 1.2-3.8 [facility] Comment on above: Performed By: #### C BC #### [facility] [address] [place] [address] Dr. Jennifer Peralta Lymphocytes/100 WBC (Bld) 33.3 % Normal 20.5-60.0 [facility] Comment on above: Performed By: #### C BC #### [facility] [address] [place] [address] Dr. Jennifer Peralta MANUAL DIFF REQ NO Normal [facility] Comment on above: Performed By: #### C BC #### [facility] [address] [place] [address] Dr. Jennifer Peralta MCH (RBC) [Entitic mass] 32.1 pg Normal 25.9-34.0 [facility] Comment on above: Performed By: #### C BC #### [facility] [address] [place] [address] Dr. Jennifer Peralta MCHC (RBC) [Mass/Vol] 33.0 g/dL Normal 29.9-35.2 [facility] Comment on above: Performed By: #### C BC #### [facility] [address] [place] [address] Dr. Jennifer Peralta MCV (RBC) [Entitic vol] 97.2 fL Critically high 80.0-94.0 [facility] Comment on above: Performed By: #### C BC #### [facility] [address] [place] [address] Dr. Jennifer Peralta MONO # 0.6 103/ul Normal 0.3-0.8 [facility] Comment on above: Performed By: #### C BC #### [facility] [address] [place] [address] Dr. Jennifer Peralta Monocytes/100 WBC (Bld) 7.7 % Normal 1.7-12.0 [facility] Comment on above: Performed By: #### C BC #### [facility] [address] [place] [address] Dr. Jennifer Peralta NEUT # 4.1 103/ul Normal 1.4-6.5 [facility] Comment on above: Performed By: #### C BC #### [facility] [address] [place] [address] Dr. Jennifer Peralta Neutrophils/100 WBC (Bld) 57.2 % Normal 43.0-75.0 [facility] Comment on above: Performed By: #### C BC #### [facility] [address] [address] [address] Jennifer Peralta Platelet mean volume (Bld) [Entitic vol] 9.1 fL Critically low 9.5-13.5 [facility] Comment on above: Performed By: #### C BC #### [facility] [address] [address] [address] Jennifer Peralta PLT 246 103/ul Normal 150-450 [facility] Comment on above: Performed By: #### C BC #### [facility] [address] [address] [address] Jennifer Peralta RBC 3.93 106/ul Critically low 4.70-6.10 [facility] Comment on above: Performed By: #### C BC #### [facility] [address] [place] [address] Dr. Jennifer Peralta WBC 7.2 103/ul Normal 4.0-11.0 [facility] Comment on above: Performed By: #### C BC #### [facility] [address] [place] [address] Dr. Jennifer Peralta PROF 14(COMP METB)on 022 Albumin [Mass/Vol] 3.5 g/dL Normal 3.4-5.0 [facility] Comment on above: Performed By: #### S EDR #### [facility] [address] [place] [address] Dr. Jennifer Peralta Albumin/Globulin [Mass ratio] 0.9 {ratio} Normal [facility] Comment on above: Performed By: #### S EDR #### [facility] [address] [place] [address] Dr. Jennifer Peralta ALP [Catalytic activity/Vol] 80 U/L Normal 46-116 [facility] Comment on above: Performed By: #### S EDR #### [facility] [address] [place] [address] Dr. Jennifer Peralta ALT [Catalytic activity/Vol] 15 U/L Critically low 16-63 [facility] Comment on above: Performed By: #### S EDR #### [facility] [address] [address] [address] Jennifer Peralta Anion gap [Moles/Vol] 9.2 mmol/L Normal [facility] Comment on above: Performed By: #### S EDR #### [facility] [address] [address] [address] Jennifer Peralta AST [Catalytic activity/Vol] 25 U/L Normal 15-37 [facility] Comment on above: Performed By: #### S EDR #### [facility] [address] [address] [address] Jennifer Peralta Bilirubin [Mass/Vol] 0.4 mg/dL Normal 0.2-1.0 [facility] Comment on above: Performed By: #### S EDR #### [facility] [address] [place] [address] Dr. Jennifer Peralta Calcium [Mass/Vol] 9.0 mg/dL Normal 8.5-10.1 [facility] Comment on above: Performed By: #### S EDR #### [facility] [address] [place] [address] Dr. Jennifer Peralta Chloride [Moles/Vol] 101 mmol/L Normal 98-107 [facility] Comment on above: Performed By: #### S EDR #### [facility] [address] [place] [address] Dr. Jennifer Peralta CO2 [Moles/Vol] 28.0 mmol/L Normal 21.0-32.0 [facility] Comment on above: Performed By: #### S EDR #### [facility] [address] [place] [address] Dr. Jennifer Peralta Creatinine [Mass/Vol] 0.87 mg/dL Normal 0.70-1.30 [facility] Comment on above: Performed By: #### S EDR #### [facility] [address] [place] [address] Dr. Jennifer Peralta EGFR-AF NAURUAN >60 Normal >=60 [facility] Comment on above: Performed By: #### S EDR #### [facility] [address] [address] [address] Jennifer Peralta EGFR-NON AF NAURUAN >60 Normal >=60 [facility] Comment on above: Performed By: #### S EDR #### [facility] [address] [place] [address] Dr. Jennifer Peralta Globulin (S) [Mass/Vol] 3.9 g/dL Normal [facility] Comment on above: Performed By: #### S EDR #### [facility] [address] [address] [address] Jennifer Peralta Glucose [Mass/Vol] 84 mg/dL Normal 74-106 [facility] Comment on above: Performed By: #### S EDR #### [facility] [address] [place] [address] Dr. Jennifer Peralta Potassium [Moles/Vol] 4.2 mmol/L Normal 3.5-5.1 [facility] Comment on above: Performed By: #### S EDR #### [facility] [address] [place] [address] Dr. Jennifer Peralta Protein [Mass/Vol] 7.4 g/dL Normal 6.4-8.2 [facility] Comment on above: Performed By: #### S EDR #### [facility] [address] [place] [address] Dr. Jennifer Peralta Sodium [Moles/Vol] 134 mmol/L Critically low 136-[address] [facility] Comment on above: Performed By: #### S EDR #### [facility] [address] [place] [address] Dr. Jennifer Peralta Urea nitrogen [Mass/Vol] 18.0 mg/dL Normal 7.0-18.0 [facility] Comment on above: Performed By: #### S EDR #### [facility] [address] [place] [address] Dr. Jennifer Peralta Urea nitrogen/Creatinine [Mass ratio] 20.7 mg/mg Normal [facility] Comment on above: Performed By: #### S EDR #### [facility] [address] [place] [address] Dr. Jennifer Peralta SED RATE [facility] 2021 SED RATE 49 mm/hr Critically high <=20 [facility] Comment on above: Performed By: #### S EDR #### [facility] [address] [place] [address] Dr. Jennifer Peralta CBC AUTO DIFFon 10-02-2021 BASO # 0.0 103/ul Normal 0.0-0.1 [facility] Comment on above: Performed By: #### C BC #### [facility] [address] [place] [address] Dr. Jennifer Peralta Basophils/100 WBC (Bld) 0.4 % Normal 0.2-2.0 [facility] Comment on above: Performed By: #### C BC #### [facility] [address] [place] [address] Dr. Jennifer Peralta EO # 0.1 103/ul Normal 0.0-0.7 [facility] Comment on above: Performed By: #### C BC #### [facility] [address] [place] [address] Dr. Jennifer Peralta Eosinophils/100 WBC (Bld) 1.0 % Normal 0.9-7.0 [facility] Comment on above: Performed By: #### C BC #### [facility] [address] [place] [address] Dr. Jennifer Peralta Erythrocyte distribution width (RBC) [Ratio] 16.5 % Critically high 11.0-15.0 [facility] Comment on above: Performed By: #### C BC #### [facility] [address] [place] [address] Dr. Jennifer Peralta Hematocrit (Bld) [Volume fraction] 38.7 % Critically low 42.0-54.0 [facility] Comment on above: Performed By: #### C BC #### [facility] [address] [place] [address] Dr. Jennifer Peralta Hemoglobin (Bld) [Mass/Vol] 12.8 g/dL Critically low 14.0-18.0 [facility] Comment on above: Performed By: #### C BC #### [facility] [address] [place] [address] Dr. Jennifer Peralta IG # 0.02 10e3/ul Normal 0.00-0.03 [facility] Comment on above: Performed By: #### C BC #### [facility] [address] [place] [address] Dr. Jennifer Peralta IG % 0.3 % Normal 0.0-0.5 [facility] Comment on above: Performed By: #### C BC #### [facility] [address] [place] [address] Dr. Jennifer Peralta LYMPH # 2.8 103/ul Normal 1.2-3.8 [facility] Comment on above: Performed By: #### C BC #### [facility] [address] [place] [address] Dr. Jennifer Peralta Lymphocytes/100 WBC (Bld) 39.8 % Normal 20.5-60.0 [facility] Comment on above: Performed By: #### C BC #### [facility] [address] [place] [address] Dr. Jennifer Peralta MANUAL DIFF REQ NO Normal [facility] Comment on above: Performed By: #### C BC #### [facility] [address] [place] [address] Dr. Jennifer Peralta MCH (RBC) [Entitic mass] 32.3 pg Normal 25.9-34.0 [facility] Comment on above: Performed By: #### C BC #### [facility] [address] [place] [address] Dr. Jennifer Peralta MCHC (RBC) [Mass/Vol] 33.1 g/dL Normal 29.9-35.2 [facility] Comment on above: Performed By: #### C BC #### [facility] [address] [place] [address] Dr. Jennifer Peralta MCV (RBC) [Entitic vol] 97.7 fL Critically high 80.0-94.0 [facility] Comment on above: Performed By: #### C BC #### [facility] [address] [place] [address] Dr. Jennifer Peralta MONO # 0.7 103/ul Normal 0.3-0.8 [facility] Comment on above: Performed By: #### C BC #### [facility] [address] [place] [address] Dr. Jennifer Peralta Monocytes/100 WBC (Bld) 9.2 % Normal 1.7-12.0 [facility] Comment on above: Performed By: #### C BC #### [facility] [address] [place] [address] Dr. Jennifer Peralta NEUT # 3.5 103/ul Normal 1.4-6.5 [facility] Comment on above: Performed By: #### C BC #### [facility] [address] [place] [address] Dr. Jennifer Peralta Neutrophils/100 WBC (Bld) 49.3 % Normal 43.0-75.0 [facility] Comment on above: Performed By: #### C BC #### [facility] [address] [place] [address] Dr. Jennifer Peralta Platelet mean volume (Bld) [Entitic vol] 9.3 fL Critically low 9.5-13.5 [facility] Comment on above: Performed By: #### C BC #### [facility] [address] [place] [address] Dr. Jennifer Peralta PLT 230 103/ul Normal 150-450 [facility] Comment on above: Performed By: #### C BC #### [facility] [address] [place] [address] Dr. Jennifer Peralta RBC 3.96 106/ul Critically low 4.70-6.10 [facility] Comment on above: Performed By: #### C BC #### [facility] [address] [place] [address] Dr. Jennifer Peralta WBC 7.1 103/ul Normal 4.0-11.0 [facility] Comment on above: Performed By: #### C BC #### [facility] [address] [place] [address] Dr. Jennifer Peralta PROF 14(COMP METB)on 022 Albumin [Mass/Vol] 3.5 g/dL Normal 3.4-5.0 [facility] Comment on above: Performed By: #### C MP #### [facility] [address] [place] [address] Dr. Jennifer Peralta Albumin/Globulin [Mass ratio] 0.9 {ratio} Normal [facility] Comment on above: Performed By: #### C MP #### [facility] [address] [place] [address] Dr. Jennifer Peralta ALP [Catalytic activity/Vol] 78 U/L Normal 46-116 [facility] Comment on above: Performed By: #### C MP #### [facility] [address] [place] [address] Dr. Jennifer Peralta ALT [Catalytic activity/Vol] 23 U/L Normal 16-63 [facility] Comment on above: Performed By: #### C MP #### [facility] [address] [place] [address] Dr. Jennifer Peralta Anion gap [Moles/Vol] 9.8 mmol/L Normal [facility] Comment on above: Performed By: #### C MP #### [facility] [address] [place] [address] Dr. Jennifer Peralta AST [Catalytic activity/Vol] 27 U/L Normal 15-37 [facility] Comment on above: Performed By: #### C MP #### [facility] [address] [place] [address] Dr. Jennifer Peralta Bilirubin [Mass/Vol] 0.4 mg/dL Normal 0.2-1.0 [facility] Comment on above: Performed By: #### C MP #### [facility] [address] [place] [address] Dr. Jennifer Peralta Calcium [Mass/Vol] 9.0 mg/dL Normal 8.5-10.1 [facility] Comment on above: Performed By: #### C MP #### [facility] [address] [place] [address] Dr. Jennifer Peralta Chloride [Moles/Vol] 105 mmol/L Normal 98-107 [facility] Comment on above: Performed By: #### C MP #### [facility] [address] [address] [address] Jennifer Peralta CO2 [Moles/Vol] 29.7 mmol/L Normal 21.0-32.0 [facility] Comment on above: Performed By: #### C MP #### [facility] [address] [address] [address] Jeninfer Peralta Creatinine [Mass/Vol] 0.98 mg/dL Normal 0.70-1.30 [facility] Comment on above: Performed By: #### C MP #### [facility] [address] [address] [address] Jennifer Peralta EGFR-AF NAURUAN >60 Normal >=60 [facility] Comment on above: Performed By: #### C MP #### [facility] [address] [place] [address] Dr. Jennifer Peralta EGFR-NON AF NAURUAN >60 Normal >=60 [facility] Comment on above: Performed By: #### C MP #### [facility] [address] [address] [address] Jennifer Peralta Globulin (S) [Mass/Vol] 3.8 g/dL Normal [facility] Comment on above: Performed By: #### C MP #### [facility] [address] [place] [address] Dr. Jennifer Peralta Glucose [Mass/Vol] 83 mg/dL Normal 74-106 [facility] Comment on above: Performed By: #### C MP #### [facility] [address] [place] [address] Dr. Jennifer Peralta Potassium [Moles/Vol] 4.5 mmol/L Normal 3.5-5.1 [facility] Comment on above: Performed By: #### C MP #### [facility] [address] [address] [address] Jennifer Peralta Protein [Mass/Vol] 7.3 g/dL Normal 6.4-8.2 [facility] Comment on above: Performed By: #### C MP #### [facility] [address] [address] [address] Jennifer Peralta Sodium [Moles/Vol] 140 mmol/L Normal 136-145 [facility] Comment on above: Performed By: #### C MP #### [facility] [address] [place] [address] Dr. Jennifer Peralta Urea nitrogen [Mass/Vol] 23.0 mg/dL Critically high 7.0-18.0 [facility] Comment on above: Performed By: #### C MP #### [facility] [address] [place] [address] Dr. Jennifer Peralta Urea nitrogen/Creatinine [Mass ratio] 23.5 mg/mg Normal [facility] Comment on above: Performed By: #### C MP #### [facility] [address] [place] [address] Dr. Jennifer Peralta SED RATE [facility] 2021 SED RATE 22 mm/hr Critically high <=20 [facility] Comment on above: Performed By: #### S EDR #### [facility] [address] [place] [address] Dr. Jennifer Peralta CBC AUTO DIFFon 07-04-2021 BASO # 0.0 103/ul Normal 0.0-0.1 [facility] Comment on above: Performed By: #### S EDR #### [facility] [address] [place] [address] Dr. Jennifer Peralta Basophils/100 WBC (Bld) 0.3 % Normal 0.2-2.0 [facility] Comment on above: Performed By: #### S EDR #### [facility] [address] [place] [address] Dr. Jennifer Peralta EO # 0.1 103/ul Normal 0.0-0.7 [facility] Comment on above: Performed By: #### S EDR #### [facility] [address] [place] [address] Dr. Jennifer Peralta Eosinophils/100 WBC (Bld) 1.1 % Normal 0.9-7.0 [facility] Comment on above: Performed By: #### S EDR #### [facility] [address] [place] [address] Dr. Jennifer Peralta Erythrocyte distribution width (RBC) [Ratio] 17.3 % Critically high 11.0-15.0 [facility] Comment on above: Performed By: #### S EDR #### [facility] [address] [place] [address] Dr. Jennifer Peralta Hematocrit (Bld) [Volume fraction] 39.6 % Critically low 42.0-54.0 [facility] Comment on above: Performed By: #### S EDR #### [facility] [address] [place] [address] Dr. Jennifer Peralta Hemoglobin (Bld) [Mass/Vol] 13.0 g/dL Critically low 14.0-18.0 [facility] Comment on above: Performed By: #### S EDR #### [facility] [address] [place] [address] Dr. Jennifer Peralta IG # 0.02 10e3/ul Normal 0.00-0.03 [facility] Comment on above: Performed By: #### S EDR #### [facility] [address] [place] [address] Dr. Jennifer Peralta IG % 0.3 % Normal 0.0-0.5 [facility] Comment on above: Performed By: #### S EDR #### [facility] [address] [place] [address] Dr. Jennifer Peralta LYMPH # 2.4 103/ul Normal 1.2-3.8 [facility] Comment on above: Performed By: #### S EDR #### [facility] [address] [place] [address] Dr. Jennifer Peralta Lymphocytes/100 WBC (Bld) 38.1 % Normal 20.5-60.0 [facility] Comment on above: Performed By: #### S EDR #### [facility] [address] [place] [address] Dr. Jennifer Peralta MANUAL DIFF REQ NO Normal [facility] Comment on above: Performed By: #### S EDR #### [facility] [address] [address] [address] Jennifer Peralta MCH (RBC) [Entitic mass] 31.5 pg Normal 25.9-34.0 [facility] Comment on above: Performed By: #### S EDR #### [facility] [address] [place] [address] Dr. Jennifer Peralta MCHC (RBC) [Mass/Vol] 32.8 g/dL Normal 29.9-35.2 [facility] Comment on above: Performed By: #### S EDR #### [facility] [address] [place] [address] Dr. Jennifer Peralta MCV (RBC) [Entitic vol] 95.9 fL Critically high 80.0-94.0 [facility] Comment on above: Performed By: #### S EDR #### [facility] [address] [place] [address] Dr. Jennifer Peralta MONO # 0.6 103/ul Normal 0.3-0.8 [facility] Comment on above: Performed By: #### S EDR #### [facility] [address] [place] [address] Dr. Jennifer Peralta Monocytes/100 WBC (Bld) 9.1 % Normal 1.7-12.0 [facility] Comment on above: Performed By: #### S EDR #### [facility] [address] [place] [address] Dr. Jennifer Peralta NEUT # 3.2 103/ul Normal 1.4-6.5 [facility] Comment on above: Performed By: #### S EDR #### [facility] [address] [place] [address] Dr. Jennifer Peralta Neutrophils/100 WBC (Bld) 51.1 % Normal 43.0-75.0 [facility] Comment on above: Performed By: #### S EDR #### [facility] [address] [place] [address] Dr. Jennifer Peralta Platelet mean volume (Bld) [Entitic vol] 9.0 fL Critically low 9.5-13.5 [facility] Comment on above: Performed By: #### S EDR #### [facility] [address] [address] [address] Jennifer Peralta PLT 218 103/ul Normal 150-450 [facility] Comment on above: Performed By: #### S EDR #### [facility] [address] [address] [address] Jennifer Peralta RBC 4.13 106/ul Critically low 4.70-6.10 [facility] Comment on above: Performed By: #### S EDR #### [facility] [address] [address] [address] Jennifer Peralta WBC 6.3 103/ul Normal 4.0-11.0 [facility] Comment on above: Performed By: #### S EDR #### [facility] [address] [place] [address] Dr. Jennifer Peralta PROF 14(COMP METB)on 022 Albumin [Mass/Vol] 3.6 g/dL Normal 3.5-5.0 [facility] Comment on above: Performed By: #### C MP #### [facility] [address] [place] [address] Dr. Jennifer Peralta Albumin/Globulin [Mass ratio] 0.9 {ratio} Normal [facility] [place] [facility] Comment on above: Performed By: #### C MP #### [facility] [address] [place] [address] Dr. Jennifer Peralta ALP [Catalytic activity/Vol] 80 U/L Normal 38-126 [facility] [place] [facility] Comment on above: Performed By: #### C MP #### [facility] [address] [place] [address] Dr. Jennifer Peralta ALT [Catalytic activity/Vol] 18 U/L Critically low 21-72 [facility] [place] [facility] Comment on above: Performed By: #### C MP #### [facility] [address] [place] [address] Dr. Jennifer Peralta Anion gap [Moles/Vol] 10.5 mmol/L Normal [facility] Comment on above: Performed By: #### C MP #### [facility] [address] [address] [address] Jennifer Peralta AST [Catalytic activity/Vol] 24 U/L Normal 17-59 [facility] Comment on above: Performed By: #### C MP #### [facility] [address] [address] [address] Jennifer Peralta Bilirubin [Mass/Vol] 0.4 mg/dL Normal 0.2-1.3 [facility] Comment on above: Performed By: #### C MP #### [facility] [address] [address] [address] Jennifer Peralta Calcium [Mass/Vol] 8.7 mg/dL Normal 8.4-10.2 [facility] Comment on above: Performed By: #### C MP #### [facility] [address] [place] [address] Dr. Jennifer Peralta Chloride [Moles/Vol] 100 mmol/L Normal 98-107 [facility] Comment on above: Performed By: #### C MP #### [facility] [address] [place] [address] Dr. Jennifer Peralta CO2 [Moles/Vol] 26.9 mmol/L Normal 22.0-30.0 [facility] Comment on above: Performed By: #### C MP #### [facility] [address] [place] [address] Dr. Jennifer Peralta Creatinine [Mass/Vol] 0.93 mg/dL Normal 0.66-1.25 [facility] Comment on above: Performed By: #### C MP #### [facility] [address] [place] [address] Dr. Jennifer Peralta EGFR-AF NAURUAN >60 Normal >=60 [facility] Comment on above: Performed By: #### C MP #### [facility] [address] [place] [address] Dr. Jennifer Peralta EGFR-NON AF NAURUAN >60 Normal >=60 [facility] Comment on above: Performed By: #### C MP #### [facility] [address] [place] [address] Dr. Jennifer Peralta Globulin (S) [Mass/Vol] 3.9 g/dL Normal [facility] [place] [facility] Comment on above: Performed By: #### C MP #### [facility] [address] [address] [address] Jennifer Peralta Glucose [Mass/Vol] 102 mg/dL Normal 74-106 [facility] Comment on above: Performed By: #### C MP #### [facility] [address] [address] [address] Jennifer Peralta Potassium [Moles/Vol] 4.4 mmol/L Normal 3.4-5.0 [facility] [place] [facility] Comment on above: Performed By: #### C MP #### [facility] [address] [address] [address] Jennifer Peralta Protein [Mass/Vol] 7.5 g/dL Normal 6.1-8.2 [facility] Comment on above: Performed By: #### C MP #### [facility] [address] [address] [address] Jennifer Peralta Sodium [Moles/Vol] 133 mmol/L Critically low 137-145 [facility] Comment on above: Performed By: #### C MP #### [facility] [address] [place] [address] Dr. Jennifer Peralta Urea nitrogen [Mass/Vol] 20.0 mg/dL Normal 9.0-20.0 [facility] [place] [facility] Comment on above: Performed By: #### C MP #### [facility] [address] [address] [address] Jennifer Peralta Urea nitrogen/Creatinine [Mass ratio] 21.5 mg/mg Normal [facility] [place] [facility] Comment on above: Performed By: #### C MP #### [facility] [address] [address] [address] Jennifer Peralta SED RATE WESTERGRENon 2021 SED RATE 35 mm/hr Critically high <=20 [facility] Comment on above: Performed By: #### S EDR #### [facility] [address] [address] [address] Jennifer Peralta CBC AUTO DIFFon 04-04-2021 BASO # 0.0 103/ul Normal 0.0-0.1 [facility] [place] [facility] Comment on above: Performed By: #### C BC #### [facility] [address] [place] [address] Dr. Jennifer Peralta Basophils/100 WBC (Bld) 0.4 % Normal 0.2-2.0 [facility] [place] [facility] Comment on above: Performed By: #### C BC #### [facility] [address] [place] [address] Dr. Jennifer Peralta EO # 0.1 103/ul Normal 0.0-0.7 [facility] Comment on above: Performed By: #### C BC #### [facility] [address] [place] [address] Dr. Jennifer Peralta Eosinophils/100 WBC (Bld) 1.6 % Normal 0.9-7.0 [facility] [place] [facility] Comment on above: Performed By: #### C BC #### [facility] [address] [place] [address] Dr. Jennifer Peralta Erythrocyte distribution width (RBC) [Ratio] 15.9 % Critically high 11.0-15.0 [facility] [place] [facility] Comment on above: Performed By: #### C BC #### [facility] [address] [place] [address] Dr. Jennifer Peralta Hematocrit (Bld) [Volume fraction] 39.2 % Critically low 42.0-54.0 [facility] [place] [facility] Comment on above: Performed By: #### C BC #### [facility] [address] [place] [address] Dr. Jennifer Peralta Hemoglobin (Bld) [Mass/Vol] 12.8 g/dL Critically low 14.0-18.0 [facility] [place] [facility] Comment on above: Performed By: #### C BC #### [facility] [address] [place] [address] Dr. Jennifer Peralta IG # 0.02 10e3/ul Normal 0.00-0.03 [facility] [place] [facility] Comment on above: Performed By: #### C BC #### [facility] [address] [place] [address] Dr. Jennifer Peralta IG % 0.4 % Normal 0.0-0.5 [facility] [place] [facility] Comment on above: Performed By: #### C BC #### [facility] [address] [place] [address] Dr. Jennifer Peralta LYMPH # 2.5 103/ul Normal 1.2-3.8 [facility] [place] [facility] Comment on above: Performed By: #### C BC #### [facility] [address] [place] [address] Dr. Jennifer Peralta Lymphocytes/100 WBC (Bld) 45.8 % Normal 20.5-60.0 [facility] [place] [facility] Comment on above: Performed By: #### C BC #### [facility] [address] [place] [address] Dr. Jennifer Peralta MANUAL DIFF REQ NO Normal [facility] Comment on above: Performed By: #### C BC #### [facility] [address] [place] [address] Dr. Jennifer Peralta MCH (RBC) [Entitic mass] 30.8 pg Normal 25.9-34.0 [facility] [place] [facility] Comment on above: Performed By: #### C BC #### [facility] [address] [place] [address] Dr. Jennifer Peralta MCHC (RBC) [Mass/Vol] 32.7 g/dL Normal 29.9-35.2 [facility] [place] [facility] Comment on above: Performed By: #### C BC #### [facility] [address] [place] [address] Dr. Jennifer Peralta MCV (RBC) [Entitic vol] 94.5 fL Critically high 80.0-94.0 [facility] [place] [facility] Comment on above: Performed By: #### C BC #### [facility] [address] [place] [address] Dr. Jennifer Peralta MONO # 0.6 103/ul Normal 0.3-0.8 [facility] [place] [facility] Comment on above: Performed By: #### C BC #### [facility] [address] [place] [address] Dr. Jennifer Peralta Monocytes/100 WBC (Bld) 10.7 % Normal 1.7-12.0 [facility] [place] [facility] Comment on above: Performed By: #### C BC #### [facility] [address] [address] [address] Jennifer Peralta NEUT # 2.3 103/ul Normal 1.4-6.5 [facility] [place] [facility] Comment on above: Performed By: #### C BC #### [facility] [address] [address] [address] Jennifer Peralta Neutrophils/100 WBC (Bld) 41.1 % Critically low 43.0-75.0 [facility] [place] [facility] Comment on above: Performed By: #### C BC #### [facility] [address] [address] [address] Jennifer Peralta Platelet mean volume (Bld) [Entitic vol] 9.9 fL Normal 9.5-13.5 [facility] [place] [facility] Comment on above: Performed By: #### C BC #### [facility] [address] [place] [address] Dr. Jennifer Peralta PLT 214 103/ul Normal 150-450 [facility] [place] [facility] Comment on above: Performed By: #### C BC #### [facility] [address] [address] [address] Jennifer Peralta RBC 4.15 106/ul Critically low 4.70-6.10 [facility] Comment on above: Performed By: #### C BC #### [facility] [address] [place] [address] Dr. Jennifer Peralta WBC 5.5 103/ul Normal 4.0-11.0 [facility] [place] [facility] Comment on above: Performed By: #### C BC #### [facility] [address] [place] [address] Dr. Jennifer Peralta PROF 14(COMP METB)on 021 Albumin [Mass/Vol] 3.3 g/dL Critically low 3.5-5.[address] [facility] Comment on above: Performed By: #### C MP #### [facility] [address] [place] [address] Dr. Jennifer Peralta Albumin/Globulin [Mass ratio] 0.8 {ratio} Normal [facility] Comment on above: Performed By: #### C MP #### [facility] [address] [address] [address] Jennifer Peralta ALP [Catalytic activity/Vol] 73 U/L Normal 38-126 [facility] [place] [facility] Comment on above: Performed By: #### C MP #### [facility] [address] [address] [address] Jennifer Peralta ALT [Catalytic activity/Vol] 15 U/L Critically low 21-72 [facility] [place] [facility] Comment on above: Performed By: #### C MP #### [facility] [address] [place] [address] Dr. Jennifer Peralta Anion gap [Moles/Vol] 9.2 mmol/L Normal [facility] [place] [facility] Comment on above: Performed By: #### C MP #### [facility] [address] [place] [address] Dr. Jennifer Peralta AST [Catalytic activity/Vol] 23 U/L Normal 17-59 [facility] [place] [facility] Comment on above: Performed By: #### C MP #### [facility] [address] [place] [address] Dr. Jennifer Peralta Bilirubin [Mass/Vol] 0.4 mg/dL Normal 0.2-1.3 [facility] Comment on above: Performed By: #### C MP #### [facility] [address] [place] [address] Dr. Jennifer Peralta Calcium [Mass/Vol] 8.8 mg/dL Normal 8.4-10.2 [facility] Comment on above: Performed By: #### C MP #### [facility] [address] [place] [address] Dr. Jennifer Peralta Chloride [Moles/Vol] 100 mmol/L Normal 98-107 [facility] [place] [facility] Comment on above: Performed By: #### C MP #### [facility] [address] [place] [address] Dr. Jennifer Peralta CO2 [Moles/Vol] 30.1 mmol/L Critically high 22.0-30.0 [facility] [place] [facility] Comment on above: Performed By: #### C MP #### [facility] [address] [address] [address] Jennifer Peralta Creatinine [Mass/Vol] 0.93 mg/dL Normal 0.66-1.25 [facility] [place] [facility] Comment on above: Performed By: #### C MP #### [facility] [address] [address] [address] Jennifer Peralta EGFR-AF NAURUAN >60 Normal >=60 [facility] Comment on above: Performed By: #### C MP #### [facility] [address] [address] [address] Jennifer Peralta EGFR-NON AF NAURUAN >60 Normal >=60 [facility] [place] [facility] Comment on above: Performed By: #### C MP #### [facility] [address] [place] [address] Dr. Jennifer Peralta Globulin (S) [Mass/Vol] 3.9 g/dL Normal [facility] [place] [facility] Comment on above: Performed By: #### C MP #### [facility] [address] [place] [address] Dr. Jennifer Peralta Glucose [Mass/Vol] 95 mg/dL Normal 74-106 [facility] Comment on above: Performed By: #### C MP #### [facility] [address] [address] [address] Jennifer Peralta Potassium [Moles/Vol] 4.3 mmol/L Normal 3.4-5.0 [facility] [place] [facility] Comment on above: Performed By: #### C MP #### [facility] [address] [address] [address] Jennifer Peralta Protein [Mass/Vol] 7.2 g/dL Normal 6.1-8.2 [facility] Comment on above: Performed By: #### C MP #### [facility] [address] [place] [address] Dr. Jennifer Peralta Sodium [Moles/Vol] 135 mmol/L Critically low 137-[address] [facility] Comment on above: Performed By: #### C MP #### [facility] [address] [place] [address] Dr. Jennifer Peralta Urea nitrogen [Mass/Vol] 17.0 mg/dL Normal 9.0-20.0 [facility] [place] [facility] Comment on above: Performed By: #### C MP #### [facility] [address] [place], [place] [address] Dr. Jennifer Peralta Urea nitrogen/Creatinine [Mass ratio] 18.3 mg/mg Normal [facility] [place] [facility] Comment on above: Performed By: #### C MP #### [facility] [address] [place], [place] [address] Dr. Jennifer Peralta SED RATE [facility] 2020 SED RATE 76 mm/hr Critically high <=20 [facility] Comment on above: Performed By: #### S EDR #### [facility] [address] [place], [place] [address] Dr. Jennifer Peralta Coding Summary.on 11-27-2018 Coding Summary. CODING DATE: 11/27/2018 FINAL [facility] STATUS: Home (Routine DC) PAYOR: Bobbi APC DESCRIPTION 1466 Level 5 Musculoskeletal Procedures ADMIT DX: REASON [...] PROC APC STAT DESCRIPTION DOCTOR NAME DATE 98720 3021 J1 Arthroplasty, knee, Zain Coughlin DO 11/25/2018 condyle and plateau; medial AND lateral compartments with or without patella resurfacing (total knee arthroplasty) RT Right side (used to identify procedures performed on the right side of the body) 86393 Injection, anesthetic Florencio Ignacio MD 11/25/2018 agent; femoral nerve, single RT Right side (used to identify procedures performed on the right side of the body) XP Separate practitioner, a service that is distinct because it was performed by a different practitioner 97206 Anesthesia for open or Florencio Ignacio MD 11/25/2018 surgical arthroscopic procedures on knee joint; total knee arthroplasty NOTE: The code number assigned matches the documented diagnosis and / or procedure in the patient's chart. However, the narrative phrase printed from the coding software may appear abbreviated, or result in slightly different terminology. Revised Coded By: Rosina Machado Revised Date Saved: 11/27/2018 11:46 am [facility] Operative Reporton 9 Operative Report Date [...] procedure. Florencio Ignacio M.D. aek Dictated: 11/25/2018 #[id number] Typed: 11/25/2018 #[id number] cc: Florencio Ignacio M.D. [facility] Comment on above: Result Comment: [...] constipation, # 40 cap(s), Refills(s) 0, Pharmacy: [facility]/pharmacy #[id number] Ecotrin 325 mg Tab-EC: 325 mg = 1 tab(s), Oral, BIDPC, # 60 tab(s), Refills(s) 0, Pharmacy: [facility]/pharmacy #[id number] Percocet 325 mg-5 mg Tab: See Instructions, as needed for pain, 40 tab(s), Refill(s) 0, 1-2 orally every 4-6hrs as needed for pain Dx: M17.11, Z96.651 Duration: 7 days, [facility]/pharmacy #[id number] Documented Medications Documented CeleBREX 200 mg [...] All Problems Rheumatoid arthritis / SNOMED CT 384159948 / Confirmed Smoker / SNOMED CT 553206363 / Confirmed Added secondary to documentation in Social History. Decreased vision / SNOMED CT 2002053635 / Confirmed left eye Osteoarthritis of knee / SNOMED CT 383261521 / Confirmed right Histories Past Medical History: [...] Results review: No qualifying data available. Plan [place] [employer] (ASA) physical status classification: [...] allergic reactions, failed block and .. Normal [facility] Comment on above: Result Comment: Elec tronically Signed By: Mateus FLEMING, Florencio\.br\Date and Time Signed: 11/27/18 14:59 EDT Auto Diffon 11-26-2018 Basophils/100 WBC (Bld) 0.1 % Normal 0.0-2.0 [facility] Comment on above: Order Comment: Order Added by Discern Expert. Performed By: #### 2 521086, 5808291, 9171824, 56905000, 7169132, 3461527 #### [facility] [address] [place] [address] Basophils/Leukocytes Auto (Bld) [Pure # fraction] 0.0 E9/L Normal 0.0-0.2 [facility] Comment on above: Order Comment: Order Added by Amrik Expert. Performed By: #### 2 371462, 5785970, 2455757, 72004537, 2710323, 7732602 #### [facility] [address] [place] [address] Eosinophils/100 WBC (Bld) 1.1 % Normal 0.0-8.0 [facility] Comment on above: Order Comment: Order Added by Amrik Expert. Performed By: #### 2 206638, 2533888, 3195046, 89178615, 8344143, 4329993 #### [facility] [address] [place] [address] Eosinophils/Leukocytes Auto (Bld) [Pure # fraction] 0.1 E9/L Normal 0.0-0.5 [facility] Comment on above: Order Comment: Order Added by Discern Expert. Performed By: #### 2 032860, 7158374, 5642423, 80950629, 6067048, 4919738 #### [facility] [address] [place] [address] Lymphocytes/100 WBC (Bld) 25.4 % Normal 14.0-50.0 [facility] Comment on above: Order Comment: Order Added by Discern Expert. Performed By: #### 2 487450, 3059579, 7782493, 00491331, 3996491, 7236003 #### [facility] [address] [place] [address] Lymphocytes/Leukocytes Auto (Bld) [Pure # fraction] 2.1 E9/L Normal 1.0-4.0 [facility] Comment on above: Order Comment: Order Added by Amrik Expert. Performed By: #### 2 051969, 3648560, 3331306, 37546535, 3294001, 3314858 #### [facility] [address] [place] [address] Monocytes/100 WBC (Bld) 9.5 % Normal 4.0-14.0 [facility] Comment on above: Order Comment: Order Added by Amrik Expert. Performed By: #### 2 098986, 5895919, 3740569, 80890624, 6312866, 6793482 #### [facility] [address] [place] [address] Monocytes/Leukocytes Auto (Bld) [Pure # fraction] 0.8 E9/L Normal 0.2-1.0 [facility] Comment on above: Order Comment: Order Added by Discern Expert. Performed By: #### 2 274156, 3025396, 4563270, 98075104, 7540179, 1772946 #### [facility] [address] [place] [address] Neutrophils/100 WBC (Bld) 63.9 % Normal 36.0-75.0 [facility] Comment on above: Order Comment: Order Added by Discern Expert. Performed By: #### 2 687704, 4806375, 6647487, 19770793, 6354468, 2804218 #### [facility] [address] [place] [address] Neutrophils/Leukocytes Auto (Bld) [Pure # fraction] 5.2 E9/L Normal 2.0-7.5 [facility] Comment on above: Order Comment: Order Added by Discern Expert. Performed By: #### 2 669686, 4625572, 0214808, 55790317, 7906485, 9734831 #### [facility] [address] [place] [address] BUNon 11-26-2018 Urea nitrogen [Mass/Vol] 19 mg/dL Normal 5-21 [facility] Comment on above: Performed By: #### 2 738549, 6200287, 0334189, 81405869, 6572959, 2916144 #### [facility] [address] [place] [address] CBC w/ Auto Diffon 9 Erythrocyte distribution width (RBC) [Ratio] 16.1 % High 10.9-14.2 [facility] Comment on above: Performed By: #### 2 905751, 2061431, 6113659, 67174762, 2545558, 2685955 #### [facility] [address] [place] [address] Hematocrit (Bld) [Volume fraction] 34.8 % Low 37.7-49.0 [facility] Comment on above: Performed By: #### 2 700956, 4412195, 4559258, 10333882, 5538509, 8593638 #### [facility] [address] [place] [address] Hemoglobin (Bld) [Mass/Vol] 11.6 g/dL Low 13.5-17.5 [facility] Comment on above: Performed By: #### 2 262593, 6892120, 2152002, 12141956, 3413295, 6652484 #### [facility] [address] [place] [address] MCH (RBC) [Entitic mass] 33.0 pg Normal 27.0-34.0 [facility] Comment on above: Performed By: #### 2 956185, 0039572, 9023493, 34707719, 0223094, 1776038 #### [facility] [address] [place] [address] MCHC (RBC) [Mass/Vol] 33.5 g/dL Normal 33.3-35.7 [facility] Comment on above: Performed By: #### 2 043993, 5349430, 7055792, 71472852, 7854282, 0790105 #### [facility] [address] [place] [address] MCV (RBC) [Entitic vol] 98.6 fL Normal 80.0-100.0 [facility] Comment on above: Performed By: #### 2 009909, 2582166, 6785615, 87900657, 7151132, 3806814 #### [facility] [address] [place] [address] Platelet mean volume (Bld) [Entitic vol] 7.4 fL Normal 6.4-10.8 [facility] Comment on above: Performed By: #### 2 602907, 7720780, 7396285, 47043582, 6074213, 2996489 #### [facility] [address] [place] [address] Platelets (Bld) [#/Vol] 193.0 E9/L Normal 150.0-500.0 [facility] Comment on above: Performed By: #### 2 409458, 3995287, 7067412, 74946384, 4554119, 0770119 #### [facility] [address] [place] [address] RBC (Bld) [#/Vol] 3.5 E12/L Low 4.3-5.9 [facility] Comment on above: Performed By: #### 2 517109, 1122682, 4186938, 19493435, 0178692, 6747839 #### [facility] [address] [place] [address] WBC corrected for nucl RBC Auto (Bld) [#/Vol] 8.1 E9/L Normal 4.0-11.0 [facility] Comment on above: Performed By: #### 2 480974, 5004494, 0579543, 81250241, 8905474, 7296679 #### [facility] [address] [place] [address] Creatinineon 11-26-2018 Creatinine [Mass/Vol] 0.8 mg/dL Normal 0.5-1.3 [facility] Comment on above: Performed By: #### 2 564784, 5799374, 7003264, 20900099, 7900585, 3834801 #### [facility] [address] [place] [address] Discharge Note-Nursingon Discharge Note-Nursing Patient provided with discharge instructions, education and extra mepilex dressing. Patient states no questions or concerns. Patient taken by wheelchair to patient pick-up by Cynthia POCT. Normal [facility] Inpatient Clinical Summaryon 11-26-2018 Inpatient Clinical Summary [address] [address] Clinical Summary Person Information: Name: ANGUS LUCIO Age: 63 Years : 1955 12:00 AM Sex: Male PCP: Junito Garcia MD Marital Status: Phone: [phone] Race: White Ethnicity: Non- or Language: Croatian Visit Id: Visit Reason: RIGHT KNEE OA Speciality: Acuity: Enc Type: Ambulatory/Same Day Surgery Med Service: Surgery Arrival: 11/25/2018 10:09 AM Discharge: Dispo Type: Address: [address] [place] [id number] Provider Notes: Diagnosis: Problems Active Smoker Smoking [...] Follow up: With: Address: When: Zain Coughlin [address] [place], [place] [id number] Business (1) 12/24/2018 10:30 AM With: Address: When: Junito Garcia [address] [place] [address], [facility] [place] [address] Business (1) Comments: Call if needed. Patient Education Information: [place] - Total Knee Arthroplasty. Revised 02/22/12. (Custom) Normal [facility] Inpatient Patient Summaryon 11-26-2018 Inpatient Patient Summary [facility] [address] [place], [place] [address] Patient Discharge Instructions PERSON INFORMATION [...] up: With: Address: When: Zain Coughlin [address] [phone] Business (1) 12/24/2018 10:30 AM With: Address: When: Junito Garcia [address] [place] [address], [facility] [place] [address] Business (1) Comments: Call if [...] That Have Changed [id number], [address], [place] [id number], [phone] START: aspirin (Ecotrin 325 mg Tab-EC) 1 [...] with No Changes [id number], [address] [phone], [phone] acetaminophen-oxycodon e (Percocet 325 mg-5 mg Tab) [...] Tabs By Mouth every day. [facility] Comment: PATIENT EDUCATION INFORMATION Instructions: [place], [place] [facility] DISCHARGE INSTRUCTIONS TOTAL KNEE [...] will continue at home, possible with the executive sales assistant of [facility] or [...] 4 weeks postop. Zain Coughlin, [facility] [facility]opa[facility] [address] [place] [address] [phone] Reviewed: 08-25 Revised 05/31 Medication Leaflets: Thank you for choosing [facility] Interdisciplinary Note - Shola e Manageron 11-26-2018 Interdisciplinary Note - Medical Radiation Dosimetrist Pt is awake and alert in chair. PCP verified and insurance information reviewed. DME discussed. Contact inforrmation provided and white board updated. Pt is with [facility] program for therapy at [place]. Aware of anticiapted [place] home today and has transportation at [place]. Observation status discussed. Denies any further concerns or [place] needs. Normal [facility] Interdisciplinary Note - Ortiz n 11-26-2018 [...] further OT needs at this time. Normal [facility] Lyteson 11-26-2018 Anion gap [Moles/Vol] 12 mmol/L Normal 6-16 Fis [facility] Comment on above: Performed By: #### 2 846232, 9758328, 3326313, 57771189, 4278758, 7347570 #### [facility] [address] [place] [address] Chloride [Moles/Vol] 99 mmol/L Low 101-111 Fish [facility] Comment on above: Performed By: #### 2 852794, 7822661, 9471182, 26410365, 5646272, 9561119 #### [facility] [address] [place] [address] CO2 [Moles/Vol] 24 mmol/L Normal 21-31 [facility] Comment on above: Performed By: #### 2 211643, 4957526, 5317938, 81926743, 6033950, 1968150 #### [facility] [address] [place] [address] Potassium [Moles/Vol] 4.3 mmol/L Normal 3.5-5.3 [facility] Comment on above: Performed By: #### 2 935487, 4897058, 1941118, 61097758, 4500567, 9497607 #### [facility] [address] [place] [address] Sodium [Moles/Vol] 131 mmol/L Low 135-145 [facility] Comment on above: Performed By: #### 2 731592, 8379502, 8124289, 03298660, 1735704, 4025946 #### [facility] [address] [place] [address] Main OR Intraoperative Recor don 11-26-2018 Main OR Intraoperative Record IntraOp Document Type FT Summary Primary Physician: Zain Coughlin DO Finalized Date/Time: 11/26/18 10:56:45 Pt. Name: ANGUS LUCIO/Sex: 1955 Male Med Rec #: [id number] Physician: Zain Coughlin DO Financial #: [id number] Pt. Type: A Room/Bed: N318/01 Admit/Disch: 11/25/18 [...] to review and send charges Sana Ignacio MOUNT LOADER Case Attendance FT Entry 1 Entry 2 Entry 3 Case Attendee Flex CAA, Eleanor Coughlin DO, Zain Longoria DO, Koko Blair Role Performed Anesthesiologist Surgeon - Primary Surgeon - Assist 1 Building Construction Supervisor Time In 11/25/18 11:37:00 11/25/18 11:59:00 11/25/18 12:18:00 Time Out 11/25/18 13:49:00 11/25/18 13:41:00 11/25/18 13:49:00 Procedure KNEE TOTAL KNEE TOTAL KNEE TOTAL ARTHROPLASTY(Right) ARTHROPLASTY(Right) ARTHROPLASTY(Right) Comments , ANESTHESIA CHURN TENDER. Last Modified By: Ileana RN, Todd Tejeda RN, Todd Tejeda RN, Todd Durand 11/25/18 13:51:47 11/25/18 13:51:47 11/25/18 13:51:47 Entry 4 Entry 5 Entry 6 Case Attendee Ileana JACQUES, Todd Mccloud RN, Mike Garcia CST, May Donald Role Performed Gear Cutter - Primary Gear Cutter - Primary Scrub - Primary Time In [...] ARTHROPLASTY(Right) Comments IN ORIENTATION Last Modified By: Ielana JACQUES, Todd Tejeda RN, Todd Altamirano RN 11/25/18 13:51:47 11/25/18 13:51:47 11/25/18 13:51:47 General Comments: King Shipley, [employer] rep, present in the OR for [...] and tissue Entry 1 Skin Integrity Intact, [place], Warm, and Skin Abnormality No Dry Outcomes [...] Items BANDAGE ELASTIC DOUBLE 6 X 11YD [[id number]][F] Site and Details right knee- 10 inch [...] safely administered during the perioperative period For [place] please see scanned medication reconcilliation form for medications used at the field during the procedure. Tourniquet FT Pre-Care Text: Implements protective measures to prevent skin/tissue injury due to mechanical sources Entry 1 Tourniquet Type TOURNIQUET CUFF ROYAL Setting 250 mmHg BLUE 30 X 4 [[id number]][F] Equipment Number D Placement Right Upper Thigh [...] universal tibial baseplate Serial Number Lot Number [id number] Load Number [employer] [facility] Catalog ?# [...] Reconstitution Method Outcomes Met? Yes Yes Yes [employer]chant Police Model Number Last Modified By: Ileana JACQUES, Todd Tejeda RN, Todd Tejeda RN, Todd Durand 11/25/18 12:22:15 11/25/18 13:06:25 11/25/18 13:08:45 Entry 4 Entry 5 Entry 6 Procedure KNEE TOTAL KNEE TOTAL KNEE TOTAL ARTHROPLASTY(Right) ARTHROPLASTY(Right) ARTHROPLASTY(Right) Implant/Explant Implant Implant Implant Implant Identification FT Description Triathlon posterior Triathlon X3 Asymmetric Triathlon Offset Adaptor stabilized femoral Patella Serial Number Lot Number [id number] Load Number [employer] [facility] [facility] Catalog ?# [id number] Size [...] Reconstitution Method Outcomes Met? Yes Yes Yes [employer]chant [employer] Model Number Last Modified By: Ileana JACQUES, Todd Tejeda RN, Todd L Todd Tejeda RN 11/25/18 13:10:38 11/25/18 13:17:54 11/25/18 13:19:37 Entry 7 Procedure KNEE TOTAL ARTHROPLASTY(Right) Implant/Explant Implant Implant Identification FT Description Wilner X3 Tibial Bearing Insert- PS Serial Number Lot Number [id number] Load Number [employer] Catalog ?# [id number]-[id number] Size 7 Expiration Date 10/08/20 Manufactured Date Materials Unique Device Identifier (SANTI) Human Readable Barcode Machine Readable Barcode Usage Data FT Implant Site Knee R Implant Site Comment Quantity 1 Implant/Explant Date Implanted By Zain Coughlin DO Explant Reason Biological Implants Biological Source Donor Number MR Classification Temperature Reconstitution Method Outcomes Met? Yes [employer]chant Police Model Number Last Modified By: Todd Tejeda RN 11/25/18 13:38:06 Post-Care Text: The patient is free from signs and symptoms of injury caused by extraneous objects Urinary Catheter Pre-Care Text: Patient is prepped using sterile technique. Entry 1 Urinary Catheter TRAY URINE TEQUILA CATH Present Upon Arrival No Inserted LF 16FR [[id number]][F] Insertion Date/Time 11/25/18 11:52:00 Urine Residual 40 [...] BLANKET MISTRAL AIR Quantity 1 Aid TORSO [[id number]][F] Fluid/[place] Unit Mistral warming system Setting 43 C/ HIGH Body Site Upper anterior torso Last Modified By: Todd Tejeda RN 11/25/18 11:35:56 Case Comments Finalized By: Franci Ignacio CST Document Signatures Signed By: Ileana JACQUES, Todd Durand 11/25/18 13:52 Franci Ignacio CST 11/26/18 10:56 Normal [facility] Patient Education - Texton 0 11-26-2018 Patient Education - Text [place], [place] [facility] DISCHARGE INSTRUCTIONS TOTAL KNEE [...] will continue at home, possible with the executive sales assistant of Home Health Physical Therapy or [...] weeks postop. Zain Coughlin, DO [facility] [address] [place] [address] Reviewed: 08-25 Revised 05/31 [facility] Progress Note-Physicianon Progress Note-Physician DAILY PROGRESS [...] underway for home discharge with [place] [address] program. Zain Coughlin D.O. gls Dictated: 11/26/2018 #[id number] Typed: 11/26/2018 #[id number] cc: Zain Coughlin D.O. Normal [facility] Comment on above: Result Comment: Elec tronically Signed By: Zain Coughlin DO\.br\Date and Time Signed: 11/26/18 12:26 EDT eGFRon 11-26-2018 GFR/1.73 sq M predicted among blacks MDRD (S/P/Bld) [Vol rate/Area] mL/min/{1.73_m2} Normal >=59 [facility] Comment on above: Order Comment: Order added by Discern Expert. Result Comment: eGFR is race adjusted. AA=. Performed By: #### 2 740405, 6172784, 1816446, 02346871, 5172718, 9466432 #### [facility] [address] [place] [address] GFR/1.73 sq M predicted among non-blacks MDRD (S/P/Bld) [Vol rate/Area] mL/min/{1.73_m2} Normal >=59 [facility] Comment on above: Order Comment: Order added by Discern Expert. Result Comment: Curing Oven Attendant erasmo kidney disease could be indicated at eGFR's of less than 60 mL/min/1.73m2. Kidney failure is indicated at less than 15 mL/min/1.73m2. Performed By: #### 2 779585, 0092996, 3184765, 63316060, 0867074, 2873170 #### [facility] [address] [place] [address] ABO/Rhon 11-25-2018 ABO/Rh Positive [facility] Comment on above: Performed By: #### 2 605067, 5916071, 6985423, 55429240, 4080524, 4706786 #### [facility] [address] [place] [address] ABO/Rh History Checkon 11-25 ABO/Rh History Check Verified Hx Blood Type Normal [facility] Comment on above: Performed By: #### 2 898236, 1301476, 9181337, 16413708, 0655195, 7549553 #### [facility] [address] [place] [address] ABSCon 11-25-2018 ABSC Gel Interp Negative Normal [facility] Comment on above: Performed By: #### 2 875570, 3286299, 9066395, 09834083, 3594328, 1261277 #### [facility] [address] [place] [address] Blood Bank ID#on 11-25-2018 BBID# [id number] [facility] Comment on above: Performed By: #### 2 579875, 8611690, 4834590, 56234882, 0714650, 2531854 #### [facility] [address] [place] [address] Interdisciplinary Note - Shola e Manageron 11-25-2018 Interdisciplinary Note - Medical Radiation Dosimetrist dc planning done at this time. I called patient on phone. insurance, DME, PCP verified. pt from home with family and [place] transport [place]. pending therapy eval. obs admit. pt has FWW in room. pt is ortho [facility], call [phone] ext [phone] [place]. anticipated dc 11/26. CRM following. Normal [facility] Interdisciplinary Note - PTo n 11-25-2018 Interdisciplinary Note - PT PT Evaluation completed with an AM PAC score of 18/24. Pt performed bed mobility with CGA and transfers with CGA/min A. pt was able to ambulate 70 feet with FWW with CGA. Will follow daily with recommendations Normal [facility] Main OR PACU I Recordon Main OR PACU I Record PACU Phase I Docum ent Type FT Summary Primary Physician: Zain Coughlin DO Finalized Date/Time: 11/25/18 14:46:08 Pt. Name: ANGUS LUCIO/Sex: 1955 Male Med Rec #: [id number] Physician: Zain Coughlin DO Financial #: [id number] Pt. Type: O Room/Bed: N318/01 Admit/Disch: 11/25/18 [...] Olga Lidia Ornelas RN 11/25/18 14:46 Normal [facility] Main OR Preoperative Recordo n 11-25-2018 Main OR Preoperative Record PreOp Document Type FT Summary Primary Physician: Zain Coughlin DO Finalized Date/Time: 11/25/18 12:12:50 Pt. Name: SANTOS LUCIODorothy Harkins/Sex: 1955 Male Med Rec #: [id number] Physician: Zain Coughlin DO Financial #: [id number] Pt. Type: A Room/Bed: [place] [address] Admit/Disch: 11/25/18 10:09:49 - Institution: Case Times [...] By: Todd Tejeda RN 11/25/18 12:12 Normal [facility] Operative Reporton 11-25-201 9 Operative Report Date of Surgery: 11/25/2018 SURGEON: Zain Coughlin D.O. SAW BOSS: Koko Longoria D.O. PREOPERATIVE DIAGNOSIS: Right knee [...] right posterior stabilized femur, a size 7 [place] TS base plate with a 6 mm. [...] wrap. The patient is transferred to the [facility] and taken to the Post-Anesthesia Care Unit in stable condition. He will remain hospitalized this day. Jaskaran Noriega Dictated: 11/25/2018 #[id number] Typed: 11/25/2018 #[id number] cc: Urbano Alvarenga D.O. [facility] Comment on above: Result Comment: Elec tronically Signed By: Zain Coughlin DO\.br\Date and Time Signed: 11/25/18 16:30 EDT Progress Note-Physicianon Progress Note-Physician Patient: ANGUS LUCIO Age: 63 years Sex: Male : 1955 Associated Diagnoses: None Author: Zain Coughlin DO Postoperative Information Procedure: R TKA, complicated. Preoperative Diagnosis: R knee OA, instability. Postoperative Diagnosis: same. Performed by: alta. Building Construction Supervisor: osiris. Specimens Removed: bone, soft tissue. Estimated Blood Loss: 0 ml. Complications: None. Normal [facility] Comment on above: Result Comment: Elec tronically Signed By: Zain Coughlin DO\.br\Date and Time Signed: 11/25/18 13:57 EDT UA With Cult Reflexon 2018 Bilirubin Ql (U) Negative Normal Negative [facility] Comment on above: Performed By: #### 2 451757, 6970688, 8466130, 79406215, 3784721, 1052674 #### [facility] [address] [place] [address] Clarity (U) CLEAR Normal Clear [facility] Comment on above: Performed By: #### 2 997224, 3126822, 0865947, 08411556, 1146356, 4707995 #### [facility] [address] [place] [address] Color (U) YELLOW Normal Yellow [facility] Comment on above: Performed By: #### 2 094110, 8897546, 4212352, 45551222, 0389974, 8909694 #### [facility] [address] [place] [address] Epithelial cells.squamous LM.HPF (Urine sed) [#/Area] 0-2 Normal 0-2 [facility] Comment on above: Performed By: #### 2 385365, 3456447, 2585186, 72289200, 3897386, 4663137 #### [facility] [address] [place] [address] Glucose Test strip (U) [Mass/Vol] Negative Normal Negative [facility] Comment on above: Performed By: #### 2 301800, 8386456, 6188048, 66129280, 3004435, 8561973 #### [facility] [address] [place] [address] Hemoglobin Ql (U) TRACE Abnormal Negative [facility] Comment on above: Performed By: #### 2 757683, 7358814, 5770441, 56043674, 0392046, 8857272 #### [facility] [address] [place] [address] Ketones (U) [Mass/Vol] Negative Normal Negative [facility] Comment on above: Performed By: #### 2 480931, 5432562, 3941524, 99622460, 3711296, 4090917 #### [facility] [address] [place] [address] [place].plasma/[place] .RBC (Bld) [Mass ratio] 0-3 Normal 0-3 [facility] Comment on above: Performed By: #### 2 996533, 8183394, 5953856, 64446392, 0870413, 5200831 #### [facility] [address] [place] [address] Mucus Ql (Urine sed) TRACE Normal Fish [facility] Comment on above: Performed By: #### 2 881184, 6747264, 3979915, 39267593, 7586965, 5667233 #### [facility] [address] [place] [address] Nitrite Ql (U) Negative Normal Negative [facility] Comment on above: Performed By: #### 2 588874, 9996515, 1969305, 48169087, 8936899, 5394243 #### [facility] [address] [place] [address] pH (U) 6.5 [pH] 5.0-9.0 [facility] Comment on above: Performed By: #### 2 732311, 1618931, 7861888, 49187361, 0827206, 8513841 #### [facility] [address] [place] [address] Protein (U) [Mass/Vol] Negative Normal Negative [facility] Comment on above: Performed By: #### 2 148990, 7243654, 9674868, 82550490, 7083747, 6164159 #### [facility] [address] [place] [address] Specific gravity (U) [Rel density] 1.015 1.005-1.030 [facility] Comment on above: Performed By: #### 2 590864, 3855093, 2970151, 14784508, 1806861, 9727126 #### [facility] [address] [place] [address] UA Spec Desc Torres Normal [facility] Comment on above: Performed By: #### 2 730451, 2300675, 9571254, 62354403, 4314896, 0575473 #### [facility] [address] [place] [address] Urobilinogen Qn (U) 0.2 {Katlin'U}/dL Normal 0.0-1.0 [facility] Comment on above: Performed By: #### 2 016113, 1891683, 3469297, 44567360, 8870617, 8133721 #### [facility] [address] [place] [address] WBC Auto Ql (U) Negative Normal Negative [facility] Comment on above: Performed By: #### 2 617726, 6800081, 0346645, 14925862, 1371668, 6486257 #### [facility] [address] [place] [address] WBC LM.HPF (Urine sed) [#/Area] 0-5 Normal 0-5 [facility] Comment on above: Performed By: #### 2 380264, 0411583, 9088948, 21889804, 3801868, 9450947 #### [facility] [address] [place] [address] XR Knee 1 or 2 Views Righton [...] Carr M.D. Transcribed by: LIZANDRO Technologist: JOVITA [facility] Coding Summary.on 11-10-2018 Coding Summary. CODING DATE: 11/10/2018 FINAL [facility] STATUS: Home (Routine DC) PAYOR: Bobbi [...] Hinton CphT Date Saved: 11/10/2018 12:42 pm [facility] BD Bone Density DEXAon 11-04 BD [...] M.D. Transcribed by: LIZANDRO Technologist: YUSEF Normal [facility] ABO/Rh Retypeon 11-03-2018 ABO/Rh Retype Interp Positive Fish [facility] Comment on above: Performed By: #### 1 0808951 #### [facility] [address] [place] [address] BUNon 11-03-2018 Urea nitrogen [Mass/Vol] 15 mg/dL Normal 5-21 [facility] Comment on above: Performed By: #### 2 667186, 8615951, 7450522, 32191508, 1839669, 9938504 #### [facility] [address] [place] [address] CBC w/Indiceson 11-03-2018 Erythrocyte distribution width (RBC) [Ratio] 16.3 % High 10.9-14.2 [facility] Comment on above: Performed By: #### 2 718706, 7737335, 6184418, 03105804, 9997353, 3207298 #### [facility] [address] [place] [address] Hematocrit (Bld) [Volume fraction] 37.1 % Low 37.7-49.0 [facility] Comment on above: Performed By: #### 2 751714, 9195524, 3040582, 98392066, 9587517, 0435257 #### [facility] [address] [place] [address] Hemoglobin (Bld) [Mass/Vol] 12.7 g/dL Low 13.5-17.5 [facility] Comment on above: Performed By: #### 2 802955, 7407781, 6111680, 33519313, 0390981, 9322916 #### [facility] [address] [place] [address] MCH (RBC) [Entitic mass] 33.4 pg Normal 27.0-34.0 [facility] Comment on above: Performed By: #### 2 282464, 0029842, 9877787, 48512676, 3718476, 7210537 #### [facility] [address] [place] [address] MCHC (RBC) [Mass/Vol] 34.3 g/dL Normal 33.3-35.7 [facility] Comment on above: Performed By: #### 2 845878, 2763780, 1499401, 89249304, 5265432, 1153392 #### [facility] [address] [place] [address] MCV (RBC) [Entitic vol] 97.5 fL Normal 80.0-100.0 [facility] Comment on above: Performed By: #### 2 737521, 5264894, 6076965, 84251140, 4390102, 5368981 #### [facility] [address] [place] [address] Platelet mean volume (Bld) [Entitic vol] 7.5 fL Normal 6.4-10.8 [facility] Comment on above: Performed By: #### 2 592877, 4318732, 6048610, 07694793, 5362289, 0725459 #### [facility] [address] [place] [address] Platelets (Bld) [#/Vol] 249.0 E9/L Normal 150.0-500.0 [facility] Comment on above: Performed By: #### 2 842073, 0641947, 8844140, 98722037, 7109133, 7671934 #### [facility] [address] [place] [address] RBC (Bld) [#/Vol] 3.8 E12/L Low 4.3-5.9 [facility] Comment on above: Performed By: #### 2 849920, 5397091, 7344985, 39980280, 4209958, 8034773 #### [facility] [address] [place] [address] WBC corrected for nucl RBC Auto (Bld) [#/Vol] 5.1 E9/L Normal 4.0-11.0 [facility] Comment on above: Performed By: #### 2 575981, 9521870, 0504012, 00409177, 0624176, 0902373 #### [facility] [address] [place] [address] Creatinineon 11-03-2018 Creatinine [Mass/Vol] 0.8 mg/dL Normal 0.5-1.3 [facility] Comment on above: Performed By: #### 2 601163, 3253174, 4850515, 61899186, 4672261, 2573396 #### [facility] [address] [place] [address] Glucoseon 11-03-2018 Glucose [Mass/Vol] 82 mg/dL Normal 55-199 [facility] Comment on above: Performed By: #### 2 345965, 7481862, 3477738, 01048012, 1480764, 9578941 #### [facility] [address] [place] [address] Lyteson 11-03-2018 Anion gap [Moles/Vol] 12 mmol/L Normal 6-16 [facility] Comment on above: Performed By: #### 2 843659, 8205914, 1206294, 64892170, 5415704, 7605385 #### [facility] [address] [place] [address] Chloride [Moles/Vol] 103 mmol/L Normal 101-111 Fish [facility] Comment on above: Performed By: #### 2 202296, 7559635, 8837325, 35027927, 7786109, 5397672 #### [facility] [address] [place] [address] CO2 [Moles/Vol] 24 mmol/L Normal 21-31 [facility] Comment on above: Performed By: #### 2 033147, 6142314, 0236575, 76804298, 6038800, 6676143 #### [facility] [address] [place] [address] Potassium [Moles/Vol] 3.9 mmol/L Normal 3.5-5.3 [facility] Comment on above: Performed By: #### 2 884331, 4510938, 2642977, 93437974, 7081568, 5086351 #### [facility] [address] [place] [address] Sodium [Moles/Vol] 135 mmol/L Normal 135-145 [facility] Comment on above: Performed By: #### 2 140715, 6302716, 8818802, 97553831, 3407661, 3386444 #### [facility] [address] [place] [address] Urinalysison 11-03-2018 Bilirubin Ql (U) Negative Normal Negative [facility] Comment on above: Performed By: #### 1 0885405 #### [facility] [address] [place] [address] Clarity (U) CLEAR Normal Clear [facility] Comment on above: Performed By: #### 1 6369762 #### [facility] [address] [place] [address] Color (U) YELLOW Normal Yellow [facility] Comment on above: Performed By: #### 1 4972626 #### [facility] [address] [place] [address] Epithelial cells.squamous LM.HPF (Urine sed) [#/Area] 0-2 Normal 0-2 [facility] Comment on above: Performed By: #### 1 1541857 #### [facility] [address] [place] [address] Glucose Test strip (U) [Mass/Vol] Negative Normal Negative [facility] Comment on above: Performed By: #### 1 7190684 #### [facility] [address] [place] [address] Hemoglobin Ql (U) Negative Normal Negative [facility] Comment on above: Performed By: #### 1 0877381 #### [facility] [address] [place] [address] Ketones (U) [Mass/Vol] Negative Normal Negative [facility] Comment on above: Performed By: #### 1 5262534 #### [facility] [address] [place] [address] [place].plasma/[place] .RBC (Bld) [Mass ratio] 0-3 Normal 0-3 [facility] Comment on above: Performed By: #### 1 5708646 #### [facility] [address] [place] [address] Nitrite Ql (U) Negative Normal Negative [facility] Comment on above: Performed By: #### 1 0951535 #### [facility] [address] [place] [address] pH (U) 6.5 [pH] 5.0-9.0 [facility] Comment on above: Performed By: #### 1 6845691 #### [facility] [address] [place] [address] Protein (U) [Mass/Vol] Negative Normal Negative [facility] Comment on above: Performed By: #### 1 3550259 #### [facility] [address] [place] [address] Specific gravity (U) [Rel density] <=1.005 1.005-1.030 [facility] Comment on above: Performed By: #### 1 8728837 #### [facility] [address] [place] [address] UA Spec Desc Clean Catch Normal [facility] Comment on above: Performed By: #### 1 9759757 #### [facility] [address] [place] [address] Urobilinogen Qn (U) 0.2 {Katlin'U}/dL Normal 0.0-1.0 [facility] Comment on above: Performed By: #### 1 8898354 #### [facility] [address] [place] [address] WBC Auto Ql (U) Negative Normal Negative [facility] Comment on above: Performed By: #### 1 7440764 #### [facility] [address] [place] [address] WBC LM.HPF (Urine sed) [#/Area] 0-5 Normal 0-5 [facility] Comment on above: Performed By: #### 1 [id number] #### [facility] [address] [place] [address] Vitamin D 25 Hydroxyon 11-03 Calcidiol [Mass/Vol] 37.4 ng/mL Normal 30.0-100.0 [facility] Comment on above: Result Comment: Vit howard D deficiency has been defined as a level of serum 25-OH vitamin D less than 20 ng/mL (1,2) by the [place] [employer] and an Endocrine Society practice guideline. The Endocrine Society further defined vitamin D insufficiency as a level between 21 and 29 ng/mL (2). 1. IOM ([place] of [employer]). 2010. Dietary reference intakes for calcium and D. [place]: The National Academies Press. 2. Talia MF, Katharina NC, Denny PEREZ, et al. Evaluation, treatment, and prevention of vitamin D deficiency: an Endocrine Society clinical practice guideline. JCEM. 2011 [place]; 96 (7):1911-30. Performed By: #### 5 [id number] #### [facility] [address] [place] [address] XR Chest 2 Viewson 9 XR Chest [...] MD Transcribed by: LIZANDRO Technologist: KATHERINE Eng [facility] eGFRon 11-03-2018 GFR/1.73 sq M predicted among blacks MDRD (S/P/Bld) [Vol rate/Area] mL/min/{1.73_m2} Normal >=59 [facility] Comment on above: Order Comment: Order added by Discern Expert. Result Comment: eGFR is race adjusted. AA=. Performed By: #### 2 [id number] #### [facility] [address] [place] [address] GFR/1.73 sq M predicted among non-blacks MDRD (S/P/Bld) [Vol rate/Area] mL/min/{1.73_m2} Normal >=59 [facility] Comment on above: Order Comment: Order added by Discern Expert. Result Comment: Curing Oven Attendant erasmo kidney disease could be indicated at eGFR's of less than 60 mL/min/1.73m2. Kidney failure is indicated at less than 15 mL/min/1.73m2. Performed By: #### 2 [id number] #### [facility] [address] [place] [address] Encounters Encounter Date Encounter Type Care Provider Facility Start: 03-27-2022 End: 03-28-[address] DOCTOR PETERSON Facility:[facility] Start: 10-02-2021 End: 10-03-[address] DOCTOR PETERSON Facility:[facility] Start: 07-04-2021 End: 07-05-[address] DOCTOR PETERSON Facility:[facility] Start: 04-04-2021 End: 04-05-[address] DOCTOR PETERSON Facility:[facility] Payers Date Payer Category Payer Private Health Insurance [id number] 1958 Unknown [id number] 1955 Unknown [id number] 2.16.84 [id number] 1955 Unknown [id number] 2.16.84 [id number] 1955 Unknown [id number] 2.16.84 [id number] 1955 Unknown [id number] 2.16.84 [id number] Summary Purpose Family History No Family History [...] All Problems Rheumatoid arthritis / SNOMED CT 650982391 / Confirmed Smoker / SNOMED CT 980225574 / Confirmed Added secondary to documentation in Social History. Decreased vision / SNOMED CT 7946988898 / Confirmed left eye Osteoarthritis of knee / SNOMED CT 416967215 / Confirmed right Physical Examination Intake and [...] section and content) DATE CREATED AUTHOR 11/29/2018 [facility] DATE CREATED AUTHOR [facility] PERTAINING TO PATIENTS WHO [...] BE BASED ON THE PRIMARY CLINICAL RECORDS. [employer] provides no warranty or guarantee of the accuracy or completeness of information in this document.
[2024-11-26 08:38] LABS: Hematocrit 43.2 % (42.0-54.0); Hemoglobin 14.5 g/dL (14.0-18.0); Immature Granulocytes Abs Auto 0.09 10^3/uL (0.00-0.03); Immature Granulocytes Pct Auto 0.9 % (0.0-0.5); Lymphocytes Absolute Auto 1.4 10^3/uL (1.2-3.8); Mean Corpuscular HGB Conc 33.6 g/dL (29.9-35.2); Mean Corpuscular Hemoglobin 33.3 pg (25.9-34.0); Mean Corpuscular Volume 99.3 fL (80.0-94.0); Platelet Count 265 10^3/uL (150-450); Red Blood Count 4.35 10^6/uL (4.70-6.10); White Blood Count 10.2 10^3/uL (4.0-11.0)
[2024-11-26 08:54] LABS: Alanine Aminotransferase 19 U/L (16-63); Albumin Globulin Ratio 0.9; Albumin Level 3.5 g/dL (3.4-5.0); Alkaline Phosphatase 91 U/L (46-116); Anion Gap 15.8; Aspartate Amino Transferase 24 U/L (15-37); Blood Urea Nitrogen 15.0 mg/dL (7.0-18.0); Calcium 9.3 mg/dL (8.5-10.1); Carbon Dioxide 26.6 mmol/L (21.0-32.0); Chloride 104 mmol/L (98-107); Estimated GFR (African America >60 (>=60 mL/min/1.73m^2); Estimated GFR (Non-African Ame >60 (>=60 mL/min/1.73m^2); Globulin 4.1 g/dL; Glucose 114 mg/dL (74-106); Potassium 5.4 mmol/L (3.5-5.1); Sodium 141 mmol/L (136-145); Total Protein 7.6 g/dL (6.4-8.2)
== END 2024-11-26 08:05 | disposition home or self-care (01) ==
LOC: LAB 08:05
PROVIDERS: PCP Family Medicine; Visit Provider Registered Nurse
DX: M05.79 Rheumatoid arthritis with rheumatoid factor of multiple sites without organ or systems involvement (principal); M15.0 Primary generalized (osteo)arthritis; Z79.899 Other long term (current) drug therapy
CPT/HCPCS: 36415; 80053; 85025; 85652

== ENCOUNTER 2025-03-25 08:32 | Outpatient (OUT) | payer MEDICARE, SELFPAY ==
--- OUTSIDE RECORDS SUMMARY | 2025-03-25 08:36 | XMS_ITS | CCD ---
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 Name Role Phone MISC, DR DOCTOR Admitting Unavailable MISC, DR DOCTOR Attending Unavailable HOY, DR RAYGOZA Primary Care Unavailable HOY, DR [...] Unavailable MISC, DOCTOR Consulting Unavailable Problems Problem ClassificationProblemDateDocumented DateEpisodic/ChronicOther aftercare (1 source)Other alf (current) drug therapy; Translations: [OTH FPC CURRENT DRUG THERAPY]Onset: [id number] arthritis and related disease (4 sources)Rheumatoid arthritis with rheumatoid factor of multiple sites without organ or systems involvement;Translations: [RA W/RH FACTOR MX SITE NO ORGAN/SYS] Onset: [id number] Results Test NameValueInterpretationReference RangeFacilityCBC AUTO DIFFon 03-27-2022 BASO #0.0 103/ulNormal0.0-0.1The [facility] CenterComment on above:Performed By: #### CBC #### [facility] [address] [address] [address] Jennifer Mitchellphils/100 WBC (Bld)0.4 %Normal0.2-2.0The [facility] Comment on above:Performed By: #### CBC #### [facility] [address] [place], [place] [address] Dr. Yijohny FioreO #0.1 103/ulNormal0.0-0.7The [facility] CenterComment on above: Performed By: #### CBC #### [facility] [address] [place] [address] Dr. Jennifer Fioreosinophils/100 WBC (Bld)1.0 %Normal0.9-7.0The [facility] Comment on above:Performed By: #### CBC #### [facility] [address] [place] [address] Dr. Jennifer Fiorerythrocyte distribution width (RBC) [Ratio]15.7 %Critically high 11.0-15.0The [facility] CenterComment on above:Performed By: #### CBC #### [facility] [address] [place] [address] Dr. Jennifer PeraltaHematocrit (Bld) [Volume fraction]38.2 %Critically low42.0-54.0 The [facility] CenterComment on above:Performed By: #### CBC #### [facility] [address] [place] [address] Dr. Jennifer PeraltaHemoglobin (Bld) [Mass/Vol]12.6 g/dLCritically low14.0-18.0The [facility] CenterComment on above:Performed By: #### CBC #### [facility] [address] [place] [address] Dr. Jennifer Gonzalez #0.03 10e3/ulNormal0.00-0.03The [facility] CenterComment on above:Performed By: #### CBC #### [facility] [address] [place] [address] Dr. Jennifer Gonzalez %0.4 %Normal0.0-0.5The [facility] CenterComment on above: Performed By: #### CBC #### [facility] [address] [place] [address] Dr. Jennifer Fuller #2.4 103/ulNormal1.2-3.8The [facility] CenterComment on above:Performed By: #### CBC #### [facility] [address] [place] [address] Dr. Jennifer Grmphocytes/100 WBC (Bld)33.3 %Vydjdv72.5-60.0The [facility] CenterComment on above:Performed By: #### CBC #### [facility] [address] [place] [address] Dr. Jennifer Perkins DIFF REQNONormalThe [facility] CenterComment on above: Performed By: #### CBC #### [facility] [address] [place] [address] Dr. Jennifer Varghese (RBC) [Entitic mass]32.1 mxNgrzum67.9-34.0The [facility] CenterComment on above:Performed By: #### CBC #### [facility] [address] [place] [address] Dr. Jennifer Varghese (RBC) [Mass/Vol]33.0 g/aDGvhapm40.9-35.2The [facility] CenterComment on above:Performed By: #### CBC #### [facility] [address] [place] [address] Dr. Jennifer Jackson (RBC) [Entitic vol]97.2 fLCritically high80.0-94.0The [facility] CenterComment on above:Performed By: #### CBC #### [facility] [address] [place] [address] Dr. Jennifer Chambers #0.6 103/ulNormal0.3-0.8The [facility] CenterComment on above:Performed By: #### CBC #### [facility] [address] [place] [address] Dr. Jennifer Gomezocytes/100 WBC (Bld)7.7 %Normal1.7-12.0The [facility] Comment on above:Performed By: #### CBC #### [facility] [address] [place] [address] Dr. Jennifer Luis #4.1 103/ulNormal1.4-6.5The [facility] CenterComment on above:Performed By: #### CBC #### [facility] [address] [place] [address] Dr. Jennifer Riverautrophils/100 WBC (Bld)57.2 %Gdmrda88.0-75.0The [facility] CenterComment on above:Performed By: #### CBC #### [facility] [address] [place] [address] Dr. Jennifer PeraltaPlatelet mean volume (Bld) [Entitic vol]9.1 fLCritically low 9.5-13.5The [facility] CenterComment on above:Performed By: #### CBC #### [facility] [address] [place] [address] Dr. Jennifer PrealtaPLT246 103/ggHmesof469-014Mwj [facility] CenterComhutzel [facility] on above: Performed By: #### CBC #### [facility] [address] [place] [address] Dr. Jennifer PeraltaRBC3.93 106/ulCritically low4.70-6.10The [facility] CenterComment on above:Performed By: #### CBC #### [facility] [address] [place] [address] Dr. Jennifer PeraltaWBC7.2 103/ulNormal4.0-11.0The [facility] CenterComhutzel women[facility] on above: Performed By: #### CBC #### [facility] [address] [place] [address] Dr. Jennifer PeraltaPROF 14(COMP METB)on 82-17-7803Iiclnun [Mass/Vol]3.5 g/dLNormal 3.4-5.0The [facility] CenterComhutzel women's hospital on above:Performed By: #### SEDR #### [facility] [address] [place] [address] Dr. Jennifer PeraltaAlbumin/Globulin [Mass ratio]0.9 {ratio}NormalThe [facility] on above:Performed By: #### SEDR #### [facility] [address] [place] [address] Dr. Jennifer PeraltaALP [Catalytic activity/Vol]80 U/YEjvllk75-646Civ [facility] on above:Performed By: #### SEDR #### [facility] [address] [address] [address] Jennifer GuidryT [Catalytic activity/Vol]15 U/LCritically dvg37-30Jmi [facility] CenterComment on above:Performed By: #### SEDR #### [facility] [address] [address] [address] Jennifer PeraltaAnion gap [Moles/Vol]9.2 mmol/LNormalThe [facility] CenterComment on above:Performed By: #### SEDR #### [facility] [address] [address] [address] Jennifer PeraltaAST [Catalytic activity/Vol]25 U/MGiwbtx73-66Lfh [facility] CenterComment on above:Performed By: #### SEDR #### [facility] [address] [address] [address] Jennifer PeraltaBilirubin [Mass/Vol]0.4 mg/dLNormal0.2-1.0The [facility] Comment on above:Performed By: #### SEDR #### [facility] [address] [address] [address] Jennifer PeraltaCalcium [Mass/Vol]9.0 mg/dLNormal8.5-10.1The [facility] Comment on above:Performed By: #### SEDR #### [facility] [address] [place] [address] Dr. Jennifer PeraltaChloride [Moles/Vol]101 mmol/QLivxbe16-346Wxq [facility] Comment on above:Performed By: #### SEDR #### [facility] [address] [address] [address] Jennifer PeraltaCO2 [Moles/Vol]28.0 mmol/ZPlheij79.0-32.0The [facility] Comment on above:Performed By: #### SEDR #### [facility] [address] [place] [address] Dr. Jennifer PeraltaCreatinine [Mass/Vol]0.87 mg/dLNormal0.70-1.30The [facility] CenterComment on above:Performed By: #### SEDR #### [facility] [address] [address] [address] Jennifer FioreGFR-AF SENEGALESE>60Normal>=60The [facility] CenterComment on above:Performed By: #### SEDR #### [facility] [address] [address] [address] Jennifer FioreGFR-NON AF SENEGALESE>60Normal>=60The [facility] CenterComment on above:Performed By: #### SEDR #### [facility] [address] [address] [address] Jennifer PeraltaGlobulin (S) [Mass/Vol]3.9 g/dLNormalThe [facility] CenterComment on above:Performed By: #### SEDR #### [facility] [address] [place] [address] Dr. Jennifer PeraltaGlucose [Mass/Vol]84 mg/pPSflrhn71-851FjzSouthern [place] [facility] Comment on above:Performed By: #### SEDR #### [facility] [address] [place] [address] Dr. Jennifer PeraltaPotassium [Moles/Vol]4.2 mmol/LNormal3.5-5.1The [facility] Comment on above:Performed By: #### SEDR #### [facility] [address] [place] [address] Dr. Jennifer PeraltaProtein [Mass/Vol]7.4 g/dLNormal6.4-8.2The [facility] Comment on above:Performed By: #### SEDR #### [facility] [address] [address] [address] Jennifer PeraltaSodium [Moles/Vol]134 mmol/LCritically njv116-977Ckc [facility] CenterComment on above:Performed By: #### SEDR #### [facility] [address] [place] [address] Dr. Jennifer PeraltaUrea nitrogen [Mass/Vol]18.0 mg/dLNormal7.0-18.0The [facility] CenterComment on above:Performed By: #### SEDR #### [facility] [address] [address] [address] Jennifer PeraltaUrea nitrogen/Creatinine [Mass ratio]20.7 mg/mgNormalThe [facility] CenterComment on above:Performed By: #### SEDR #### [facility] [address] [address] [address] Jennifer Baird RATE WESTERGRENon 50-91-1877PHG RATE49 mm/hrCritically high <=20The [facility] CenterComment on above:Performed By: #### SEDR #### [facility] [address] [address] [address] Jennifer FlemingC AUTO DIFFon 27-57-0256IXTA #0.0 103/ulNormal0.0-0.1The [facility] CenterComment on above:Performed By: #### CBC #### [facility] [address] [place] [address] Dr. Jennifer PeraltaBasophils/100 WBC (Bld)0.4 %Normal0.2-2.0The [facility] Comment on above:Performed By: #### CBC #### [facility] [address] [place] [address] Dr. Jennifer Sevilla #0.1 103/ulNormal0.0-0.7The [facility] CenterComment on above: Performed By: #### CBC #### [facility] [address] [place] [address] Dr. Jennifer Fioreosinophils/100 WBC (Bld)1.0 %Normal0.9-7.0The [facility] Comment on above:Performed By: #### CBC #### [facility] [address] [place] [address] Dr. Jennifer Fiorerythrocyte distribution width (RBC) [Ratio]16.5 %Critically high 11.0-15.0The [facility] CenterComment on above:Performed By: #### CBC #### [facility] [address] [place] [address] Dr. Jennifer PeraltaHematocrit (Bld) [Volume fraction]38.7 %Critically low42.0-54.0 The [facility] CenterComment on above:Performed By: #### CBC #### [facility] [address] [place] [address] Dr. Jennifer PeraltaHemoglobin (Bld) [Mass/Vol]12.8 g/dLCritically low14.0-18.0The [facility] CenterComment on above:Performed By: #### CBC #### [facility] [address] [place] [address] Dr. Jennifer Gonzalez #0.02 10e3/ulNormal0.00-0.03The [facility] CenterComment on above:Performed By: #### CBC #### [facility] [address] [place] [address] Dr. Jennifer Gonzalez %0.3 %Normal0.0-0.5The [facility] CenterComment on above: Performed By: #### CBC #### [facility] [address] [place] [address] Dr. Jennifer Fuller #2.8 103/ulNormal1.2-3.8The [facility] CenterComment on above:Performed By: #### CBC #### [facility] [address] [place] [address] Dr. Jennifer Singhhocytes/100 WBC (Bld)39.8 %Ryqnfc40.5-60.0The [facility] CenterComment on above:Performed By: #### CBC #### [facility] [address] [place] [address] Dr. Jennifer MarchUAL DIFF REQNONormalThe [facility] CenterComment on above: Performed By: #### CBC #### [facility] [address] [place] [address] Dr. Jennifer Agee (RBC) [Entitic mass]32.3 lrUikueu90.9-34.0The [facility] CenterComment on above:Performed By: #### CBC #### [facility] [address] [place] [address] Dr. Jennifer Varghese (RBC) [Mass/Vol]33.1 g/jWRrkphu57.9-35.2The [facility] CenterComment on above:Performed By: #### CBC #### [facility] [address] [place] [address] Dr. Jennifer Jackson (RBC) [Entitic vol]97.7 fLCritically high80.0-94.0The [facility] CenterComment on above:Performed By: #### CBC #### [facility] [address] [place] [address] Dr. Jennifer Chambers #0.7 103/ulNormal0.3-0.8The [facility] CenterComment on above:Performed By: #### CBC #### [facility] [address] [place] [address] Dr. Jennifer Gomezocytes/100 WBC (Bld)9.2 %Normal1.7-12.0The [facility] Comment on above:Performed By: #### CBC #### [facility] [address] [place] [address] Dr. Jennifer Luis #3.5 103/ulNormal1.4-6.5The [facility] CenterComment on above:Performed By: #### CBC #### [facility] [address] [place] [address] Dr. Jennifer Riverautrophils/100 WBC (Bld)49.3 %Ceaqbk28.0-75.0The [facility] CenterComment on above:Performed By: #### CBC #### [facility] [address] [place] [address] Dr. Jennifer Crowleylet mean volume (Bld) [Entitic vol]9.3 fLCritically low 9.5-13.5The [facility] CenterComment on above:Performed By: #### CBC #### [facility] [address] [place] [address] Dr. Jennifer HathawayT230 103/lcIgfygk182-332Sak [facility] CenterComment on above: Performed By: #### CBC #### [facility] [address] [place] [address] Dr. Jennifer PeraltaRBC3.96 106/ulCritically low4.70-6.10The [facility] CenterComment on above:Performed By: #### CBC #### [facility] [address] [place] [address] Dr. Jennifer PeraltaWBC7.1 103/ulNormal4.0-11.0The [facility] CenterComment on above: Performed By: #### CBC #### [facility] [address] [place] [address] Dr. Jennifer RandleF 14(COMP METB)on 46-59-6910Ztmedic [Mass/Vol]3.5 g/dLNormal 3.4-5.0The [facility] CenterComment on above:Performed By: #### CMP #### [facility] [address] [place] [address] Dr. Jennifer PeraltaAlbumin/Globulin [Mass ratio]0.9 {ratio}NormalThe [facility] CenterComment on above:Performed By: #### CMP #### [facility] [address] [place] [address] Dr. Jennifer GuidryP [Catalytic activity/Vol]78 U/YBczkvu82-187Amd [facility] CenterComment on above:Performed By: #### CMP #### [facility] [address] [place] [address] Dr. Jennifer English [Catalytic activity/Vol]23 U/RNkatrz05-97Vur [facility] CenterComment on above:Performed By: #### CMP #### [facility] [address] [place] [address] Dr. Jennifer Oliveros gap [Moles/Vol]9.8 mmol/LNormalThe [facility] CenterComment on above:Performed By: #### CMP #### [facility] [address] [place] [address] Dr. Jennifer Milton [Catalytic activity/Vol]27 U/WVxkbfy79-01Syi [facility] CenterComment on above:Performed By: #### CMP #### [facility] [address] [place] [address] Dr. Jennifer PeraltaBilirubin [Mass/Vol]0.4 mg/dLNormal0.2-1.0The [facility] Comment on above:Performed By: #### CMP #### [facility] [address] [place] [address] Dr. Jennifer PeraltaCalcium [Mass/Vol]9.0 mg/dLNormal8.5-10.1The [facility] Comment on above:Performed By: #### CMP #### [facility] [address] [address] [address] Jennifer PeraltaChloride [Moles/Vol]105 mmol/CPkpnhl77-860Hbt [facility] Comment on above:Performed By: #### CMP #### [facility] [address] [place] [address] Dr. Jennifer PeraltaCO2 [Moles/Vol]29.7 mmol/BMkfnou07.0-32.0The [facility] Comment on above:Performed By: #### CMP #### [facility] [address] [place] [address] Dr. Jennifer PeraltaCreatinine [Mass/Vol]0.98 mg/dLNormal0.70-1.30The [facility] CenterComment on above:Performed By: #### CMP #### [facility] [address] [place] [address] Dr. Jennifer FioreGFR-AF SENEGALESE>60Normal>=60The [facility] CenterComment on above:Performed By: #### CMP #### [facility] [address] [place] [address] Dr. Jennifer FioreGFR-NON AF SENEGALESE>60Normal>=60The [facility] CenterComment on above:Performed By: #### CMP #### [facility] [address] [address] [address] Jennifer PeraltaGlobulin (S) [Mass/Vol]3.8 g/dLNormalThe [facility] CenterComment on above:Performed By: #### CMP #### [facility] [address] [place] [address] Dr. Jennifer PeraltaGlucose [Mass/Vol]83 mg/nOXrerzu32-843Ntp [facility] Comment on above:Performed By: #### CMP #### [facility] [address] [address] [address] Jennifer PeraltaPotassium [Moles/Vol]4.5 mmol/LNormal3.5-5.1The [facility] Comment on above:Performed By: #### CMP #### [facility] [address] [address] [address] Jennifer PeraltaProtein [Mass/Vol]7.3 g/dLNormal6.4-8.2The [facility] Comment on above:Performed By: #### CMP #### [facility] [address] [address] [address] Jennifer Tuttledium [Moles/Vol]140 mmol/ERaztjd501-494Ziv [facility] Comment on above:Performed By: #### CMP #### [facility] [address] [address] [address] Jennifer PeraltaUrea nitrogen [Mass/Vol]23.0 mg/dLCritically high7.0-18.0The [facility] CenterComment on above:Performed By: #### CMP #### [facility] [address] [address] [address] Jennifer Cuevas nitrogen/Creatinine [Mass ratio]23.5 mg/mgNormalThTwin City HospitalComment on above:Performed By: #### CMP #### [facility] [address] [address] [address] Jennifer Baird RATE WESTERGRENon 18-25-0826YGT RATE22 mm/hrCritically high <=20The [facility] CenterComment on above:Performed By: #### SEDR #### [facility] [address] [place] [address] Dr. Jennifer Baird AUTO DIFFon 49-58-8473UCGC #0.0 103/ulNormal0.0-0.1The [facility] CenterComment on above:Performed By: #### SEDR #### [facility] [address] [place] [address] Dr. Yilan ChangBasophils/100 WBC (Bld)0.3 %Normal0.2-2.0The [facility] Comment on above:Performed By: #### SEDR #### [facility] [address] [place] [address] Dr. Jennifer Sevilla #0.1 103/ulNormal0.0-0.7The [facility] CenterComment on above: Performed By: #### SEDR #### [facility] [address] [place] [address] Dr. Jennifer Fioreosinophils/100 WBC (Bld)1.1 %Normal0.9-7.0The [facility] Comment on above:Performed By: #### SEDR #### [facility] [address] [place] [address] Dr. Jennifer Fiorerythrocyte distribution width (RBC) [Ratio]17.3 %Critically high 11.0-15.0The [facility] CenterComment on above:Performed By: #### SEDR #### [facility] [address] [place] [address] Dr. Jennifer PeraltaHematocrit (Bld) [Volume fraction]39.6 %Critically low42.0-54.0 The [facility] CenterComment on above:Performed By: #### SEDR #### [facility] [address] [place] [address] Dr. Jennifer PeraltaHemoglobin (Bld) [Mass/Vol]13.0 g/dLCritically low14.0-18.0[facility] [place] [facility] CenterComment on above:Performed By: #### SEDR #### [facility] [address] [place] [address] Dr. Jennifer Gonzalez #0.02 10e3/ulNormal0.00-0.03The [facility] CenterComment on above:Performed By: #### SEDR #### [facility] [address] [place] [address] Dr. Jennifer Gonzalez %0.3 %Normal0.0-0.5The [facility] CenterComment on above: Performed By: #### SEDR #### [facility] [address] [address] [address] Jennifer Fuller #2.4 103/ulNormal1.2-3.8The [facility] CenterComment on above:Performed By: #### SEDR #### [facility] [address] [place] [address] Dr. Jennifer Singhhocytes/100 WBC (Bld)38.1 %Nvunqg85.5-60.0The [facility]ja Medical CenterComment on above:Performed By: #### SEDR #### [facility] [address] [address] [address] Jennifer Perkins DIFF REQNONormalThe [facility] Medical CenterComment on above: Performed By: #### SEDR #### [facility] [address] [place] [address] Dr. Jennifer Agee (RBC) [Entitic mass]31.5 pfExavtv19.9-34.0The [facility] CenterComment on above:Performed By: #### SEDR #### [facility] [address] [place] [address] Dr. Jennifer Varghese (RBC) [Mass/Vol]32.8 g/xKHtjeow70.9-35.2The [facility] CenterComment on above:Performed By: #### SEDR #### [facility] [address] [place] [address] Dr. Jennifer Varghese (RBC) [Entitic vol]95.9 fLCritically high80.0-94.0The [facility] CenterComment on above:Performed By: #### SEDR #### [facility] [address] [place] [address] Dr. Jennifer Chambers #0.6 103/ulNormal0.3-0.8The [facility] CenterComment on above:Performed By: #### SEDR #### [facility] [address] [place] [address] Dr. Jennifer Gomezocytes/100 WBC (Bld)9.1 %Normal1.7-12.0The [facility] Comment on above:Performed By: #### SEDR #### [facility] [address] [address] [address] Jennifer Luis #3.2 103/ulNormal1.4-6.5The [facility] CenterComment on above:Performed By: #### SEDR #### [facility] [address] [place] [address] Dr. Jennifer Riverautrophils/100 WBC (Bld)51.1 %Cbjjrd38.0-75.0The [facility] CenterComment on above:Performed By: #### SEDR #### [facility] [address] [place] [address] Dr. Jennifer PeraltaPlatelet mean volume (Bld) [Entitic vol]9.0 fLCritically low 9.5-13.5The [facility] CenterComment on above:Performed By: #### SEDR #### [facility] [address] [place] [address] Dr. Jennifer HathawayT218 103/amAngxek808-006Oes [facility] CenterComment on above: Performed By: #### SEDR #### [facility] [address] [place] [address] Dr. Jennifer PeraltaRBC4.13 106/ulCritically low4.70-6.10The [facility] CenterComment on above:Performed By: #### SEDR #### [facility] [address] [place] [address] Dr. Jennifer PeraltaWBC6.3 103/ulNormal4.0-11.0The [facility] CenterComment on above: Performed By: #### SEDR #### [facility] [address] [place] [address] Dr. Jennifer Bradley 14(COMP METB)on 48-93-4389Xnurfne [Mass/Vol]3.6 g/dLNormal 3.5-5.0The [facility] CenterComment on above:Performed By: #### CMP #### [facility] [address] [place] [address] Dr. Jennifer PeraltaAlbumin/Globulin [Mass ratio]0.9 {ratio}NormalThe [facility] CenterComment on above:Performed By: #### CMP #### [facility] [address] [place] [address] Dr. Jennifer Santana [Catalytic activity/Vol]80 U/WKkkger42-428Dur [facility] CenterComment on above:Performed By: #### CMP #### [facility] [address] [address] [address] Jennifer English [Catalytic activity/Vol]18 U/LCritically agu57-57Awk [facility] CenterComment on above:Performed By: #### CMP #### [facility] [address] [place] [address] Dr. Jennifer Altamiranoon gap [Moles/Vol]10.5 mmol/LNormalSouthern [facility] Comment on above:Performed By: #### CMP #### [facility] [address] [place] [address] Dr. Jennifer PeraltaAST [Catalytic activity/Vol]24 U/SUvdtou98-76Env [facility] CenterComment on above:Performed By: #### CMP #### [facility] [address] [place] [address] Dr. Jennifer PeraltaBilirubin [Mass/Vol]0.4 mg/dLNormal0.2-1.3The [facility] Comment on above:Performed By: #### CMP #### [facility] [address] [place] [address] Dr. Jennifer PeraltaCalcium [Mass/Vol]8.7 mg/dLNormal8.4-10.2[facility] Comment on above:Performed By: #### CMP #### [facility] [address] [place] [address] Dr. Jennifer PeraltaChloride [Moles/Vol]100 mmol/KSsenkt46-225Nfb [facility] Comment on above:Performed By: #### CMP #### [facility] [address] [place] [address] Dr. Jennifer PeraltaCO2 [Moles/Vol]26.9 mmol/TLrhuxv81.0-30.0The [facility] Comment on above:Performed By: #### CMP #### [facility] [address] [address] [address] Jennifer PeraltaCreatinine [Mass/Vol]0.93 mg/dLNormal0.66-1.25The [facility] CenterComment on above:Performed By: #### CMP #### [facility] [address] [address] [address] Jennifer FioreGFR-AF SENEGALESE>60Normal>=60The [facility] CenterComment on above:Performed By: #### CMP #### [facility] [address] [address] [address] Jennifer FioreGFR-NON AF SENEGALESE>60Normal>=60The [facility] CenterComment on above:Performed By: #### CMP #### [facility] [address] [address] [address] Jennifer PeraltaGlobulin (S) [Mass/Vol]3.9 g/dLNormalThe [facility] CenterComment on above:Performed By: #### CMP #### [facility] [address] [address] [address] Jennifer PeraltaGlucose [Mass/Vol]102 mg/tIQzedrv71-419CdxSouthern [facility] Medical [facility] Comment on above:Performed By: #### CMP #### [facility] [address] [address] [address] Jennifer PeraltaPotassium [Moles/Vol]4.4 mmol/LNormal3.4-5.0[facility] Comment on above:Performed By: #### CMP #### [facility] [address] [address] [address] Jennifer PeraltaProtein [Mass/Vol]7.5 g/dLNormal6.1-8.2The [facility] Comment on above:Performed By: #### CMP #### [facility] [address] [address] [address] Jennifer PeraltaSodium [Moles/Vol]133 mmol/LCritically feo860-762Lcs [facility] CenterComment on above:Performed By: #### CMP #### [facility] [address] [place] [address] Dr. Jennifer Cuevas nitrogen [Mass/Vol]20.0 mg/dLNormal9.0-20.0The [facility] CenterComment on above:Performed By: #### CMP #### [facility] [address] [place] [address] Dr. Jennifer Cuevas nitrogen/Creatinine [Mass ratio]21.5 mg/mgNormalThe [facility] CenterComment on above:Performed By: #### CMP #### [facility] [address] [place] [address] Dr. Jennifer Baird RATE WESTERGRENon 73-30-6968CGH RATE35 mm/hrCritically high <=20The [facility] CenterComment on above:Performed By: #### SEDR #### [facility] [address] [place] [address] Dr. Jennifer Baird AUTO DIFFon 69-67-8195FJXG #0.0 103/ulNormal0.0-0.1The [facility] CenterComment on above:Performed By: #### CBC #### [facility] [address] [place] [address] Dr. Jennifer PeraltaBasophils/100 WBC (Bld)0.4 %Normal0.2-2.0The [facility] Comment on above:Performed By: #### CBC #### [facility] [address] [place] [address] Dr. Jennifer Sevilla #0.1 103/ulNormal0.0-0.7The [facility] CenterComment on above: Performed By: #### CBC #### [facility] [address] [place] [address] Dr. Jennifer Fioreosinophils/100 WBC (Bld)1.6 %Normal0.9-7.0The [facility] Comment on above:Performed By: #### CBC #### [facility] [address] [place] [address] Dr. Jennifer Fiorerythrocyte distribution width (RBC) [Ratio]15.9 %Critically high 11.0-15.0The [facility] CenterComment on above:Performed By: #### CBC #### [facility] [address] [place] [address] Dr. Jennifer PeraltaHematocrit (Bld) [Volume fraction]39.2 %Critically low42.0-54.0 The [facility] CenterComment on above:Performed By: #### CBC #### [facility] [address] [place] [address] Dr. Jennifer PeraltaHemoglobin (Bld) [Mass/Vol]12.8 g/dLCritically low14.0-18.0The [facility] CenterComment on above:Performed By: #### CBC #### [facility] [address] [place] [address] Dr. Jennifer Gonzalez #0.02 10e3/ulNormal0.00-0.03The [facility] CenterComment on above:Performed By: #### CBC #### [facility] [address] [place] [address] Dr. Jennifer Gonzalez %0.4 %Normal0.0-0.5The [facility] CenterComment on above: Performed By: #### CBC #### [facility] [address] [place] [address] Dr. Jennifer Fuller #2.5 103/ulNormal1.2-3.8The [facility] CenterComment on above:Performed By: #### CBC #### [facility] [address] [place] [address] Dr. Jennifer Singhhocytes/100 WBC (Bld)45.8 %Fnasaz90.5-60.0The [facility] CenterComment on above:Performed By: #### CBC #### [facility] [address] [place] [address] Dr. Jennifer MarchUAL DIFF REQNONormalThe [facility] CenterComment on above: Performed By: #### CBC #### [facility] [address] [place] [address] Dr. Jennifer Agee (RBC) [Entitic mass]30.8 yrKzngga79.9-34.0The [facility] CenterComment on above:Performed By: #### CBC #### [facility] [address] [place] [address] Dr. Jennifer Varghese (RBC) [Mass/Vol]32.7 g/bBLweevk77.9-35.2The [facility] CenterComment on above:Performed By: #### CBC #### [facility] [address] [place] [address] Dr. Jennifer Varghese (RBC) [Entitic vol]94.5 fLCritically high80.0-94.0The [facility] CenterComment on above:Performed By: #### CBC #### [facility] [address] [place] [address] Dr. Jennifer Chambers #0.6 103/ulNormal0.3-0.8The [facility] CenterComment on above:Performed By: #### CBC #### [facility] [address] [place] [address] Dr. Jennifer Gomezocytes/100 WBC (Bld)10.7 %Normal1.7-12.0The [facility] Comment on above:Performed By: #### CBC #### [facility] [address] [place] [address] Dr. Jennifer Luis #2.3 103/ulNormal1.4-6.5The [facility] CenterComment on above:Performed By: #### CBC #### [facility] [address] [place] [address] Dr. Jennifer Riverautrophils/100 WBC (Bld)41.1 %Critically low43.0-75.0The [facility] CenterComment on above:Performed By: #### CBC #### [facility] [address] [place] [address] Dr. Jennifer Crowleylet mean volume (Bld) [Entitic vol]9.9 fLNormal9.5-13.5The [facility] CenterComment on above:Performed By: #### CBC #### [facility] [address] [place] [address] Dr. Jennifer PeraltaPLT214 103/ftTigrbh409-832Sqc Premier Healthment on above: Performed By: #### CBC #### [facility] [address] [place] [address] Dr. Jennifer PeraltaRBC4.15 106/ulCritically low4.70-6.10The [facility] CenterComment on above:Performed By: #### CBC #### [facility] [address] [place] [address] Dr. Jennifer PeraltaWBC5.5 103/ulNormal4.0-11.0The [facility] CenterComment on above: Performed By: #### CBC #### [facility] [address] [place] [address] Dr. Jennifer Bradley 14(COMP METB)on 37-02-2611Nkmefix [Mass/Vol]3.3 g/dL Critically low3.5-5.0The [facility] CenterComment on above:Performed By: #### CMP #### [facility] [address] [place] [address] Dr. Jennifer PeraltaAlbumin/Globulin [Mass ratio]0.8 {ratio}NormalThe [facility] CenterComhutzel women's hospital on above:Performed By: #### CMP #### [facility] [address] [place] [address] Dr. Jennifer Santana [Catalytic activity/Vol]73 U/JLmmitr19-684Vtm [facility] CenterComment on above:Performed By: #### CMP #### [facility] [address] [place] [address] Dr. Jennifer English [Catalytic activity/Vol]15 U/LCritically mcw82-36Pam [facility] CenterComhutzel women's hospital on above:Performed By: #### CMP #### [facility] [address] [place] [address] Dr. Jennifer Oliveros gap [Moles/Vol]9.2 mmol/LNormalThe [facility] CenterComment on above:Performed By: #### CMP #### [facility] [address] [place] [address] Dr. Jennifer PeraltaAST [Catalytic activity/Vol]23 U/OQvvboc36-62Peh [facility] CenterComment on above:Performed By: #### CMP #### [facility] [address] [address] [address] Jennifer PeraltaBilirubin [Mass/Vol]0.4 mg/dLNormal0.2-1.3The [facility] Comment on above:Performed By: #### CMP #### [facility] [address] [place] [address] Dr. Jennifer PeraltaCalcium [Mass/Vol]8.8 mg/dLNormal8.4-10.2[facility] Comment on above:Performed By: #### CMP #### [facility] [address] [place] [address] Dr. Jennifer PeraltaChloride [Moles/Vol]100 mmol/ALtqojp73-622Nny [facility] Comment on above:Performed By: #### CMP #### [facility] [address] [place] [address] Dr. Jennifer PeraltaCO2 [Moles/Vol]30.1 mmol/LCritically high22.0-30.0The [facility] CenterComment on above:Performed By: #### CMP #### [facility] [address] [place] [address] Dr. Jennifer PeraltaCreatinine [Mass/Vol]0.93 mg/dLNormal0.66-1.25The [facility] CenterComment on above:Performed By: #### CMP #### [facility] [address] [place] [address] Dr. Jennifer FioreGFR-AF SENEGALESE>60Normal>=60The [facility] CenterComment on above:Performed By: #### CMP #### [facility] [address] [place] [address] Dr. Jennifer FioreGFR-NON AF SENEGALESE>60Normal>=60The [facility] CenterComment on above:Performed By: #### CMP #### [facility] [address] [place] [address] Dr. Jennifer PeraltaGlobulin (S) [Mass/Vol]3.9 g/dLNormalThe [facility] CenterComment on above:Performed By: #### CMP #### [facility] [address] [address] [address] Jennifer PeraltaGlucose [Mass/Vol]95 mg/gDIdpgys85-135Oph [facility] Comment on above:Performed By: #### CMP #### [facility] [address] [address] [address] Jennifer PeraltaPotassium [Moles/Vol]4.3 mmol/LNormal3.4-5.0The [facility] Comment on above:Performed By: #### CMP #### [facility] [address] [place] [address] Dr. Jennifer PeraltaProtein [Mass/Vol]7.2 g/dLNormal6.1-8.2[facility] Comment on above:Performed By: #### CMP #### [facility] [address] [place] [address] Dr. Jennifer PeraltaSodium [Moles/Vol]135 mmol/LCritically fof548-409Kil [facility] CenterComment on above:Performed By: #### CMP #### [facility] [address] [place] [address] Dr. Jennifer PeraltaUrea nitrogen [Mass/Vol]17.0 mg/dLNormal9.0-20.0[facility] CenterComment on above:Performed By: #### CMP #### [facility] [address] [place] [address] Dr. Jennifer Cuevas nitrogen/Creatinine [Mass ratio]18.3 mg/mgNormalThe [facility] CenterComment on above:Performed By: #### CMP #### [facility] [address] [place] [address] Dr. Jennifer Baird RATE ERICSONERGRENon 41-97-0418ZHU RATE76 mm/hrCritically high <=20The [facility] CenterComment on above:Performed By: #### SEDR #### [facility] [address] [place] [address] Dr. Jennifer Martínez Summary.on 47-96-6291Phnqec Summary.CODING DATE: 11/27/2018 FINAL [facility] STATUS: Home (Routine DC) PAYOR: Bobbi APC DESCRIPTION 5115 Level 5 Musculoskeletal Procedures ADMIT DX: REASON [...] PROC APC STAT DESCRIPTION DOCTOR NAME DATE 01540 0737 J1 Arthroplasty, knee, Pocos Zain GORDON 11/25/2018 condyle and plateau; medial AND lateral compartments with or without patella resurfacing (total knee arthroplasty) RT Right side (used to identify procedures performed on the right side of the body) 41925 Injection, anesthetic Florencio Ignacio MD 11/25/2018 agent; femoral nerve, single RT Right side (used to identify procedures performed on the right side of the body) XP Separate practitioner, a service that is distinct because it was performed by a different practitioner [id number] Anesthesia for open or Florencio Ignacio MD 11/25/2018 surgical arthroscopic procedures on knee joint; total knee arthroplasty NOTE: The code number assigned matches the documented diagnosis and / or procedure in the patient's chart. However, the narrative phrase printed from the coding software may appear abbreviated, or result in slightly different terminology. Revised Coded By: Rosina Machado Revised Date Saved: 11/27/2018 11:46 [facility] Operative Reporton [id number] ReportDate of Surgery: 11/25/2018 SURGEON: Florencio Ignacio M.D. [...] procedure. Florencio Ignacio M.D. aek Dictated: 11/25/2018 #[id number] Typed: 11/25/2018 #[id number] cc: Florencio Ignacio M.D.[facility] HospitalComment on above: Result Comment: Electronically Signed By: Florencio Ignacio MD\.br\Date and Time Signed: 11/27/18 15:00 EDTProgress Note-Physicianon [id number] Note-PhysicianPatient: ANGUS LUCIO Age: 63 years Sex: Male [...] Oral, q4hr PRN Pain/Fever, Routine, Start date 199:00:00 EDT Vitamin C 500 mg Tab: 500 [...] constipation, # 40 cap(s), Refills(s) 0, Pharmacy: [facility]/pharmacy #[id number] Ecotrin 325 mg Tab-EC: 325 mg = 1 tab(s), Oral, BIDPC, # 60 tab(s), Refills(s) 0, Pharmacy: [facility]/pharmacy #[id number] Percocet 325 mg-5 mg Tab: See Instructions, as needed for pain, 40 tab(s), Refill(s) 0, 1-2 orally every 4-6hrs as needed for pain Dx: M17.11, Z96.651 Duration: 7 days, [facility]/pharmacy #[id number] Documented Medications Documented [...] All Problems Rheumatoid arthritis / SNOMED CT 862858552 / Confirmed Smoker / SNOMED CT 878685637 / Confirmed Added secondary to documentation in Social History. Decreased vision / SNOMED CT 7218517409 / Confirmed left eye Osteoarthritis of knee / SNOMED CT 189373406 / Confirmed right Histories Past Medical History: No active or resolved past medical history items have been selected or recorded. Procedure history: inguinal hernia repair, right. Comments: 11/03/2018 15:39 - Janette JACQUES, Katlyn age 17 inguinal hernia repair with mesh. [...] midnight the night before surgery and wear inthe day of surgery. - 11/03/2018 15:50 - Katlyn Savage RN. Physical Examination Pain assessment: Self-reports no pain. Airway: Mallampati classification: II (soft palate, fauces, uvula visible). Distance: Adequate. Mouth: Adequate opening. Neck: Full range of motion. Respiratory: Respirations are non-labored. Cardiovascular: Regular rhythm. Neurologic: Alert, Oriented. Review / Management Results review: No qualifying data available. Plan [place] [employer] (ASA) physical status classification: [...] and lungs, allergic reactions, failed block and ..[facility] HospitalComment on above:Result Comment: Electronically Signed By: Mateus FLEMING, Florencio\.br\Date and Time Signed: 11/27/18 14:59 EDTAuto Diffon [id number]/100 WBC (Bld)0.1 %Normal 0.0-2.0City HospitalComment on above:Order Comment: Order Added by Discern Expert.Performed By: #### [id number], [id number], [id number], [id number], [id number], [id number] #### [facility] [address] [place] [address] [id number]/Leukocytes Auto (Bld) [Pure # fraction]0.0 E9/LNormal 0.0-0.2FGrand Lake Joint Township District Memorial HospitalComment on above:Order Comment: Order Added by Discern Expert.Performed By: #### [id number], [id number], [id number], [id number], [id number], [id number] #### [facility] [address] [place] [address] 44988Bgyvtbqzkgu/100 WBC (Bld)1.1 %Normal0.0-8.0City HospitalComment on above:Order Comment: Order Added by Discern Expert.Performed By: #### [id number], [id number], [id number], [id number], [id number], [id number] #### [facility] [address] [place] [address] 93054Ykaovvhyvug/Leukocytes Auto (Bld) [Pure # fraction]0.1 E9/L Normal0.0-0.5FGrand Lake Joint Township District Memorial HospitalComment on above:Order Comment: Order Added by Discern Expert.Performed By: #### [id number], [id number], [id number], [id number], [id number], [id number] #### [facility] [address] [place] [address] 33379Qmhjbpcchpr/100 WBC (Bld)25.4 %Jzzhfd23.0-50.0City HospitalComment on above:Order Comment: Order Added by Discern Expert. Performed By: #### [id number], [id number], [id number], [id number], [id number], [id number] #### [facility] [address] [place] [address] 98874Xdabhsjbrxs/Leukocytes Auto (Bld) [Pure # fraction]2.1 E9/L Normal1.0-4.0City HospitalComment on above:Order Comment: Order Added by Discern Expert.Performed By: #### [id number], [id number], [id number], [id number], [id number], [id number] #### [facility] [address] [place] [address] 39005Ylgznzatb/100 WBC (Bld)9.5 %Normal4.0-14.0City HospitalComment on above:Order Comment: Order Added by Discern Expert.Performed By: #### [id number], 2737989, 2278655, 44876042, 3438683, 5507245 #### [facility] [address] [place] [address]53[address]Kljxhxhgh/Leukocytes Auto (Bld) [Pure # fraction]0.8 E9/LNormal 0.2-1.0City HospitalComment on above:Order Comment: Order Added by Discern Expert.Performed By: #### 0685611, 9342984, 9996855, 33832317, 4489946, 2771011 #### [facility] [address] [place] [address] 385[address]Ioxvynyqcnh/100 WBC (Bld)63.9 %Dgydxa26.0-75.0City HospitalComment on above:Order Comment: Order Added by Discern Expert. Performed By: #### 4047389, 8104902, 5980589, 23778749, 8193238, 0579043 #### [facility] [address], [place] [address]Dgwyjdlmhkg/Leukocytes Auto (Bld) [Pure # fraction]5.2 E9/L Normal2.0-7.5FGrand Lake Joint Township District Memorial HospitalComment on above:Order Comment: Order Added by Discern Expert.Performed By: #### 6005957, 1921601, 0230441, 95397131, 5265993, 2303290 #### [facility] [address] [place] [address] 566[address]QFRnu 70-32-4452Cnrk nitrogen [Mass/Vol]19 mg/dLNormal5-21 City HospitalComment on above:Performed By: #### 3107743, 9315943, 8011040, 27331392, 0179980, 7959588 #### [facility] [address], [place] [address]WWR w/ Auto Diffon 23-73-4252Dcjjuoadcyz distribution width (RBC) [Ratio]16.1 %High10.9-14.2FGrand Lake Joint Township District Memorial HospitalComment on above: Performed By: #### 0036453, 2382320, 0834837, 80423125, 6327838, 3617571 #### [facility] [address] [place] [address] 66[address]Uwioqxvawn (Bld) [Volume fraction]34.8 %Low37.7-49.0City HospitalComment on above:Performed By: #### 4823535, 9701541, 0774670, 60365950, 1072112, 3184419 #### [facility] [address], [place] [address]Dyugdaszrn (Bld) [Mass/Vol]11.6 g/dLLow13.5-17.5FGrand Lake Joint Township District Memorial HospitalComment on above:Performed By: #### 3676577, 6119180, 3405556, 08796190, 1665065, 3512791 #### [facility] [address] [place] [address] 55189BVN (RBC) [Entitic mass]33.0 kbYootsb19.0-34.0City HospitalComment on above:Performed By: #### 0182687, 3690474, 6268905, 64298589, 5758989, 2817263 #### [facility] [address], [place] [address]RECF (RBC) [Mass/Vol]33.5 g/oQSbewjb70.3-35.7FGrand Lake Joint Township District Memorial HospitalComment on above:Performed By: #### 4822932, 9850933, 9833769, 64161043, 9337308, 2864881 #### [facility] [address] [place] [address]OVS (RBC) [Entitic vol]98.6 aWQnlaap00.0-100.0City HospitalComment on above:Performed By: #### 8934897, 0459579, 7694295, 94901096, 4370061, 1925609 #### [facility] [address] [place] [address] 95[address]Ihqdafkq mean volume (Bld) [Entitic vol]7.4 fLNormal6.4-10.8 City HospitalComment on above:Performed By: #### 7313274, 0994701, 4941729, 73645553, 1656605, 1456856 #### [facility] [address] [place] [address]Zoycofesv (Bld) [#/Vol]193.0 E9/VXexkwv597.0-500.0City HospitalComment on above:Performed By: #### 8933124, 6656023, 5965869, 95316873, 5677860, 7046756 #### [facility] [address] [place] [address] 701[address]BHW (Bld) [#/Vol]3.5 E12/LLow4.3-5.9[facility] Comment on above:Performed By: #### 6360895, 6591598, 3014726, 17859185, 8328051, 8004267 #### [facility] [address] [place] [address] 405[address]IUS corrected for nucl RBC Auto (Bld) [#/Vol]8.1 E9/LNormal 4.0-11.0City HospitalComment on above:Performed By: #### 3721109, 5386301, 9815313, 81821443, 8886219, 7288478 #### [facility] [address] [place] [address] 25573Xjpwznyazkht 76-80-6245Rtirsewaui [Mass/Vol]0.8 mg/dLNormal 0.5-1.3FGrand Lake Joint Township District Memorial HospitalComment on above:Performed By: #### 6705934, 5142937, 6942293, 51700415, 1226794, 6725857 #### [facility] [address] [place] [address] 00886Ksvwxpksq Note-Nursingon 89-61-1682Fxkqfanhc Note-Nursing Patient provided with discharge instructions, education and extra mepilex dressing. Patient states no questions or concerns. Patient taken by wheelchair to patient pick-up by Cynthia SULLIVAN.[facility] HospitalInpatient Clinical Summaryon 32-96-0626Epzyprxjo Clinical Summary [address] [address] Clinical Summary Person Information: Name: ANGUS LUCIO Age: 63 Years : 1955 12:00 AM Sex: Male PCP: Junito Garcia MD Marital Status: Phone: [phone] Race: White Ethnicity: Non- or Language: Mosotho Visit Id: Visit Reason: RIGHT KNEE OA Speciality: Acuity: Enc Type: Ambulatory/Same Day Surgery Med Service: Surgery Arrival: 11/25/2018 10:09 AM Discharge: Dispo Type: Address: [address] [place] [phone] Provider Notes: Diagnosis: Problems Active Smoker Smoking [...] Mouth every 4 hours as needed Pain/Fever. acetaminophen-oxycodone (Percocet 325 mg-5 mg Tab) 1-2 orally [...] times a day as needed for constipation. Refills:0. folic acid (folic acid 1 mg Tab) [...] Coughlin DO Follow up: With: Address: When: Zani Coughlin [address] [phone] Business (1) 12/24/2018 10:30 AM With: Address: When: Junito Garcia [address] [place] [address], [facility] [place] [phone] Business (1) Comments: Call if needed. Patient Education Information: [place] - Total Knee Arthroplasty. Revised 07/11/11. (Custom)[facility] HospitalInpatient Patient Summaryon 54-92-1537Yolzpvvrj Patient Summary [place] [id number] Patient Discharge Instructions PERSON INFORMATION Name: ANGUS LUICO Date of : 1955 12:00 AM Current [...] Follow up: With: Address: When: Zain Coughlin [address] [place], [place] [phone] Business (1) 12/24/2018 10:30 AM With: Address: When: Junito Garcia [address] [place] [address] [place] [address] Business (1) Comments: Call if needed. In the event that this physician does not participate in your insurance network, please consult with your insurance company to find a nearby participating provider. Comment: INAVEED GARY T, have received the attached patient education materials/instructions and have verbalized understanding: Patient Signature Date Clinican/Nurse Signature Date HERE ARE THE MEDICATION CHANGES THAT OCCURRED DURING YOUR HOSPITAL STAY New Medications Other Medications acetaminophen (Tylenol 325 mg Tab) 2 Tabs By Mouth every 4 hours as needed Pain/Fever. Last Dose: Next Dose: ascorbic acid (Vitamin C 500 mg Tab) 1 Tabs By Mouth twice a day (with meals). Last Dose: Next Dose: magnesium hydroxide (Milk of Magnesia 8% Susp-Oral) 30 Milliliter By Mouth 2 times a day as needed Constipation. Last Dose: Next Dose: Medications to Continue Taking That Have Changed [facility]/pharmacy #[id number], [address] [place], [place] [id number], [phone] START: aspirin (Ecotrin 325 mg Tab-EC) 1 Tabs By Mouth twice a day (after meals). Refills: 0. Last Dose: Next Dose: STOP: aspirin (aspirin 81 mg Oral EC Tab) 1 Tabs By Mouth every day. Other Medications START: nicotine (nicotine 21 mg/24 hr Transderm ER Film) 1 Patches Transdermal every day. Last Dose: Next Dose: Medications to Continue with No Changes [facility]/pharmacy #[id number], [address], [place] [id number], [phone] acetaminophen-oxycodone (Percocet 325 mg-5 mg Tab) 1-2 orally every 4-6hrs as needed for pain Dx: M17.11, Z96.651 Duration: 7 days; as needed as needed for pain. Refills: 0., 1-2 orally every 4- 6hrs as needed for pain Last Dose: Next Dose: docusate (Colace 100 mg Cap) 1 Capsules By Mouth 2 times a day as needed for constipation. Refills:0. Last Dose: Next Dose: Other Medications folic acid (folic acid 1 mg Tab) 1 Tabs By Mouth every day. Last Dose: Next Dose: methotrexate (methotrexate 2.5 mg Tab) 10 Tabs By Mouth every 7 days. Last Dose: Next Dose: omeprazole (omeprazole 20 mg Cap-DR) 1 Capsules By Mouth every day. Last Dose: Next Dose: predniSONE (predniSONE 5 mg Tab) 1 Tabs By Mouth every day as needed Arthritis. states takes 1 daily for 2 or 3 days only when has a flare up of his arthritis. Last Dose: Next Dose: tofacitinib (Xeljanz XR 11 mg oral tablet, extended release) 1 Tabs By Mouth every day. Last Dose: Next Dose: No Longer Take the Following Medications celecoxib (CeleBREX 200 mg Cap) 1 Capsules By Mouth every day. Comment: MEDICATION LIST PROVIDED FOR YOU IS A LIST OF YOUR CURRENT MEDICATIONS. PLEASE CARRY THIS WITH YOU AT ALL TIMES. acetaminophen (Tylenol 325 mg Tab) 2 Tabs By Mouth every 4 hours as needed Pain/Fever. acetaminophen-oxycodone (Percocet 325 mg-5 mg Tab) 1-2 orally [...] times a day as needed for constipation. Refills:0. folic acid (folic acid 1 mg Tab) [...] Tabs By Mouth every day. Pharmacy Information: [facility] [place] , Other: [facility] Comment: PATIENT EDUCATION INFORMATION Instructions: [place], [place] [facility] DISCHARGE INSTRUCTIONS TOTAL KNEE ARTHROPLASTY INCISION CARE: Continue the daily dressing care to the knee as instructed in the hospital for 7 days postoperatively. The dressing will then be changed and worn an additional 7 days. You may then discontinue the dressing changes. Please notify the office if any increase in redness, tenderness, drainage, fever, orwound separation is noted. Compression stockings may be [...] continue to use the pain medication every fourhours as needed. Any narcotic pain medication can [...] will continue at home, possible with the assistant professor surgical technology of Home Health Physical Therapy or in the hospital as an outpatient. When you have become independent withthe physical therapy program, this will then be discontinued as a supervised program and you will be instructed to continue the physical therapy exercises at home. Your exercises are fields to successful rehabilitation. You should gain full extension first, hopefully before hospital discharge, then continue to do the exercises to maintain this, and gain 90 degreesflexion by one month post-op. Do the exercises daily, twice if preferred. DRIVING: Do NOT Drive FOLLOW-UP OFFICE VISIT: 4 weeks postop. Zain Coughlin, DO [facility] [address] [place] [phone] Reviewed: 08-25 Revised 05/31 Medication Leaflets: Thank you for choosing [facility] [place] [facility] HospitalInterdisciplinary Note - Case Manageron 11-26-2018 Interdisciplinary Note - Case ManagerPt is awake and alert in chair. PCP verified and insurance information reviewed. DME discussed. Contact inforrmation provided and white board updated. Pt is with [facility] program for therapy [place]. Aware of anticiapted DC home today and has transportation at [place]. Observation status discussed. Denies any further concerns or DC needs.[facility] HospitalInterdisciplinary Note - OTon 97-89-0115Zfeavrfqwlmvougap Note - OTOT eval completed this date. Pt ind with dressing without need for equipment, has DME for tub/shower. May need toilet safety frame to avoid pulling on pedestal sink. Recommend ortho 360 program assess further. Educated pt on walker safety and provided walker bag. Daughter can assist with groceries, some cleaning and laundry prn. No further OT needs at this time.[facility] HospitalLyteson 31-75-6919Xtnok gap [Moles/Vol]12 mmol/LNormal6-16[facility] Comment on above:Performed By: #### 5618672, 7229713, 3111985, 02312066, 8141120, 8016115 #### [facility] [address], [place] [address]Sevqaeem [Moles/Vol]99 mmol/BHlk720-311RyprvwCity HospitalComment on above:Performed By: #### 2722661, 6463998, 6674354, 08026463, 7253921, 6813862 #### [facility] [address], [place] [address]RM1 [Moles/Vol]24 mmol/IQhmgeq32-25CrkvlxCity Hospital Comment on above:Performed By: #### 7950042, 3722292, 8073891, 14556451, 2095769, 1361287 #### [facility] [address], [place] [address]Rbuzqfpaq [Moles/Vol]4.3 mmol/LNormal3.5-5.3[facility] HospitalComment on above:Performed By: #### 8129024, 1843331, 8972249, 30460079, 8262844, 9969271 #### [facility] [address] [place] [address]Ngmgcj [Moles/Vol]131 mmol/KRpv115-105Krafdz [facility] HospitalComment on above:Performed By: #### 6855394, 4380168, 7194575, 50412202, 2741807, 2516724 #### [facility] [address] [place], [place] [address]Mtgn OR Intraoperative Recordon 50-48-7337Khzx OR Intraoperative RecordIntraOp Document Type FT Summary Primary Physician: Zain Coughlin DO Finalized Date/Time: 11/26/18 10:56:45 Pt. Name: ANGUS LUCIO/Sex: 1955 Male Med Rec #: [id number] Physician: Zain Coughlin DO Financial #: [id number] Pt. 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 Last Modified By: Ileana RN, Todd Tejeda RN, Todd Tejeda RN, Todd Durand 11/25/18 13:51:47 11/25/18 13:51:47 11/25/18 13:51:47 Entry 4 Entry 5 Entry 6 Case Attendee Ileana JACQUES, Todd Mccloud RN, Mike Garcia CST, May Donald Role Performed Masonry Supervisor - Primary Masonry Supervisor - Primary Scrub - Primary Time In 11/25/18 11:37:00 11/25/18 11:57:00 11/25/18 11:37:00 Time Out 11/25/18 13:49:00 11/25/18 13:49:00 11/25/18 13:49:00 Procedure KNEE TOTAL KNEE TOTAL KNEE TOTAL ARTHROPLASTY(Right) ARTHROPLASTY(Right) ARTHROPLASTY(Right) Comments Last Modified By: Ileana JACQUES, Todd Tejeda RN, Todd Tejeda RN, Todd Durand 11/25/18 13:51:47 11/25/18 13:51:47 11/25/18 13:51:47 Entry 7 Entry 8 Entry 9 Case Attendee Amanda PRETTY, Nancy Mon RN, Michael Mehta RN Role Performed Scrub - Other Staff - Other Staff - Other Time In 11/25/18 11:37:00 11/25/18 11:37:00 11/25/18 11:37:00 Time Out 11/25/18 13:49:00 11/25/18 11:51:00 11/25/18 12:07:00 Procedure KNEE TOTAL KNEE TOTAL KNEE TOTAL ARTHROPLASTY(Right) ARTHROPLASTY(Right) ARTHROPLASTY(Right) Comments IN ORIENTATION Last Modified By: Ileana JACQUES, Todd L IleanaTodd cardona RN, RN, Andrea L 11/25/18 13:51:47 11/25/18 13:51:47 11/25/18 13:51:47 General Comments: King Shipley, [facility] rep, present in the OR for [...] and tissue Entry 1 Skin Integrity Intact, [place], Warm, and Skin Abnormality No Dry Outcomes [...] Checked Yes By Eleanor [address]la Krupp RN, Billy England RN, Miguel Outcomes Met? Yes Last Modified [...] Tejeda RN, RN, Todd Altamirano RN 11/25/18 10:33:40 11/25/18 [...] due to electrical sources, and evaluates for signsand symptoms of electrical injury Entry 1 ESU [...] Garcia CST, Churchill CST, Jose Dolan CST, Gwen E, McClain CST, Nancy Mccloud RN, Mike Mccloud RN, [...] Draping Hair Removal Methods Not Indicated By Rogers JACQUES, Mike Durand Outcomes Met? Yes Last Modified By: Todd [...] Items BANDAGE ELASTIC DOUBLE 6 X 11YD [T249-16T][F] Site and Details right knee- 10 inch [...] safely administered during the perioperative period For [place] please see scanned medication reconcilliation form for medications used at the field during the procedure. Tourniquet FT Pre-Care Text: Implements protective measures to prevent skin/tissue injury due to mechanical sources Entry 1 Tourniquet Type TOURNIQUET CUFF ROYAL Setting 250 mmHg BLUE 30 X 4 [[id number]][F] Equipment Number D Placement Right Upper Thigh [...] universal tibial baseplate Serial Number Lot Number [id number] Load Number Texture Artist [facility] [employer] [facility] Catalog ?# [id number] [...] Reconstitution Method Outcomes Met? Yes Yes Yes Texture Artist Model Number Last Modified By: Ileana JACQUES, Todd Tejeda RN, Todd Tejeda RN, Todd Durand 11/25/18 12:22:15 11/25/18 13:06:25 11/25/18 13:08:45 Entry 4 Entry 5 Entry 6 Procedure KNEE TOTAL KNEE TOTAL KNEE TOTAL ARTHROPLASTY(Right) ARTHROPLASTY(Right) ARTHROPLASTY(Right) Implant/Explant Implant Implant Implant Implant Identification FT Description Triathlon posterior Triathlon X3 Asymmetric Triathlon Offset Adaptor stabilized femoral Patella Serial Number Lot Number [id number] Load Number Texture Artist [employer] Catalog ?# [id number] Size # [...] Reconstitution Method Outcomes Met? Yes Yes Yes Texture Artist Model Number Last Modified By: Ileana JACQUES, Todd Tejeda RN, Todd Tejeda RN, Todd Durand 11/25/18 13:10:38 11/25/18 13:17:54 11/25/18 13:19:37 Entry 7 Procedure KNEE TOTAL ARTHROPLASTY(Right) Implant/Explant Implant Implant Identification FT Description Triathlon X3 Tibial Bearing Insert- PS Serial Number Lot Number [id number] Load Number Texture Artist [employer] Catalog ?# [id number] Size 7 Expiration Date 10/08/20 Manufactured Date Materials Unique Device Identifier (SANTI) Human Readable Barcode Machine Readable Barcode Usage Data FT Implant Site Knee R Implant Site Comment Quantity 1 Implant/Explant Date Implanted By Zain Coughlin DO Explant Reason Biological Implants Biological Source Donor Number MR Classification Temperature Reconstitution Method Outcomes Met? Yes Texture Artist Model Number Last Modified By: Todd Tejeda RN 11/25/18 13:38:06 Post-Care Text: The patient is free from signs and symptoms of injury caused by extraneous objects Urinary Catheter Pre-Care Text: Patient is prepped using sterile technique. Entry 1 Urinary Catheter TRAY URINE TEQUILA CATH Present Upon Arrival No Inserted LF 16FR [[id number]][F] Insertion Date/Time 11/25/18 11:52:00 Urine Residual 40 Insertion Site Uretheral Urine CLEAR, YELLOW URINE Characteristics OUTPUT Inserted By Michael Cervantes RN? No Outcomes Met? Yes Last Modified By: Todd Tejeda RN 11/25/18 12:02:42 Post-Care Text: The patient is free from signs of trauma. Cultures and Specimens FT Pre-Care Text: Manages specimen handling and disposition Manages culture specimen collection Entry 1 Cultures Ordered Yes Culture Disposition Lab Culture Source URINE FROM LEON Specimens Ordered Yes CATHETER Specimen Disposition Designated [...] BLANKET MISTRAL AIR Quantity 1 Aid TORSO [[id number]][F] Fluid/Verbank Unit Mistral warming system Setting 43 C/ HIGH Body Site Upper anterior torso Last Modified By: Todd Tejeda RN 11/25/18 11:35:56 Case Comments Finalized By: Franci Ignacio CST Document Signatures Signed By: Todd Tejeda RN 11/25/18 13:52 Franci Ignacio CST 11/26/18 10:56[facility] HospitalPatient Education - Texton 17-46-0533Xabgqpk Education - TextEvangeline, [place] [facility] DISCHARGE INSTRUCTIONS TOTAL KNEE ARTHROPLASTY INCISION CARE: Continue the daily dressing care to the knee as instructed in the hospital for 7 days postoperatively. The dressing will then be changed and worn an additional 7 days. You may then discontinue the dressing changes. Please notify the office if any increase in redness, tenderness, drainage, fever, orwound separation is noted. Compression stockings may be [...] continue to use the pain medication every fourhours as needed. Any narcotic pain medication can [...] will continue at home, possible with the assistant professor surgical technology of Home Health Physical Therapy or in the hospital as an outpatient. When you have become independent withthe physical therapy program, this will then be discontinued as a supervised program and you will be instructed to continue the physical therapy exercises at home. Your exercises are fields to successful rehabilitation. You should gain full extension first, hopefully before hospital discharge, then continue to do the exercises to maintain this, and gain 90 degreesflexion by one month post-op. Do the exercises daily, twice if preferred. DRIVING: Do NOT Drive FOLLOW-UP OFFICE VISIT: 4 weeks postop. Zain Coughlin, DO [facility] [address] [place] [address] Reviewed: 08-25 Revised 05/31[facility] HospitalProgress Note-Physicianon 39-84-3798Kvozeomh Note-PhysicianDAILY PROGRESS NOTE: 11/26/2018 HISTORY: Angus is seen [...] planning is underway for home discharge with [place] [address] program. Zain Coughlin D.O. joanna Dictated: 11/26/2018 #[id number] Typed: 11/26/2018 #[id number] cc: Jameel. Pocos, D.O.[facility] HospitalComment on above:Result Comment: Electronically Signed By: Zain Coughlin DO\Date and Time Signed: 11/26/18 12:26 EDTeGFRon 64-88-8358UEC/1.73 sq M predicted among blacks MDRD (S/P/Bld) [Vol rate/Area]mL/min/{1.73_m2}Normal>=[address] [place] [address] Comment on above:Order Comment: Order added by Discern Expert.Result Comment: eGFR is race adjusted. AA=.Performed By: #### 3820191, 0746693, 0648426, 39855234, 4767306, 9224852 #### [facility] [address], [place] [address]GIU/1.73 sq M predicted among non-blacks MDRD (S/P/Bld) [Vol rate/Area]mL/min/{1.73_m2}Normal>=[address] [place], [place] [address]Comment on above: Order Comment: Order added by Discern Expert.Result Comment: Chronic kidney disease could be indicated at eGFR's of less than 60 mL/min/1.73m2. Kidney failure is indicated at less than 15 mL/min/1.73m2.Performed By: #### 3913081, 5830831, 7841571, 39788229, 2655822, 7128997 #### [facility] [address], [place] [address]KYV/Rhon 99-17-9828FCE/RhPositiveCity Hospital Comment on above:Performed By: #### 7583279, 8435237, 1746427, 71679593, 0081206, 3869923 #### [facility] [address], [place] [address]JOB/Rh History Checkon 31-71-8488UDT/Rh History CheckVerified Hx Blood TypeNormalCity HospitalComment on above:Performed By: #### 6298670, 3516344, 2942635, 01140077, 1340252, 8240068 #### [facility] [address], [place] [address]OHNEza 50-16-8904WTTW Gel InterpNegativeOhioHealth Dublin Methodist HospitalComment on above:Performed By: #### 3090220, 8498920, 1607308, 75520996, 0947347, 3976722 #### [facility] [address], [place] [address]Rngcg Bank ID#on [id number]#[id number] HospitalComment on above:Performed By: #### 2391254, 7827657, 5123213, 32754352, 3933556, 2363350 #### [facility] [address], [place] [address]Gvazmwthrbkfqfnqo Note - Case Manageron 11-25-2018 Interdisciplinary Note - Case Managerdc planning done at this time. I called patient on phone. insurance, DME, PCP verified. pt from home with family and will transport at mo. pending therapy eval. obs admit. pt has FWW in room. pt is ortho 360, call [phone] ext [phone] at mo. anticipated dc 11/26. CRM following. [facility] HospitalInterdisciplinary Note - PTon 11-25-2018 Interdisciplinary Note - PTPT Evaluation completed with an AM PAC score of 18/24. Pt performed bed mobility with CGA and transfers with CGA/min A. pt was able to ambulate 70 feet with FWW with CGA. Will follow daily with recomm [facility]ationsOhio[facility] HospitalMain OR PACU I Recordon 27-66-9573Wydt OR PACU I RecordPACU Phase I Document Type FT Summary Primary Physician: Zain Coughlin DO Finalized Date/Time: 11/25/18 14:46:08 Pt. Name: ANGUS LUCIO/Sex: 1955 Male Med Rec #: [id number] Physician: Zain Coughlin DO Financial #: [id number] Pt. Type: O Room/Bed: N318/ Admit/Disch: 11/25/18 [...] individualized perioperative plan of care The patient's rightto privacy is maintained The patient's value system, [...] with or improved from baseline levels established preoperativelyThe patient's cardiovascular status is consistent with or improved from baseline levels established preoperatively The patient's cardiovascular status is consistent with or improved from baseline levels established preoperatively The patient demonstrates and/or reports adequate pain control throughout the perioperative period The patient received appropriate medication(s), safely administered during the perioperativeperiod Acuity Level PACU I FT Entry 1 Start Time 11/25/18 13:49:00 Stop Time 11/25/18 14:19:00 Acuity Level Acuity Level I Last Modified By: Olga Lidia Ornelas RN 11/25/18 14:46:06 Finalized By: Olga Lidia Ornelas RN Document Signatures Signed By: Olga Lidia Ornelas RN 11/25/18 14:46NormalFisher Platte Medical CenterMain OR Preoperative Recordon [id number] OR Preoperative RecordPreOp Document Type FT Summary Primary Physician: Alta GORDON Zain Montano Finalized Date/Time: 11/25/18 12:12:50 Pt. Name: ANGUS LUCIO /Sex: 1955 Male Med Rec #: [id number] Physician: Zain Coughlin DO Financial #: [id number] Pt. Type: A Room/Bed: [place] [address] Admit/Disch: 11/25/18 10:09:49 - Institution: Case Times [...] Signatures Signed By: Todd Tejeda RN 11/25/18 12:12[facility] HospitalOperative Reporton [id number] ReportDate of Surgery: 11/25/2018 SURGEON: Zain Coughlin D.O. POPULATION HEALTH MANAGER: Koko Longoria D.O. PREOPERATIVE DIAGNOSIS: Right knee [...] tourniquet time. COMPLICATIONS: None COMPLICATIONS: None IMPLANT: [place] total knee system with a size 7 right posterior stabilized femur, a size 7 Thurston TS base plate with a 6 mm. [...] well padded tourniquet to the right thigh, Leon catheter, sandbag positioner to the table. The [...] wrap. The patient is transferred to the [facility] and taken to the Post-Anesthesia Care Unit in stable condition. He will remain hospitalized this day. Jaskaran Noriega Dictated: 11/25/2018 #[id number] Typed: 11/25/2018 #[id number] cc: Urbano Alvarenga D.O.[facility] HospitalComment on above:Result Comment: Electronically Signed By: Zain Coughlin DO\.br\Date and Time Signed: 11/25/18 16:30 EDTProgress Note-Physicianon 98-57-1977Dvvozwiu Note-Physician Patient: ANGUS LUCIO Age: 63 years Sex: Male : 1955 Associated Diagnoses: None Author: Zain Coughlin DO Postoperative Information Procedure: R TKA, complicated. Preoperative Diagnosis: R knee OA, instability. Postoperative Diagnosis: same. Performed by: alta. Buggy Man: osiris. Specimens Removed: bone, soft tissue. Estimated Blood Loss: 0 ml. Complications: None.NormalCity HospitalComment on above:Result Comment: Electronically Signed By: Zain Coughlin DO\.br\Date and Time Signed: 11/25/18 13:57 EDTUA With Cult Reflexon 31-63-8502Fdsokldhx Ql (U)NegativeNormal NegativeCity HospitalComment on above:Performed By: #### 2170687, 8773246, 8028551, 68479919, 4368860, 7605785 #### [facility] [address], [place] [address]Xygzvbr (U)CLEARNormalClearCity HospitalComment on above:Performed By: #### 4938006, 1745645, 4483248, 97957685, 7103722, 3048935 #### [facility] [address], [place] [address]Mgmql (U)YELLOWNormalYellowCity HospitalComment on above:Performed By: #### 2378784, 6986653, 5746738, 74953516, 0094486, 9748765 #### [facility] [address], [place] [address]Pzpogswivj cells.squamous LM.HPF (Urine sed) [#/Area]0-2Normal 0-2Fisher [facility] HospitalComment on above:Performed By: #### 5085092, 0397229, 8415626, 11606690, 3125605, 3836190 #### [facility] [address], [place] [address]Oayvowm Test strip (U) [Mass/Vol]NegativeNormalNegativeCity HospitalComment on above:Performed By: #### 5808006, 0899309, 2781213, 47996244, 5619341, 3320548 #### [facility] [address], [place] [address]Dmmpqocvtq Ql (U)TRACEAbnormalNegativeCity HospitalComment on above:Performed By: #### 3542384, 8323916, 5905723, 45404656, 1337928, 9195811 #### [facility] [address] [place] [address]Bzbsieg (U) [Mass/Vol]NegativeNormalNegativeCity HospitalComment on above:Performed By: #### 1084324, 7577334, 5005784, 13008556, 5972724, 5211915 #### [facility] [address] [place] [address] 99182Hgxhyfi.plasma/[place].RBC (Bld) [Mass ratio]3-6Amsraj9-3Wlemqk [facility] HospitalComment on above:Performed By: #### 4520343, 0450694, 0276847, 58597147, 0731913, 7443077 #### [facility] [address] [place] [address]Hghrg Ql (Urine sed)[facility] Comment on above:Performed By: #### 5157252, 4722807, 3412397, 35841792, 0892670, 3188339 #### [facility] [address] [place] [address]Zgsggop Ql (U)NegativeProgress West HospitalalNegMary [facility] Comment on above:Performed By: #### 6399712, 6807529, 2951046, 73501335, 0908485, 1127884 #### [facility] [address] [place] [address] 20087cL (U)6.5 [pH]5.0-9.0City HospitalComment on above:Performed By: #### 8285415, 1674410, 5108560, 57820801, 9744901, 7217725 #### [facility] [address] [place] [address] 69[address]Ziuabfc (U) [Mass/Vol]NegativeNormalNegativeCity HospitalComment on above:Performed By: #### 0216756, 2261907, 9397111, 93535543, 8339042, 3852469 #### [facility] [address] [place] [address] 53441Irpyeyjx gravity (U) [Rel density]1.0151.005-1.030City HospitalComment on above:Performed By: #### 1926412, 6856237, 7964838, 12414160, 0270984, 8098560 #### [facility] [address] [place] [address]OV Spec DescFoleyNormalCity HospitalComment on above:Performed By: #### 3920058, 8705958, 0129654, 27744136, 6180933, 1830544 #### [facility] [address] [place] [address]90[address]Kujjmgdiwdug Qn (U)0.2 {Katlin'U}/dLNormal0.0-1.0City HospitalComment on above:Performed By: #### 5393550, 4568113, 7591142, 23650619, 9621854, 7715235 #### [facility] [address] [place] [address] 45[address]GQI Auto Ql (U)NegativeNormalNegativeCity HospitalComment on above:Performed By: #### 9241382, 3157814, 8039545, 93747511, 2565373, 9928557 #### [facility] [address] [place] [address] 16631VRZ LM.HPF (Urine sed) [#/Area]2-4Aeccno6-8Hhvbnm [facility] HospitalComment on above:Performed By: #### 4681908, 3548519, 8559639, 04994110, 3982785, 3150845 #### [facility] [address] [place] [address] 10712RD Knee 1 or 2 Views Righton 58-27-6694WD Knee 1 or 2 Views RightExam Date/Time: 11/25/2018 14:18 EDT Reason for Exam: [...] Samuel Carr M.D. Transcribed by: LIZANDRO Technologist: OllieClermont County HospitalCoding Summary.on 06-27-8315Uxfkja Summary.CODING DATE: 11/10/2018 FINAL [facility] STATUS: Home (Routine DC) PAYOR: [employer] DESCRIPTION 5522 Level 2 Imaging without [...] Natalee Hinton CphT Date Saved: 11/10/2018 12:42 [facility] CenterBD Bone Density DEXAon 67-87-6212RB Bone Density DEXAExam Date/Time: 11/03/2018 15:14 EDT Reason for Exam: [...] Samuel Carr M.D. Transcribed by: LIZANDRO Technologist: [facility] HospitalABO/Rh Retypeon 31-91-4826BYS/Rh Retype InterosiSt. John of God Hospital Comment on above:Performed By: #### [id number] #### [facility] [address], [place] [address]ACMip 12-69-5052Ztiw nitrogen [Mass/Vol]15 mg/dLNormal5-21 City HospitalComment on above:Performed By: #### 4939903, 4202638, 5772945, 68213674, 4003587, 8906505 #### [facility] [address], [place] [address]QPP w/Indiceson 00-79-2408Mocpkqkzlqc distribution width (RBC) [Ratio]16.3 %High10.9-14.2FGrand Lake Joint Township District Memorial HospitalComment on above:Performed By: #### 4289971, 8524318, 8068723, 57153554, 1968392, 6793452 #### [facility] [address] [place] [address] 21568Fjgrktupzb (Bld) [Volume fraction]37.1 %Low37.7-49.0City HospitalComment on above:Performed By: #### 8128418, 7396740, 2404050, 98118818, 9871681, 7759612 #### [facility] [address] [place] [address]Rlkjlvipuk (Bld) [Mass/Vol]12.7 g/dLLow13.5-17.5FGrand Lake Joint Township District Memorial HospitalComment on above:Performed By: #### 2052317, 5152833, 3307445, 71666548, 7804261, 3483859 #### [facility] [address] [place] [address] 41028TUS (RBC) [Entitic mass]33.4 fbCdmuoi61.0-34.0City HospitalComment on above:Performed By: #### 2176688, 3280870, 1076401, 30719295, 9713456, 0828662 #### [facility] [address] [place] [address] 45467SHJG (RBC) [Mass/Vol]34.3 g/rOLvjswo48.3-35.7FGrand Lake Joint Township District Memorial HospitalComment on above:Performed By: #### 5679156, 1559197, 8572798, 11835111, 5549195, 4353274 #### [facility] [address] [place] [address] 55[address]EMG (RBC) [Entitic vol]97.5 jAUbqrhj74.0-100.0City HospitalComment on above:Performed By: #### 3706684, 7032461, 8194721, 92480802, 0884839, 8102677 #### [facility] [address] [place] [address] 16[address]Smuzihll mean volume (Bld) [Entitic vol]7.5 fLNormal6.4-10.8 City HospitalComment on above:Performed By: #### 6096163, 2664704, 5851664, 42207242, 0770744, 7561765 #### [facility] [address], [place] [address]Vrpmatliw (Bld) [#/Vol]249.0 E9/SPxlili483.0-500.0City HospitalComment on above:Performed By: #### 0968741, 9125428, 0647510, 98932110, 0634685, 6320645 #### [facility] [address] [place] [address] 12879KZE (Bld) [#/Vol]3.8 E12/LLow4.3-5.9[facility] Comment on above:Performed By: #### 2205542, 7017471, 5763873, 19403908, 9918650, 9197797 #### [facility] [address] [place] [address] 08393MOW corrected for nucl RBC Auto (Bld) [#/Vol]5.1 E9/LNormal 4.0-11.0City HospitalComment on above:Performed By: #### 5452929, 6008886, 1565615, 84409821, 7180054, 4759608 #### [facility] [address] [place] [address] 68892Elotaftzvcmm 35-60-2594Qhtkkipttt [Mass/Vol]0.8 mg/dLNormal 0.5-1.3FGrand Lake Joint Township District Memorial HospitalComment on above:Performed By: #### 0435944, 2144701, 8392169, 37538082, 4709646, 6941354 #### [facility] [address] [place] [address]Gthzyvysd 34-55-2516Ckjodrp [Mass/Vol]82 mg/iUBymsrw06-436 City HospitalComment on above:Performed By: #### 6136740, 8771727, 9883490, 00109516, 2577116, 7352085 #### [facility] [address], [place] [address]Sntezou 39-34-1529Bzrus gap [Moles/Vol]12 mmol/LNormal6-16 City HospitalComment on above:Performed By: #### 7612264, 9992163, 2335996, 27954289, 7618495, 9399776 #### [facility] [address], [place] [address]Cdxlakmr [Moles/Vol]103 mmol/AQemyxa103-398ZvnfqhCity HospitalComment on above:Performed By: #### 8153595, 7604094, 5643199, 14430783, 5291112, 4742937 #### [facility] [address] [place] [address] 316[address]FR8 [Moles/Vol]24 mmol/ZGvysij86-42NkeqtrCity Hospital Comment on above:Performed By: #### 5321111, 7753113, 2944953, 93366680, 2102322, 1891993 #### [facility] [address], [place] [address]Ghcfxcgow [Moles/Vol]3.9 mmol/LNormal3.5-5.3FGrand Lake Joint Township District Memorial HospitalComment on above:Performed By: #### 1841099, 4268575, 7513777, 40597519, 9937250, 4446737 #### [facility] [address], [place] [address]Msynhv [Moles/Vol]135 mmol/SIoephl700-897JtgjokCity HospitalComment on above:Performed By: #### 5304051, 0916929, 3751598, 72218886, 4111171, 2748320 #### [facility] [address], [place] [address]Rxdgerpxlmen 98-78-4098Ocjtyswbz Ql (U)NegativeNormalNegative City HospitalComment on above:Performed By: #### 11520659 #### [facility] [address], [place] [address]Rcigolf (U)CLEARNormalClearCone Health Medcenter High Pointer [facility] HospitalComment on above:Performed By: #### 47524562 #### [facility] [address], [place] [address]Rwcni (U)YELLOWNormalYellowCone Health Medcenter High Pointer [facility] HospitalComment on above:Performed By: #### 37047727 #### [facility] [address], [place] [address]Aebfxyfdxf cells.squamous LM.HPF (Urine sed) [#/Area]0-2Normal 0-2Fisher [facility] HospitalComment on above:Performed By: #### 91651017 #### [facility] [address], [place] [address]Ksxktea Test strip (U) [Mass/Vol]NegativeNormalNegativeCity HospitalComment on above:Performed By: #### 83025003 #### [facility] [address], [place] [address]Ioowolctmd Ql (U)NegativeNormalNegativeCity HospitalComment on above:Performed By: #### 96903213 #### [facility] [address], [place] [address]Nfiiwoj (U) [Mass/Vol]NegativeNormalNegativeCity HospitalComment on above:Performed By: #### 53932371 #### [facility] [address], [place] [address]Rywfvoo.plasma/[place].RBC (Bld) [Mass ratio]1-8Yuxmdi6-3Jiyzlx [facility] HospitalComment on above:Performed By: #### 74644165 #### [facility] [address], [place] [address]Kwboaqj Ql (U)NegativeNormalNegativeCity Hospital Comment on above:Performed By: #### 86918388 #### [facility] [address], [place] [address]zV (U)6.5 [pH]5.0-9.0City HospitalComment on above:Performed By: #### 64568952 #### [facility] [address] [place] [address] 399[address]Jogalfe (U) [Mass/Vol]NegativeNormalNegativeCity HospitalComment on above:Performed By: #### 50987916 #### [facility] [address] [place] [address]73[address]Vgaibhjm gravity (U) [Rel density]<=1.0051.005-1.030City HospitalComment on above:Performed By: #### 03712666 #### [facility] [address] [place] [address] 43246OZ Spec DescClean CatchNormalCity HospitalComment on above:Performed By: #### 71083511 #### [facility] [address] [place] [address] 40393Opusguabrbeh Qn (U)0.2 {Katlin'U}/dLNormal0.0-1.0City HospitalComment on above:Performed By: #### 60021225 #### [facility] [address] [place] [address] 91118RBK Auto Ql (U)NegativeNormalNegativeCity HospitalComment on above:Performed By: #### 27571672 #### [facility] [address] [place] [address] 18480YXY LM.HPF (Urine sed) [#/Area]7-0Etxpsg6-2Eagqzc [facility] HospitalComment on above:Performed By: #### 00477706 #### [facility] [address] [place] [address] 28940Zszyldw D 25 Hydroxyon 08-81-2451Ejuyktuxp [Mass/Vol]37.4 ng/mL Tltqui51.0-100.0City HospitalComment on above:Result Comment: Vitamin D deficiency has been defined as a level of serum 25-OH vitamin D less than 20 ng/mL (1,2) by the [place] of Medicine and an Endocrine Society practice guideline. The Endocrine Society further defined vitamin D insufficiency as a level between 21 and 29 ng/mL (2). 1. IOM ([place] of Medicine). 2010. Dietary reference intakes for calcium and D. [place]: The National Academies Press. 2. Talia MF, Katharina NC, Denny PEREZ, et al. Evaluation, treatment, and prevention of vitamin D deficiency: an Endocrine Society clinical practice guideline. JCEM. 2010; 96 (7):1911-30.Performed By: #### [id number] #### [facility] [address], [place] [address]AZ Chest 2 Viewson 51-16-2206CW Chest 2 ViewsExam Date/Time: 11/03/2018 15:19 EDT Reason for Exam: [...] Elie Cartagena MD Transcribed by: LIZANDRO Technologist: [facility] – OKLAHOMA CITYChelaClermont County HospitaleGFRon 51-57-2125VLT/1.73 sq M predicted among blacks MDRD (S/P/Bld) [Vol rate/Area] mL/min/{1.73_m2}Normal>=59City HospitalComment on above:Order Comment: Order added by Discern Expert.Result Comment: eGFR is race adjusted. AA=.Performed By: #### 7878506, 1025541, 2115212, 44925810, 2908101, 2199131 #### [facility] [address], [place] [address]CLP/1.73 sq M predicted among non-blacks MDRD (S/P/Bld) [Vol rate/Area]mL/min/{1.73_m2}Normal>=59FishGrace Medical CenterComment on above: Order Comment: Order added by Discern Expert.Result Comment: Chronic kidney disease could be indicated at eGFR's of less than 60 mL/min/1.73m2. Kidney failure is indicated at less than 15 mL/min/1.73m2.Performed By: #### 7751686, 3096486, 0773094, 12717424, 9808843, 5558491 #### [facility] [address] [place] [address] Encounters Encounter DateEncounter TypeCare ProviderFacilityStart: 03-27-2022 End: 14-36-2003urdecrsvrpPB DOCTOR MISCFacility:W6Slqdz: 10-02-2021 End: 14-24-8810iywgbcneauXV DOCTOR MISCFacility:U6Aiqbb: 07-04-2021 End: 97-89-1730galdkxzfspAI DOCTOR MISCFacility:O6Njznn: 04-04-2021 End: 54-80-2096bdkunqnmuvIY DOCTOR MISCFacility:H1 Payers DatePayer CategoryPayerPolicy [id number] Health [id number] ..[id number] [id number] 2..[id number] ..1.307778.3.579.2.00210-77-7492Qigscsp3977344 ..1.383529.3.579.2.593 Summary Purpose Family History No Family History [...] All Problems Rheumatoid arthritis / SNOMED CT 753034556 / Confirmed Smoker / SNOMED CT 865404059 / Confirmed Added secondary to documentation in Social History. Decreased vision / SNOMED CT 0807771850 / Confirmed left eye Osteoarthritis of knee / SNOMED CT 443139271 / Confirmed right Physical Examination Intake and [...] section and content) DATE CREATED AUTHOR 11/29/2018 [facility] DATE CREATED AUTHOR AUTHOR'S IRIS ATION 04/01/2022 [facility] FOR RECORDS PERTAINING TO PATIENTS WHO ARE [...] BE BASED ON THE PRIMARY CLINICAL RECORDS. [employer] provides no warranty or guarantee of the accuracy or completeness of information in this document.
--- OUTSIDE RECORDS SUMMARY | 2025-03-25 08:37 | XMS_ITS | Clinical Summary ---
Author Organization [facility] Healthcare Address [address] [place] [address] Care Team Providers Care Construction Coordinator Name Role Phone Unavailable Primary Care Provider Unavailabl e Social History Tobacco UseTypesPacks/DayYears UsedDateSmoking Tobacco: Never AssessedSex and Gender InformationValueDate RecordedSex Assigned at BirthNot on fileLegal Sex Male08/01/2022 6:35 PM EDTGender IdentityNot on fileSexual OrientationNot on file Last Filed Vital Signs Vital SignReadingTime TakenCommentsBlood Hcyrhxvb271/8701 12:00 PM EST Pulse--Temperature--Respiratory Rate--Oxygen Saturation--Inhaled Oxygen Concentration--Dujuzi05.5 kg (140 lb)11/23/2019 12:00 PM UVPOmcjsx430.3 cm (5' 9 )11/23/2019 12:00 PM EDTBody Mass Index20.6707 12:00 PM EDT Plan of Treatment Not on file
[2025-03-25 08:54] LABS: Hematocrit 41.9 % (42.0-54.0); Hemoglobin 13.9 g/dL (14.0-18.0); Immature Granulocytes Abs Auto 0.04 10^3/uL (0.00-0.03); Immature Granulocytes Pct Auto 0.4 % (0.0-0.5); Lymphocytes Absolute Auto 1.4 10^3/uL (1.2-3.8); Mean Corpuscular HGB Conc 33.2 g/dL (29.9-35.2); Mean Corpuscular Hemoglobin 33.4 pg (25.9-34.0); Mean Corpuscular Volume 100.7 fL (80.0-94.0); Platelet Count 277 10^3/uL (150-450); Red Blood Count 4.16 10^6/uL (4.70-6.10); White Blood Count 9.6 10^3/uL (4.0-11.0)
[2025-03-25 10:43] LABS: Alanine Aminotransferase 19 U/L (16-63); Albumin Globulin Ratio 0.9; Albumin Level 3.7 g/dL (3.4-5.0); Alkaline Phosphatase 90 U/L (46-116); Anion Gap 13.2; Aspartate Amino Transferase 28 U/L (15-37); Blood Urea Nitrogen 17.0 mg/dL (7.0-18.0); Calcium 9.2 mg/dL (8.5-10.1); Carbon Dioxide 27.6 mmol/L (21.0-32.0); Chloride 102 mmol/L (98-107); Estimated GFR (African America >60 (>=60 mL/min/1.73m^2); Estimated GFR (Non-African Ame >60 (>=60 mL/min/1.73m^2); Globulin 3.9 g/dL; Glucose 118 mg/dL (74-106); Potassium 4.8 mmol/L (3.5-5.1); Sodium 138 mmol/L (136-145); Total Protein 7.6 g/dL (6.4-8.2)
== END 2025-03-25 08:33 | disposition home or self-care (01) ==
LOC: LAB 08:34
PROVIDERS: PCP Family Medicine; Visit Provider Registered Nurse
DX: M05.79 Rheumatoid arthritis with rheumatoid factor of multiple sites without organ or systems involvement (principal); M15.0 Primary generalized (osteo)arthritis; Z79.899 Other long term (current) drug therapy
CPT/HCPCS: 36415; 80053; 85025; 85652